=== PATIENT | female | born 1990 | race Caucasian/White ===

== ENCOUNTER → 2018-01-05 16:25 | Outpatient (CLI) | payer MEDICAID, SELFPAY ==
[2018-01-05 16:29] LABS: Red Blood Cells-Urine 0 SEEN /hpf (0-5)
[2018-01-05 17:52] LABS: Absolute Lymphocyte Count 1.62 X10^3/ul (0.83-4.51); Absolute Neutrophil Count 6.1 X10^3/uL (2.0-7.7); Basophil# 0.02 X10^3/uL; Basophil% 0.2 % (0-1); Eosinophil# 0.14 X10^3/uL; Eosinophils% 1.6 % (0-5); Hematocrit 40.3 % (37-47); Hemoglobin 14.1 g/dl (12.0-15.0); Lymphocyte # 1.62 X10^3/ul (4.0); Lymphocyte % 18.9 % (19-41); Mean Corpuscular Hgb 32.3 pg (27.0-32.0); Mean Corpuscular Volume 92.4 fL (81-99); Mean Platelet Vol. 10.7 fl (6.2-12.0); Monocyte# 0.67 X10^3/uL; Monocyte% 7.8 % (0-10); Neutrophil # 6.13 X10^3/uL (2.7-7.7); Neutrophil % 71.4 % (47-70); Platelet Count 220 K/mm3 (150-450); RBC Distribution Width CV 12.3 % (11.6-14.6); RBC Distribution Width SD 40.5 fl (35.1-43.9); Red Blood Count 4.36 M/mm3 (4.2-5.4); White Blood Count 8.6 K/mm3 (4.4-11.0)
[2018-01-05 17:53] LABS: Color, Urine Yellow (Yellow); Glucose, Dipstick Normal (Normal); Ketone-Dipstick Negative (Negative); Leukocyte Esterase-Dipstick 25 /ul (Negative); Nitrite-Dipstick Negative (Negative); Occult Blood-Urine Negative /ul (Negative); POSITIVE COUNT NO; POSITIVE DIFFERENTIAL NO; POSITIVE MORPHOLOGY NO; Protein-Dipstick Negative (Negative); Urine Bilirubin Dipstick Negative (Negative); Urine Clarity Cloudy (Clear); Urine Urobilinogen Normal (Normal)
[2018-01-05 18:06] LABS: ALB/GLOB Ratio 1.2 RATIO (0.9-2.4); AST(SGOT) 13 U/L (15-37); Alanine Aminotransfer ALT/SGPT 22 U/L (13-56); Albumin, Serum 3.9 g/dL (3.2-5.0); Alkaline Phosphatase 72 U/L (45-117); Anion Gap 8 (5-15); BUN 10 mg/dL (7-18); BUN/Creat Ratio 13.8 RATIO (10-20); Calcium,Total 8.4 mg/dL (8.5-10.1); Chloride 105 mmol/L (98-107); Creatinine, Serum 0.72 mg/dL (0.55-1.02); EST Glomerular Filtration Rate 101 mL/min (>60); Est Glom Filt Rate - Afr Amer 122 mL/min (>60); Globulin 3.3 g/dL (2.2-4.2); Glucose 127 mg/dL (74-106); Lipase 202 U/L (73-393); Potassium 3.9 mmol/L (3.5-5.1); Protein, Total 7.2 g/dL (6.4-8.2); Sodium Level 140 mmol/L (136-145)
[2018-01-05 18:07] LABS: hCG Titer Quant., Serum < 1 mIU/mL (<9 non-preg)
[2018-01-05 18:24] LABS: Mucous, Urine 1+ /hpf (<or=2+)
[2018-01-05 18:25] LABS: Bacteria RARE /hpf (None Seen); White Blood Cells 0-5 SEEN /hpf (0-5)
[2018-01-05 18:28] LABS: Squamous Epithelial Cells - UA 5-10 SEEN /hpf (5-10)
== END ==
PROVIDERS: Family Provider Family Medicine; PCP Family Medicine; Visit Provider Family Medicine
DX: J02.9 Acute pharyngitis, unspecified (principal); R10.9 Unspecified abdominal pain; R30.0 Dysuria
CPT/HCPCS: 36415; 80053; 81001; 83690; 84702; 85025; 87086; 87088

== ENCOUNTER 2018-05-22 19:32 | Emergency (ER) | payer MEDICAID, SELFPAY ==
[2018-05-22 19:32] VITALS: BP 114/75; PULSE 91; RESP 16; TEMP 37.1; O2SAT 97; BMI 27.1
--- NOTE | 2018-05-22 19:56 | EKG12_ITS ---
Test Reason : DIZZINESS Blood Pressure : / mmHG Vent. Rate : 073 BPM Atrial Rate : 073 BPM P-R Int : 140 ms QRS Dur : 094 ms QT Int : 406 ms P-R-T Axes : 005 014 016 degrees QTc Int : 447 ms Normal sinus rhythm Normal ECG Confirmed by BEN FOLEY, ROMELIA ([id number]), international editorial producer DEBBIE CROW ([id number] on 05/25/2018 2:03:02 PM Referred By: Confirmed By:ROMELIA CONTRERAS MD
--- NOTE | 2018-05-22 20:04 | ED.RN ---
NO OLD EKG'S IN MUSE
[2018-05-22] MEDS: Ondansetron 4 MG/2 ML Vial IV (20:12)
[2018-05-22] MEDS: 0.9% Normal Saline 1,000 ML 1000 ML IV (20:12)
[2018-05-22 20:14] LABS: Absolute Lymphocyte Count 2.05 X10^3/ul (0.83-4.51); Absolute Neutrophil Count 6.1 X10^3/uL (2.0-7.7); Basophil# 0.02 X10^3/uL; Basophil% 0.2 % (0-1); Eosinophil# 0.16 X10^3/uL; Eosinophils% 1.8 % (0-5); Hematocrit 40.9 % (37-47); Hemoglobin 13.9 g/dl (12.0-15.0); Lymphocyte # 2.05 X10^3/ul (4.0); Lymphocyte % 22.7 % (19-41); Mean Corpuscular Hgb 31.4 pg (27.0-32.0); Mean Corpuscular Volume 92.5 fL (81-99); Mean Platelet Vol. 9.8 fl (6.2-12.0); Monocyte# 0.71 X10^3/uL; Monocyte% 7.8 % (0-10); Neutrophil % 67.4 % (47-70); Platelet Count 196 K/mm3 (150-450); RBC Distribution Width CV 12.2 % (11.6-14.6); RBC Distribution Width SD 41.7 fl (35.1-43.9); Red Blood Count 4.42 M/mm3 (4.2-5.4); White Blood Count 9.1 K/mm3 (4.4-11.0)
[2018-05-22 20:16] LABS: POSITIVE COUNT NO; POSITIVE DIFFERENTIAL NO; POSITIVE MORPHOLOGY NO
[2018-05-22 20:18] VITALS: BP 104/61; BP 105/53; BP 105/65; PULSE 75; PULSE 98
--- NOTE | 2018-05-22 20:20 | RAD_ITS ---
STUDY: X-RAY CHEST REASON FOR EXAM: Female, 27 years old. Chest pain and cough TECHNIQUE: Single AP portable view of the chest. COMPARISON: 11/20/2017 FINDINGS: The lungs are clear and expanded. There is no demonstrated pleural abnormality. Normal size heart. Normal mediastinum and ratna. Normal visualized pulmonary arteries. Normal visualized aortic arch and descending thoracic aorta. Normal visualized thoracic spine. Normal visualized ribs, clavicles, and shoulders. There is no demonstrated abnormality of the visualized soft tissue structures of the upper abdomen. RAD/Chest 1 View (Portable) IMPRESSION: Normal x-ray examination of the chest. Electronically Signed: Asad Lui DO at 20:36 EDT Tel , Service support ,
[2018-05-22 20:27] LABS: Anion Gap 6 (5-15); BUN 14 mg/dL (7-18); Calcium,Total 8.6 mg/dL (8.5-10.1); Chloride 108 mmol/L (98-107); Creatinine, Serum 0.78 mg/dL (0.55-1.02); EST Glomerular Filtration Rate 93 mL/min (>60); Est Glom Filt Rate - Afr Amer 113 mL/min (>60); Estimated Creatinine Clearance 107.35 ml/min; Glucose 95 mg/dL (74-106); Potassium 3.8 mmol/L (3.5-5.1); Sodium Level 141 mmol/L (136-145)
[2018-05-22 20:39] LABS: Pregnancy, Serum, hCG Quali. POSITIVE Negative (0-9 Nonpreg)
--- NOTE | 2018-05-22 20:39 | ED.RN ---
DR RICO NOTIFIED + RESULTS
--- NOTE | 2018-05-22 20:56 | US_ITS ---
STUDY: FIRST TRIMESTER OBSTETRICAL ULTRASOUND REASON FOR EXAM: Female, 27 years old. Right lower quadrant pain LMP: 04/17/2018 TECHNIQUE: Transvaginal PRIOR ULTRASOUND: None. FINDINGS: There is no demonstrated intrauterine gestational sac. There is no demonstrated yolk sac. The placenta is non-visualized. There is no demonstrated embryo ( pole). The estimated gestation age (EGA) by LMP is 5 weeks, 0 days. The estimated date of delivery (MARIA ESTHER) by LMP is 01/22/2019. The uterus measures there is a septate uterus which measures 8.3 x 6.4 x 4.6 cm.. There is no demonstrated uterine fibroid. The cervix is closed. The endometrium measures 15 mm in thickness. The right ovary measures 4.0 x 2.7 x 2.6 cm. There is a 1.8 x 1.1 x 1.0 cm right ovarian cyst. There is no visualized right adnexal mass or complex lesion. The left ovary measures 3.0 x 2.2 x 1.8 cm.. There is no left ovarian cyst. There is no visualized left adnexal mass or complex lesion. There is minimal fluid in the cul de sac. US/Transvaginal w/Preg US IMPRESSION: There is no evidence of gestational sac or products of conception within the uterus. Endometrium is thickened, measuring 15 mm. There is a 1.8 x 1.1 x 1.0 cm right ovarian cyst. There is a small amount of fluid in the cul-de-sac. Electronically Signed: Enrique Alonso MD at 22:25 EDT , Service support ,
[2018-05-22 21:09] LABS: hCG Titer Quant., Serum 26 mIU/mL (<9 non-preg)
--- NOTE | 2018-05-22 21:21 | ED.DCSUM_ITS ---
- ER Visit Summary Date of Service: 05/22/18 Chief Complaint: Dizziness, nausea History of Present Illness: The patient is a 27 F presenting with dizziness, nausea. She states that she has not felt well over the past 3 days. She has nausea, vomiting. She has had constipation. She complains of dysuria. Her last menstrual period was over a month ago and she is unsure if she could be . She has low right pelvic pain. No vaginal bleeding. Physical Examination: Vitals are stable. Patient is afebrile. Alert no acute distress. HEENT exam is unremarkable. Neck is supple. Lungs are clear and equal bilaterally. Heart is regular rate and rhythm. Abdomen is soft right low pelvic tenderness, no tenderness of McBurney's point. No rebound or guarding Extremities are unremarkable. Skin is warm and dry. No focal neurologic deficit. Remainder of exam is unremarkable. Emergency Department Course and Treatment: EKG is sinus rate is 73. Chest x- ray shows no acute process. CBC, chemistries unremarkable. HCG positive. Orthostatics are negative. She is given IV fluids, Zofran with improvement. HCG quant was 26. Transvaginal ultrasound shows there is no evidence of gestational sac or products of conception within the uterus. Endometrium is thickened, measuring 15 mm. There is a 1.8 x 1.1 x 1.0 cm right ovarian cyst. There is a small amount of fluid in the cul-de-sac. Patient is resting comfortably on repeat evaluation. She is advised importance of close outpatient follow-up with GENETIC TECHNOLOGIST. She will need her quant level rechecked. She is advised return to ED for worsening symptoms. Disposition: Discharge home Impression: This note was generated with [employer] dictation software. It may contain incorrect words, spelling, and punctuation that were not noted in review of the chart prior to signing ED Disposition - Plan for ED Patient: Chief Complaint: Complaint Instructions: ED Care Referrals: Stan Lockett DO [Primary Care Provider] - Nathalia David MD [STAFF PHYSICIAN] -
[2018-05-22 21:33] LABS: Mucous, Urine 0 SEEN /hpf (<or=2+); Red Blood Cells-Urine 0 SEEN /hpf (0-5)
[2018-05-22 21:40] LABS: Color, Urine Yellow (Yellow); Glucose, Dipstick Normal (Normal); Ketone-Dipstick Negative (Negative); Leukocyte Esterase-Dipstick 25 /ul (Negative); Nitrite-Dipstick Negative (Negative); Occult Blood-Urine Negative /ul (Negative); Protein-Dipstick Negative (Negative); Specific Gravity, Urine 1.025 (1.002-1.030); Urine Bilirubin Dipstick Negative (Negative); Urine Clarity Clear (Clear); Urine Urobilinogen Normal (Normal)
[2018-05-22 21:55] LABS: Bacteria RARE /hpf (None Seen); Squamous Epithelial Cells - UA 0-5 SEEN /hpf (5-10); White Blood Cells 0-5 SEEN /hpf (0-5)
--- NOTE | 2018-05-22 22:41 | ED.DEP ---
ED Disposition - Plan for ED Patient: Chief Complaint: Complaint Instructions: ED Care Referrals: Stan Lockett DO [Primary Care Provider] - Nathalia David MD [STAFF PHYSICIAN] -
[2018-05-22 22:59] VITALS: BP 108/69; PULSE 74; RESP 16; O2SAT 98
== END 2018-05-22 22:59 | disposition home or self-care (01) ==
LOC: ED 19:59
PROVIDERS: Emergency Provider Emergency Medicine; Family Provider Family Medicine; PCP Family Medicine
DX: O99.89 Other specified diseases and conditions complicating pregnancy, childbirth and the puerperium (principal); R42 Dizziness and giddiness; O21.9 Vomiting of pregnancy, unspecified; O34.80 Maternal care for other abnormalities of pelvic organs, unspecified trimester; N83.201 Unspecified ovarian cyst, right side; Z3A.00 Weeks of gestation of pregnancy not specified
CPT/HCPCS: 71045; 76817; 80048; 81001; 84702; 84703; 85025; 93005; 96361; 96374; 99285; J7030; A4216; J2405

== ENCOUNTER → 2018-05-25 15:30 | Outpatient (CLI) | payer MEDICAID, SELFPAY ==
[2018-05-25 17:31] LABS: hCG Titer Quant., Serum 113 mIU/mL (<9 non-preg)
== END ==
PROVIDERS: Family Provider Family Medicine; PCP Family Medicine; Visit Provider Obstetrics & Gynecology
DX: O20.0 Threatened abortion (principal); Z3A.00 Weeks of gestation of pregnancy not specified
CPT/HCPCS: 36415; 84702

== ENCOUNTER → 2018-05-30 11:18 | Outpatient (CLI) | payer MEDICAID, SELFPAY ==
[2018-05-30 12:49] LABS: hCG Titer Quant., Serum 769 mIU/mL (<9 non-preg)
== END ==
PROVIDERS: Family Provider Family Medicine; PCP Family Medicine; Visit Provider Obstetrics & Gynecology
DX: O20.0 Threatened abortion (principal); Z3A.00 Weeks of gestation of pregnancy not specified
CPT/HCPCS: 36415; 84702

== ENCOUNTER → 2018-06-14 10:46 | Outpatient (CLI) | payer MEDICAID, SELFPAY ==
[2018-06-14 15:59] LABS: Chlamydia Trachomatis by PCR Negative (Negative); Neisserai gonorrhoeae by PCR Negative (Negative); Probe Check PASS; Sample Adequacy Control PASS; Specimen Processing Control PASS
== END ==
PROVIDERS: Family Provider Family Medicine; PCP Family Medicine; Visit Provider Obstetrics & Gynecology
DX: Z34.90 Encounter for supervision of normal pregnancy, unspecified, unspecified trimester (principal)
CPT/HCPCS: 87086; 87088; 87491; 87591

== ENCOUNTER → 2018-07-04 12:29 | Outpatient (CLI) | payer MEDICAID, SELFPAY ==
[2018-07-08 07:56] LABS: PARVOVIRUS B19 IGM 0.2 index (0.0-0.8)
== END ==
PROVIDERS: Visit Provider Obstetrics & Gynecology
DX: B08.3 Erythema infectiosum [fifth disease] (principal)
CPT/HCPCS: 36415; 86747

== ENCOUNTER 2018-07-21 11:54 | Emergency (ER) | payer MEDICAID, SELFPAY ==
[2018-07-21 11:55] VITALS: BP 122/78; PULSE 99; RESP 16; TEMP 36.9; O2SAT 97; BMI 27.8
--- NOTE | 2018-07-21 13:02 | ED.RN ---
PT LEFT FOOT PLACED IN WARM WATER AND PEROXIDE SOAK PER VERBAL PHYSICIAN ORDER. WILL CONTINUE TO MONITOR.
--- NOTE | 2018-07-21 13:46 | ED.DCSUM_ITS ---
- ER Visit Summary Date of Service: 07/21/18 Chief Complaint: Left great toe injury History of Present Illness: The patient is a 27 F who is currently 11 weeks . She was stepping out onto her patio last evening when she rolled her foot over a brick. She is complaining of pain to the left foot with a great toe and to the first MTP joint. She states her toenail on her first toe was torn and was bleeding. Physical Examination: Vital signs are unremarkable. Patient is in no acute distress. Lower external examination was dried blood at the end of the left great toenail. There is a small area of skin avulsion. She does have tenderness of the first MTP joint. Normal sensation and cap refill are noted. Test Results: Left foot x-rays are obtained and reveal soft tissue swelling only. Emergency Department Course and Treatment: Left foot is soaked and cleansed. Dressing is applied. There is no evidence of foreign body at this time. Patient be covered with Keflex to prevent infection. Treatment Plan: [] Disposition: Discharge Impression: 1. Left foot sprain 2. Skin avulsion distal left great toe This note was generated with [employer] dictation software. It may contain incorrect words, spelling, and punctuation that were not noted in review of the chart prior to signing ED Disposition - Plan for ED Patient: Chief Complaint: Lower Extremity Injury Referrals: Stan Lockett DO [Primary Care Provider] -
--- NOTE | 2018-07-21 13:46 | ED.DEP ---
ED Disposition - Plan for ED Patient: Disposition: Home or Assisted Living Chief Complaint: Lower Extremity Injury Instructions: ED Sprain Foot Prescriptions: Cephalexin [Keflex] 500 mg PO Q6 #40 capsule Referrals: Stan Lockett DO [Primary Care Provider] - 1-2 Weeks
[2018-07-21] MEDS: Cephalexin 250 MG Capsule 500 MG PO (13:56)
--- NOTE | 2018-07-21 13:56 | ED.RN ---
LEFT FOOT WRAPPED WITH ASHLEY PER PHYSICIAN VERBAL ORDER. PT CONVEYS UNDERSTANDING OF WRAPPING AND APPROPRIATE USE OF ASHLEY.
== END 2018-07-21 13:58 | disposition home or self-care (01) ==
PROVIDERS: Emergency Provider Emergency Medicine; Family Provider Family Medicine; PCP Family Medicine
DX: O99.89 Other specified diseases and conditions complicating pregnancy, childbirth and the puerperium (principal); S93.602A Unspecified sprain of left foot, initial encounter; S91.202A Unspecified open wound of left great toe with damage to nail, initial encounter; X50.1XXA Overexertion from prolonged static or awkward postures, initial encounter; Y93.89 Activity, other specified; Y92.008 Other place in unspecified non-institutional (private) residence as the place of occurrence of the external cause; Z3A.11 11 weeks gestation of pregnancy
CPT/HCPCS: 73630; 99283

== ENCOUNTER 2018-08-22 08:35 | Emergency (ER) | payer MEDICAID, SELFPAY ==
[2018-08-22 08:36] VITALS: BP 126/73; PULSE 101; RESP 18; TEMP 36.6; O2SAT 98; BMI 28.8
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
[2018-08-22] MEDS: Acetaminophen 325 MG Tablet 650 MG PO (10:07)
[2018-08-22 10:08] VITALS: BP 123/74; PULSE 62; RESP 15; O2SAT 98
== END 2018-08-22 10:09 | disposition home or self-care (01) ==
PROVIDERS: Emergency Provider Emergency Medicine; Family Provider Family Medicine; PCP Family Medicine
DX: O99.89 Other specified diseases and conditions complicating pregnancy, childbirth and the puerperium (principal); S39.012A Strain of muscle, fascia and tendon of lower back, initial encounter; V49.40XA Driver injured in collision with unspecified motor vehicles in traffic accident, initial encounter; Y93.89 Activity, other specified; Y92.410 Unspecified street and highway as the place of occurrence of the external cause; Z3A.00 Weeks of gestation of pregnancy not specified
CPT/HCPCS: 99284

== ENCOUNTER → 2018-08-23 11:48 | Outpatient (CLI) | payer MEDICAID, SELFPAY ==
[2018-08-23 12:12] LABS: Absolute Lymphocyte Count 1.28 X10^3/ul (0.83-4.51); Absolute Neutrophil Count 7.8 X10^3/uL (2.0-7.7); Basophil# 0.02 X10^3/uL; Basophil% 0.2 % (0-1); Eosinophil# 0.15 X10^3/uL; Eosinophils% 1.5 % (0-5); Hematocrit 39.8 % (37-47); Hemoglobin 13.7 g/dl (12.0-15.0); Lymphocyte # 1.28 X10^3/ul (4.0); Mean Corp Hgb Conc 34.4 g/gl (32-36); Mean Corpuscular Hgb 32.5 pg (27.0-32.0); Mean Corpuscular Volume 94.5 fL (81-99); Mean Platelet Vol. 9.9 fl (6.2-12.0); Monocyte# 0.64 X10^3/uL; Monocyte% 6.5 % (0-10); Neutrophil # 7.76 X10^3/uL (2.7-7.7); Neutrophil % 78.5 % (47-70); Platelet Count 216 K/mm3 (150-450); RBC Distribution Width CV 12.6 % (11.6-14.6); RBC Distribution Width SD 42.4 fl (35.1-43.9); Red Blood Count 4.21 M/mm3 (4.2-5.4); White Blood Count 9.9 K/mm3 (4.4-11.0)
[2018-08-23 12:32] LABS: POSITIVE COUNT NO; POSITIVE DIFFERENTIAL NO; POSITIVE MORPHOLOGY NO
[2018-08-23 13:24] LABS: HIV - WCH Non-Reactive (Nonreactive); Rubella IgG 100.4 IU/mL
[2018-08-24 13:47] LABS: HEPATITIS B SURFACE AG Negative (Negative)
[2018-08-25 03:00] LABS: Rapid Plasmin Reagin (RPR) NONREACTIVE (NONREACTIVE)
== END ==
PROVIDERS: Family Provider Family Medicine; PCP Family Medicine; Referring Provider Obstetrics & Gynecology; Visit Provider Obstetrics & Gynecology
DX: Z34.90 Encounter for supervision of normal pregnancy, unspecified, unspecified trimester (principal)
CPT/HCPCS: 36415; 85025; 86592; 86703; 86762; 86850; 86900; 87340

== ENCOUNTER → 2018-10-25 18:14 | Outpatient (CLI) | payer MEDICAID, SELFPAY ==
[2018-10-25 10:11] VITALS: BMI 30.2
== END ==
PROVIDERS: Family Provider Family Medicine; PCP Family Medicine; Referring Provider Nurse Practitioner Women's Health; Visit Provider Nurse Practitioner Women's Health
DX: N76.0 Acute vaginitis (principal)
CPT/HCPCS: 87086; 87088

== ENCOUNTER 2018-11-01 14:10 | Outpatient (CLI) | payer MEDICAID, SELFPAY ==
[2018-10-25 10:11] VITALS: BMI 30.2
[2018-11-01 14:29] VITALS: BMI 30.9
--- NOTE | 2018-11-01 18:26 | OB.TRI.NOTE ---
- Problem List (1) Right groin pain Status: Acute History of Present Illness Date of Service: 11/01/18 Was patient seen by the physician?: No Reason For Visit: SIDE CRAMPING History of Present Illness: co right sided groin pain Allergies banana Allergy (Verified 11/01/18 14:30) Nausea/Vom/Diarrhea also lightheadedness latex Allergy (Verified 11/01/18 14:30) Hives bandaids Allergy (Uncoded 10/20/18 13:51) Hives NST - FHR Rate Baby A Baseline: 120-130 moderate variability reactive no decels cat I Uterine Activity:: no regular Impression/Plan right groin pain no contractions reassuring status likely round ligament dc home
--- OUTSIDE RECORDS SUMMARY | 2018-12-18 19:24 | XMS RPT_ITS ---
:1990 Author Organization OHIP Support Name Relationship Address Phone REESICK Unavailable [address] + [place] [address] UE Unavailable Unavailable Unavailable KIMMELL, ROSE Unavailable [address] + [place] [address] UE Unavailable Unavailable Unavailable KIMMELL, ORSE Unavailable [address] + [place] [address] UE Unavailable Unavailable Unavailable KIMMELL, ROSE Unavailable [address] + [place] [address] UE Unavailable Unavailable Unavailable KIMMELL, ROSE Unavailable [address] + [place] [address] UE Unavailable Unavailable Unavailable KIMMELL, ROSE Unavailable [address] + [place] [address] UE Unavailable Unavailable Unavailable KIMMELL, ROSE Unavailable [address] + [place] [address] UE Unavailable Unavailable Unavailable KIMMELL, ROSE Unavailable [address] + [place] [address] UE Unavailable Unavailable Unavailable KIMMELL, ROSE Unavailable [address] + [place] [address] UE Unavailable Unavailable Unavailable KIMMELL, ROSE Unavailable [address] + [place] [address] UE Unavailable Unavailable Unavailable KIMMELL, ROSE Unavailable [address] + [place] [address] UE Unavailable Unavailable Unavailable KIMMELL, ROSE Unavailable [address] + [place] [address] UE Unavailable Unavailable Unavailable KIMMELL, ROSE Unavailable [address] + [place] [address] UE Unavailable Unavailable Unavailable KIMMELL IESHA Unavailable [address] + [place] [address] KIMMELL, ROSE Unavailable [address] + [place] [address] UE Unavailable Unavailable Unavailable KIMMELL, ROSE Unavailable [address] + [place] [address] UE Unavailable Unavailable Unavailable KIMMELL, ROSE Unavailable [address] + [place] [address] UE Unavailable Unavailable Unavailable KIMMELL, ROSE Unavailable [address] + [place] [address] UE Unavailable Unavailable Unavailable KIMMELL, ROSE Unavailable [address] + [place] [address] UE Unavailable Unavailable Unavailable KIMMELL, ROSE Unavailable [address] + [place] [address] UE Unavailable Unavailable Unavailable KIMMELL, ROSE Unavailable [address] + [place] [address] UE Unavailable Unavailable Unavailable KIMMELL, ROSE Unavailable [address] + [place] [address] UE Unavailable Unavailable Unavailable KIMMELL, ROSE Unavailable [address] + [place] [address] UE Unavailable Unavailable Unavailable KIMMELL, ROSE Unavailable [address] + [place] [address] UE Unavailable Unavailable Unavailable KIMMELL, ROSE Unavailable [address] + [place] [address] UE Unavailable Unavailable Unavailable KIMMELL, ROSE Unavailable [address] + [place] [address] UE Unavailable Unavailable Unavailable KIMMELL, ROSE Unavailable [address] + [place] [address] UE Unavailable Unavailable Unavailable Care Team Providers Name Role Phone CARMEL JACOBS (BENNETT) Attending Unavailable MILLIE ZARAGOZA Attending Unavailable JACOBS, CARMEL (CNM) Referring Unavailable JACOBS, CARMEL (CNM) Attending Unavailable JACOBS, CARMEL (CNM) Referring Unavailable JACOBS, CARMEL (CNM) Attending Unavailable JACOBS, CARMEL (CNM) Referring Unavailable LISA, SCOTTY (CNM) Attending Unavailable LISA, SCOTTY (CNM) Referring Unavailable FIDELAMPARO Attending Unavailable MARCANTHONYNATHALIA Referring Unavailable NO PRIMARY CARE, MD Primary Care Unavailable Marcanthony, Nathalia Attending Unavailable Marcanthony, Nathalia Referring Unavailable Levy, Stan Primary Care Unavailable Marcanthony, Nathalia Attending Unavailable Marcanthony, Nathalia Referring Unavailable Levy, Stan Primary Care Unavailable Marcanthony, Nathalia Consulting Unavailable AlexandraVaishnaviy Attending Unavailable Alexandra Mahogany Referring Unavailable Levy, Stan Primary Care Unavailable Marcanthony, Nathalia Attending Unavailable Marcanthony, Nathalia Referring Unavailable Levy, Stan Primary Care Unavailable Marcanthony, Nathalia Attending Unavailable Marcanthony, Nathalia Referring Unavailable Levy, Stan Primary Care Unavailable AlexandraVaishnaviy Attending Unavailable [place], Mahogany Referring Unavailable Levy, Stan Primary Care Unavailable Levy, Stan Primary Care Unavailable Linda Ragsdale Attending Unavailable Marcanthony, Nathalia Attending Unavailable Levy, Stan Referring Unavailable Debbie Porter Attending Unavailable Levy, Stan Primary Care Unavailable AlexandraMahogany Attending Unavailable Primay Care Physicia, No Referring Unavailable Primay Care Physicia, No Primary Care Unavailable Marcanthony, Nathalia Attending Unavailable Marcanthony, Nathalia Referring Unavailable Primay Care Physicia, No Primary Care Unavailable Marcanthony, Nathalia Attending Unavailable Marcanthony, Nathalia Referring Unavailable Levy, Stan Primary Care Unavailable Wa[place]Mahogany Attending Unavailable Levy, Stan Referring Unavailable [place]any Attending Unavailable Levy, Stan Referring Unavailable Marcanthony, Nathalia Attending Unavailable Marcanthony, Nathalia Referring Unavailable Levy, Stan Primary Care Unavailable Marcanthony, Nathalia Attending Unavailable Levy, Stan Referring Unavailable Levy, Stan Primary Care Unavailable Marcanthony, Nathalia Attending Unavailable Marcanthony, Nathalia Referring Unavailable Levy, Stan Primary Care Unavailable Levy, Stan Primary Care Unavailable Gina Diaz Attending Unavailable Levy, Stan Attending Unavailable Levy, Stan Primary Care Unavailable Marcanthony, Nathalia Attending Unavailable Levy, Stan Referring Unavailable [place], Mahogany Attending Unavailable Levy, Stan Referring Unavailable [place], Mahogany Attending Unavailable Levy, Stan Primary Care Unavailable [place], Mahogany Referring Unavailable Marcanthony, Nathalia Attending Unavailable Levy, Stan Referring Unavailable [place], Mahogany Attending Unavailable Levy, Stan Referring Unavailable Marcanthony, Nathalia Attending Unavailable Marcanthony, Nathalia Referring Unavailable Levy, Stan Primary Care Unavailable [place], Mahogany Attending Unavailable Levy, Stan Referring Unavailable PROBLEMS PROBLEMS DATE TYPE CONDITION / CODE ATTENDING STATUS SOURCE 12/12/2018 Unknown O26.899 - Other Alexandra, Mahogany Active [place] specified Community related conditions, Hospital unspecified trimester Repository / O26.899(ICD-10) 12/12/2018 Unknown N89.8 - Other Alexandra, Mahogany Active [place] specified [facility] noninflammatory Hospital disorders of vagina / Repository N89.8(ICD-10) 12/12/2018 Unknown Z34.81 - Encounter Waite[place]ishnaviy Active [place] for supervision of [facility] other normal Hospital , first Repository trimester / Z34.81(ICD-10) 12/12/2018 Unknown Z3A.32 - 32 weeks [place], Mahogany Active [place] gestation of [facility] / Hospital Z3A.32(ICD-10) Repository 12/12/2018 Unknown O09.219 - Supervision Alexandra, Mahogany Active [place] of with Community history of pre-term Hospital labor, unspecified Repository trimester / O09.219(ICD-10) 12/12/2018 Unknown O24.410 - Gestational [place], Mahogany Active [place] diabetes mellitus in [facility] , [facility] Hospital controlled / Repository O24.410(ICD-10) 12/12/2018 Unknown 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, 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 / Repository E01.0(ICD-10) 11/17/2018 Unknown Z34.90 - Encounter Alexandra, Mahogany Active [place] for supervision of Community normal , Hospital unspecified, Repository unspecified trimester / Z34.90(ICD-10) 11/17/2018 Unknown Z3A.29 - 29 weeks [place], Mahogany Active [place] gestation of Community / Hospital Z3A.29(ICD-10) Repository 11/06/2018 Unknown R10.31 - Right lower Joann, Active [place] quadrant pain / General Acute Hospital R10.31(ICD-10) Hospital Repository 10/26/2018 Unknown N76.0 - Acute Alexandra, Molly Active [place] vaginitis / [facility] N76.0(ICD-10) Hospital Repository 10/20/2018 Unknown Z3A.25 - 25 weeks Joann, Active [place] gestation of General Acute Hospital / Hospital Z3A.25(ICD-10) Repository 03/01/2018 Active Complete or NA Active [place] unspecified [facility] Main spontaneous [employer] without complication Repository / O03.9(ICD-10) 01/13/2018 Active Unknown / REYNALDO CARMEL Active [facility](Unknown) ([facility]) [facility] Main [employer] Repository 01/05/2018 Unknown R10.9 - Unspecified LevyStan hurtado Active [place] abdominal pain / Community R10.9(ICD-10) Hospital Repository 01/05/2018 Unknown R30.0 - Dysuria / Stan Lockett Active [place] R30.0(ICD-10) [facility] Hospital Repository 01/05/2018 Unknown J02.9 - Acute LevyStan fofana Active [place] pharyngitis, Community unspecified / Hospital J02.9(ICD-10) Repository PROCEDURES PROCEDURES No Procedure Records FoundRESULTS RESULTS (ROM) RUPTURE OF Collected: 12/12/2018 Status: F Source: [facility] 2:54 PM [facility] REPOSITORY TYPE CODE TESTS RESULT OUT OF RANGE REFERENCE UNITS LAB L205.1310 Negative Normal ROM Negative Result Comment: Amniotic fluid not present indicates No Rupture of Membranes at time of specimen collection. Performed By: #### L205.1000 #### [facility] [address] [place], [place], [address] [facility] OFFICE VISIT Observed: 12/12/2018 Status: F Source: [place] REPORT 2:28 PM [facility] REPOSITORY [facility] [address] [place] [address] OFFICE VISIT Date of Service: 12/12/18 MR#: [id number] Acct: [id number] Name: IESHA LAWRENCE Rep #: [id number] : 1990 Provider: BALTAZAR Morris Age/Sex: 28/F Location: [facility] [place] [facility] Status: Signed Intake Vital Signs12/12/18 Body Mass Index (BMI) 30.9 12/12/18 Height 5 ft 8 in 12/12/18 Weight: 206 lb 12/12/18 Body Mass Index (BMI) 31.3 12/12/18 Blood Pressure 116/78 Intake Visit Reasons: LOF Cabinet Builder Required: No Is patient in pain?: No Allergies banana Allergy (Verified 12/12/18 13:57) Nausea/Vom/Diarrhea latex Allergy (Verified 12/12/18 13:57) Hives bandaids Allergy (Uncoded 11/29/18 12:25) Hives Medications Vits [Prenatabs FA] 1 tab PO DAILY 08/22/18 [History Confirmed 12/12/18] blood sugar diagnostic strips See Dose Instructions .ROUTE .MEDSUPPLY #100 ea 11/29/18 [Rx Confirmed 12/12/18] blood-glucose meter kit See Dose Instructions .ROUTE .MEDSUPPLY #1 ea 11/29/18 [Rx Confirmed 12/12/18] blood sugar diagnostic strips See Dose Instructions .ROUTE .MEDSUPPLY #100 ea 12/06/18 [Rx Confirmed 12/12/18] blood-glucose meter kit See Dose Instructions .ROUTE .MEDSUPPLY #1 ea 12/12/18 [Rx] Last Menstral Period: 04/07/18 Zika: Zika virus screening: Negative : No PFSH PFSH Family History Mother CVA (cerebral vascular accident) Diabetes Heart disease Social History Smoking Status: Never smoker alcohol intake: never substance use type: does not use caffeine: No what type of physical activity do you participate in: none seatbelt use: always do you feel safe at home: Yes additional social history: - Leonel- [place] Patient is a stay at home mom Pregancy History 6 Elective abortions Hx Para 4 Spontaneous abortions 1 Past Pregnancies Del. DateName GA/Weeks Outcome Route Bth WeighInfant GeLabor LgtAnesthesiDel LocatProvider FOB t n h a n Delivery Date: 02/18/16 On 06/14/18 @ 09:07 Luz Mckeon No issues during or delivery. Delivery Date: 01/21/14 On 06/14/18 @ 09:05 Luz Mckeon No issues during or delivery. Delivery Date: 04/07/09 On 06/14/18 @ 09:04 Luz Mckeon No issues during or delivery. Delivery Date: 12/15/06 On 06/14/18 @ 09:03 Luz Mckeon No issues during . No issues during delivery. HPI LOF: Details: IESHA LAWRENCE is a 28 year old who presents for routine OB visit. OB Visit MARIA ESTHER Calculator Estimated Delivery Date 02/02/19 Based on Ultrasound Date 06/14/18 Current WG 32w 4d Number 1 Expected Delivery Route/Plan Specific Issue/Plans flu vaccine: declines tdap vaccine: declines rhogam: NA LARC form signed: dilshad labor support person: Leonel pain management: natural cut cord/dad catch: yes : yes PP control planned: vasectomy discussed possible routes of delivery and associated risks: [] special requests: [] Initial Weight: Not Recorded Date Weight BP Urine PFHR FuHt Pres MCTX DilatioFetal SVisit NProvideComment rot ov n t ote r s EGA Ef Gluco faced se 06/14/1181 lb 109/74 8 4 oz 6w 5d Visit Notes Visit Date: 12/12/18 work in for LOF X 1 wk. Good FM No VB. Has not started checking BS yet, has not picked up monitor. EYAL Quiroz on 12/12/18 Visit Date: 11/29/18 no vb lof good fm nor egular ctx discussed diabetes diagnosis Nathalia David MD on 11/29/18 Visit Date: 11/17/18 Doing well. NO VB, LOF EYAL Quiroz on 11/17/18 Visit Date: 10/25/18 work in for pressure, vaginal spotting this AM. EYAL Quiroz on 10/25/18 Visit Date: 10/20/18 no vb lof good fm no regular ctx- having some irregular. Nathalia David MD on 10/20/18 Visit Date: 09/21/18 Doing well. No VB, LOF. EYAL Quiroz on 09/21/18 Visit Date: 08/23/18 needs new ob labs still drawn Nathalia David MD on 08/23/18 no vb cramping. Nathalia David MD on 08/23/18 Visit Date: 07/17/18 Nausea problematic with occa vomiting. Spotting with wiping X 1 yesterday. None since. US confirms active IUP and FHT 160 EYAL Quiroz on 07/17/18 Visit Date: 06/14/18 No visit notes to display ACOG First Trimester First Trimester: Desire for , Alcohol, Tobacco Cessation, Illicit/Recreational Drug/Substance Use, Intimate Partner Violence, Barriers to care, Unstable Housing, Communication Barriers, Environmental/Work Hazards, Anticipated Course of Care, Toxoplasmosis Precations, Use of Any medications, Sexual activity, Exercise, Dental Care, Sauna/Hot tub use, Seat Belt use, Childbirth classes/Hospital facilities, , Travel, Indications for US and Screening for Aneuploidy Second Trimester Second Trimester: Signs and Symptoms of Labor, Selecting a care provider, Reproductive Life Planning, Care Planning, Tobacco Cessation, Depression/Anxiety and Intimate Partner Violence Diagnostics Diagnostics Labs Blood Type A POSITIVE 08/23/18 Antibody Screen NEGATIVE 08/23/18 Hct 35.5 % (37-47) L 11/17/18 Hgb 11.6 g/dl (12.0-15.0) L 11/17/18 Obstetrics Ultrasound 12/07/18 Rubella IgG Antibody 100.4 IU/mL 08/23/18 RPR NONREACTIVE (NONREACTIVE) 08/23/18 Hep Bs Antigen Negative (Negative) 08/23/18 Glucose 1 Hr 50 gm 167 mg/dL (70-140) H 11/17/18 Details: HIV: Urine Culture: Sequential Screen: NIPT Screen: ROS Const Reports system reviewed and no additional complaints, except as docu GI Denies nausea, Denies vomiting, Denies abdominal pain Exam Const General: cooperative Nutritional Appearance: well nourished GI Palpation: soft, nontender, other (gravid) Results [id number] Office Urine Glucose Negative Last Edit by Luz Mckeon on 12/12/18 14:10 Office Urine Protein Negative Last Edit by Luz Mckeon on 12/12/18 14:10 Assessment AND Plan Problems 1. Vaginal discharge N89.8 2. Encounter for supervision of other normal in first trimester Z34.81 PRR MARIA ESTHER 02/02/19 boy SANDRINE Guerra, Shayy, Filiberto Lisandra Leonel 3. 32 weeks gestation of Z3A.32 Declines genetic, carrier, and ntd screening. Anatomy US normal. 4. Previous delivery, antepartum O09.219 patient declines progesterone injections. 4cm cervical length at anatomy US 5. Diet controlled gestational diabetes mellitus (GDM) in third trimester O24.410 6. Thyromegaly E01.0 workup negative Plan Orders placed: ROM+; Repeat growth US 36 wk Discussed importance of checking blood glucose. Confirmed meter and strips at pharmacy for her. Reviewed of labor precautions, movement/kick counts ACOG trimester education reviewed and updated See problem list details for updated plan of care Gestational age appropriate handout given RTO: 2 weeks Orders Orders: Coding Level of Care Code Off vis,est,level 3 Diagnoses Vaginal discharge N89.8 Encounter for supervision of other normal in first trimester Z34.81 Normal : other normal Trimester: first trimester 32 weeks gestation of Z3A.32 Weeks of gestation: 32 weeks Previous delivery, antepartum O09.219 Diet controlled gestational diabetes mellitus (GDM) in third trimester O24.410 Trimester: third trimester Thyromegaly E01.0 12/12/18 1428 <Electronically signed by Mahogany BIRCH> Date Mahogany BIRCH Cosigner Signature: Date (if applicable) CC: OB LIMITED WITH Observed: 12/07/2018 Status: F Source: [facility] 12:44 PM [facility] REPOSITORY [facility] [address] [place] [address] OB Limited With Biometrics MR#: [id number] Acct: [id number] Name: IESHA LAWRENCE Rep #: [id number] : 1990 F 28 From: Chauncey Beaver MD PCP: Stan Lockett DO Status: REG CLI Study: OB Limited With Biometrics Date of Exam: 12/07/18 Exam# [id number] Ordering Dr: Nathalia David MD STUDY: SECOND AND THIRD TRIMESTER OBSTETRICAL ULTRASOUND - LIMITED REASON FOR EXAM: Female, 28 years old. Routine survey. Gestational diabetes. LMP: April 27, 2018. PRIOR ULTRASOUND: None. TECHNIQUE: Transabdominal TECHNICAL QUALITY: Adequate. FINDINGS: There is a single intrauterine fetus. The fetus is in a cephalic presentation. There is demonstrated cardiac activity with a heart rate of 143 bpm. There is a normal amniotic fluid volume. The largest amniotic fluid pocket measures 5.2 cm x 2.8 cm. The amniotic fluid index (JUNG) is 16.0 cm. The placenta is anterior in location and is not low lying. There are Grade 1 placental changes. The cervix measures 3.6 cm in length. BIOMETRY: BPD: 8.56 cm: 34 weeks, 4 days HC: 31.38 cm: 35 weeks, 2 days AC: 29.68 cm: 33 weeks, 5 days FL: 6.51 cm: 33 weeks, 4 days Age by LMP: 32 weeks, 0 days. MARIA ESTHER by LMP: February 01, 2019. age by current US: 34 weeks, 2 days. MARIA ESTHER by current US: January 16, 2019. Estimated weight: 2295 grams, +/- 335 grams, 92 percentile. Gender: Indeterminant US/OB Limited With Biometrics IMPRESSION: Single live intrauterine gestation with a mean gestational age of 34 weeks and 2 days. Electronically Signed: Chauncey Beaver MD at 12:48 EST Tel [phone], Service support , CC: Stan Lockett DO; Nathalia David MD Senior It Auditor: Signed [facility] OFFICE VISIT Observed: 11/30/2018 Status: F Source: [facility] 5:31 AM [facility] REPOSITORY [facility] [address] [place] [address] OFFICE VISIT Date of Service: 11/29/18 MR#: [id number] Acct: [id number] Name: IESHA LAWRENCE Rep #: [id number] : 1990 Provider: Nathalia David MD Age/Sex: 28/F Location: [facility] [place] Status: Signed Intake Vital Signs11/29/18 Body Mass Index (BMI) 30.9 11/29/18 Height 5 ft 8 in 11/29/18 Weight: 209 lb 11/29/18 Body Mass Index (BMI) 31.7 11/29/18 Blood Pressure 120/78 Intake Visit Reasons: 31 WK OB Chief Complaint: est ob Cabinet Builder Required: No Is patient in pain?: No Allergies banana Allergy (Verified 11/29/18 12:25) Nausea/Vom/Diarrhea latex Allergy (Verified 11/29/18 12:25) Hives bandaids Allergy (Uncoded 11/29/18 12:25) Hives Medications Vits [Prenatabs FA] 1 tab PO DAILY 08/22/18 [History Confirmed 11/29/18] blood sugar diagnostic strips See Dose Instructions .ROUTE .MEDSUPPLY #100 ea 11/29/18 [Rx Confirmed 11/29/18] blood-glucose meter kit See Dose Instructions .ROUTE .MEDSUPPLY #1 ea 11/29/18 [Rx Confirmed 11/29/18] Last Menstral Period: 04/07/18 Zika: Zika virus screening: Negative : No PFSH PFSH Family History Mother CVA (cerebral vascular accident) Diabetes Heart disease Social History Smoking Status: Never smoker alcohol intake: never substance use type: does not use caffeine: No what type of physical activity do you participate in: none seatbelt use: always do you feel safe at home: Yes additional social history: - Samir Pradhan Patient is a stay at home mom Pregancy History 6 Elective abortions Hx Para 4 Spontaneous abortions 1 Past Pregnancies Del. DateName GA/Weeks Outcome Route Bth WeighInfant GeLabor LgtAnesthesiDel LocatProvider FOB t n h a n Delivery Date: 02/18/16 On 06/14/18 @ 09:07 Luz Mckeon No issues during or delivery. Delivery Date: 01/21/14 On 06/14/18 @ 09:05 Luz Mckeon No issues during or delivery. Delivery Date: 04/07/09 On 06/14/18 @ 09:04 Luz Mckeon No issues during or delivery. Delivery Date: 12/15/06 On 06/14/18 @ 09:03 Luz Mckeon No issues during . No issues during delivery. HPI 31 WK OB: Details: IESHA LAWRENCE is a 28 year old who presents for routine OB visit. unable to give urine specimen for 2 dip OB Visit MARIA ESTHER Calculator Estimated Delivery Date 02/02/19 Based on Ultrasound Date 06/14/18 Current WG 30w 6d Number 1 Expected Delivery Route/Plan Specific Issue/Plans flu vaccine: declines tdap vaccine: declines rhogam: NA LARC form signed: dilshad labor support person: Leonel pain management: natural cut cord/dad catch: yes : yes PP control planned: vasectomy discussed possible routes of delivery and associated risks: [] special requests: [] Initial Weight: Not Recorded Date Weight BP Urine PFHR FuHt Pres MCTX DilatioFetal SVisit NProvideComment rot ov n t ote r s EGA Ef Gluco faced se 06/14/1181 lb 109/74 8 4 oz 6w 5d Visit Notes Visit Date: 11/29/18 no vb lof good fm nor egular ctx discussed diabetes diagnosis Nathalia David MD on 11/29/18 Visit Date: 11/17/18 Doing well. NO VB, LOF EYAL Quiroz on 11/17/18 Visit Date: 10/25/18 work in for pressure, vaginal spotting this AM. EYAL Quiroz on 10/25/18 Visit Date: 10/20/18 no vb lof good fm no regular ctx- having some irregular. Nathalia David MD on 10/20/18 Visit Date: 09/21/18 Doing well. No VB, LOF. EYAL Quiroz on 09/21/18 Visit Date: 08/23/18 needs new ob labs still drawn Nathalia David MD on 08/23/18 no vb cramping. Nathalia David MD on 08/23/18 Visit Date: 07/17/18 Nausea problematic with occa vomiting. Spotting with wiping X 1 yesterday. None since. US confirms active IUP and FHT 160 EYAL Quiroz on 07/17/18 Visit Date: 06/14/18 No visit notes to display ACOG First Trimester First Trimester: Desire for , Alcohol, Tobacco Cessation, Illicit/Recreational Drug/Substance Use, Intimate Partner Violence, Barriers to care, Unstable Housing, Communication Barriers, Environmental/Work Hazards, Anticipated Course of Care, Toxoplasmosis Precations, Use of Any medications, Sexual activity, Exercise, Dental Care, Sauna/Hot tub use, Seat Belt use, Childbirth classes/Hospital facilities, , Travel, Indications for US and Screening for Aneuploidy Second Trimester Second Trimester: Signs and Symptoms of Labor, Selecting a care provider, Reproductive Life Planning, Care Planning, Tobacco Cessation, Depression/Anxiety and Intimate Partner Violence Diagnostics Diagnostics Labs Blood Type A POSITIVE 08/23/18 Antibody Screen NEGATIVE 08/23/18 Hct 35.5 % (37-47) L 11/17/18 Hgb 11.6 g/dl (12.0-15.0) L 11/17/18 Rubella IgG Antibody 100.4 IU/mL 08/23/18 RPR NONREACTIVE (NONREACTIVE) 08/23/18 Hep Bs Antigen Negative (Negative) 08/23/18 Glucose 1 Hr 50 gm 167 mg/dL (70-140) H 11/17/18 Details: HIV: Urine Culture: Sequential Screen: NIPT Screen: ROS Const Denies fever(s) GI Denies abdominal pain, Reports as per HPI Denies vaginal discharge, Denies abnormal vaginal bleeding, Reports as per HPI Exam Const General: healthy appearing, comfortable, no acute distress GI Inspection: normal to inspection Palpation: soft, nontender Assessment AND Plan Problems 1. Diet controlled gestational diabetes mellitus (GDM) in third trimester O24.410 2. Abnormal glucose affecting O99.810 3 hr GTT ordered 3. Previous delivery, antepartum O09.219 patient declines progesterone injections. 4cm cervical length at anatomy US 4. 31 weeks gestation of Z3A.31 Declines genetic, carrier, and ntd screening. Anatomy US normal. 5. Encounter for supervision of other normal in first trimester Z34.81 PRR MARIA ESTHER 02/02/19 Shayy Brennan Alexander, Kaitlyn Leonel Plan movement and labor precautions reviewed. ACOG trimester education reviewed and updated. see problem list details for updated plan management information and see below for orders placed at this visit. GA appropriate handout given. Orders Orders: Medications Refilled: blood-glucose meter kit ([employer] Blood GlucoAs directed 1 ea 0RF se System kit) blood sugar diagnostic strips ([employer] Test QID (check fasting and 2 hr pp) 100 ea 4RF strips) Coding Level of Care Code Off vis,est,level 3 Diagnoses Diet controlled gestational diabetes mellitus (GDM) in third trimester O24.410 Trimester: third trimester Abnormal glucose affecting O99.810 Previous delivery, antepartum O09.219 31 weeks gestation of Z3A.31 Weeks of gestation: 31 weeks Encounter for supervision of other normal in first trimester Z34.81 Normal : other normal Trimester: first trimester 11/30/18 0531 <Electronically signed by Nathalia David MD> Date Nathalia David MD Cosigner Signature: Date (if applicable) CC: GESTATIONAL GTT 3HR Collected: 11/28/2018 Status: F Source: [place] 100G 7:11 AM [facility] REPOSITORY Order Comment: Is Patient Fasting? Y TYPE CODE TESTS RESULT OUT OF RANGE REFERENCE UNITS LAB L501.0650 <105 mg/dL Normal GLU 102 GTT-FASTING Result Comment: GLUCOSE TOLERANCE TEST FOR Reference Interval GESTATIONAL DIABETES Fasting <105 mg/dL 1 hour <190 mg/dl 2 hour <165 mg/dl 3 hour <145 mg/dl LAB L501.0660 <190 mg/dL Normal GLU GTT- 1HR 183 LAB L501.0670 <165 mg/dL High GLU GTT- 2HR 177 LAB L501.0680 <145 L Normal GLU GTT- 3HR 102 Performed By: #### L500.4710 #### [facility] [address] [place], [address] GLUCOSE CHALLENGE GEST Collected: 11/17/2018 Status: F Source: [place] 1H 50G 3:10 PM [facility] REPOSITORY TYPE CODE TESTS RESULT OUT OF RANGE REFERENCE UNITS LAB L501.0250 70-140 mg/dL High GLU GEST 167 50g 1H Performed By: #### L501.0250 #### [facility] [address] [facility] [place], [address] CBC W/DIFF, AUTOMATED Collected: 11/17/2018 Status: F Source: [place] 3:10 PM [facility] REPOSITORY TYPE CODE TESTS RESULT OUT OF RANGE REFERENCE UNITS LAB L100.1000 4.4-11.0 K/mm3 Normal WBC 9.0 LAB L100.1200 4.2-5.4 M/mm3 Low RBC 3.87 LAB L100.1300 12.0-15.0 g/dl Low HGB 11.6 LAB L100.1400 37-47 % Low HCT 35.5 LAB L100.1500 81-99 fL Normal MCV 91.7 LAB L100.1600 27.0-32.0 pg Normal MCH 30.0 LAB L100.1700 32-36 g/gl Normal MCHC 32.7 LAB L100.1810 11.6-14.6 % Normal RDW CV 12.3 LAB L100.1820 35.1-43.9 fl Normal RDW SD 40.2 LAB L100.1900 150-450 K/mm3 Normal PLT 213 LAB L100.2000 6.2-12.0 fl Normal MPV 9.9 LAB L100.2100 47-70 % High NEUT% 76.6 LAB L100.2200 19-41 % Low LY% 12.9 LAB L100.2300 0-10 % Normal MONO% 7.7 LAB L100.2400 0-5 % Normal EO% 2.2 LAB L100.2500 0-1 % Normal BASO% 0.3 LAB L100.2550 0.0-0.9 % Normal IM GRAN % 0.300 Result Comment: IG% - Immature Granulocytes (promyelocytes, myelocytes and metamyelocytes) > 1% indicates that a LEFT SHIFT is Present. LAB L100.2620 2.0-7.7 X10 3/uL Normal Absolute Neut 6.9 LAB L100.2720 0.83-4.51 X10 3/ul Normal Absolute Lymph 1.17 Performed By: #### L100.0100 #### [facility] [address] [facility] [place], [address] [place] OFFICE VISIT Observed: 11/17/2018 Status: F Source: [place] REPORT 2:19 PM [facility] REPOSITORY [facility] [address] [place], [place] [address]. [address] [place] [address] OFFICE VISIT Date of Service: 11/17/18 MR#: [id number] Acct: [id number] Name: IESHA LAWRENCE Pee Rep #: [id number] : 1990 Provider: BALTAZAR Morris Age/Sex: 28/F Location: [facility] [place] Status: Signed Intake Vital Signs11/17/18 Body Mass Index (BMI) 30.9 11/17/18 Weight: 204 lb 8 oz 11/17/18 Blood Pressure 118/74 Intake Visit Reasons: 29 WEEKS Chief Complaint: Est OB Accompanied by: Daughter Is patient in pain?: No Allergies banana Allergy (Verified 11/17/18 13:53) Nausea/Vom/Diarrhea latex Allergy (Verified 11/17/18 13:53) Hives bandaids Allergy (Uncoded 11/17/18 13:53) Hives Medications Vits [Prenatabs FA] 1 tab PO DAILY 08/22/18 [History Confirmed 11/17/18] Last Menstral Period: 04/07/18 Zika: Zika virus screening: Negative : No PFSH PFSH Family History Mother CVA (cerebral vascular accident) Diabetes Heart disease Social History Smoking Status: Never smoker alcohol intake: never substance use type: does not use caffeine: No what type of physical activity do you participate in: none seatbelt use: always do you feel safe at home: Yes additional social history: - Leonel- [place] Patient is a stay at home mom Pregancy History 6 Elective abortions Hx Para 4 Spontaneous abortions 1 Past Pregnancies Del. DateName GA/Weeks Outcome Route Bth WeighInfant GeLabor LgtAnesthesiDel LocatProvider FOB t n h a n Delivery Date: 02/18/16 On 06/14/18 @ 09:07 Luz Mckeon No issues during or delivery. Delivery Date: 01/21/14 On 06/14/18 @ 09:05 Luz Mckeon No issues during or delivery. Delivery Date: 04/07/09 On 06/14/18 @ 09:04 Luz Mckeon No issues during or delivery. Delivery Date: 12/15/06 On 06/14/18 @ 09:03 Luz Mckeon No issues during . No issues during delivery. HPI 29 WEEKS: Details: IESHA LAWRENCE is a 28 year old who presents for routine OB visit. OB Visit MARIA ESTHER Calculator Estimated Delivery Date 02/02/19 Based on Ultrasound Date 06/14/18 Current WG 29w 0d Number 1 Expected Delivery Route/Plan Specific Issue/Plans flu vaccine: declines tdap vaccine: declines rhogam: NA LARC form signed: dilshad labor support person: Leonel pain management: natural cut cord/dad catch: yes : yes PP control planned: vasectomy discussed possible routes of delivery and associated risks: [] special requests: [] Initial Weight: Not Recorded Date Weight BP Urine PrFHR FuHt Pres MoCTX DilationFetal StVisit NoProviderComments E ot v te GA G Effac lucose ed Visit Notes Visit Date: 11/17/18 Doing well. NO VB, LOF EYAL Quiroz on 11/17/18 Visit Date: 10/25/18 work in for pressure, vaginal spotting this AM. EYAL Quiroz on 10/25/18 Visit Date: 10/20/18 no vb lof good fm no regular ctx- having some irregular. Nathalia David MD on 10/20/18 Visit Date: 09/21/18 Doing well. No VB, LOF. EYAL Quiroz on 09/21/18 Visit Date: 08/23/18 needs new ob labs still drawn Nathalia David MD on 08/23/18 no vb cramping. Nathalia David MD on 08/23/18 Visit Date: 07/17/18 Nausea problematic with occa vomiting. Spotting with wiping X 1 yesterday. None since. US confirms active IUP and FHT 160 EYAL Quiroz on 07/17/18 Visit Date: 06/14/18 No visit notes to display ACOG First Trimester First Trimester: Desire for , Alcohol, Tobacco Cessation, Illicit/Recreational Drug/Substance Use, Intimate Partner Violence, Barriers to care, Unstable Housing, Communication Barriers, Environmental/Work Hazards, Anticipated Course of Care, Toxoplasmosis Precations, Use of Any medications, Sexual activity, Exercise, Dental Care, Sauna/Hot tub use, Seat Belt use, Childbirth classes/Hospital facilities, , Travel, Indications for US and Screening for Aneuploidy Second Trimester Second Trimester: Signs and Symptoms of Labor, Selecting a care provider, Reproductive Life Planning, Care Planning, Tobacco Cessation, Depression/Anxiety and Intimate Partner Violence Diagnostics Diagnostics Labs Blood Type A POSITIVE 08/23/18 Antibody Screen NEGATIVE 08/23/18 Hct 39.8 % (37-47) 08/23/18 Hgb 13.7 g/dl (12.0-15.0) 08/23/18 Rubella IgG Antibody 100.4 IU/mL 08/23/18 RPR NONREACTIVE (NONREACTIVE) 08/23/18 Hep Bs Antigen Negative (Negative) 08/23/18 Obstetrics Ultrasound 05/22/18 Chlam trachomat DNA PCR Negative (Negative) 06/14/18 N.gonorrhoeae DNA (PCR) Negative (Negative) 06/14/18 Rhogam given: No 02/19/16 Details: HIV: Urine Culture: Sequential Screen: NIPT Screen: ROS Const Reports system reviewed and no additional complaints, except as docu GI Denies nausea, Denies vomiting, Denies abdominal pain Exam Const General: cooperative Nutritional Appearance: well nourished GI Palpation: soft, nontender, other (gravid) Results [id number] Office Urine Glucose Negative Last Edit by Hortensia Robbins on 11/17/18 14:02 Office Urine Protein Negative Last Edit by Hortensia Robbins on 11/17/18 14:02 Assessment AND Plan Problems 1. Encounter for supervision of other normal in first trimester Z34.81 PRR MARIA ESTHER 02/02/19 boy SANDRINE Guerra, Filiberto Lucas Kaitlyn Leonel 2. Previous delivery, antepartum O09.219 patient declines progesterone injections. 4cm cervical length at anatomy US 3. 29 weeks gestation of Z3A.29 Declines genetic, carrier, and ntd screening. Anatomy US normal. 4. Thyromegaly E01.0 workup negative Plan Orders placed: 28 wk labs Declines tdap Reviewed of labor precautions, movement/kick counts ACOG trimester education reviewed and updated See problem list details for updated plan of care Gestational age appropriate handout given RTO: 2 weeks Orders Orders: Coding Level of Care Code Off vis,est,level 3 Diagnoses Encounter for supervision of other normal in first trimester Z34.81 Normal : other normal Trimester: first trimester Previous delivery, antepartum O09.219 29 weeks gestation of Z3A.29 Weeks of gestation: 29 weeks Thyromegaly E01.0 11/17/18 1418 <Electronically signed by Mahogany BIRCH> Date Mahogany BIRCH Cosigner Signature: Date (if applicable) CC: [place] OFFICE VISIT Observed: 10/25/2018 Status: F Source: [place] REPORT 11:38 AM [facility] REPOSITORY [facility] [address] [place] [address] OFFICE VISIT Date of Service: 10/25/18 MR#: [id number] Acct: [id number] Name: IESHA LAWRENCE Rep #: [id number] : 1990 Provider: BALTAZAR Morris Age/Sex: 28/F Location: [facility] [place] Status: Signed Intake Vital Signs10/25/18 Body Mass Index (BMI) 30.2 10/25/18 Height 5 ft 8 in 10/25/18 Weight: 202 lb 2 oz 10/25/18 Body Mass Index (BMI) 30.7 10/25/18 Blood Pressure 108/64 Intake Visit Reasons: 25 weeks-pressure/bleeding Cabinet Builder Required: No Accompanied by: Is patient in pain?: Yes Pain scale (1-10): 6 Allergies banana Allergy (Verified 10/25/18 10:08) Nausea/Vom/Diarrhea latex Allergy (Verified 10/25/18 10:08) Hives bandaids Allergy (Uncoded 10/20/18 13:51) Hives Medications Vits [Prenatabs FA] 1 tab PO DAILY 08/22/18 [History Confirmed 10/25/18] Last Menstral Period: 04/07/18 Zika: Zika virus screening: Negative : No Nurse's Note: Pt states lots of pressure and random cramping. [place] tinge when going to the bathroom since this morning. PFSH PFSH Family History Mother CVA (cerebral vascular accident) Diabetes Heart disease Social History Smoking Status: Never smoker alcohol intake: never substance use type: does not use caffeine: No what type of physical activity do you participate in: none seatbelt use: always do you feel safe at home: Yes additional social history: - Leonel- [place] Patient is a stay at home mom Pregancy History 6 Elective abortions Hx Para 4 Spontaneous abortions 1 Past Pregnancies Del. DateName GA/Weeks Outcome Route Bth WeighInfant GeLabor LgtAnesthesiDel LocatProvider FOB t n h a n Delivery Date: 02/18/16 On 06/14/18 @ 09:07 Luz Mckeon No issues during or delivery. Delivery Date: 01/21/14 On 06/14/18 @ 09:05 Luz Mckeon No issues during or delivery. Delivery Date: 04/07/09 On 06/14/18 @ 09:04 Luz Mckeon No issues during or delivery. Delivery Date: 12/15/06 On 06/14/18 @ 09:03 Luz Mckeon No issues during . No issues during delivery. HPI 25 weeks-pressure/bleeding: Details: IESHA LAWRENCE is a 28 year old who presents for work in OB visit. OB Visit MARIA ESTHER Calculator Estimated Delivery Date 02/02/19 Based on Ultrasound Date 06/14/18 Current WG 25w 5d Number 1 Expected Delivery Route/Plan Specific Issue/Plans flu vaccine: declines tdap vaccine: [] rhogam: NA LARC form signed: [] labor support person: Leonel pain management: [] cut cord/dad catch: yes : yes PP control planned: [] discussed possible routes of delivery and associated risks: [] special requests: [] Initial Weight: Not Recorded Date Weight BP Urine PrFHR FuHt Pres MoCTX DilationFetal StVisit NoProviderComments E ot v te GA G Effac lucose ed Visit Notes Visit Date: 10/25/18 work in for pressure, vaginal spotting this AM. EYAL Quiroz on 10/25/18 Visit Date: 10/20/18 no vb lof good fm no regular ctx- having some irregular. Nathalia David MD on 10/20/18 Visit Date: 09/21/18 Doing well. No VB, LOF. EYAL Quiroz on 09/21/18 Visit Date: 08/23/18 needs new ob labs still drawn Nathalia David MD on 08/23/18 no vb cramping. Nathalia David MD on 08/23/18 Visit Date: 07/17/18 Nausea problematic with occa vomiting. Spotting with wiping X 1 yesterday. None since. US confirms active IUP and FHT 160 EYAL Quiroz on 07/17/18 Visit Date: 06/14/18 No visit notes to display ACOG First Trimester First Trimester: Desire for , Alcohol, Tobacco Cessation, Illicit/Recreational Drug/Substance Use, Intimate Partner Violence, Barriers to care, Unstable Housing, Communication Barriers, Environmental/Work Hazards, Anticipated Course of Care, Toxoplasmosis Precations, Use of Any medications, Sexual activity, Exercise, Dental Care, Sauna/Hot tub use, Seat Belt use, Childbirth classes/Hospital facilities, , Travel, Indications for US and Screening for Aneuploidy Second Trimester Second Trimester: Signs and Symptoms of Labor, Selecting a care provider, Reproductive Life Planning, Care Planning, Tobacco Cessation, Depression/Anxiety and Intimate Partner Violence Diagnostics Diagnostics Labs Blood Type A POSITIVE 08/23/18 Antibody Screen NEGATIVE 08/23/18 Hct 39.8 % (37-47) 08/23/18 Hgb 13.7 g/dl (12.0-15.0) 08/23/18 Rubella IgG Antibody 100.4 IU/mL 08/23/18 RPR NONREACTIVE (NONREACTIVE) 08/23/18 Hep Bs Antigen Negative (Negative) 08/23/18 Chlam trachomat DNA PCR Negative (Negative) 06/14/18 N.gonorrhoeae DNA (PCR) Negative (Negative) 06/14/18 Details: HIV: Urine Culture: Sequential Screen: NIPT Screen: ROS Const Reports system reviewed and no additional complaints, except as docu GI Denies nausea, Denies vomiting, Denies abdominal pain Exam Const General: cooperative Nutritional Appearance: well nourished GI Palpation: soft, nontender, other (gravid) Results BMSUA Office Urine Color STRAW Last Edit by Vera Isabel on 10/25/18 11:23 Office Urine Clarity Clear Last Edit by Vera Isabel on 10/25/18 11:23 Assessment AND Plan Problems 1. Encounter for supervision of other normal in first trimester Z34.81 PRR MARIA ESTHER 02/02/19 boy PC Charlie, Shayy Lisandra De Los Santos Leonel 2. 25 weeks gestation of Z3A.25 Declines genetic, carrier, and ntd screening. Anatomy US normal. 3. Previous delivery, antepartum O09.219 patient declines progesterone injections. 4cm cervical length at anatomy US Plan Reassured:cervix closed, no blood on vaginal exam UA dip negative, will send for culture Active fetus on brief US with FHT documented. RTO routine OB visit. prn Orders Orders: Coding Level of Care Code Off vis,est,level 3 Diagnoses Encounter for supervision of other normal in first trimester Z34.81 Normal : other normal Trimester: first trimester 25 weeks gestation of Z3A.25 Weeks of gestation: 25 weeks Previous delivery, antepartum O09.219 10/25/18 1138 <Electronically signed by Mahogany BIRCH> Date Mahogany BIRCH Cosigner Signature: Date (if applicable) CC: Observed: 10/25/2018 Status: F Source: [place] CULTURE, URINE 12:00 AM [facility] REPOSITORY Urine Culture Below infection level. ORGANISM 1: Mixed Gram Positive Organisms Trade Count <1000 Performed By: #### M100.0650 #### [facility] [place], [address] [place] OFFICE VISIT Observed: 10/20/2018 Status: F Source: [place] REPORT 2:13 PM [facility] REPOSITORY [facility] [address] [address] [place] [address] OFFICE VISIT Date of Service: 10/20/18 MR#: [id number] Acct: [id number] Name: EDERTAZANJELICA FrederickPee [place] Rep #: [id number] : 1990 Provider: Nathalia David MD Age/Sex: 28/F Location: [facility] [place] Status: Signed Intake Vital Signs10/20/18 Height 5 ft 8 in 10/20/18 Weight: 199 lb 10/20/18 Body Mass Index (BMI) 30.2 10/20/18 Blood Pressure 120/70 Intake Visit Reasons: 25 weeks Chief Complaint: est ob Cabinet Builder Required: No Is patient in pain?: No Allergies banana Allergy (Verified 10/20/18 13:51) Nausea/Vom/Diarrhea latex Allergy (Verified 10/20/18 13:51) Hives bandaids Allergy (Uncoded 10/20/18 13:51) Hives Medications Vits [Prenatabs FA] 1 tab PO DAILY 08/22/18 [History Confirmed 10/20/18] Last Menstral Period: 04/07/18 Zika: Zika virus screening: Negative : No PFSH PFSH Family History Mother CVA (cerebral vascular accident) Diabetes Heart disease Social History Smoking Status: Never smoker alcohol intake: never substance use type: does not use caffeine: No what type of physical activity do you participate in: none seatbelt use: always do you feel safe at home: Yes additional social history: - Leonel- [place] Patient is a stay at home mom Pregancy History 6 Elective abortions Hx Para 4 Spontaneous abortions 1 Past Pregnancies Del. DateName GA/Weeks Outcome Route Bth WeighInfant GeLabor LgtAnesthesiDel LocatProvider FOB t n h a n Delivery Date: 02/18/16 On 06/14/18 @ 09:07 Luz Mckeon No issues during or delivery. Delivery Date: 01/21/14 On 06/14/18 @ 09:05 Luz Mckeon No issues during or delivery. Delivery Date: 04/07/09 On 06/14/18 @ 09:04 Luz Mckeon No issues during or delivery. Delivery Date: 12/15/06 On 06/14/18 @ 09:03 Luz Mckeon No issues during . No issues during delivery. HPI 25 weeks: Details: IESHA LAWRENCE is a 28 year old who presents for routine OB visit. OB Visit MARIA ESTHER Calculator Estimated Delivery Date 02/02/19 Based on Ultrasound Date 06/14/18 Current WG 25w 0d Number 1 Expected Delivery Route/Plan Specific Issue/Plans flu vaccine: declines tdap vaccine: [] rhogam: NA LARC form signed: [] labor support person: Leonel pain management: [] cut cord/dad catch: yes : yes PP control planned: [] discussed possible routes of delivery and associated risks: [] special requests: [] Initial Weight: Not Recorded Date Weight BP Urine PrFHR FuHt Pres MoCTX DilationFetal StVisit NoProviderComments E ot v te GA G Effac lucose ed Visit Notes Visit Date: 10/20/18 no vb lof good fm no regular ctx- having some irregular. Nathalia David MD on 10/20/18 Visit Date: 09/21/18 Doing well. No VB, LOF. EYAL Quiroz on 09/21/18 Visit Date: 08/23/18 needs new ob labs still drawn Nathalia David MD on 08/23/18 no vb cramping. Nathalia David MD on 08/23/18 Visit Date: 07/17/18 Nausea problematic with occa vomiting. Spotting with wiping X 1 yesterday. None since. US confirms active IUP and FHT 160 EYAL Quiroz on 07/17/18 Visit Date: 06/14/18 No visit notes to display ACOG First Trimester First Trimester: Desire for , Alcohol, Tobacco Cessation, Illicit/Recreational Drug/Substance Use, Intimate Partner Violence, Barriers to care, Unstable Housing, Communication Barriers, Environmental/Work Hazards, Anticipated Course of Care, Toxoplasmosis Precations, Use of Any medications, Sexual activity, Exercise, Dental Care, Sauna/Hot tub use, Seat Belt use, Childbirth classes/Hospital facilities, , Travel, Indications for US and Screening for Aneuploidy Diagnostics Diagnostics Labs Blood Type A POSITIVE 08/23/18 Antibody Screen NEGATIVE 08/23/18 Hct 39.8 % (37-47) 08/23/18 Hgb 13.7 g/dl (12.0-15.0) 08/23/18 Obstetrics Ultrasound 05/22/18 Rubella IgG Antibody 100.4 IU/mL 08/23/18 RPR NONREACTIVE (NONREACTIVE) 08/23/18 Hep Bs Antigen Negative (Negative) 08/23/18 Chlam trachomat DNA PCR Negative (Negative) 06/14/18 N.gonorrhoeae DNA (PCR) Negative (Negative) 06/14/18 Details: HIV: Urine Culture: Sequential Screen: NIPT Screen: Results [id number] Office Urine Glucose Negative Last Edit by Eleanor Koo on 10/20/18 13:53 Office Urine Protein Negative Last Edit by Eleanor Koo on 10/20/18 13:53 Assessment AND Plan Problems 1. 25 weeks gestation of Z3A.25 Declines genetic, carrier, and ntd screening. Anatomy US normal. 2. Thyromegaly E01.0 workup negative 3. Encounter for supervision of other normal in first trimester Z34.81 PRR MARIA ESTHER 02/02/19 boy SANDRINE Guerra, Filiberto Lucas Kaitlyn Leonel 4. Previous delivery, antepartum O09.219 patient declines progesterone injections. 4cm cervical length at anatomy US Plan movement and labor precautions reviewed. ACOG trimester education reviewed and updated. see problem list details for updated plan management information and see below for orders placed at this visit. GA appropriate handout given. Orders Orders: Coding Level of Care Code OB Routine Diagnoses 25 weeks gestation of Z3A.25 Weeks of gestation: 25 weeks Thyromegaly E01.0 Encounter for supervision of other normal in first trimester Z34.81 Normal : other normal Trimester: first trimester Previous delivery, antepartum O09.219 10/20/18 1413 <Electronically signed by Nathalia David MD> Date Nathalia David MD Cosigner Signature: Date (if applicable) CC: [place] OFFICE VISIT Observed: 09/21/2018 Status: F Source: [place] REPORT 2:14 PM [facility] REPOSITORY [facility] [address] [place] [place] [address] OFFICE VISIT Date of Service: 09/21/18 MR#: [id number] Acct: [id number] Name: IESHA LAWRENCE Rep #: [id number] : 1990 Provider: BALTAZAR Morris Age/Sex: 27/F Location: [facility] [place] Status: Signed Intake Vital Signs09/21/18 Height 5 ft 8 in 09/21/18 Weight: 194 lb 4 oz 09/21/18 Body Mass Index (BMI) 29.5 09/21/18 Blood Pressure 128/60 H Intake Visit Reasons: 21 weeks Cabinet Builder Required: No Accompanied by: Is patient in pain?: No Allergies banana Allergy (Verified 09/21/18 13:54) Nausea/Vom/Diarrhea latex Allergy (Verified 09/21/18 13:54) Hives bandaids Allergy (Uncoded 08/22/18 08:38) Hives Medications Vits [Prenatabs FA] 1 tab PO DAILY 08/22/18 [History Confirmed 09/21/18] Last Menstral Period: 04/07/18 Zika: Zika virus screening: Negative : No PFSH PFSH Family History Mother CVA (cerebral vascular accident) Diabetes Heart disease Social History Smoking Status: Never smoker alcohol intake: never substance use type: does not use caffeine: No what type of physical activity do you participate in: none seatbelt use: always do you feel safe at home: Yes additional social history: - Leonel- [place] Patient is a stay at home mom Pregancy History 6 Elective abortions Hx Para 4 Spontaneous abortions 1 Past Pregnancies Del. DateName GA/Weeks Outcome Route Bth WeighInfant GeLabor LgtAnesthesiDel LocatProvider FOB t n h a n Delivery Date: 02/18/16 On 06/14/18 @ 09:07 Luz Mckeon No issues during or delivery. Delivery Date: 03/03/14 On 06/14/18 @ 09:05 Luz Mckeon No issues during or delivery. Delivery Date: 04/07/09 On 06/14/18 @ 09:04 Luz Mckeon No issues during or delivery. Delivery Date: 12/15/06 On 06/14/18 @ 09:03 Luz Mckeon No issues during . No issues during delivery. HPI 21 weeks: Details: IESHA LAWRENCE is a 27 year old who presents for routine OB visit. OB Visit MARIA ESTHER Calculator Estimated Delivery Date 02/02/19 Based on Ultrasound Date 06/14/18 Current WG 20w 6d Number 1 Expected Delivery Route/Plan Specific Issue/Plans flu vaccine: declines tdap vaccine: [] rhogam: NA LARC form signed: [] labor support person: Leonel pain management: [] cut cord/dad catch: yes : yes PP control planned: [] discussed possible routes of delivery and associated risks: [] special requests: [] Initial Weight: Not Recorded Date Weight BP Urine PrFHR FuHt Pres MoCTX DilationFetal StVisit NoProviderComments E ot v te GA G Effac lucose ed Visit Notes Visit Date: 09/21/18 Doing well. No VB, LOF. EYAL Quiroz on 09/21/18 Visit Date: 08/23/18 needs new ob labs still drawn Nathalia David MD on 08/23/18 no vb cramping. Nathalia David MD on 08/23/18 Visit Date: 07/17/18 Nausea problematic with occa vomiting. Spotting with wiping X 1 yesterday. None since. US confirms active IUP and FHT 160 EYAL Quiroz on 07/17/18 Visit Date: 06/14/18 No visit notes to display ACOG First Trimester First Trimester: Desire for , Alcohol, Tobacco Cessation, Illicit/Recreational Drug/Substance Use, Intimate Partner Violence, Barriers to care, Unstable Housing, Communication Barriers, Environmental/Work Hazards, Anticipated Course of Care, Toxoplasmosis Precations, Use of Any medications, Sexual activity, Exercise, Dental Care, Sauna/Hot tub use, Seat Belt use, Childbirth classes/Hospital facilities, , Travel, Indications for US and Screening for Aneuploidy Second Trimester Second Trimester: Signs and Symptoms of Labor, Selecting a care provider, Reproductive Life Planning, Care Planning, Tobacco Cessation, Depression/Anxiety and Intimate Partner Violence Diagnostics Diagnostics Labs Blood Type A POSITIVE 08/23/18 Antibody Screen NEGATIVE 08/23/18 Hct 39.8 % (37-47) 08/23/18 Hgb 13.7 g/dl (12.0-15.0) 08/23/18 Obstetrics Ultrasound 05/22/18 Rubella IgG Antibody 100.4 IU/mL 08/23/18 RPR NONREACTIVE (NONREACTIVE) 08/23/18 Hep Bs Antigen Negative (Negative) 08/23/18 Chlam trachomat DNA PCR Negative (Negative) 06/14/18 N.gonorrhoeae DNA (PCR) Negative (Negative) 06/14/18 Rhogam given: No 02/19/16 Details: HIV: Urine Culture: Sequential Screen: NIPT Screen: ROS Const Reports system reviewed and no additional complaints, except as docu GI Denies nausea, Denies vomiting, Denies abdominal pain Exam Const General: cooperative Nutritional Appearance: well nourished GI Palpation: soft, nontender, other (gravid) Results BMSUA2 Office Urine Glucose Negative Last Edit by Luz Mckeon on 09/21/18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 06/17/2018 Status: F Source: [place] REPORT 10:07 PM [facility] REPOSITORY [facility] [address] [place] [address] OFFICE VISIT Date of Service: 06/14/18 MR#: [id number] Acct: [id number] Name: IESHA LAWRENCE Rep #: [id number] : 1990 Provider: Nathalia David MD Age/Sex: 27/F Location: [facility] [place] Status: Signed Intake Vital Signs06/14/18 Height 5 ft 8 in 06/14/18 Weight: 181 lb 4 oz 06/14/18 Body Mass Index (BMI) 27.5 06/14/18 Blood Pressure 109/74 Intake Visit Reasons: NOB-04/07/18 Cabinet Builder Required: No Is patient in pain?: No Allergies banana Allergy (Verified 06/14/18 09:13) Nausea/Vom/Diarrhea latex Allergy (Verified 06/14/18 09:13) Hives bandaids Allergy (Uncoded 11/20/17 14:48) Hives Medications Azithromycin [Zithromax] 250 mg PO DAILY #6 tab 11/20/17 [Rx] Dextromethorphan Polistirex [Delsym] 30 mg PO 4X/DAY PRN PRN #150 ml 11/20/17 [Rx] multivitamin tablet 1 tab PO QDAY 06/14/18 [History Confirmed 06/14/18] Last Menstral Period: 04/07/18 Zika: Zika virus screening: Negative : No PFSH PFSH Family History Mother CVA (cerebral vascular accident) Diabetes Heart disease Social History Smoking Status: Never smoker alcohol intake: never substance use type: does not use caffeine: No what type of physical activity do you participate in: none seatbelt use: always do you feel safe at home: Yes additional social history: - Leonel- Lorne Patient is a stay at home mom Pregancy History 6 Elective abortions Hx Para 4 Spontaneous abortions 1 Past Pregnancies Del. DateName GA/Weeks Outcome Route Bth WeighInfant GeLabor LgtAnesthesiDel LocatProvider FOB t n h a n Delivery Date: 02/18/16 On 06/14/18 @ 09:07 Luz Mckeon No issues during or delivery. Delivery Date: 01/21/14 On 06/14/18 @ 09:05 Luz Mckeon No issues during or delivery. Delivery Date: 04/07/09 On 06/14/18 @ 09:04 Luz Mckeon No issues during or delivery. Delivery Date: 12/15/06 On 06/14/18 @ 09:03 Luz Mckeon No issues during . No issues during delivery. HPI NOB-04/07/18: Details: IESHA LAWRENCE is a 27 year old who presents for New OB visit. OB Visit MARIA ESTHER Calculator Estimated Delivery Date 02/02/19 Based on Ultrasound Date 06/14/18 Current WG 7w 1d Number 1 Comments: CRL 6w5d measuring 8.5 mm fht 150. viable IUP. due date changed to 02/02/19. 4.7 cm right simple ovarian cyst Expected Delivery Route/Plan Specific Issue/Plans flu vaccine: [] tdap vaccine: [] rhogam: [] LARC form signed: [] labor support person: [] pain management: [] cut cord/dad catch: [] : [] PP control planned: [] discussed possible routes of delivery and associated risks: [] special requests: [] Initial Weight: Not Recorded Date Weight BP Urine PrFHR FuHt Pres MoCTX DilationFetal StVisit NoProviderComments E ot v te GA G Effac lucose ed Menstrual History Last Menstral Period: 04/07/18 Reported LMP: definite Normal amount/duration: Yes On hormonal BC at conception: No Antepartum Record Genetic Screening: Congenital Heart Defect: Other, Neural Tube Defect: Other, Hemoglobinopathy Or Carrier: Other, Cystic Fibrosis: Other, Chromosome Abnormality: Other, Dominick-Sachs: Other, Hemophilia: Other, Intellectual Disability/Autism: Other, Recurrent Loss/Stillbirth: Other, Other Structural Defect: Other, Other Genetic Disease: Other, Maternal Metabolic Disorder: Other Infection History: Live with someone with TB or Exposed to TB: No, Patient or Partner has history of Genital Herpes: No, Rash or Viral illness since last mentrual period: No, Prior GBS-Infected child: No, History of STD: No, HIV Infection: No, History of Hepatitis: No, Recent travel outside of [place]: No, Concern for Hep exposure: No, Varicella immune: Yes Medical History Medical History: Negative: Diabetes, Hypertension, Heart disease, Auto-immune disorder, Kidney disease/UTI, Neurologic/epilepsy, Psychiatric, Depression/ depression, Hepatitis/liver disease, Varicosities/phlebitis, Thyroid dysfunction, Trauma/domestic violence, History of blood transfusions, D (Rh) Sensitized, Pulmonary (e.g.,TB,Asthma), Seasonal allergies, Drug/latex allergies/reactions, Breast, Director Business Integration surgery, Operations/hospitalizations, Anesthetic complications, History of abnormal pap, Uterine anomaly/sneha, Infertility, Anti-retroviral treatment, Relevant family history, Other ACOG First Trimester First Trimester: Desire for , Alcohol, Tobacco Cessation, Illicit/Recreational Drug/Substance Use, Intimate Partner Violence, Barriers to care, Unstable Housing, Communication Barriers, Environmental/Work Hazards, Anticipated Course of Care, Nurtrition and weight gain, Toxoplasmosis Precations, Use of Any medications, Sexual activity, Exercise, Dental Care, Sauna/Hot tub use, Seat Belt use, Childbirth classes/Hospital facilities, , Travel, Indications for US and Screening for Aneuploidy ROS Const Denies fever(s), Reports system reviewed and no additional complaints, except as docu, Reports fatigue Eyes Reports system reviewed and no additional complaints, except as docu ENT Reports system reviewed and no additional complaints, except as docu Card Denies chest pain, Denies shortness of breath Resp Reports system reviewed and no additional complaints, except as docu, Denies shortness of breath, Denies cough GI Reports nausea, Denies abdominal pain Reports system reviewed and no additional complaints, except as docu Musc Reports system reviewed and no additional complaints, except as docu Skin/Breast Reports system reviewed and no additional complaints, except as docu Neuro Yes system reviewed and no additional complaints, except as docu Psych Reports system reviewed and no additional complaints, except as docu Endo Reports fatigue, Reports system reviewed and no additional complaints, except as docu Exam Const General: healthy appearing, comfortable, no acute distress Orientation: alert HENMT Head: normal to inspection, atraumatic, normocephalic Ears: external ears normal, hearing grossly normal bilaterally Nose: nares normal, external nose normal Mouth: oral mucosae normal Teeth and gingiva: dentition normal Eyes General: appearance normal, both eyes and all related structures Neck Neck: no lymphadenopathy, supple, normal visual inspection Thyroid: thyroid normal Chest Chest palpation AND inspection: normal inspection of the chest Breast inspection: normal inspection of the breasts, normal inspection of the axillae Breast palpation: normal palpation of the breasts, normal palpation of the axillae Resp Effort AND Inspection: normal respiratory effort GI Inspection: normal to inspection Palpation: soft, no hepatosplenomegaly General: bladder normal to palpation External Female Exam: normal external appearance, normal appearance of the urethra Urethra: normal appearance of the urethra Speculum Exam - Vagina: normal appearance of the vagina, normal vaginal discharge Speculum Exam - Cervix: normal appearance of the cervix Bimanual Exam- Vagina AND Uterus: bladder normal to palpation, normal bimanual exam, uterus non-tender, other Bimanual Exam- Adnexa, other: adnexae non-tender Skin General: no rashes or lesions noted Neuro Motor: muscle tone normal throughout, no movement abnormalities noted Extrem General: normal to inspection, full ROM Assessment AND Plan Problems 1. Encounter for supervision of other normal in first trimester Z34.81 MARIA ESTHER 02/02/19 PC Charlie, Shayy Filiberto Lisandra Leonel 2. Thyromegaly E01.0 workup ordered 3. Previous delivery, antepartum O09.219 patient declines progesterone injections Plan Patient oriented to practice and discussed care expectations and screenings. ACOG book offered to patient. Discussed routine and specially indicated labs if needed- patient consents to testing. see problem list details for plan information. Genetic screening including carrier screenings, sequential screening, and NIPT screening offered to patient and patient chose: deciding Orders Orders: Supplemental Info ACOG book given and patient encouraged to read about nutrition, exercise, weight gain, and food avoidance in . Coding Level of Care Code OB Routine Diagnoses Encounter for supervision of other normal in first trimester Z34.81 Normal : other normal Trimester: first trimester Thyromegaly E01.0 Previous delivery, antepartum O09.219 06/17/182206 <Electronically signed by Nathalia David MD> Date Nathalia David MD Cosigner Signature: Date (if applicable) CC: CT/NG WCH BY PCR Collected: 06/14/2018 Status: F Source: [place] 12:36 PM [facility] REPOSITORY TYPE CODE TESTS RESULT OUT OF RANGE REFERENCE UNITS LAB L8200.2100 Negative Normal Chlam Negative Trac PCR LAB L8200.2200 Negative Normal NG by Negative PCR Performed By: #### L8200.2000, M100.0650 #### [facility] [place], [address] Observed: 06/14/2018 Status: F Source: [place] CULTURE, URINE 12:36 PM [facility] REPOSITORY Urine Culture ORGANISM 1: Mixed Gram Positive Organisms Trade Count 1000-10,000 MIX CULTURE Mixed contaminants. Submit a new specimen if indicated. Performed By: #### L8200.2000, M100.0650 #### [facility] [address] [place], [address] HCG TITER QUANT., Collected: 05/30/2018 Status: F Source: [place] SERUM 11:24 AM [facility] REPOSITORY TYPE CODE TESTS RESULT OUT OF RANGE REFERENCE UNITS LAB L700.8000 <9 non-preg mIU/mL High HCG 769 QUANT. Performed By: #### L700.8000 #### [facility] [address] [place], [address] HCG TITER QUANT., Collected: 05/25/2018 Status: F Source: [place] SERUM 3:34 PM [facility] REPOSITORY TYPE CODE TESTS RESULT OUT OF RANGE REFERENCE UNITS LAB L700.8000 <9 non-preg mIU/mL High HCG 113 QUANT. Performed By: #### L700.8000 #### [facility] [address] [place], [address] 12 LEAD ELECTROCARDIOGRAM Observed: 05/25/2018 Status: F Source: [place] 2:03 PM [facility] REPOSITORY [facility] Cardiovascular Services [address] [facility] [place] [address] 12 Lead EKG 05/22/182036 MR#: [id number] Acct: [id number] Name: IESHA LAWRENCE Rep #: [id number] : 1990 27 From: Omar Wang MD Attending Dr: Status: DEP ER Ordering Dr: Gina Diaz MD Date: 05/22/18 Location: ED Sex: F C Admitted: Test Reason : DIZZINESS Blood Pressure : / mmHG Vent. Rate : 073 BPM Atrial Rate : 073 BPM P-R Int : 140 ms QRS Dur : 094 ms QT Int : 406 ms P-R-T Axes : 005 014 016 degrees QTc Int : 447 ms Normal sinus rhythm Normal ECG Confirmed by OMAR WANG MD ([id number]), assistant film editor DEBBIE CROW ([id number]) on 05/25/2018 2:03:02 PM Referred By: Confirmed By:OMAR WANG MD 05/25/18 1403 Date Omar Wang MD CC: Gina Diaz MD; Stan Lockett DO Signed EMERGENCY DEPARTMENT Observed: 05/22/2018 Status: F Source: [place] SUMMARY 10:47 PM [facility] REPOSITORY [facility] Medical Records Department [address] [place] [address] Emergency Department Summary 05/22/18 2119 MR#: [id number] Acct: [id number] Name: IESHA LAWRENCE Rep #: [id number] : 1990 27 From: Gina Diaz MD PCP: Stan Lockett DO Status: REG ER - ER Visit Summary Date of Service: 05/22/18 Chief Complaint: Dizziness, nausea History of Present Illness: The patient is a 27 F presenting with dizziness, nausea. She states that she has not felt well over the past 3 days. She has nausea, vomiting. She has had constipation. She complains of dysuria. Her last menstrual period was over a month ago and she is unsure if she could be . She has low right pelvic pain. No vaginal bleeding. Physical Examination: Vitals are stable. Patient is afebrile. Alert no acute distress. HEENT exam is unremarkable. Neck is supple. Lungs are clear and equal bilaterally. Heart is regular rate and rhythm. Abdomen is soft right low pelvic tenderness, no tenderness of McBurney's point. No rebound or guarding Extremities are unremarkable. Skin is warm and dry. No focal neurologic deficit. Remainder of exam is unremarkable. Emergency Department Course and Treatment: EKG is sinus rate is 73. Chest x-ray shows no acute process. CBC, chemistries unremarkable. HCG positive. Orthostatics are negative. She is given IV fluids, Zofran with improvement. HCG quant was 26. Transvaginal ultrasound shows there is no evidence of gestational sac or products of conception within the uterus. Endometrium is thickened, measuring 15 mm. There is a 1.8 x 1.1 x 1.0 cm right ovarian cyst. There is a small amount of fluid in the cul-de-sac. Patient is resting comfortably on repeat evaluation. She is advised importance of close outpatient follow-up with [facility]. She will need her quant level rechecked. She is advised return to ED for worsening symptoms. Disposition: Discharge home Impression: This note was generated with Lagoon dictation software. It may contain incorrect words, spelling, and punctuation that were not noted in review of the chart prior to signing ED Disposition - Plan for ED Patient: Chief Complaint: Complaint Instructions: ED Care Referrals: Stan Lockett DO [Primary Care Provider] - Nathalia David MD [STAFF PHYSICIAN] - What to do if you have Problems For any increased pain, shortness of breath, bleeding, nausea or vomiting, chest pain, or any unexpected problems, contact your Primary Care Provider. Call [facility] ([phone]) or report to the closest Emergency Room. Call 911 if necessary. 05/22/182246 <Electronically signed by Gina Diaz MD> Date Gina Diaz MD Cosigner Signature (If Indicated): Date CC: Stan Lockett DO DISCHARGE INSTRUCTION Observed: 05/22/2018 Status: F Source: [place] 10:42 PM [facility] REPOSITORY [facility] Medical Records Department [address] [place] [address] Discharge Instruction 05/22/182240 MR#: [id number] Acct: [id number] Name: IESHA LAWRENCE Rep #: [id number] : 1990 27 From: Gina Diaz MD PCP: Stan Lockett DO Status: REG ER ED Disposition - Plan for ED Patient: Chief Complaint: Complaint Instructions: ED Care Referrals: Stan Lockett DO [Primary Care Provider] - Nathalia David MD [STAFF PHYSICIAN] - What to do if you have Problems For any increased pain, shortness of breath, bleeding, nausea or vomiting, chest pain, or any unexpected problems, contact your Primary Care Provider. Call [facility] ([phone]) or report to the closest Emergency Room. Call 911 if necessary. 05/22/18 224 <Electronically signed by Gina Diaz MD> Date Gina Diaz MD Cosigner Signature (If Indicated): Date CC: Stan Lockett DO URINALYSIS, COMPLETE Collected: 05/22/2018 Status: F Source: [place] 9:15 PM [facility] REPOSITORY Order Comment: Order Date: 05/22/18 How was Urine Obtained? CLEAN CATCH TYPE CODE TESTS RESULT OUT OF RANGE REFERENCE UNITS LAB L400.3000 Yellow COLOR Normal Yellow LAB L400.3050 Clear Normal CLARITY Clear LAB L400.3200 Normal mg/dl Normal GLUCOSE, UR Normal LAB L400.3300 Negative mg/dL Normal BILIRUBIN URINE Negative LAB L400.3400 Negative mg/dl Normal KETONE UR Negative LAB L400.3465 1.002-1.030 Normal SP.GR. DIPSTX 1.025 LAB L400.3550 5.0 - 8.0 pH UR Normal 6.0 LAB L400.3600 Negative mg/dl PROT Normal DIPSTX Negative LAB L400.3700 Normal mg/dl Normal UROBILI Normal LAB L400.3750 Negative Normal NITRITE UR Negative LAB L400.3780 Negative /ul Normal OCCULT BLOOD-UR Negative LAB L400.3800 Negative /ul High LEUK 25 ESTERASE LAB L400.4050 0-5 /hpf WBC Normal 0-5 SEEN LAB L400.4100 0-5 /hpf 0 Normal RBC-UA SEEN LAB L400.4150 5-10 /hpf SQUAM Normal EPI 0-5 SEEN LAB L400.4300 None Seen /hpf Normal BACTERIA RARE LAB L400.4350 <or=2+ /hpf 0 Normal MUCUS, URINE SEEN Performed By: #### L400.0001 #### [facility] [address] [place], [address] TRANSVAGINAL W/PREG US Observed: 05/22/2018 Status: F Source: [place] 8:57 PM [facility] REPOSITORY [facility] Imaging Services [address] [address] Transvaginal w/Preg US MR#: [id number] Acct: [id number] Name: IESHA LAWRENCE Rep #: [id number] : 1990 F 27 From: Enrique Alonso MD PCP: Stan Lockett DO Status: REG ER Study: Transvaginal w/Preg US Date of Exam: 05/22/18 Exam# [id number] Ordering Dr: Gina Diaz MD STUDY: FIRST TRIMESTER OBSTETRICAL ULTRASOUND REASON FOR EXAM: Female, 27 years old. Right lower quadrant pain LMP: 04/17/2018 TECHNIQUE: Transvaginal PRIOR ULTRASOUND: None. FINDINGS: There is no demonstrated intrauterine gestational sac. There is no demonstrated yolk sac. The placenta is non-visualized. There is no demonstrated embryo ( pole). The estimated gestation age (EGA) by LMP is 5 weeks, 0 days. The estimated date of delivery (MARIA ESTHER) by LMP is 01/22/2019. The uterus measures there is a septate uterus which measures 8.3 x 6.4 x 4.6 cm.. There is no demonstrated uterine fibroid. The cervix is closed. The endometrium measures 15 mm in thickness. The right ovary measures 4.0 x 2.7 x 2.6 cm. There is a 1.8 x 1.1 x 1.0 cm right ovarian cyst. There is no visualized right adnexal mass or complex lesion. The left ovary measures 3.0 x 2.2 x 1.8 cm.. There is no left ovarian cyst. There is no visualized left adnexal mass or complex lesion. There is minimal fluid in the cul de sac. US/Transvaginal w/Preg US IMPRESSION: There is no evidence of gestational sac or products of conception within the uterus. Endometrium is thickened, measuring 15 mm. There is a 1.8 x 1.1 x 1.0 cm right ovarian cyst. There is a small amount of fluid in the cul-de-sac. Electronically Signed: Enrique Alonso MD at 22:25 EDT , Service support , CC: Gina Diaz MD; Stan Lockett DO Senior It Auditor: Signed CBC W/DIFF, AUTOMATED Collected: 05/22/2018 Status: F Source: [place] 8:04 PM [facility] REPOSITORY TYPE CODE TESTS RESULT OUT OF RANGE REFERENCE UNITS LAB L100.1000 4.4-11.0 K/mm3 Normal WBC 9.1 LAB L100.1200 4.2-5.4 M/mm3 Normal RBC 4.42 LAB L100.1300 12.0-15.0 g/dl Normal HGB 13.9 LAB L100.1400 37-47 % Normal HCT 40.9 LAB L100.1500 81-99 fL Normal MCV 92.5 LAB L100.1600 27.0-32.0 pg Normal MCH 31.4 LAB L100.1700 32-36 g/gl Normal MCHC 34.0 LAB L100.1810 11.6-14.6 % Normal RDW CV 12.2 LAB L100.1820 35.1-43.9 fl Normal RDW SD 41.7 LAB L100.1900 150-450 K/mm3 Normal PLT 196 LAB L100.2000 6.2-12.0 fl Normal MPV 9.8 LAB L100.2100 47-70 % Normal NEUT% 67.4 LAB L100.2200 19-41 % Normal LY% 22.7 LAB L100.2300 0-10 % Normal MONO% 7.8 LAB L100.2400 0-5 % Normal EO% 1.8 LAB L100.2500 0-1 % Normal BASO% 0.2 LAB L100.2550 0.0-0.9 % Normal IM GRAN % 0.100 Result Comment: IG% - Immature Granulocytes (promyelocytes, myelocytes and metamyelocytes) > 1% indicates that a LEFT SHIFT is Present. LAB L100.2620 2.0-7.7 X10 3/uL Normal Absolute Neut 6.1 LAB L100.2720 0.83-4.51 X10 3/ul Normal Absolute Lymph 2.05 Performed By: #### L100.0100 #### [facility] [address] [facility] [place], [place], [address] BASIC METABOLIC Collected: 05/22/2018 Status: F Source: [place] PROFILE (BMP) 8:04 PM [facility] REPOSITORY TYPE CODE TESTS RESULT OUT OF RANGE REFERENCE UNITS LAB L501.0100 74-106 mg/dL Normal GLU 95 Result Comment: Please note revised GLUCOSE reference range effective 2017. LAB L501.1000 7-18 mg/dL Normal BUN 14 LAB L501.1100 0.55-1.02 mg/dL Normal CREAT,SERUM 0.78 Result Comment: The validity of the calculated GFR AND GFRAA in patients over 70 years has not been determined. Clinical correlation is essential. LAB L501.1110 >60 mL/min Normal EST GFR 93 Result Comment: Non- GFR Calc LAB L501.1115 >60 mL/min Normal EST GFR - AA 113 Result Comment: GFR Calc LAB L501.1255 ml/min Normal Estimated CRCL 107.35 LAB L501.1300 10-20 RATIO BUN/CRE Normal 18.0 LAB L501.2200 8.5-10 mg/dL .1 CA Normal 8.6 LAB L501.5300 136-14 mmol/L 5 NA Normal 141 LAB L501.5600 3.5-5. mmol/L 1 K Normal 3.8 LAB L501.5900 98-107 mmol/L High CL 108 LAB L501.6100 21.0-3 mmol/L 2.0 CO2 Normal 27.0 LAB L501.6200 5-15 GAP Normal 6 Performed By: #### L500.2500 #### [facility] [address] [facility] [place], [place], [address] ,SERUM,HCG QUALI. Collected: Status: F Source: [place] 05/22/2018 8:04 PM [facility] REPOSITORY TYPE CODE TESTS RESULT OUT OF REFERENCE UNITS RANGE LAB L700.7000 0-9 Nonpreg Negative High HCGSQUAL POSITIVE Result Comment: TEST is *POSITIVE* LAB L700.6700 =>Qualitative mIU/mL Normal HCG Qual triggr 26 Performed By: #### L700.6800 #### [facility] [address] [place], [address] HCG TITER QUANT., Collected: 05/22/2018 Status: F Source: [place] SERUM 8:04 PM [facility] REPOSITORY TYPE CODE TESTS RESULT OUT OF RANGE REFERENCE UNITS LAB L700.8000 <9 non-preg mIU/mL High HCG 26 QUANT. Performed By: #### L700.8000 #### [facility] [address] [place], [address] CHEST 1 VIEW Observed: 05/22/2018 Status: F Source: [place] (PORTABLE) 7:57 PM [facility] REPOSITORY [facility] Imaging Services [address] [place] [address] Chest 1 View (Portable) MR#: [id number] Acct: [id number] Name: IESHA LAWRENCE Rep #: [id number] : 1990 F 27 From: Asad Lui DO PCP: Stan Lockett DO Status: REG ER Study: Chest 1 View (Portable) Date of Exam: 05/22/18 Exam# [id number] Ordering Dr: Gina Diaz MD STUDY: X-RAY CHEST REASON FOR EXAM: Female, 27 years old. Chest pain and cough TECHNIQUE: Single AP portable view of the chest. COMPARISON: 11/20/2017 FINDINGS: The lungs are clear and expanded. There is no demonstrated pleural abnormality. Normal size heart. Normal mediastinum and ratna. Normal visualized pulmonary arteries. Normal visualized aortic arch and descending thoracic aorta. Normal visualized thoracic spine. Normal visualized ribs, clavicles, and shoulders. There is no demonstrated abnormality of the visualized soft tissue structures of the upper abdomen. RAD/Chest 1 View (Portable) IMPRESSION: Normal x-ray examination of the chest. Electronically Signed: Asad DO Hu at 20:36 EDT Tel , Service support , CC: Gina Diaz MD; Stan Lockett DO Senior It Auditor: Signed HCG, QUANTITATIVE BL Collected: 03/01/2018 Status: F Source: [facility] 11:37 AM [facility] REPOSITORY TYPE CODE TESTS RESULT OUT OF REFERENCE UNITS RANGE LAB HCGQT <5.0 mU/mL HCG, Quantitative Bl <0.1 Result Comment: NEGATIVE Performed By: #### HCGQT #### [facility] [address] [place], [place] [address] PROGRESS Observed: 03/01/2018 Status: COMPLETED Source: [facility] 10:56 AM [facility] REPOSITORY HNO ID: [id number] Author: Scotty Gonzalez Service: (none) Author Type: Marketing Writer Type: Progress Notes Filed: 03/02/2018 6:32 PM Note Text: Iesha Lawrence is a 27 year old female who presents for problem visit to follow-up on possible miscarriage. HPI: Patient reports 2 weeks ago had bleeding and passed pink tissue and then had quarter-sized blood clots. Patient bled for a few days but she is not bleeding now. She is now having stringy mucus discharge. Also having lower cramping/pelvic pain over the last few months. Patient reports she had intercourse once with her partner; they were not trying to conceive. The couple was not using any form of control at the time of possible conception. Patient reports a history of regular menstrual cycles. PAST MEDICAL HISTORY Diagnosis Date - Abnormal glandular Papanicolaou smear of cervix 06/2006 Abn. Pap smear (cervix) - Dysthymic disorder Depression (non-psychotic) - Encounter for insertion or removal of intrauterine contraceptive device 06/11/2009 Mirena - depression - Unspecified constipation PAST SURGICAL HISTORY Procedure Laterality Date - IUD INSERTION (STAFF ENGINEER DEPT)_*FL 06/11/2009 Mirena FAMILY HISTORY Problem Relation Age of Onset - Emphysema Father - Asthma Father - myocardial infarction [OTHER] Father - Diabetes Mother - Hypertension Mother - Cancer Maternal Grandmother PANCREATIC CANCER AND BREAST CANCER - Thyroid Sister - Stroke Maternal Uncle Social History Marital status: Spouse name: Rose Years of education: 11 Number of children: 3 Occupational History Occupation Employer Comment STUDENT STUDYING TO GET GED Social History Main Topics Smoking status: Never Smoker Smokeless status: Never Used Alcohol use: No Drug use: No Sexual activity: Yes Partners with: Male control/protection: None Other Topics Concern No BLOOD TRANSFUSIONS No CAFFEINE No OCCUPATIONAL EXPOSURE No HOBBY HAZARD No SLEEP CONCERN No STRESS CONCERN No WEIGHT CONCERN No DIET No BACK CARE No EXERCISE Yes Comment:DOESNT EXERCISE ROUTINELY. PT COUNSELED BIKE HELMET No SEAT BELT No SELF EXAMS Yes Comment:DOESNT DO SBE. PT COUNSELED Current Outpatient Prescriptions: MULTIVITAMIN ORAL Take by mouth. No current facility-administered medications for this visit. Allergies As of Date: 03/01/2018 Allergen Noted Reaction BANANA 06/21/2006 GI Upset BANDAIDS [OTHER] 06/21/2006 Rash Fully Assessed 02/17/2018 REVIEW OF SYSTEMS Abdomen: No bloating, early satiety, indigestion, or increased flatulence. No abdominal pain, nausea, vomiting, diarrhea, or constipation. Bladder: No dysuria, gross hematuria, urinary frequency, urinary urgency, or incontinence. Breast: No breast lumps, nipple d/c, overlying skin changes, redness or skin retraction. Expanded ROS: N/A Allergies and current medication updated:Yes EXAM: BP 112/72 Wt 186 lb (84.4kg) LMP 02/15/2018 GENERAL: pleasant, flat affect, female in no apparent distress HEENT: Normocephalic, atraumatic, mucus membranes moist and no lesions NECK: Supple, full range of motion, no adenopathy and thyroid normal DERMATOLOGY: Normal, without lesions, non-icteric and non-hirsute BREAST: deferred CHEST: Normal inspiratory effort ABDOMEN: soft, non-tender and no masses PELVIC: external genitalia normal, normal Bartholin's glands, urethra, [place]'s glands, no vulvar lesions, no cervical lesions, good vaginal support, physiologic discharge present, normal appearing perineal body and perianal region BIMANUAL: uterus normal size, shape and consistency, no adnexal masses and non-tender NEURO: alert and oriented x3,exam grossly non-focal EXTREMITIES: normal ASSESSMENT AND PLAN: Encounter Diagnosis ICD-10-CM 1. Complete without complication O03.9 HCG QUANTITATIVE 1) [facility] quant drawn - will contact patient with results. 2) Contraceptive counseling done - patient declines all contraception options today. Patient does not desire a however. 3) RTC PRN for annual and pap Scotty Gonzalez APRN.CNM PROGRESS Observed: 03/01/2018 Status: COMPLETED Source: [facility] 10:56 AM [facility] REPOSITORY HNO ID: [id number] Author: Scotty Gonzalez Service: (none) Author Type: Marketing Writer Type: Progress Notes Filed: 03/02/2018 6:32 PM Note Text: Opened in error Scotty Gonzalez APRN.CNM CNOV Observed: 03/01/2018 Status: COMPLETED Source: [facility] 10:45 AM [facility] REPOSITORY Office Visit (WOOB) IESHA LAWRENCE ([id number]) 1990 F Date Time Provider Department 03/01/18 10:45 AM SCOTTY GONZALEZ) WOOB During your visit today, we recorded the following information about you: Blood pressure Weight 112/72 84.4 kg Scotty Gonzalez APRN.CNM 03/02/2018 6:32 PM Signed Opened in error ALISON Jennings APRN.CNM 03/02/2018 6:32 PM Signed Iesha Lawrence is a 27 year old female who presents for problem visit to follow-up on possible miscarriage. HPI: Patient reports 2 weeks ago had bleeding and passed pink tissue and then had quarter-sized blood clots. Patient bled for a few days but she is not bleeding now. She is now having stringy mucus discharge. Also having lower cramping/pelvic pain over the last few months. Patient reports she had intercourse once with her partner; they were not trying to conceive. The couple was not using any form of control at the time of possible conception. Patient reports a history of regular menstrual cycles. PAST MEDICAL HISTORY Diagnosis Date - Abnormal glandular Papanicolaou smear of cervix 06/2006 Abn. Pap smear (cervix) - Dysthymic disorder Depression (non-psychotic) - Encounter for insertion or removal of intrauterine contraceptive device 06/11/2009 Mirena - depression - Unspecified constipation PAST SURGICAL HISTORY Procedure Laterality Date - IUD INSERTION (STAFF ENGINEER DEPT)_*FL 06/11/2009 Mirena FAMILY HISTORY Problem Relation Age of Onset - Emphysema Father - Asthma Father - myocardial infarction [OTHER] Father - Diabetes Mother - Hypertension Mother - Cancer Maternal Grandmother PANCREATIC CANCER AND BREAST CANCER - Thyroid Sister - Stroke Maternal Uncle Social History Marital status: Spouse name: Rose Years of education: 11 Number of children: 3 Occupational History Occupation Employer Comment STUDENT STUDYING TO GET [employer] Social History Main Topics Smoking status: Never Smoker Smokeless status: Never Used Alcohol use: No Drug use: No Sexual activity: Yes Partners with: Male control/protection: None Other Topics Concern No BLOOD TRANSFUSIONS No CAFFEINE No OCCUPATIONAL EXPOSURE No HOBBY HAZARD No SLEEP CONCERN No STRESS CONCERN No WEIGHT CONCERN No DIET No BACK CARE No EXERCISE Yes Comment:DOESNT EXERCISE ROUTINELY. PT COUNSELED BIKE HELMET No SEAT BELT No SELF EXAMS Yes Comment:DOESNT DO SBE. PT COUNSELED Current Outpatient Prescriptions: MULTIVITAMIN ORAL Take by mouth. No current facility-administered medications for this visit. Allergies As of Date: 03/01/2018 Allergen Noted Reaction BANANA 06/21/2006 GI Upset BANDAIDS [OTHER] 06/21/2006 Rash Fully Assessed 02/17/2018 REVIEW OF SYSTEMS Abdomen: No bloating, early satiety, indigestion, or increased flatulence. No abdominal pain, nausea, vomiting, diarrhea, or constipation. Bladder: No dysuria, gross hematuria, urinary frequency, urinary urgency, or incontinence. Breast: No breast lumps, nipple d/c, overlying skin changes, redness or skin retraction. Expanded ROS: N/A Allergies and current medication updated:Yes EXAM: BP 112/72 Wt 186 lb (84.4kg) LMP 02/15/2018 GENERAL: pleasant, flat affect, female in no apparent distress HEENT: Normocephalic, atraumatic, mucus membranes moist and no lesions NECK: Supple, full range of motion, no adenopathy and thyroid normal DERMATOLOGY: Normal, without lesions, non-icteric and non-hirsute BREAST: deferred CHEST: Normal inspiratory effort ABDOMEN: soft, non-tender and no masses PELVIC: external genitalia normal, normal Bartholin's glands, urethra, [place]'s glands, no vulvar lesions, no cervical lesions, good vaginal support, physiologic discharge present, normal appearing perineal body and perianal region BIMANUAL: uterus normal size, shape and consistency, no adnexal masses and non-tender NEURO: alert and oriented x3,exam grossly non-focal EXTREMITIES: normal ASSESSMENT AND PLAN: Encounter Diagnosis ICD-10-CM 1. Complete without complication O03.9 HCG QUANTITATIVE 1) bhcg quant drawn - will contact patient with results. 2) Contraceptive counseling done - patient declines all contraception options today. Patient does not desire a however. 3) RTC PRN for annual and pap Scotty Gonzalez APRN.BENNETTM Referring Provider: SELF [[id number]] Allergies As of Date: 03/01/2018 Noted Allergy Reaction BANANA 06/21/2006 8 - GI Upset BANDAIDS [Other] 06/21/2006 2 - Rash Date Reviewed: 03/01/2018 Reviewed by: Loreto Garcia Ma - Fully Assessed Primary Visit Diagnosis:Complete without complication [O03.9] Order(s):HCG QUANTITATIVE [SQHCGQT] Order #: [id number] FUTURE Prescriptions as of 03/01/2018 Sig: MULTIVITAMIN ORAL Take by mouth. Problem List As Of Date 03/01/2018 Noted Resolved IRREGULAR MENSTRUATION [N92.6] INVALID FOR*12/28/2006 DEPRESSIVE DISORDER NEC [F32.9] INVALID FOR* SUPERVIS NORMAL 1ST PREG [Z34.00] INVALID FOR*12/28/2006 THRT STEPHY LABOR-ANTEPART [O47.00] INVALID FOR*12/28/2006 SUPRF HIGH RISK NEC [O09.899] INVALID FOR*05/14/2009 History of delivery, currently *INVALID FOR* More... Encounter for supervision of normal i*INVALID FOR* Disposition: Return if symptoms worsen or fail to improve. Follow-up and Disposition History Recorded Encounter Status:Closed by SCOTTY GONZALEZ CNM on 03/02/18 PROGRESS Observed: 02/17/2018 Status: COMPLETED Source: [facility] 1:09 PM [facility] REPOSITORY HNO ID: [id number] Author: Carmel Jacobs Service: (none) Author Type: Marketing Writer Type: Progress Notes Filed: 03/03/2018 2:47 PM Note Text: Follow up completed on 02/01/18. No appointment needed today. Carmel Jacobs APRN.CNM CNOV Observed: 02/17/2018 Status: COMPLETED Source: [facility] 1:00 PM [facility] REPOSITORY Office Visit (WOOB) IESHA LAWRENCE ([id number]) 1990 F Date Time Provider Department 02/17/18 1:00 PM CARMEL JACOBS) WOOB During your visit today, we recorded the following information about you: Blood pressure Weight Last Period 112 83.9 kg 02/15/18 Carmel Jacobs APRN.CNM 03/03/2018 2:47 PM Signed Follow up completed on 02/01/18. No appointment needed today. Carmel Jacobs APRN.CNM Referring Provider: CARMEL JACOBS) [[id number]] Allergies As of Date: 02/17/2018 Noted Allergy Reaction BANANA 06/21/2006 8 - GI Upset BANDAIDS [Other] 06/21/2006 2 - Rash Date Reviewed: 02/17/2018 Reviewed by: Heather Landry Ma - Fully Assessed Reason for Visit: Appointment Cancelled [1023] Reason For Visit History Recorded Primary Visit Diagnosis:APPOINTMENT CANCELLED Prescriptions as of 02/17/2018 Sig: MULTIVITAMIN ORAL Take by mouth. Problem List As Of Date 02/17/2018 Noted Resolved IRREGULAR MENSTRUATION [N92.6] INVALID FOR*12/28/2006 DEPRESSIVE DISORDER NEC [F32.9] INVALID FOR* SUPERVIS NORMAL 1ST PREG [Z34.00] INVALID FOR*12/28/2006 THRT STEPHY LABOR-ANTEPART [O47.00] INVALID FOR*12/28/2006 SUPRF HIGH RISK NEC [O09.899] INVALID FOR*05/14/2009 History of delivery, currently *INVALID FOR* More... Encounter for supervision of normal i*INVALID FOR* Encounter Status:Closed by MARLYN GALLARDO CMA on 03/03/18 PROGRESS Observed: 02/01/2018 Status: COMPLETED Source: [facility] 11:15 AM [facility] REPOSITORY HNO ID: [id number] Author: Millie Zaragoza Service: (none) Author Type: Physician Type: Progress Notes Filed: 02/01/2018 11:18 AM Note Text: A normal sized retroverted uterus with the measurements shown below. The endometrial echo measures 10.8 mm. The endometrial cavity appears normal. The myometrium appears normal. The right ovary appears normal. The left ovary appears normal. There is visible free fluid in the cul de sac CNOV Observed: 02/01/2018 Status: COMPLETED Source: [facility] 11:15 AM [facility] REPOSITORY Office Visit (WOOB) IESHA LAWRENCE ([id number]) 1990 F Date Time Provider Department 02/01/18 11:15 AM CARMEL JACOBS) WOOB During your visit today, we recorded the following information about you: Blood pressure Weight Last Period 100/66 83.9 kg 01/08/18 Carmel Jacobs CNM 02/01/2018 3:30 PM Signed Mop Worker offered: Patient declines. Iesha Lawrence is a 27 year old female who presents for problem visit For follow up HPI: Here today for follow up ultrasound due to pelvic pain. Pain remains the same from previous visit. 01/13/18: Pelvic pain and vaginal discharge over past 3 months. Discharge clear/yellow, small amount, no odor. Pain in pelvic area. Menses irregular, still . No bleeding or spotting in between. Menses every 2-3 months, last for 3 days and light. Rates pain a 2/10 today, achy. Severe pain gets to 7/10 intermittently. This happens once every couple days PAST MEDICAL HISTORY Diagnosis Date - Abnormal glandular Papanicolaou smear of cervix 06/2006 Abn. Pap smear (cervix) - Dysthymic disorder Depression (non-psychotic) - Encounter for insertion or removal of intrauterine contraceptive device 06/11/2009 Mirena - depression - Unspecified constipation PAST SURGICAL HISTORY Procedure Laterality Date - IUD INSERTION (STAFF ENGINEER DEPT)_*FL 06/11/2009 Mirena FAMILY HISTORY Problem Relation Age of Onset - Emphysema Father - Asthma Father - myocardial infarction [OTHER] Father - Diabetes Mother - Hypertension Mother - Cancer Maternal Grandmother PANCREATIC CANCER AND BREAST CANCER - Thyroid Sister - Stroke Maternal Uncle Social History Marital status: Spouse name: Rose Years of education: 11 Number of children: 3 Occupational History Occupation Employer Comment STUDENT STUDYING TO [employer] Social History Main Topics Smoking status: Never Smoker Smokeless status: Never Used Alcohol use: No Drug use: No Sexual activity: Yes Partners with: Male control/protection: None Other Topics Concern No BLOOD TRANSFUSIONS No CAFFEINE No OCCUPATIONAL EXPOSURE No HOBBY HAZARD No SLEEP CONCERN No STRESS CONCERN No WEIGHT CONCERN No DIET No BACK CARE No EXERCISE Yes Comment:DOESNT EXERCISE ROUTINELY. PT COUNSELED BIKE HELMET No SEAT BELT No SELF EXAMS Yes Comment:DOESNT DO SBE. PT COUNSELED Current Outpatient Prescriptions: MULTIVITAMIN ORAL Take by mouth. No current facility-administered medications for this visit. Allergies As of Date: 02/01/2018 Allergen Noted Reaction BANANA 06/21/2006 GI Upset BANDAIDS [OTHER] 06/21/2006 Rash Fully Assessed 02/01/2018 REVIEW OF SYSTEMS Abdomen: No bloating, early satiety, indigestion, or increased flatulence. No abdominal pain, nausea, vomiting, diarrhea, or constipation. Bladder: No dysuria, gross hematuria, urinary frequency, urinary urgency, or incontinence. Breast: No breast lumps, nipple d/c, overlying skin changes, redness or skin retraction. Expanded ROS: N/A Allergies and current medication updated:Yes EXAM: BP 100/66 Wt 185 lb (83.9kg) LMP 01/08/2018 GENERAL: pleasant, female in no apparent distress HEENT: Normocephalic and atraumatic NECK: Supple and full range of motion NEURO: alert and oriented x3,exam grossly non-focal BV, yeast, trich, GC/CT, urine culture, urine test all negative. Pelvic U/S Report Summary 02/01/18 Overall impression: A normal sized retroverted uterus with the measurements shown below. The endometrial echo measures 10.8 mm. The endometrial cavity appears normal. The myometrium appears normal. The right ovary appears normal. The left ovary appears normal. There is visible free fluid in the cul de sac. Recommendations / therapy: clinical correlation. ASSESSMENT AND PLAN: ASSESSMENT/PLAN: 1. Pelvic pain in female - ICD9: 625.9, ICD10: R10.2 -Discussed with patient negative test results and normal U/S. At this time no further follow up. Recommend follow up with PCP. Carmel Jacobs CNM Referring Provider: CARMEL JACOBS (BENNETT) [[id number]] Allergies As of Date: 02/01/2018 Noted Allergy Reaction BANANA 06/21/2006 8 - GI Upset BANDAIDS [Other] 06/21/2006 2 - Rash Date Reviewed: 02/01/2018 Reviewed by: Heather Landry Ma - Fully Assessed Reason for Visit: Follow Up [171] Cmt: U/S Today, Cramping Primary Visit Diagnosis:Pelvic pain in female [R10.2] Prescriptions as of 02/01/2018 Sig: MULTIVITAMIN ORAL Take by mouth. Problem List As Of Date 02/01/2018 Noted Resolved IRREGULAR MENSTRUATION [N92.6] INVALID FOR*12/28/2006 DEPRESSIVE DISORDER NEC [F32.9] INVALID FOR* SUPERVIS NORMAL 1ST PREG [Z34.00] INVALID FOR*12/28/2006 THRT STEPHY LABOR-ANTEPART [O47.00] INVALID FOR*12/28/2006 SUPRF HIGH RISK NEC [O09.899] INVALID FOR*05/14/2009 History of delivery, currently *INVALID FOR* More... Encounter for supervision of normal i*INVALID FOR* Medications Discontinued During This Encounter amoxicillin (POLYMOX, AMOXIL) 500 mg* 0 01/06/2018 02/01/2018 Class: Historical Med Route: ORAL Sig: Take 1 capsule by mouth twice daily. Disc: Reason for discontinue is not on file. cephALEXin (KEFLEX) 500 mg capsule 02/01/2018 Class: Historical Med Route: ORAL Sig: Take 500 mg by mouth four times daily. Disc: Reason for discontinue is not on file. Pivxknsp-Oe-Rgo-Fe-FA (PREN* 02/01/2018 Class: Historical Med Route: ORAL Sig: Take 1 tablet by mouth once daily. Disc: Reason for discontinue is not on file. Disposition: Return in about 5 months (around 07/04/2018) for Annual. Follow-up and Disposition History Recorded Encounter Status:Closed by CARMEL JACOBS on 02/01/18 PROGRESS Observed: 02/01/2018 Status: COMPLETED Source: [facility] 10:53 AM [facility] REPOSITORY O ID: [id number] Author: Carmel (Syeda) Reynaldo Service: (none) Author Type: Marketing Writer Type: Progress Notes Filed: 02/01/2018 3:30 PM Note Text: Mop Worker offered: Patient declines. Iesha Lawrence is a 27 year old female who presents for problem visit For follow up HPI: Here today for follow up ultrasound due to pelvic pain. Pain remains the same from previous visit. 01/13/18: Pelvic pain and vaginal discharge over past 3 months. Discharge clear/yellow, small amount, no odor. Pain in pelvic area. Menses irregular, still . No bleeding or spotting in between. Menses every 2-3 months, last for 3 days and light. Rates pain a 2/10 today, achy. Severe pain gets to 7/10 intermittently. This happens once every couple days PAST MEDICAL HISTORY Diagnosis Date - Abnormal glandular Papanicolaou smear of cervix 06/2006 Abn. Pap smear (cervix) - Dysthymic disorder Depression (non-psychotic) - Encounter for insertion or removal of intrauterine contraceptive device 06/11/2009 Mirena - depression - Unspecified constipation PAST SURGICAL HISTORY Procedure Laterality Date - IUD INSERTION (STAFF ENGINEER DEPT)_*FL 06/11/2009 Mirena FAMILY HISTORY Problem Relation Age of Onset - Emphysema Father - Asthma Father - myocardial infarction [OTHER] Father - Diabetes Mother - Hypertension Mother - Cancer Maternal Grandmother PANCREATIC CANCER AND BREAST CANCER - Thyroid Sister - Stroke Maternal Uncle Social History Marital status: Spouse name: Rose Years of education: 11 Number of children: 3 Occupational History Occupation Employer Comment STUDENT STUDYING TO GET GED Social History Main Topics Smoking status: Never Smoker Smokeless status: Never Used Alcohol use: No Drug use: No Sexual activity: Yes Partners with: Male control/protection: None Other Topics Concern No BLOOD TRANSFUSIONS No CAFFEINE No OCCUPATIONAL EXPOSURE No HOBBY HAZARD No SLEEP CONCERN No STRESS CONCERN No WEIGHT CONCERN No DIET No BACK CARE No EXERCISE Yes Comment:DOESNT EXERCISE ROUTINELY. PT COUNSELED BIKE HELMET No SEAT BELT No SELF EXAMS Yes Comment:DOESNT DO SBE. PT COUNSELED Current Outpatient Prescriptions: MULTIVITAMIN ORAL Take by mouth. No current facility-administered medications for this visit. Allergies As of Date: 02/01/2018 Allergen Noted Reaction BANANA 06/21/2006 GI Upset BANDAIDS [OTHER] 06/21/2006 Rash Fully Assessed 02/01/2018 REVIEW OF SYSTEMS Abdomen: No bloating, early satiety, indigestion, or increased flatulence. No abdominal pain, nausea, vomiting, diarrhea, or constipation. Bladder: No dysuria, gross hematuria, urinary frequency, urinary urgency, or incontinence. Breast: No breast lumps, nipple d/c, overlying skin changes, redness or skin retraction. Expanded ROS: N/A Allergies and current medication updated:Yes EXAM: BP 100/66 Wt 185 lb (83.9kg) LMP 01/08/2018 GENERAL: pleasant, female in no apparent distress HEENT: Normocephalic and atraumatic NECK: Supple and full range of motion NEURO: alert and oriented x3,exam grossly non-focal BV, yeast, trich, GC/CT, urine culture, urine test all negative. Pelvic U/S Report Summary 02/01/18 Overall impression: A normal sized retroverted uterus with the measurements shown below. The endometrial echo measures 10.8 mm. The endometrial cavity appears normal. The myometrium appears normal. The right ovary appears normal. The left ovary appears normal. There is visible free fluid in the cul de sac. Recommendations / therapy: clinical correlation. ASSESSMENT AND PLAN: ASSESSMENT/PLAN: 1. Pelvic pain in female - ICD9: 625.9, ICD10: R10.2 -Discussed with patient negative test results and normal U/S. At this time no further follow up. Recommend follow up with PCP. Carmel Jacobs CNM Observed: 01/13/2018 Status: F Source: [facility] TRICHOMONAS PREP 2:56 PM [facility] REPOSITORY Sp. Request/Comment: - Swab Smear Result - Negative for Trichomonas vaginalis antigen This test was developed and its performance characteristics determined by [facility]'s Roshan Selvin [facility] [place] [facility] It has not been cleared or approved by the FDA. [facility] is regulated under CLIA as qualified to perform high-complexity testing. This test is used for clinical purposes. It should not be regarded as investigational or for research. Performed By: #### TRICHO #### [place] [id number] Observed: 01/13/2018 Status: F Source: [facility] BACT/CAND VAG GRM ST 2:56 PM [facility] REPOSITORY Sp. Request/Comment: - Swab Smear Result - BACTERIAL VAGINOSIS RESULT: Stain results consistent with normal vaginal bharathi. No Yeast observed Moderate Polymorphonuclear leukocytes Performed By: #### BVCNSM #### [place] [address] Observed: 01/13/2018 Status: F Source: [facility] URINE CULTURE 2:56 PM [facility] REPOSITORY Sp. Request/Comment: - Specimen received in preservative Culture Result - 10,000 - <50,000 CFU/ml Normal urogenital bharathi Performed By: #### URCUL #### [place] [id number] PROGRESS Observed: 01/13/2018 Status: COMPLETED Source: [facility] 2:35 PM [facility] REPOSITORY HNO ID: [id number] Author: Carmel Jacobs Service: (none) Author Type: Marketing Writer Type: Progress Notes Filed: 01/13/2018 4:46 PM Note Text: Iesha Lawrence is a 27 year old female who presents for problem visit pelvic pain HPI: Pelvic pain and vaginal discharge over past 3 months. Discharge clear/yellow, small amount, no odor. Pain in pelvic area. Menses irregular, still . No bleeding or spotting in between. Menses every 2-3 months, last for 3 days and light. Rates pain a 2/10 today, achy. Severe pain gets to 7/10 intermittently. This happens once every couple days. PAST MEDICAL HISTORY Diagnosis Date - Abnormal glandular Papanicolaou smear of cervix 06/2006 Abn. Pap smear (cervix) - Dysthymic disorder Depression (non-psychotic) - Encounter for insertion or removal of intrauterine contraceptive device 06/11/2009 Mirena - depression - Unspecified constipation PAST SURGICAL HISTORY Procedure Laterality Date - IUD INSERTION (STAFF ENGINEER DEPT)_*FL 06/11/2009 [facility] FAMILY HISTORY Problem Relation Age of Onset - Emphysema Father - Asthma Father - myocardial infarction [OTHER] Father - Diabetes Mother - Hypertension Mother - Cancer Maternal Grandmother PANCREATIC CANCER AND BREAST CANCER - Thyroid Sister - Stroke Maternal Uncle Social History Marital status: Spouse name: Rose Years of education: 11 Number of children: 3 Occupational History Occupation Employer Comment STUDENT STUDYING TO [employer] Social History Main Topics Smoking status: Never Smoker Smokeless status: Never Used Alcohol use: No Drug use: No Sexual activity: Yes Partners with: Male control/protection: None Other Topics Concern No BLOOD TRANSFUSIONS No CAFFEINE No OCCUPATIONAL EXPOSURE No HOBBY HAZARD No SLEEP CONCERN No STRESS CONCERN No WEIGHT CONCERN No DIET No BACK CARE No EXERCISE Yes Comment:DOESNT EXERCISE ROUTINELY. PT COUNSELED BIKE HELMET No SEAT BELT No SELF EXAMS Yes Comment:DOESNT DO SBE. PT COUNSELED Current Outpatient Prescriptions: amoxicillin (POLYMOX, AMOXIL) 500 mg capsule Take 1 capsule by mouth twice daily. Pgtegajl-Nq-Bvm-Fe-FA ( VITAMIN) tab Take 1 tablet by mouth once daily. cephALEXin (KEFLEX) 500 mg capsule Take 500 mg by mouth four times daily. No current facility-administered medications for this visit. Allergies As of Date: 01/13/2018 Allergen Noted Reaction BANANA 06/21/2006 GI Upset BANDAIDS [OTHER] 06/21/2006 Rash Fully Assessed 01/13/2018 REVIEW OF SYSTEMS Abdomen: No bloating, early satiety, indigestion, or increased flatulence. No abdominal pain, nausea, vomiting, diarrhea, or constipation. Bladder: No dysuria, gross hematuria, urinary frequency, urinary urgency, or incontinence. Breast: No breast lumps, nipple d/c, overlying skin changes, redness or skin retraction. Expanded ROS: N/A Allergies and current medication updated:Yes EXAM: BP 100/72 Wt 187 lb 3.2 oz (84.9kg) GENERAL: pleasant, female in no apparent distress HEENT: Normocephalic and atraumatic NECK: Supple and full range of motion DERMATOLOGY: Normal and without lesions CHEST: Clear to auscultation Normal inspiratory effort Regular rate and rhythm No murmurs, clicks, rubs or gallops ABDOMEN: soft, non-tender and no masses PELVIC: external genitalia normal, normal Bartholin's glands, urethra, [place]'s glands, no vulvar lesions, no cervical lesions, good vaginal support, small amount of thin white vaginal discharge present, normal appearing perineal body and perianal region BIMANUAL: uterus normal size, shape and consistency, no adnexal masses. Slightly tender to palpation NEURO: alert and oriented x3,exam grossly non-focal EXTREMITIES: normal ASSESSMENT AND PLAN: ASSESSMENT/PLAN: 1. Vaginal discharge - ICD9: 623.5, ICD10: N89.8 (primary diagnosis) - BACT/CHICHO VAG GRAM STAIN - TRICHOMONAS PREP - GC/CHLAMYDIA DNA DET 2. Pelvic pain in female - ICD9: 625.9, ICD10: R10.2 - TRICHOMONAS PREP - GC/CHLAMYDIA DNA DET - PELVIC US WHI - URINE CULTURE - UA DIP B/O - HCG QUAL UR - HCG QUAL UR B/O Follow up in 2 weeks after U/S and labs done. Carmel Jacobs CNM GC/CHLAMYDIA AMPLIF Collected: 01/13/2018 Status: F Source: [place] 5:59 AM [facility] REPOSITORY TYPE CODE TESTS RESULT OUT OF REFERENCE UNITS RANGE LAB GCCTSR GC/Chlam Amp Cervix Source LAB GCAMPL GC Negative Amplification for Neisseria gonorrhoeae by amplification. LAB CLAMPL Chlamydia Negative Amplif for Chlamydia trachomatis by amplification. Performed By: #### GCCT #### [facility] [address] [id number] CBC W/DIFF, AUTOMATED Collected: 01/05/2018 Status: F Source: [place] 4:27 PM [facility] REPOSITORY TYPE CODE TESTS RESULT OUT OF RANGE REFERENCE UNITS LAB L100.1000 4.4-11.0 K/mm3 Normal WBC 8.6 LAB L100.1200 4.2-5.4 M/mm3 Normal RBC 4.36 LAB L100.1300 12.0-15.0 g/dl Normal HGB 14.1 LAB L100.1400 37-47 % Normal HCT 40.3 LAB L100.1500 81-99 fL Normal MCV 92.4 LAB L100.1600 27.0-32.0 pg High MCH 32.3 LAB L100.1700 32-36 g/gl Normal MCHC 35.0 LAB L100.1810 11.6-14.6 % Normal RDW CV 12.3 LAB L100.1820 35.1-43.9 fl Normal RDW SD 40.5 LAB L100.1900 150-450 K/mm3 Normal PLT 220 LAB L100.2000 6.2-12.0 fl Normal MPV 10.7 LAB L100.2100 47-70 % High NEUT% 71.4 LAB L100.2200 19-41 % Low LY% 18.9 LAB L100.2300 0-10 % Normal MONO% 7.8 LAB L100.2400 0-5 % Normal EO% 1.6 LAB L100.2500 0-1 % Normal BASO% 0.2 LAB L100.2550 0.0-0.9 % Normal IM GRAN % 0.100 Result Comment: IG% - Immature Granulocytes (promyelocytes, myelocytes and metamyelocytes) > 1% indicates that a LEFT SHIFT is Present. LAB L100.2620 2.0-7.7 X10 3/uL Normal Absolute Neut 6.1 LAB L100.2720 0.83-4.51 X10 3/ul Normal Absolute Lymph 1.62 Performed By: #### L100.0100 #### [facility] [address] [place], [place], [address] COMPREHENSIVE METABOLIC Collected: 01/05/2018 Status: F Source: [facility] 4:27 PM [facility] REPOSITORY TYPE CODE TESTS RESULT OUT OF RANGE REFERENCE UNITS LAB L501.0100 74-106 mg/dL High GLU 127 Result Comment: Fasting Glucose result greater than or equal to 126 mg/dL suggests DIABETES MELLITUS per A.D.A. criteria. Please note revised GLUCOSE reference range effective 2017. LAB L501.1000 7-18 mg/dL Normal BUN 10 LAB L501.1100 0.55-1.02 mg/dL Normal CREAT,SERUM 0.72 Result Comment: The validity of the calculated GFR AND GFRAA in patients over 70 years has not been determined. Clinical correlation is essential. LAB L501.1110 >60 mL/min Normal EST GFR 101 Result Comment: Non- GFR Calc LAB L501.1115 >60 mL/min Normal EST GFR - AA 122 Result Comment: GFR Calc LAB L501.1300 10-20 RATIO Normal BUN/CRE 13.8 LAB L501.1500 6.4-8.2 g/dL T Normal PROT 7.2 LAB L501.1800 3.2-5.0 g/dL Normal ALB 3.9 LAB L501.1950 2.2-4.2 g/dL Normal GLOB 3.3 LAB L501.2000 0.9-2.4 RATIO Normal A/G 1.2 LAB L501.2200 8.5-10.1 mg/dL Low CA 8.4 LAB L501.4100 15-37 U/L Low AST 13 LAB L501.4305 45-117 U/L Normal ALK P 72 LAB L501.4405 13-56 U/L Normal ALT 22 Result Comment: Please note revised ALT reference range effective 2017. LAB L501.4600 0.20-1.00 mg/dL Normal T BILI 0.30 LAB L501.5300 136-145 mmol/L Normal NA 140 LAB L501.5600 3.5-5.1 mmol/L Normal K 3.9 LAB L501.5900 98-107 mmol/L Normal CL 105 LAB L501.6100 21.0-32.0 mmol/L Normal CO2 27.0 LAB L501.6200 5-15 Normal GAP 8 Performed By: #### L500.4050, L501.2450 #### [facility] [address] [place], [place], [id number] LIPASE Collected: 01/05/2018 Status: F Source: [place] 4:27 PM [facility] REPOSITORY TYPE CODE TESTS RESULT OUT OF RANGE REFERENCE UNITS LAB L501.2450 73-393 U/L Normal LIPASE 202 Performed By: #### L500.4050, L501.2450 #### [facility] [address] [place], [place], [id number] URINALYSIS, COMPLETE Collected: 01/05/2018 Status: F Source: [place] 4:27 PM [facility] REPOSITORY Order Comment: How was Urine Obtained? CLEAN CATCH TYPE CODE TESTS RESULT OUT OF RANGE REFERENCE UNITS LAB L400.3000 Yellow COLOR Normal Yellow LAB L400.3050 Clear Normal CLARITY Cloudy LAB L400.3200 Normal mg/dl Normal GLUCOSE, UR Normal LAB L400.3300 Negative mg/dL Normal BILIRUBIN URINE Negative LAB L400.3400 Negative mg/dl Normal KETONE UR Negative LAB L400.3465 1.002-1.030 Normal SP.GR. DIPSTX 1.010 LAB L400.3550 5.0 - 8.0 pH UR Normal 7.0 LAB L400.3600 Negative mg/dl PROT Normal DIPSTX Negative LAB L400.3700 Normal mg/dl Normal UROBILI Normal LAB L400.3750 Negative Normal NITRITE UR Negative LAB L400.3780 Negative /ul Normal OCCULT BLOOD-UR Negative LAB L400.3800 Negative /ul High LEUK 25 ESTERASE LAB L400.4050 0-5 /hpf WBC Normal 0-5 SEEN LAB L400.4100 0-5 /hpf 0 Normal RBC-UA SEEN LAB L400.4150 5-10 /hpf SQUAM Normal EPI 5-10 SEEN LAB L400.4300 None Seen /hpf Normal BACTERIA RARE LAB L400.4350 <or=2+ /hpf 1+ Normal MUCUS, URINE Performed By: #### L400.0001 #### [facility] [address] [place], [place], [address] HCG TITER QUANT., Collected: 01/05/2018 Status: F Source: [place] SERUM 4:27 PM [facility] REPOSITORY Order Comment: Date of Last Menstrual Period? 10/21/17 TYPE CODE TESTS RESULT OUT OF RANGE REFERENCE UNITS LAB L700.8000 <9 non-preg mIU/mL Normal HCG < 1 QUANT. Performed By: #### L700.8000 #### [facility] [address] [facility] [place], [address] Observed: 01/05/2018 Status: F Source: [place] CULTURE, URINE 4:27 PM [facility] REPOSITORY Urine Culture Probable skin contamination. ORGANISM 1: Mixed Gram Positive Organisms Trade Count 80,000-100,000 Performed By: #### M100.0650 #### [facility] [address] [place], [address] ALLERGIES ALLERGIES DATE TYPE / CODE NAME / CODE REACTION SEVERITY SOURCE 12/12/2018 Drug banana/[id number] Nausea/Vom/Yudy Unknown [place] Allergy/032166022(S 877(RXNORM) rrhea [facility]) Hospital Repository 12/12/2018 Drug latex/[id number] Hives Unknown [place] Allergy/737797199(S 21(RXNORM) [facility]) Hospital Repository 11/29/2018 Miscellaneous bandaids Hives Unknown [place] Allergy/129222088([facility]) Hospital Repository 06/21/2006 DRUG BANANA GI UPSET [place] INGREDI/[id number]([facility]) [employer] Repository 06/21/2006 Miscellaneous OTHER RASH [place] Allergy/773212589([facility]) [employer] Repository ENCOUNTERS ENCOUNTERS ADMIT/DISCHARGE ACCOUNT ADMITTING ENCOUNTER LOCATION SOURCE NUMBER CLASS 12/12/2018 [id number] [facility] ing:LABSPEC Repository 12/12/2018/12/12/19 [id number] Ambulatory BMSBuilding:B [place] [address] Repository 12/07/2018 [id number] [facility] ing:OPUS Repository 11/29/2018/11/29/19 [id number] Ambulatory BMSBuilding:B [place] [address] [facility] Repository 11/28/2018 [id number] [facility] ing:LAB Repository 11/17/2018 [id number] [facility] ing:PAVLAB Repository 11/17/2018/11/17/20 [id number] Ambulatory BMSBuilding:B [place] [address] [facility] Repository 11/01/2018 [id number] Ambulatory BMSBuilding:B [place] MS.[facility] Repository 11/01/2018/11/01/20 [id number] Ambulatory [address] [facility] ing:WPOUTRoom Repository : WP016 10/25/2018 [id number] Ambulatory [facility] ing:LABSPEC Repository 10/25/2018/10/25/20 [id number] Ambulatory BMSBuilding:B [place] [address] [facility] Repository 10/20/2018/10/20/20 [id number] Ambulatory BMSBuilding:B [place] [address] [facility] Repository 09/21/2018/09/21/20 [id number] Ambulatory BMSBuilding:B [place] [address] [facility] Repository 09/07/2018 [id number] Ambulatory Building:[facility] Repository 08/23/2018 [id number] Ambulatory [facility] Hospital ing:PAVLAB Repository 08/23/2018/08/23/20 [id number] Ambulatory BMSBuilding:B [place] [address] [facility] Repository 08/22/2018/08/22/20 [id number] Emergency [address] [facility] ing:ED Repository 07/21/2018/07/21/20 [id number] Emergency [address] [facility] ing:ED Repository 07/17/2018/07/17/20 [id number] Ambulatory BMSBuilding:B [place] [address] Repository 07/12/2018 [id number] Ambulatory BMSBuilding:B [place] MS[facility] Repository 07/04/2018 [id number] Ambulatory [facility] ing:LAB Repository 06/14/2018 [id number] Ambulatory [facility] ing:LABSPEC Repository 06/14/2018/06/14/20 [id number] Ambulatory BMSBuilding:B [place] [address] Repository 05/30/2018 [id number] Ambulatory [facility] ing:LAB Repository 05/25/2018 [id number] Ambulatory [facility] ing:LAB Repository 05/22/2018/05/22/20 [id number] Emergency [address] ing:ED Repository 03/01/2018 [id number] Ambulatory [facility] Repository 03/01/2018/03/03/20 [id number] Ambulatory [address] Repository 02/17/2018 [id number] Ambulatory [facility] Repository 02/01/2018/02/04/20 [id number] Ambulatory [address] Repository 02/01/2018/02/04/20 [id number] Ambulatory [address] Repository 01/13/2018/01/20/20 [id number] Ambulatory [address] Repository 01/05/2018 [id number] [facility] ing:BFHLAB Repository PAYERS PAYERS ENCOUNTER GUARANTOR PAYER SUBSCRIBER SOURCE 12/12/2018 ROSE [place] Primary IESHA Pee [id number] TR Insurance:CARESOURCEP KIMMELLDOB: [address] Number: [id number] Hospital [address]Eto: 330 [id number] Repository [phone] () Date:2018-12-12 [address]ATTN: [place] [address]QZ: 12/12/2018 Secondary NOT GIVENUNK [place] Insurance:SELF PAY [facility] Number: Effective Repository Date:2018-12-12 12/12/2018 ROSE Meza Primary IESHA Pee [place] [id number] TR Insurance:CARESOURCEP KIMMELLDOB: [address] Number: [id number] Hospital [address]Han: 330 [id number] Repository [phone] () Date:2018-12-12 [address]ATTN: [place] [address]WY: 12/12/2018 Secondary NOT GIVENUNK [place] Insurance:SELF PAY [facility] Number: Effective Repository Date:2018-12-12 12/07/2018 ROSE Meza Primary IESHA Pee [place] [id number] TR Insurance:CARESOURCEP NICHOLELDOB: [address] Number: [id number] Hospital [address]Fuo: (330 [id number] Repository [phone] (HP) Date:2018-11-29P [address]ATTN: [place] [address]GW: 12/07/2018 Secondary NOT GIVENUNK [place] Insurance:SELF PAY [facility] Number: Effective Repository Date:2018-11-29 11/29/2018 ROSE Meza Primary IESHA Escalanteoster [id number] TR Insurance:CARESOURCRHIANNON VARELALDOB: [address] Number: [id number] Hospital [address]Dbo: (330 [id number] Repository [phone] () Date:2018-11-17P [address]ATTN: [place] [address]SM: 11/29/2018 Secondary NOT GIVENUNK [place] Insurance:SELF PAY [facility] Number: Effective Repository Date:2018-11-29 11/28/2018 ROSE Meza Primary IESHA A [place] [id number] TR Insurance:CARESOURCRHIANNON VARELALDOB: [address] Number: [id number] Hospital [address]Fif: [phone]) [id number] Repository [phone] () Date:2018-11-22 [address]ATTN: [place] [address]PR: 11/28/2018 Secondary NOT GIVENUNK [place] Insurance:SELF PAY [facility] Number: Effective Repository Date:2018-11-22 11/17/2018 ROSE Meza Primary IESHA Pee EscalanteEstella [id number] TWP Insurance:CARESOURCEP NICHOLELDOB: [address] Number: [id number] Hospital [address]Fby: ([phone]) [id number] Repository [phone] () Date:2018-11-17P [address]ATTN: [facility] [place] [address]BJ: 11/17/2018 Secondary NOT GIVENUNK [place] Insurance:SELF PAY [facility] Number: Effective Repository Date:2018-11-17 11/17/2018 ROSE Meza Primary IESHA [id number] TWP Insurance:CARESOURCEP EDERMELLDOB: [address] [place] Number: [id number] Hospital [address]Pkc: [phone]) [id number] Repository [phone] () Date:2018-10-20 [address]ATTN: [place] [address]DW: 11/17/2018 Secondary NOT GIVENUNK [place] Insurance:SELF PAY [facility] Number: Effective Repository Date:2018-11-17 11/01/2018 ROSE Meza Primary IESHA [place] [id number] TWP Insurance:CARESOURCEP NICHOLELDOB: [address] [place] Number: [id number] Hospital [address]Uqr: [phone] [id number] Repository [phone] () Date:2018-11-01 [address]ATTN: [place] [address]XP: 11/01/2018 Secondary NOT GIVENUNK [place] Insurance:SELF PAY [facility] Number: Effective Repository Date:2018-11-01 11/01/2018 ROSE Meza Primary IESHA [place] [id number] TWP Insurance:CARESOURCEP NICHOLELDOB: [address] [place] Number: [id number] Hospital [address]Gha: [phone] [id number] Repository [phone] () Date:2018-11-01 [address]ATTN: [place] [address]VX: 11/01/2018 Secondary NOT GIVENUNK [place] Insurance:SELF PAY [facility] Number: Effective Repository Date:2018-11-01 10/25/2018 ROSE Meza Primary IESHA [id number] TWP Insurance:CARESOURCEP KIMMELLDOB: [address] [place] Number: [id number] Hospital [address]Mbb: (330 [id number] Repository [phone] () Date:2018-10-25P [address]ATTN: [place] [address]AY: 10/25/2018 Secondary NOT GIVENUNK [place] Insurance:SELF PAY [facility] Number: Effective Repository Date:2018-10-25 10/25/2018 ROSE Meza Primary IESHA [place] [id number] TWP Insurance:CARESOURCEP KIMMELLDOB: [facility] [address], [facility] Number: [id number] Hospital [address]Ryj: [phone] [id number] Repository [phone] () Date:2018-10-25P [address]ATTN: [place] [address]FP: 10/25/2018 Secondary NOT GIVENUNK [place] Insurance:SELF PAY [facility] Number: Effective Repository Date:2018-10-25 10/20/2018 ROSE Meza Primary IESHA [place] [id number] TWP Insurance:CARESOURCEP KIMMELLDOB: [facility] [address] [place] Number: [id number] Hospital [address]Elm: (330 [id number] Repository [phone] (HP) Date:2018-09-21P [address]ATTN: [place] [address]EZ: 10/20/2018 Secondary NOT GIVENUNK [place] Insurance:SELF PAY [facility] Number: Effective Repository Date:2018-09-21 09/21/2018 ROSE Meza Primary IESHA [place] [id number] TWP Insurance:CARESOURCEP KIMMELLDOB: [address] [place] Number: [id number] Hospital [address]Iqs: [phone]) [id number] Repository [phone] () Date:2018-08-23P [address]ATTN: [place] [address]BG: 09/21/2018 Secondary NOT GIVENUNK [place] Insurance:SELF PAY [facility] Number: Effective Repository Date:2018-09-21 09/07/2018 IESHA Primary IESHA Pee [facility] MEMPHISDOB: Insurance:CARESOURCEP KIMMELLDOB: [facility] Number: [id number] [address], [id number] [place] [address]Aow: Date: [place] [phone] () 09/07/2018 Secondary IESHA Pee [facility] Insurance:CARESOURCEP KIMMELLDOB: [facility] Number: [id number] Repository [id number] [address], Date: [facility] 08/23/2018 ROSE Meza Primary IESHA A [place] [id number] TWP Insurance:CARESOURCEP KIMMELLDOB: [facility] [address], [place] [facility] Number: [id number] Hospital [address]Ltt: [phone] [id number] Repository [phone] () Date:2018-08-23P [address]ATTN: [place] [address]KR: 08/23/2018 Secondary NOT GIVENUNK [place] Insurance:SELF PAY [facility] Number: Effective Repository Date:2018-08-23 08/23/2018 ROSE Meza Primary IESHA A [place] [id number] TWP Insurance:CARESOURCEP KIMMELLDOB: [facility] [address], [facility] Number: [id number] Hospital [address]Prr: [phone]) [id number] Repository [phone] () Date:2018-08-16P [address]ATTN: [place] [address]VY: 08/23/2018 Secondary NOT GIVENUNK [place] Insurance:SELF PAY [facility] Number: Effective Repository Date:2018-08-23 08/22/2018 ROSE Meza Primary IESHA [place] [id number] TWP Insurance:CARESOURCEP EDERMELLDOB: [address] Number: [id number] Hospital [address]Cih: 330 [id number] Repository [phone] () Date:2018-08-22P [address]ATTN: [place] [address]YJ: 08/22/2018 Secondary NOT GIVENUNK [place] Insurance:SELF PAY [facility] Number: Effective Repository Date:2018-08-22 07/21/2018 ROSE Meza Primary IESHA [place] [id number] TR Insurance:CARESOURCEP NICHOLELDOB: [address] Number: [id number] Hospital [address]Pjb: 330 [id number] Repository [phone] () Date:2018-07-21 [address]ATTN: [place] [address]UO: 07/21/2018 Secondary NOT GIVENUNK [place] Insurance:SELF PAY [facility] Number: Effective Repository Date:2018-07-21 07/17/2018 ROSE Meza Primary IESHA [place] [id number] TR Insurance:CARESOURCEP EDERMELLDOB: [address] Number: [id number] Hospital [address]Owa: 330 [id number] Repository [phone] () Date:2018-07-17P [address]ATTN: [place] [address]YS: 07/17/2018 Secondary NOT GIVENUNK [place] Insurance:SELF PAY [facility] Number: Effective Repository Date:2018-07-17 07/12/2018 ROSE Meza Primary IESHA [place] [id number] TR Insurance:CARESOURCEP EDERMELLDOB: [address] Number: [id number] Hospital [address]Ndi: (162) [id number] Repository [phone] (HP) Date:2018-06-14P [address]ATTN: [place] [address]UT: 07/12/2018 Secondary NOT GIVENUNK [place] Insurance:SELF PAY [facility] Number: Effective Repository Date:2018-06-14 07/04/2018 ROSE Meza Primary IESHA A [place] [id number] TR Insurance:CARESOURCEP KIMMELLDOB: [address] [facility] Number: [id number] Hospital [address]Hwx: ([phone]) [id number] Repository [phone] (HP) Date:2018-07-04P [address]ATTN: [place] [address]FR: 07/04/2018 Secondary NOT GIVENUNK [place] Insurance:SELF PAY [facility] Number: Effective Repository Date:2018-07-04 06/14/2018 ROSE Meza Primary IESHA A [place] [id number] TR Insurance:CARESOURCEP KIMMELLDOB: [address] [facility] Number: [id number] Hospital [address]Rjo: ([phone]) [id number] Repository [phone] () Date:2018-06-14P [address]ATTN: [place] [address]EJ: 06/14/2018 Secondary NOT GIVENUNK [place] Insurance:SELF PAY [facility] Number: Effective Repository Date:2018-06-14 06/14/2018 ROSE Meza Primary IESHA A [place] [id number] TR Insurance:CARESOURCEP KIMMELLDOB: Community [address] Number: [id number] Hospital [address]Tjp: [phone]) [id number] Repository [phone] (HP) Date:2018-05-26P [address]ATTN: [place] [address]AX: 06/14/2018 Secondary NOT GIVENUNK [place] Insurance:SELF PAY [facility] Number: Effective Repository Date:2018-06-14 05/30/2018 ROSE Meza Primary IESHA [place] [id number] TR Insurance:CARESOURCEP EDERMELLDOB: [address] Number: [id number] Hospital [address]Xtv: 330 [id number] Repository [phone] () Date:2018-05-30P [address]ATTN: [place] [address]DC: 05/30/2018 Secondary NOT GIVENUNK [place] Insurance:SELF PAY [facility] Number: Effective Repository Date:2018-05-30 05/25/2018 ROSE Meza Primary IESHA [place] [id number] TR Insurance:CARESOURCEP EDERMELLDOB: [address] Number: [id number] Hospital [address]Cpr: 330 [id number] Repository [phone] () Date:2018-05-25P [address]ATTN: [place] [address]DN: 05/25/2018 Secondary NOT GIVENUNK [place] Insurance:SELF PAY [facility] Number: Effective Repository Date:2018-05-25 05/22/2018 ROSE Meza Primary IESHA [place] [id number] TR Insurance:CARESOURCEP NICHOLELDOB: [address] Number: [id number] Hospital [address]Win: (330 [id number] Repository [phone] () Date:2018-05-22P [address]ATTN: [place] [address]ME: 05/22/2018 Secondary NOT GIVENUNK [place] Insurance:SELF PAY [facility] Number: Effective Repository Date:2018-05-22 01/05/2018 Rose [place] [id number] Insurance:CARESOURCEP KimmellDOB: [facility] Number: [id number] [id number] Repository [address]Ugy: 330) Date:2018-01-05P [phone] () [address]ATTN: CLAIMS [facility] [place] [address]ZL: 01/05/2018 Secondary NOT GIVENUNK [place] Insurance:SELF PAY [facility] Number: Effective Repository Date:2018-01-05
== END 2018-11-01 15:10 | disposition home or self-care (01) ==
LOC: WPOUT 14:28 → WP 14:28
PROVIDERS: Family Provider Family Medicine; PCP Family Medicine; Referring Provider Obstetrics & Gynecology; Visit Provider Obstetrics & Gynecology
DX: O26.899 Other specified pregnancy related conditions, unspecified trimester (principal); R10.31 Right lower quadrant pain; Z3A.00 Weeks of gestation of pregnancy not specified
CPT/HCPCS: 59050; 99218; G0378

== ENCOUNTER → 2018-11-17 14:28 | Outpatient (CLI) | payer MEDICAID, SELFPAY ==
[2018-11-17 14:02] VITALS: BMI 30.9
[2018-11-17 15:29] LABS: Glucose Challenge Gest 1H 50g 167 mg/dL (70-140)
[2018-11-17 15:35] LABS: Absolute Lymphocyte Count 1.17 X10^3/ul (0.83-4.51); Absolute Neutrophil Count 6.9 X10^3/uL (2.0-7.7); Basophil# 0.03 X10^3/uL; Basophil% 0.3 % (0-1); Eosinophils% 2.2 % (0-5); Hematocrit 35.5 % (37-47); Hemoglobin 11.6 g/dl (12.0-15.0); Lymphocyte # 1.17 X10^3/ul (4.0); Lymphocyte % 12.9 % (19-41); Mean Corp Hgb Conc 32.7 g/gl (32-36); Mean Corpuscular Volume 91.7 fL (81-99); Mean Platelet Vol. 9.9 fl (6.2-12.0); Monocyte% 7.7 % (0-10); Neutrophil # 6.91 X10^3/uL (2.7-7.7); Neutrophil % 76.6 % (47-70); POSITIVE COUNT NO; POSITIVE DIFFERENTIAL NO; POSITIVE MORPHOLOGY NO; Platelet Count 213 K/mm3 (150-450); RBC Distribution Width CV 12.3 % (11.6-14.6); RBC Distribution Width SD 40.2 fl (35.1-43.9); Red Blood Count 3.87 M/mm3 (4.2-5.4)
== END ==
PROVIDERS: Family Provider Family Medicine; PCP Family Medicine; Referring Provider Nurse Practitioner Women's Health; Visit Provider Nurse Practitioner Women's Health
DX: Z34.90 Encounter for supervision of normal pregnancy, unspecified, unspecified trimester (principal)
CPT/HCPCS: 36415; 82950; 85025

== ENCOUNTER → 2018-11-28 07:00 | Outpatient (CLI) | payer MEDICAID, SELFPAY ==
[2018-11-17 14:02] VITALS: BMI 30.9
[2018-11-28 08:28] LABS: Glucose GTT-Gestation. Fasting 102 mg/dL (<105)
[2018-11-28 09:14] LABS: Glucose GTT-Gestational 1 Hr 183 mg/dL (<190)
[2018-11-28 10:43] LABS: Glucose GTT-Gestational 2 Hr 177 mg/dL (<165)
[2018-11-28 11:25] LABS: Glucose GTT-Gestational 3 Hr 102 L (<145)
== END ==
PROVIDERS: Nurse Practitioner Women's Health; Family Provider Family Medicine; PCP Family Medicine; Referring Provider Obstetrics & Gynecology; Visit Provider Obstetrics & Gynecology
DX: O99.810 Abnormal glucose complicating pregnancy (principal)
CPT/HCPCS: 36415; 82951; 82952

== ENCOUNTER → 2018-12-07 12:42 | Outpatient (CLI) | payer MEDICAID, SELFPAY ==
[2018-11-29 12:25] VITALS: BMI 30.9
--- NOTE | 2018-12-07 12:44 | US_ITS ---
STUDY: SECOND AND THIRD TRIMESTER OBSTETRICAL ULTRASOUND - LIMITED REASON FOR EXAM: Female, 28 years old. Routine survey. Gestational diabetes. LMP: April 27, 2018. PRIOR ULTRASOUND: None. TECHNIQUE: Transabdominal TECHNICAL QUALITY: Adequate. FINDINGS: There is a single intrauterine fetus. The fetus is in a cephalic presentation. There is demonstrated cardiac activity with a heart rate of 143 bpm. There is a normal amniotic fluid volume. The largest amniotic fluid pocket measures 5.2 cm x 2.8 cm. The amniotic fluid index (JUNG) is 16.0 cm. The placenta is anterior in location and is not low lying. There are Grade 1 placental changes. The cervix measures 3.6 cm in length. BIOMETRY: BPD: 8.56 cm: 34 weeks, 4 days HC: 31.38 cm: 35 weeks, 2 days AC: 29.68 cm: 33 weeks, 5 days FL: 6.51 cm: 33 weeks, 4 days Age by LMP: 32 weeks, 0 days. MARIA ESTHER by LMP: February 01, 2019. age by current US: 34 weeks, 2 days. MARIA ESTHER by current US: January 16, 2019. Estimated weight: 2295 grams, +/- 335 grams, 92 percentile. Gender: Indeterminant US/OB Limited With Biometrics IMPRESSION: Single live intrauterine gestation with a mean gestational age of 34 weeks and 2 days. Electronically Signed: Chauncey Beaver MD at 12:48 EST Tel [phone], Service support ,
--- OUTSIDE RECORDS SUMMARY | 2019-02-11 05:18 | XMS RPT_ITS ---
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 #### [facility] [address] [place], [address] 12 LEAD ELECTROCARDIOGRAM Observed: 05/25/2018 Status: F Source: [place] 2:03 PM [facility] REPOSITORY [facility] Cardiovascular Services [address] [facility] [place] [address] 12 Lead EKG 05/22/182036 MR#: [id number] Acct: [id number] Name: IESHA LAWRENCE Rep #: [id number] : 1990 27 From: Omar Wang MD [...] ECG Confirmed by OMAR WANG MD ([id number]), editor in chief newspaper DEBBIE CROW ([id number]) on 05/25/2018 2:03:02 PM Referred By: Confirmed By:OMAR WANG MD 05/25/18 1403 Date Omar Wang MD CC: Gina Diaz MD; Stan Lockett DO Signed EMERGENCY DEPARTMENT Observed: 05/22/2018 Status: F Source: [place] SUMMARY 10:47 PM [facility] REPOSITORY [facility] Medical Records Department [address] [place] [address] Emergency Department Summary 05/22/18 2119 MR#: [id number] Acct: [id number] Name: IESHA LAWRENCE Rep #: [id number] : 1990 27 From: Gian Diaz MD PCP: Stan Lockett DO Status: [...] advised 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 She will need her quant level rechecked. She is advised return to ED for worsening symptoms. Disposition: Discharge home Impression: This note was generated with Yuenimei dictation software. It may contain incorrect words, [...] problems, contact your Primary Care Provider. Call [facility] ([phone]) or report to the closest Emergency Room. Call 911 if necessary. 05/22/182246 <Electronically signed by Gina Diaz MD> Date Gina Diaz MD Cosigner Signature (If Indicated): Date CC: Stan Lockett DO DISCHARGE INSTRUCTION Observed: 05/22/2018 Status: F Source: [place] 10:42 PM [facility] REPOSITORY [facility] Medical Records Department [address] [place] [address] Discharge Instruction 05/22/182240 MR#: [id number] Acct: [id number] Name: IESHA LAWRENCE Rep #: [id number] : 1990 27 From: Gina Diaz MD [...] your Primary Care Provider. Call [facility] ([phone]) or report to the closest Emergency Room. Call 911 if necessary. 05/22/18 224 <Electronically signed by Gina Diaz MD> Date Gina Diaz MD Cosigner Signature (If Indicated): Date CC: Stan Lockett DO URINALYSIS, COMPLETE Collected: 05/22/2018 Status: F Source: [place] 9:15 PM [facility] REPOSITORY Order Comment: Order Date: 05/22/18 How [...] URINE SEEN Performed By: #### L400.0001 #### [facility] [address] [place], [address] TRANSVAGINAL W/PREG US Observed: 05/22/2018 Status: F Source: [place] 8:57 PM [facility] REPOSITORY [facility] Imaging Services [address] [address] Transvaginal w/Preg US MR#: [id number] Acct: [id number] Name: IESHA LAWRENCE Rep #: [id number] : 1990 F 27 From: Enrique Alonso MD PCP: Stan Lockett DO Status: REG ER Study: Transvaginal w/Preg US Date of Exam: 05/22/18 Exam# [id number] Ordering Dr: Gina Diaz MD STUDY: FIRST [...] CC: Gina Diaz MD; Stan Lockett DO Belting Cutter: Signed CBC W/DIFF, AUTOMATED Collected: 05/22/2018 Status: F Source: [place] 8:04 PM [facility] REPOSITORY TYPE CODE TESTS RESULT OUT OF [...] Lymph 2.05 Performed By: #### L100.0100 #### [facility] [address] [facility] [place], [place], [address] BASIC METABOLIC Collected: 05/22/2018 Status: F Source: [place] PROFILE (BMP) 8:04 PM [facility] REPOSITORY TYPE CODE TESTS RESULT OUT OF [...] Normal 6 Performed By: #### L500.2500 #### [facility] [address] [facility] [place], [place], [address] ,SERUM,HCG QUALI. Collected: Status: F Source: [place] 05/22/2018 8:04 PM [facility] REPOSITORY TYPE CODE TESTS RESULT OUT OF REFERENCE UNITS RANGE LAB L700.7000 0-9 Nonpreg Negative High HCGSQUAL POSITIVE Result Comment: TEST is *POSITIVE* LAB L700.6700 =>Qualitative mIU/mL Normal HCG Qual triggr 26 Performed By: #### L700.6800 #### [facility] [address] [place], [address] HCG TITER QUANT., Collected: 05/22/2018 Status: F Source: [place] SERUM 8:04 PM [facility] REPOSITORY TYPE CODE TESTS RESULT OUT OF RANGE REFERENCE UNITS LAB L700.8000 <9 non-preg mIU/mL High HCG 26 QUANT. Performed By: #### L700.8000 #### [facility] [address] [place], [address] CHEST 1 VIEW Observed: 05/22/2018 Status: F Source: [place] (PORTABLE) 7:57 PM [facility] REPOSITORY [facility] Imaging Services [address] [place] [address] Chest 1 View (Portable) MR#: [id number] Acct: [id number] Name: IESHA LAWRENCE Rep #: [id number] : 1990 F 27 From: Asad Lui DO PCP: Stan Lockett DO Status: REG ER Study: Chest 1 View (Portable) Date of Exam: 05/22/18 Exam# [id number] Ordering Dr: Gina Diaz MD STUDY: X-RAY [...] CC: Gina Diaz MD; Stan Lockett DO Belting Cutter: Signed HCG, QUANTITATIVE BL Collected: 03/01/2018 Status: F Source: [place] 11:37 AM [facility] [place] REPOSITORY TYPE CODE TESTS RESULT OUT OF REFERENCE UNITS RANGE LAB HCGQT <5.0 mU/mL HCG, Quantitative Bl <0.1 Result Comment: NEGATIVE Performed By: #### HCGQT #### [facility] [address] [place], [place] [address] PROGRESS Observed: 03/01/2018 Status: COMPLETED Source: [place] 10:56 AM [facility] REPOSITORY HNO ID: [id number] Author: Scotty Gonzalez Service: (none) Author Type: Director Integrated Type: Progress Notes Filed: 03/02/2018 6:32 PM [...] HISTORY Procedure Laterality Date - IUD INSERTION (TEST DATA DEVELOPER DEPT)_*FL 06/11/2009 Mirena FAMILY HISTORY Problem Relation [...] external genitalia normal, normal Bartholin's glands, urethra, [place]'s glands, no vulvar lesions, no cervical lesions, good vaginal support, physiologic discharge present, normal appearing perineal body and perianal region BIMANUAL: uterus normal size, shape and consistency, no adnexal masses and non-tender NEURO: alert and oriented x3,exam grossly non-focal EXTREMITIES: normal ASSESSMENT AND PLAN: Encounter Diagnosis ICD-10-CM 1. Complete without complication O03.9 HCG QUANTITATIVE 1) [facility] quant drawn - will contact patient with results. 2) Contraceptive counseling done - patient declines all contraception options today. Patient does not desire a however. 3) RTC PRN for annual and pap Scotty Gonzalez APRN.CNM PROGRESS Observed: 03/01/2018 Status: COMPLETED Source: [place] 10:56 AM [facility] REPOSITORY HNO ID: [id number] Author: Scotty Gonzalez Service: (none) Author Type: Director Integrated Type: Progress Notes Filed: 03/02/2018 6:32 PM Note Text: Opened in error Scotty Gonzalez APRN.CNM CNOV Observed: 03/01/2018 Status: COMPLETED Source: [place] 10:45 AM [facility] REPOSITORY Office Visit (WOOB) IESHA LAWRENCE ([id number]) 1990 F Date Time Provider Department 03/01/18 [...] HISTORY Procedure Laterality Date - IUD INSERTION (TEST DATA DEVELOPER DEPT)_*FL 06/11/2009 Mirena FAMILY HISTORY Problem Relation [...] Occupation Employer Comment STUDENT STUDYING TO GET CPM [employer] Social History Main Topics Smoking status: Never [...] external genitalia normal, normal Bartholin's glands, urethra, [place]'s glands, no vulvar lesions, no cervical lesions, [...] complication [O03.9] Order(s):HCG QUANTITATIVE [SQHCGQT] Order #: [id number] FUTURE Prescriptions as of 03/01/2018 Sig: MULTIVITAMIN [...] 03/02/18 PROGRESS Observed: 02/17/2018 Status: COMPLETED Source: [place] 1:09 PM [facility] REPOSITORY HNO ID: [id number] Author: Carmel Jacobs Service: (none) Author Type: Director Integrated Type: Progress Notes Filed: 03/03/2018 2:47 PM Note Text: Follow up completed on 02/01/18. No appointment needed today. Carmel Jacobs APRN.CNM CNOV Observed: 02/17/2018 Status: COMPLETED Source: [place] 1:00 PM [facility] REPOSITORY Office Visit (WOOB) IESHA LAWRENCE ([id number]) 1990 F Date Time Provider Department 02/17/18 1:00 PM CARMEL JACOBS) WOOB During your visit today, we recorded the following information about you: Blood pressure Weight Last Period 112 83.9 kg 02/15/18 Carmel Jacobs APRN.CNM 03/03/2018 2:47 PM Signed Follow up completed on 02/01/18. No appointment needed today. Carmel Jacobs APRN.CNM Referring Provider: CARMEL JACOBS) [[id number]] Allergies As of Date: 02/17/2018 Noted Allergy [...] 03/03/18 PROGRESS Observed: 02/01/2018 Status: COMPLETED Source: [place] 11:15 AM [facility] REPOSITORY HNO ID: [id number] Author: Millie Zaragoza Service: (none) Author Type: [...] sac CNOV Observed: 02/01/2018 Status: COMPLETED Source: [place] 11:15 AM [facility] REPOSITORY Office Visit (WOOB) IESHA LAWRENCE ([id number]) 1990 F Date Time Provider Department 02/01/18 11:15 AM CARMEL JACOBS) WOOB During your visit today, we recorded the following information about you: Blood pressure Weight Last Period 100/66 83.9 kg 01/08/18 Carmel Jacobs CNM 02/01/2018 3:30 PM Signed Manager Packaging offered: Patient declines. Iesha Lawrence is a [...] HISTORY Procedure Laterality Date - IUD INSERTION (TEST DATA DEVELOPER DEPT)_*FL 06/11/2009 Mirena FAMILY HISTORY Problem Relation [...] Occupation Employer Comment STUDENT STUDYING TO GET CPM [employer] Social History Main Topics Smoking status: Never [...] Jacobs CNM Referring Provider: CARMEL JACOBS (BENNETT) [[id number]] Allergies As of Date: 02/01/2018 Noted Allergy [...] Reason for discontinue is not on file. Llvxkcii-Jd-Poi-Fe-FA (PREN* 02/01/2018 Class: Historical Med Route: ORAL Sig: Take 1 tablet by mouth once daily. Disc: Reason for discontinue is not on file. Disposition: Return in about 5 months (around 07/04/2018) for Annual. Follow-up and Disposition History Recorded Encounter Status:Closed by CARMEL JACOBS on 02/01/18 PROGRESS Observed: 02/01/2018 Status: COMPLETED Source: [place] 10:53 AM [facility] REPOSITORY O ID: [id number] Author: Carmel (Syeda) Reynaldo Service: (none) Author Type: Director Integrated Type: Progress Notes Filed: 02/01/2018 3:30 PM Note Text: Manager Packaging offered: Patient declines. Iesha Lawrence is a [...] HISTORY Procedure Laterality Date - IUD INSERTION (TEST DATA DEVELOPER DEPT)_*FL 06/11/2009 Mirena FAMILY HISTORY Problem Relation [...] Jacobs CNM Observed: 01/13/2018 Status: F Source: [place] TRICHOMONAS PREP 2:56 PM [facility] REPOSITORY Sp. Request/Comment: - Swab Smear Result - Negative for Trichomonas vaginalis antigen This test was developed and its performance characteristics determined by [facility] Roshan Selvin [facility] and Laboratory Medicine Ranger (RUSTPLWY). It has not been cleared or approved by the FDA. [facility] is regulated under CLIA as qualified to perform high-complexity testing. This test is used for clinical purposes. It should not be regarded as investigational or for research. Performed By: #### TRICHO #### [place] [address] Observed: 01/13/2018 Status: F Source: [place] BACT/CAND VAG GRM ST 2:56 PM [facility] REPOSITORY Sp. Request/Comment: - Swab Smear Result - BACTERIAL VAGINOSIS RESULT: Stain results consistent with normal vaginal bharathi. No Yeast observed Moderate Polymorphonuclear leukocytes Performed By: #### BVCNSM #### [place] [address] Observed: 01/13/2018 Status: F Source: [place] URINE CULTURE 2:56 PM [facility] REPOSITORY Sp. Request/Comment: - Specimen received in preservative Culture Result - 10,000 - <50,000 CFU/ml Normal urogenital bharathi Performed By: #### URCUL #### [place] [address] PROGRESS Observed: 01/13/2018 Status: COMPLETED Source: [place] 2:35 PM [facility] REPOSITORY HNO ID: [id number] Author: Carmel Jacobs Service: (none) Author Type: Director Integrated Type: Progress Notes Filed: 01/13/2018 4:46 PM [...] HISTORY Procedure Laterality Date - IUD INSERTION (TEST DATA DEVELOPER DEPT)_*FL 06/11/2009 Mirena FAMILY HISTORY Problem Relation [...] Occupation Employer Comment STUDENT STUDYING TO GET CPM [employer] Social History Main Topics Smoking status: Never [...] Take 1 capsule by mouth twice daily. Fwdmyufw-Qc-Xur-Fe-FA ( VITAMIN) tab Take 1 tablet by [...] external genitalia normal, normal Bartholin's glands, urethra, [place]'s glands, no vulvar lesions, no cervical lesions, [...] GC/CHLAMYDIA AMPLIF Collected: 01/13/2018 Status: F Source: [place] 5:59 AM [facility] REPOSITORY TYPE CODE TESTS RESULT OUT OF REFERENCE UNITS RANGE LAB GCCTSR GC/Chlam Amp Cervix Source LAB GCAMPL GC Negative Amplification for Neisseria gonorrhoeae by amplification. LAB CLAMPL Chlamydia Negative Amplif for Chlamydia trachomatis by amplification. Performed By: #### GCCT #### [facility] [address] [place] [id number] CBC W/DIFF, AUTOMATED Collected: 01/05/2018 Status: F Source: [place] 4:27 PM [facility] REPOSITORY TYPE CODE TESTS RESULT OUT OF [...] Lymph 1.62 Performed By: #### L100.0100 #### [facility] [address] [place], [place], [address] COMPREHENSIVE METABOLIC Collected: 01/05/2018 Status: F Source: [facility] 4:27 PM [facility] REPOSITORY TYPE CODE TESTS RESULT OUT OF [...] 8 Performed By: #### L500.4050, L501.2450 #### [facility] [address] [place], [place], [address] LIPASE Collected: 01/05/2018 Status: F Source: [place] 4:27 PM [facility] REPOSITORY TYPE CODE TESTS RESULT OUT OF RANGE REFERENCE UNITS LAB L501.2450 73-393 U/L Normal LIPASE 202 Performed By: #### L500.4050, L501.2450 #### [facility] [address] [place], [place], [address] URINALYSIS, COMPLETE Collected: 01/05/2018 Status: F Source: [place] 4:27 PM [facility] REPOSITORY Order Comment: How was Urine Obtained? [...] MUCUS, URINE Performed By: #### L400.0001 #### [facility] [address] [place], [place], [address] HCG TITER QUANT., Collected: 01/05/2018 Status: F Source: [place] SERUM 4:27 PM [facility] REPOSITORY Order Comment: Date of Last Menstrual Period? 10/21/17 TYPE CODE TESTS RESULT OUT OF RANGE REFERENCE UNITS LAB L700.8000 <9 non-preg mIU/mL Normal HCG < 1 QUANT. Performed By: #### L700.8000 #### [facility] [address] [facility] [place], [address] Observed: 01/05/2018 Status: F Source: [place] CULTURE, URINE 4:27 PM [facility] REPOSITORY Urine Culture Probable skin contamination. ORGANISM 1: Mixed Gram Positive Organisms [place] Count 80,000-100,000 Performed By: #### M100.0650 #### [facility] [address] [place], [address] ALLERGIES ALLERGIES DATE TYPE / CODE NAME / CODE REACTION SEVERITY SOURCE 12/12/2018 Drug banana/Q218199 Nausea/Vom/Yudy Unknown [place] Allergy/027882216(S 877(RXNORM) rrhea [facility]) Hospital Repository 12/12/2018 Drug latex/Z0560296 Hives Unknown [place] Allergy/920114038(S 21(RXNORM) [facility]) Hospital Repository 11/29/2018 Miscellaneous bandaids Hives Unknown [place] Allergy/981943114([facility]) Hospital Repository 06/21/2006 DRUG BANANA GI UPSET [place] INGREDI/169928811([facility]) [place] Repository 06/21/2006 Miscellaneous OTHER RASH [place] Allergy/108049733([facility]) [place] Repository ENCOUNTERS ENCOUNTERS ADMIT/DISCHARGE ACCOUNT ADMITTING ENCOUNTER LOCATION SOURCE NUMBER CLASS 12/12/2018 [id number] Ambulatory [facility] ing:LABSPEC Repository 12/12/2018/12/12/19 [id number] Ambulatory BMSBuilding:B [place] 19 [facility] Repository 12/07/2018 [id number] [facility] ing:OPUS Repository 11/29/2018/11/29/19 [id number] Ambulatory BMSBuilding:B [place] 19 [facility] Repository 11/28/2018 [id number] Ambulatory [facility] ing:LAB Repository 11/17/2018 [id number] Ambulatory [facility] ing:PAVLAB Repository 11/17/2018/11/17/20 [id number] Ambulatory BMSBuilding:B [place] 18 [facility] Repository 11/01/2018 [id number] Ambulatory BMSBuilding:B [place] MS.CF.[facility] Repository 11/01/2018/11/01/20 [id number] Ambulatory [address] [facility] ing:WPOUTRoom Repository : WP016 10/25/2018 [id number] Ambulatory [facility] ing:LABSPEC Repository 10/25/2018/10/25/20 [id number] Ambulatory BMSBuilding:B [place] 18 [facility] Repository 10/20/2018/10/20/20 [id number] Ambulatory BMSBuilding:B [place] 18 [facility] Repository 09/21/2018/09/21/20 [id number] Ambulatory BMSBuilding:B [place] 18 [facility] Repository 09/07/2018 [id number] Ambulatory Building:[facility] Repository 08/23/2018 [id number] Ambulatory [facility] ing:PAVLAB Repository 08/23/2018/08/23/20 [id number] Ambulatory BMSBuilding:B [place] 18 [facility] Repository 08/22/2018/08/22/20 [id number] Emergency [address] [facility] ing:ED Repository 07/21/2018/07/21/20 [id number] Emergency [address] [facility] ing:ED Repository 07/17/2018/07/17/20 [id number] Ambulatory BMSBuilding:B [place] 18 [facility] Repository 07/12/2018 [id number] Ambulatory BMSBuilding:B [place] MS.[facility] Repository 07/04/2018 [id number] Ambulatory [facility] ing:LAB Repository 06/14/2018 [id number] Ambulatory [facility] ing:LABSPEC Repository 06/14/2018/06/14/20 [id number] Ambulatory BMSBuilding:B [place] 18 [facility] Repository 05/30/2018 [id number] Ambulatory [facility] ing:LAB Repository 05/25/2018 [id number] Ambulatory [facility] ing:LAB Repository 05/22/2018/05/22/20 [id number] Emergency [address] ing:ED Repository 03/01/2018 [id number] Ambulatory [facility] Repository 03/01/2018/03/03/20 [id number] Ambulatory [address] Repository 02/17/2018 [id number] Ambulatory [facility] Repository 02/01/2018/02/04/20 [id number] Ambulatory [address] Repository 02/01/2018/02/04/20 [id number] Ambulatory [address] Repository 01/13/2018/01/20/20 [id number] Ambulatory [address] Repository 01/05/2018 [id number] Ambulatory [facility] ing:BFHLAB Repository PAYERS PAYERS ENCOUNTER GUARANTOR PAYER SUBSCRIBER SOURCE 12/12/2018 ROSE Meza Primary IESHA Pee [id number] TR Insurance:CARESOURCEP KIMMELLDOB: [address] Number: [id number] Hospital [address]Kbk: 330 [id number] Repository [phone] () Date:2018-12-12 [address]ATTN: [place] [address]MZ: 12/12/2018 Secondary NOT GIVENUNK [place] Insurance:SELF PAY [facility] Number: Effective Repository Date:2018-12-12 12/12/2018 ROSE Meza Primary IESHA P[address] [place] [id number] TR Insurance:CARESOURCEP KIMMELLDOB: [address] Number: [id number] Hospital [address]Snb: 330 [id number] Repository [phone] () Date:2018-12-12 [address]ATTN: [place] [address]VP: 12/12/2018 Secondary NOT GIVENUNK [place] Insurance:SELF PAY [facility] Number: Effective Repository Date:2018-12-12 12/07/2018 ROSE Meza Primary IESHA Pee [place] [id number] TR Insurance:CARESOURCEP NICHOLELDOB: [address] Number: [id number] Hospital [address]Lpi: (330 [id number] Repository [phone] (HP) Date:2018-11-29P [address]ATTN: [place] [address]OE: 12/07/2018 Secondary NOT GIVENUNK [place] Insurance:SELF PAY [facility] Number: Effective Repository Date:2018-11-29 11/29/2018 ROSE Meza Primary IESHA Escalanteoster [id number] TR Insurance:CARESOURCRHIANNON VARELALDOB: [address] Number: [id number] Hospital [address]Ybe: (330 [id number] Repository [phone] () Date:2018-11-17P [address]ATTN: [place] [address]UM: 11/29/2018 Secondary NOT GIVENUNK [place] Insurance:SELF PAY [facility] Number: Effective Repository Date:2018-11-29 11/28/2018 ROSE Meza Primary IESHA A [place] [id number] TR Insurance:CARESOURCRHIANNON VARELALDOB: [address] Number: [id number] Hospital [address]Iuy: (330) [id number] Repository [phone] () Date:2018-11-22 [address]ATTN: [place] [address]AG: 11/28/2018 Secondary NOT GIVENUNK Est[place] Insurance:SELF PAY [facility] Number: Effective Repository Date:2018-11-22 11/17/2018 ROSE Meza Primary IESHA Pee EscalanteEstella [id number] TWP Insurance:CARESOURCEP NICHOLELDOB: [address] Number: [id number] Hospital [address]Qmo: [phone] [id number] Repository [phone] () Date:2018-11-17P [address]ATTN: [facility] [place] [address]MU: 11/17/2018 Secondary NOT GIVENUNK [place] Insurance:SELF PAY [facility] Number: Effective Repository Date:2018-11-17 11/17/2018 ROSE Meza Primary IESHA [id number] TWP Insurance:CARESOURCEP EDERMELLDOB: [address] Number: [id number] Hospital [address]Vvt: [phone] [id number] Repository [phone] () Date:2018-10-20 [address]ATTN: [place] [address]FW: 11/17/2018 Secondary NOT GIVENUNK [place] Insurance:SELF PAY [facility] Number: Effective Repository Date:2018-11-17 11/01/2018 ROSE Meza Primary IESHA Soria [id number] TWP Insurance:CARESOURCEP NICHOLELDOB: [address] Number: [id number] Hospital [address]Yiq: [phone] [id number] Repository [phone] () Date:2018-11-01 [address]ATTN: [place] [address]GN: 11/01/2018 Secondary NOT GIVENUNK [place] Insurance:SELF PAY [facility] Number: Effective Repository Date:2018-11-01 11/01/2018 ROSE Meza Primary IESHA Soria [id number] TWP Insurance:CARESOURCEP NICHOLELDOB: [address] Number: [id number] Hospital [address]Iro: [phone] [id number] Repository [phone] () Date:2018-11-01 [address]ATTN: [place] [address]PM: 11/01/2018 Secondary NOT GIVENUNK [place] Insurance:SELF PAY [facility] Number: Effective Repository Date:2018-11-01 10/25/2018 ROSE Meza Primary IESHA [id number] TWP Insurance:CARESOURCEP KIMMELLDOB: [address] Number: [id number] Hospital [address]Vnk: ([phone] [id number] Repository [phone] () Date:2018-10-25P [address]ATTN: [place] [address]AV: 10/25/2018 Secondary NOT GIVENUNK [place] Insurance:SELF PAY [facility] Number: Effective Repository Date:2018-10-25 10/25/2018 ROSE Meza Primary IESHA Soria [id number] TWP Insurance:CARESOURCEP KIMMELLDOB: [facility] [address], [facility] Number: [id number] Hospital [address]Fmc: [phone] [id number] Repository [phone] () Date:2018-10-25P [address]ATTN: [place] [address]GG: 10/25/2018 Secondary NOT GIVENUNK [place] Insurance:SELF PAY [facility] Number: Effective Repository Date:2018-10-25 10/20/2018 ROSE Meza Primary IESHA Soria [id number] TWP Insurance:CARESOURCEP KIMMELLDOB: [facility] [address] Number: [id number] Hospital [address]Rqo: [phone] [id number] Repository [phone] (HP) Date:2018-09-21P [address]ATTN: [place] [address]EL: 10/20/2018 Secondary NOT GIVENUNK [place] Insurance:SELF PAY [facility] Number: Effective Repository Date:2018-09-21 09/21/2018 ROSE Meza Primary IESHA Soria [id number] TWP Insurance:CARESOURCEP KIMMELLDOB: [address] Number: [id number] Hospital [address]Duy: [phone] [id number] Repository [phone] () Date:2018-08-23P [address]ATTN: [place] [address]LR: 09/21/2018 Secondary NOT GIVENUNK [place] Insurance:SELF PAY [facility]: Effective Repository Date:2018-09-21 09/07/2018 IESHA Primary IESHA Pee [facility] LADY LAKEDOB: Insurance:CARESOURCEP KIMMELLDOB: [facility] Number: [id number] [address], [id number], [place] [address]Usj: Date: [place] [phone] () 09/07/2018 Secondary IESHA Pee [facility] Insurance:CARESOURCEP KIMMELLDOB: [facility] Number: [id number] Repository [id number] [address], Date: [facility]66 08/23/2018 ROSE Meza Primary IESHA A Estella [id number] TWP Insurance:CARESOURCEP KIMMELLDOB: [facility] [address] [facility] Number: [id number] Hospital [address]Dsd: [phone] [id number] Repository [phone] () Date:2018-08-23P [address]ATTN: [place] [address]OS: 08/23/2018 Secondary NOT GIVENUNK [place] Insurance:SELF PAY [facility] Number: Effective Repository Date:2018-08-23 08/23/2018 ROSE Meza Primary IESHA A [place] [id number] TWP Insurance:CARESOURCEP KIMMELLDOB: [facility] [address], [facility] Number: [id number] Hospital [address]Juq: [phone]) [id number] Repository [phone] () Date:2018-08-16P [address]ATTN: [place] [address]ET: 08/23/2018 Secondary NOT GIVENUNK [place] Insurance:SELF PAY [facility] Number: Effective Repository Date:2018-08-23 08/22/2018 ROSE Meza Primary IESHA Soria [id number] TWP Insurance:CARESOURCEP EDERMELLDOB: [address] Number: [id number] Hospital [address]Nck: 330 [id number] Repository [phone] () Date:2018-08-22P [address]: [place] [address]BK: 08/22/2018 Secondary NOT GIVENUNK [place] Insurance:SELF PAY [facility] Number: Effective Repository Date:2018-08-22 07/21/2018 ROSE Meza Primary IESHA Soria [id number] [address] Insurance:CARESOURCEP NICHOLELDOB: [address] Number: [id number] Hospital [address]Gfe: 330 [id number] Repository [phone] () Date:2018-07-21 [address]ATTN: [place] [address]PV: 07/21/2018 Secondary NOT GIVENUNK [place] Insurance:SELF PAY [facility] Number: Effective Repository Date:2018-07-21 07/17/2018 ROSE Meza Primary IESHA Soria [id number] TR Insurance:CARESOURCEP EDERMELLDOB: [address] Number: [id number] Hospital [address]Czv: 330 [id number] Repository [phone] () Date:2018-07-17P [address]ATTN: [place] [address]XR: 07/17/2018 Secondary NOT GIVENUNK [place] Insurance:SELF PAY [facility] Number: Effective Repository Date:2018-07-17 07/12/2018 ROSE Meza Primary IESHA Soria [id number] TR Insurance:CARESOURCEP EDERMELLDOB: [address] Number: [id number] Hospital [address]Iju: [phone]) [id number] Repository [phone] (HP) Date:2018-06-14P [address]ATTN: [place] [address]TN: 07/12/2018 Secondary NOT GIVENUNK [place] Insurance:SELF PAY [facility] Number: Effective Repository Date:2018-06-14 07/04/2018 ROSE Meza Primary IESHA A [place] [id number] TR Insurance:CARESOURCEP KIMMELLDOB: [address] [facility] Number: [id number] Hospital [address]Org: [phone]) [id number] Repository [phone] (HP) Date:2018-07-04P [address]ATTN: [place] [address]TT: 07/04/2018 Secondary NOT GIVENUNK [place] Insurance:SELF PAY [facility] Number: Effective Repository Date:2018-07-04 06/14/2018 ROSE Meza Primary IESHA A [place] [id number] TR Insurance:CARESOURCEP KIMMELLDOB: [address] [facility] Number: [id number] Hospital [address]Eoq: [phone]) [id number] Repository [phone] () Date:2018-06-14P [address]ATTN: [place] [address]UI: 06/14/2018 Secondary NOT GIVENUNK [place] Insurance:SELF PAY [facility] Number: Effective Repository Date:2018-06-14 06/14/2018 ROSE Meza Primary IESHA A [place] [id number] TR Insurance:CARESOURCEP KIMMELLDOB: [address] Number: [id number] Hospital [address]Yqy: [phone]) [id number] Repository [phone]) Date:2018-05-26P [address]ATTN: [place] [address]ZG: 06/14/2018 Secondary NOT GIVENUNK [place] Insurance:SELF PAY [facility] Number: Effective Repository Date:2018-06-14 05/30/2018 ROSE Meza Primary IESHA Soria [id number] TR Insurance:CARESOURCEP EDERMELLDOB: [address] Number: [id number] Hospital [address]Etj: 330 [id number] Repository [phone] () Date:2018-05-30P [address]ATTN: [place] [address]LK: 05/30/2018 Secondary NOT GIVENUNK [place] Insurance:SELF PAY [facility] Number: Effective Repository Date:2018-05-30 05/25/2018 ROSE Meza Primary IESHA Soria [id number] TR Insurance:CARESOURCEP EDERMELLDOB: [address] Number: [id number] Hospital [address]Odz: 330 [id number] Repository [phone] () Date:2018-05-25P [address]ATTN: [place] [address]DS: 05/25/2018 Secondary NOT GIVENUNK [place] Insurance:SELF PAY [facility] Number: Effective Repository Date:2018-05-25 05/22/2018 ROSE Meza Primary IESHA Soria [id number] TR Insurance:CARESOURCEP NICHOLELDOB: [address] Number: [id number] Hospital [address]Czo: (330 [id number] Repository [phone] () Date:2018-05-22P [address]ATTN: [place] [address]RV: 05/22/2018 Secondary NOT GIVENUNK [place] Insurance:SELF PAY [facility] Number: Effective Repository Date:2018-05-22 01/05/2018 Rose Soria [id number] Insurance:CARESOURCEP KimmellDOB: [facility] Number: [id number] [id number] Repository [address]Lbx: 330) Date:2018-01-05P [phone] () [address]ATTN: [place]S [place] [address]HL: 01/05/2018 Secondary NOT GIVENUNK [place] Insurance:SELF PAY [facility] Number: Effective Repository Date:2018-01-05
== END ==
PROVIDERS: Family Provider Family Medicine; PCP Family Medicine; Referring Provider Obstetrics & Gynecology; Visit Provider Obstetrics & Gynecology
DX: O24.410 Gestational diabetes mellitus in pregnancy, diet controlled (principal); Z3A.00 Weeks of gestation of pregnancy not specified
CPT/HCPCS: 76816

== ENCOUNTER → 2018-12-12 14:48 | Outpatient (CLI) | payer MEDICAID, SELFPAY ==
[2018-12-12 14:20] VITALS: BMI 30.9
[2018-12-12 15:11] LABS: ROM Internal Control Test YES-OK TO RESULT pt. (Internal QC)
[2018-12-12 15:12] LABS: ROM Patient Test Negative (Negative)
--- OUTSIDE RECORDS SUMMARY | 2019-02-13 20:57 | XMS RPT_ITS ---
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 Unloader Machine: Naif Santoyo MD, Phone: [phone] Performed By: #### L7000.2100 #### [facility] (refer to report for specific site) refer to report for address and phone number DELIMBER OPERATOR OFFICE VISIT Observed: 06/17/2018 Status: F Source: [place] REPORT 10:07 PM [facility] REPOSITORY [facility] [address] [place] [address] OFFICE VISIT Date of Service: 06/14/18 MR#: [id number] Acct: [id number] Name: IESHA LAWRENCE Rep #: [id number] : 1990 Provider: Nathalia Coronel MD Age/Sex: 27/F [place] [facility] [place]: Signed Intake Vital Signs06/14/18 Height 5 ft 8 in 06/14/18 Weight: 181 lb 4 oz 06/14/18 Body Mass Index (BMI) 27.5 06/14/18 Blood Pressure 109/74 Intake Visit Reasons: NOB-04/07/18 Languages And Literature Instructor Required: No Is patient in pain?: No [...] Pulmonary (e.g.,TB,Asthma), Seasonal allergies, Drug/latex allergies/reactions, Breast, Radiologist Diagnostic surgery, Operations/hospitalizations, Anesthetic complications, History of abnormal [...] antepartum O09.219 06/17/182206 <Electronically signed by Nathalia Coronel MD> Date Nathalia Coronel MD Cosigner Signature: Date (if applicable) CC: CT/NG [facility] BY PCR Collected: 06/14/2018 Status: F Source: [place] 12:36 PM [facility] REPOSITORY TYPE CODE TESTS RESULT OUT OF RANGE REFERENCE UNITS LAB L8200.2100 Negative Normal Chlam Negative Trac PCR LAB L8200.2200 Negative Normal NG by Negative PCR Performed By: #### L8200.2000, M100.0650 #### [facility] [place], [address] Observed: 06/14/2018 Status: F Source: [place] CULTURE, URINE 12:36 PM [facility] REPOSITORY Urine Culture ORGANISM 1: Mixed Gram Positive Organisms [place] Count 1000-10,000 MIX CULTURE Mixed contaminants. Submit a new specimen if indicated. Performed By: #### L8200.2000, M100.0650 #### [facility] [address], [address] HCG TITER QUANT., Collected: 05/30/2018 Status: F Source: [place] SERUM 11:24 AM [facility] REPOSITORY TYPE CODE TESTS RESULT OUT OF RANGE REFERENCE UNITS LAB L700.8000 <9 non-preg mIU/mL High HCG 769 QUANT. Performed By: #### L700.8000 #### [facility] [address] [place], [address] HCG TITER QUANT., Collected: 05/25/2018 Status: F Source: [place] SERUM 3:34 PM [facility] REPOSITORY TYPE CODE TESTS RESULT OUT OF RANGE REFERENCE UNITS LAB L700.8000 <9 non-preg mIU/mL High HCG 113 QUANT. Performed By: #### L700.8000 #### [facility] [address] [place], [address] 12 LEAD ELECTROCARDIOGRAM Observed: 05/25/2018 Status: F Source: [place] 2:03 PM [facility] REPOSITORY [facility] Cardiovascular Services [address] [facility] [place] [address] 12 Lead EKG 05/22/182036 MR#: [id number] Acct: [id number] Name: IESHA LAWRENCE Rep #: [id number] : 1990 27 From: Omar Wang MD [...] ECG Confirmed by OMAR WANG MD ([id number]), editorial clerk DEBBIE CROW ([id number]) on 05/25/2018 2:03:02 PM Referred By: Confirmed By:OMAR WANG MD 05/25/18 1403 Date Omar Wang MD CC: Gina Diaz MD; Stan Lockett DO Signed EMERGENCY DEPARTMENT Observed: 05/22/2018 Status: F Source: [place] SUMMARY 10:47 PM [facility] REPOSITORY [facility] Medical Records Department [address] [place] [address] Emergency Department Summary 05/22/18 2119 MR#: [id number] Acct: [id number] Name: IESHA LAWRENCE Rep #: [id number] : 1990 27 From: Gina Diaz MD [...] advised importance of close outpatient follow-up with DELIMBER OPERATOR. She will need her quant level rechecked. She is advised return to ED for worsening symptoms. Disposition: Discharge home Impression: This note was generated with [employer] dictation software. It may contain incorrect words, spelling, and punctuation that were not noted in review of the chart prior to signing ED Disposition - Plan for ED Patient: Chief Complaint: Complaint Instructions: ED Care Referrals: Stan Lockett DO [Primary Care Provider] - Nathalia Coronel MD [STAFF PHYSICIAN] - What to do if you have Problems For any increased pain, shortness of breath, bleeding, nausea or vomiting, chest pain, or any unexpected problems, contact your Primary Care Provider. Call [facility] ([phone]) or report to the closest Emergency Room. Call 911 if necessary. 05/22/182246 <Electronically signed by Gina Diaz MD> Date Gina Diaz MD Cosigner Signature (If Indicated): Date CC: Stan Lockett DO DISCHARGE INSTRUCTION Observed: 05/22/2018 Status: F Source: [place] 10:42 PM [facility] REPOSITORY [facility] Medical Records Department [address] [place] [address] Discharge Instruction 05/22/182240 MR#: [id number] Acct: [id number] Name: IESHA LAWRENCE Rep #: [id number] : 1990 27 From: Gina Diaz MD PCP: Stan Lockett DO Status: REG ER ED Disposition - Plan for ED Patient: Chief Complaint: Complaint Instructions: ED Care Referrals: Stan Lockett DO [Primary Care Provider] - Nathalia Coronel MD [STAFF PHYSICIAN] - What to do if you have Problems For any increased pain, shortness of breath, bleeding, nausea or vomiting, chest pain, or any unexpected problems, contact your Primary Care Provider. Call [facility] ([phone]) or report to the closest Emergency Room. Call 911 if necessary. 05/22/18 224 <Electronically signed by Gina Diaz MD> Date Gina Diaz MD Cosigner Signature (If Indicated): Date CC: Stan Lockett DO URINALYSIS, COMPLETE Collected: 05/22/2018 Status: F Source: [place] 9:15 PM [facility] REPOSITORY Order Comment: Order Date: 05/22/18 How [...] URINE SEEN Performed By: #### L400.0001 #### [facility] [address] [place], [address] TRANSVAGINAL W/PREG US Observed: 05/22/2018 Status: F Source: [place] 8:57 PM [facility] REPOSITORY [facility] Imaging Services [address] [address] Transvaginal w/Preg US MR#: [id number] Acct: [id number] Name: IESHA LAWRENCE Rep #: [id number] : 1990 F 27 From: Enrique Alonso MD PCP: Stan Lockett DO Status: REG ER Study: Transvaginal w/Preg US Date of Exam: 05/22/18 Exam# [id number] Ordering Dr: Gina Diaz MD STUDY: FIRST [...] CC: Gina Diaz MD; Stan Lockett DO Manager Sourcing: Signed CBC W/DIFF, AUTOMATED Collected: 05/22/2018 Status: F Source: [place] 8:04 PM [facility] REPOSITORY TYPE CODE TESTS RESULT OUT OF [...] Lymph 2.05 Performed By: #### L100.0100 #### [facility] [address] [facility] [place], [place], [address] BASIC METABOLIC Collected: 05/22/2018 Status: F Source: [place] PROFILE (BMP) 8:04 PM [facility] REPOSITORY TYPE CODE TESTS RESULT OUT OF [...] Normal 6 Performed By: #### L500.2500 #### [facility] [address] [place], [place], [address] ,SERUM,HCG QUALI. Collected: Status: F Source: [place] 05/22/2018 8:04 PM [facility] REPOSITORY TYPE CODE TESTS RESULT OUT OF REFERENCE UNITS RANGE LAB L700.7000 0-9 Nonpreg Negative High HCGSQUAL POSITIVE Result Comment: TEST is *POSITIVE* LAB L700.6700 =>Qualitative mIU/mL Normal HCG Qual triggr 26 Performed By: #### L700.6800 #### [facility] [address] [place], [address] HCG TITER QUANT., Collected: 05/22/2018 Status: F Source: [place] SERUM 8:04 PM [facility] REPOSITORY TYPE CODE TESTS RESULT OUT OF RANGE REFERENCE UNITS LAB L700.8000 <9 non-preg mIU/mL High HCG 26 QUANT. Performed By: #### L700.8000 #### [facility] [address] [place], [address] CHEST 1 VIEW Observed: 05/22/2018 Status: F Source: [place] (PORTABLE) 7:57 PM [facility] REPOSITORY [facility] Imaging Services [address] [place] [address] Chest 1 View (Portable) MR#: [id number] Acct: [id number] Name: IESHA LAWRENCE Rep #: [id number] : 1990 F 27 From: Asad Lui DO PCP: Stan Lockett DO Status: REG ER Study: Chest 1 View (Portable) Date of Exam: 05/22/18 Exam# [id number] Ordering Dr: Gina Diaz MD STUDY: X-RAY [...] CC: Gina Diaz MD; Stan Lockett DO Manager Sourcing: Signed HCG, QUANTITATIVE BL Collected: 03/01/2018 Status: F Source: [place] 11:37 AM [facility] REPOSITORY TYPE CODE TESTS RESULT OUT OF REFERENCE UNITS RANGE LAB HCGQT <5.0 mU/mL HCG, Quantitative Bl <0.1 Result Comment: NEGATIVE Performed By: #### HCGQT #### [facility] [address] [place], [place] [address] PROGRESS Observed: 03/01/2018 Status: COMPLETED Source: [place] 10:56 AM [facility] REPOSITORY HNO ID: [id number] Author: Scotty Gonzalez Service: (none) Author Type: Wellness Director Type: Progress Notes Filed: 03/02/2018 6:32 PM [...] HISTORY Procedure Laterality Date - IUD INSERTION (MIXER OPERATOR VACUUM PAN SALT DEPT)_*FL 06/11/2009 Mirena FAMILY HISTORY Problem Relation [...] external genitalia normal, normal Bartholin's glands, urethra, Brethren's glands, no vulvar lesions, no cervical lesions, good vaginal support, physiologic discharge present, normal appearing perineal body and perianal region BIMANUAL: uterus normal size, shape and consistency, no adnexal masses and non-tender NEURO: alert and oriented x3,exam grossly non-focal EXTREMITIES: normal ASSESSMENT AND PLAN: Encounter Diagnosis ICD-10-CM 1. Complete without complication O03.9 HCG QUANTITATIVE 1) [facility] quant drawn - will contact patient with results. 2) Contraceptive counseling done - patient declines all contraception options today. Patient does not desire a however. 3) RTC PRN for annual and pap Scotty Gonzalez APRN.CNM PROGRESS Observed: 03/01/2018 Status: COMPLETED Source: [place] 10:56 AM [facility] REPOSITORY HNO ID: [id number] Author: Scotty Gonzalez Service: (none) Author Type: Wellness Director Type: Progress Notes Filed: 03/02/2018 6:32 PM Note Text: Opened in error Scotty Gonzalez APRN.CNM CNOV Observed: 03/01/2018 Status: COMPLETED Source: [place] 10:45 AM [facility] REPOSITORY Office Visit (WOOB) IESHA LAWRENCE ([id number]) 1990 F Date Time Provider Department 03/01/18 [...] HISTORY Procedure Laterality Date - IUD INSERTION (MIXER OPERATOR VACUUM PAN SALT DEPT)_*FL 06/11/2009 Mirena FAMILY HISTORY Problem Relation [...] Occupation Employer Comment STUDENT STUDYING TO GET [employer] Social History Main Topics Smoking status: Never [...] external genitalia normal, normal Bartholin's glands, urethra, Brethren's glands, no vulvar lesions, no cervical lesions, [...] complication [O03.9] Order(s):HCG QUANTITATIVE [SQHCGQT] Order #: [id number] FUTURE Prescriptions as of 03/01/2018 Sig: MULTIVITAMIN [...] 03/02/18 PROGRESS Observed: 02/17/2018 Status: COMPLETED Source: [place] 1:09 PM [facility] REPOSITORY HNO ID: [id number] Author: Carmel Jacobs Service: (none) Author Type: Wellness Director Type: Progress Notes Filed: 03/03/2018 2:47 PM Note Text: Follow up completed on 02/01/18. No appointment needed today. Carmel Jacobs APRN.CNM CNOV Observed: 02/17/2018 Status: COMPLETED Source: [place] 1:00 PM [facility] REPOSITORY Office Visit (WOOB) IESHA LAWRENCE ([id number]) 1990 F Date Time Provider Department 02/17/18 1:00 PM CARMEL JACOBS) WOOB During your visit today, we recorded the following information about you: Blood pressure Weight Last Period 112 83.9 kg 02/15/18 Carmel Jacobs APRN.CNM 03/03/2018 2:47 PM Signed Follow up completed on 02/01/18. No appointment needed today. Carmel Jacobs APRN.CNM Referring Provider: CARMEL JACOBS) [[id number]] Allergies As of Date: 02/17/2018 Noted Allergy [...] 03/03/18 PROGRESS Observed: 02/01/2018 Status: COMPLETED Source: [place] 11:15 AM [facility] REPOSITORY HNO ID: [id number] Author: Millie Zaragoza Service: (none) Author Type: [...] sac CNOV Observed: 02/01/2018 Status: COMPLETED Source: [place] 11:15 AM [facility] REPOSITORY Office Visit (WOOB) IESHA LAWRENCE ([id number]) 1990 F Date Time Provider Department 02/01/18 11:15 AM CARMEL JACOBS) WOOB During your visit today, we recorded the following information about you: Blood pressure Weight Last Period 100/66 83.9 kg 01/08/18 Carmel Jacobs CNM 02/01/2018 3:30 PM Signed Regional Operations Manager offered: Patient declines. Iesha Lawrence is a [...] HISTORY Procedure Laterality Date - IUD INSERTION (MIXER OPERATOR VACUUM PAN SALT DEPT)_*FL 06/11/2009 Mirena FAMILY HISTORY Problem Relation [...] Occupation Employer Comment STUDENT STUDYING TO GET [employer] Social History Main Topics Smoking status: Never [...] Jacobs CNM Referring Provider: CARMEL JACOBS (BENNETT) [[id number]] Allergies As of Date: 02/01/2018 Noted Allergy [...] Reason for discontinue is not on file. Mjpcgpzn-Eb-Bhn-Fe-FA (PREN* 02/01/2018 Class: Historical Med Route: ORAL Sig: Take 1 tablet by mouth once daily. Disc: Reason for discontinue is not on file. Disposition: Return in about 5 months (around 07/04/2018) for Annual. Follow-up and Disposition History Recorded Encounter Status:Closed by CARMEL JACOBS on 02/01/18 PROGRESS Observed: 02/01/2018 Status: COMPLETED Source: [place] 10:53 AM [facility] REPOSITORY O ID: [id number] Author: Carmel (Syeda) Reynaldo Service: (none) Author Type: Wellness Director Type: Progress Notes Filed: 02/01/2018 3:30 PM Note Text: Regional Operations Manager offered: Patient declines. Iesha Lawrence is a [...] HISTORY Procedure Laterality Date - IUD INSERTION (MIXER OPERATOR VACUUM PAN SALT DEPT)_*FL 06/11/2009 Mirena FAMILY HISTORY Problem Relation [...] Jacobs CNM Observed: 01/13/2018 Status: F Source: [place] TRICHOMONAS PREP 2:56 PM [facility] REPOSITORY Sp. Request/Comment: - Swab Smear Result - Negative for Trichomonas vaginalis antigen This test was developed and its performance characteristics determined by [facility]'s Roshan Selvin [facility] [place] [facility] It has not been cleared or approved by the FDA. [facility] is regulated under CLIA as qualified to perform high-complexity testing. This test is used for clinical purposes. It should not be regarded as investigational or for research. Performed By: #### TRICHO #### [place] [address] Observed: 01/13/2018 Status: F Source: [place] BACT/CAND VAG GRM ST 2:56 PM [facility] REPOSITORY Sp. Request/Comment: - Swab Smear Result - BACTERIAL VAGINOSIS RESULT: Stain results consistent with normal vaginal bharathi. No Yeast observed Moderate Polymorphonuclear leukocytes Performed By: #### BVCNSM #### [place] [address] Observed: 01/13/2018 Status: F Source: [place] URINE CULTURE 2:56 PM [facility] REPOSITORY Sp. Request/Comment: - Specimen received in preservative Culture Result - 10,000 - <50,000 CFU/ml Normal urogenital bharathi Performed By: #### URCUL #### [place] [address] PROGRESS Observed: 01/13/2018 Status: COMPLETED Source: [place] 2:35 PM [facility] REPOSITORY HNO ID: [id number] Author: Carmel Jacobs Service: (none) Author Type: Wellness Director Type: Progress Notes Filed: 01/13/2018 4:46 PM [...] HISTORY Procedure Laterality Date - IUD INSERTION (MIXER OPERATOR VACUUM PAN SALT DEPT)_*FL 06/11/2009 Mirena FAMILY HISTORY Problem Relation [...] Occupation Employer Comment STUDENT STUDYING TO GET [employer] Social History Main Topics Smoking status: Never [...] Take 1 capsule by mouth twice daily. Rfhgjdby-Tz-Iye-Fe-FA ( VITAMIN) tab Take 1 tablet by [...] external genitalia normal, normal Bartholin's glands, urethra, Brethren's glands, no vulvar lesions, no cervical lesions, [...] GC/CHLAMYDIA AMPLIF Collected: 01/13/2018 Status: F Source: [place] 5:59 AM [facility] REPOSITORY TYPE CODE TESTS RESULT OUT OF REFERENCE UNITS RANGE LAB GCCTSR GC/Chlam Amp [facility] LAB GCAMPL GC Negative Amplification for Neisseria gonorrhoeae by amplification. LAB CLAMPL Chlamydia Negative Amplif for Chlamydia trachomatis by amplification. Performed By: #### GCCT #### [facility] [address] [place] [id number] CBC W/DIFF, AUTOMATED Collected: 01/05/2018 Status: F Source: [place] 4:27 PM [facility] REPOSITORY TYPE CODE TESTS RESULT OUT OF [...] Lymph 1.62 Performed By: #### L100.0100 #### [facility] [address] [place], [place], [address] COMPREHENSIVE METABOLIC Collected: 01/05/2018 Status: F Source: [facility] 4:27 PM [facility] REPOSITORY TYPE CODE TESTS RESULT OUT OF [...] 8 Performed By: #### L500.4050, L501.2450 #### [facility] [address] [place], [place], [address] LIPASE Collected: 01/05/2018 Status: F Source: [place] 4:27 PM [facility] REPOSITORY TYPE CODE TESTS RESULT OUT OF RANGE REFERENCE UNITS LAB L501.2450 73-393 U/L Normal LIPASE 202 Performed By: #### L500.4050, L501.2450 #### [facility] [address] [place], [place], [address] URINALYSIS, COMPLETE Collected: 01/05/2018 Status: F Source: [place] 4:27 PM [facility] REPOSITORY Order Comment: How was Urine Obtained? [...] MUCUS, URINE Performed By: #### L400.0001 #### [facility] [address] [place], [place], [address] HCG TITER QUANT., Collected: 01/05/2018 Status: F Source: [place] SERUM 4:27 PM [facility] REPOSITORY Order Comment: Date of Last Menstrual Period? 10/21/17 TYPE CODE TESTS RESULT OUT OF RANGE REFERENCE UNITS LAB L700.8000 <9 non-preg mIU/mL Normal HCG < 1 QUANT. Performed By: #### L700.8000 #### [facility] [address] [place], [address] Observed: 01/05/2018 Status: F Source: [place] CULTURE, URINE 4:27 PM [facility] REPOSITORY Urine Culture Probable skin contamination. ORGANISM 1: Mixed Gram Positive Organisms [place] Count 80,000-100,000 Performed By: #### M100.0650 #### [facility] [address] [place], [address] ALLERGIES ALLERGIES DATE TYPE / CODE NAME / CODE REACTION SEVERITY SOURCE 12/12/2018 Drug banana/W660770 Nausea/Vom/Yudy Unknown [place] Allergy/294706513(S 877(RXNORM) rrhea [facility]) Hospital Repository 12/12/2018 Drug latex/L6720392 Hives Unknown [place] Allergy/232757078(S 21(RXNORM) [facility]) Hospital Repository 11/29/2018 Miscellaneous bandaids Hives Unknown [place] Allergy/156832034([facility]) Hospital Repository 06/21/2006 DRUG BANANA GI UPSET [place] INGREDI/606652983([facility]) [place] Repository 06/21/2006 Miscellaneous OTHER RASH [place] Allergy/054314857([facility]) [place] Repository ENCOUNTERS ENCOUNTERS ADMIT/DISCHARGE ACCOUNT ADMITTING ENCOUNTER LOCATION SOURCE NUMBER CLASS 12/12/2018 [id number] Ambulatory [facility] ing:LABSPEC Repository 12/12/2018/12/12/19 [id number] Ambulatory BMSBuilding:B [place] [facility] Repository 12/07/2018 [id number] [facility] ing:OPUS Repository 11/29/2018/11/29/19 [id number] Ambulatory BMSBuilding:B [place] [facility] Repository 11/28/2018 [id number] Ambulatory [facility] ing:LAB Repository 11/17/2018 [id number] Ambulatory [facility] ing:PAVLAB Repository 11/17/2018/11/17/20 [id number] Ambulatory BMSBuilding:B [place] [facility] Repository 11/01/2018 [id number] Ambulatory BMSBuilding:B [place] [facility] Repository 11/01/2018/11/01/20 [id number] Ambulatory [address] [facility] ing:WPOUTRoom Repository : WP016 10/25/2018 [id number] [facility] ing:[facility]SPEC Repository 10/25/2018/10/25/20 [id number] Ambulatory BMSBuilding:B [place] [facility] Repository 10/20/2018/10/20/20 [id number] Ambulatory BMSBuilding:B [place] [facility] Repository 09/21/2018/09/21/20 [id number] Ambulatory BMSBuilding:B [place] [facility] Repository 09/07/2018 [id number] Ambulatory Building[facility] Repository 08/23/2018 [id number] Ambulatory [facility] Hospital ing:PAVLAB Repository 08/23/2018/08/23/20 [id number] Ambulatory BMSBuilding:B [place] [facility] Repository 08/22/2018/08/22/20 [id number] Emergency [address] [facility] ing:ED Repository 07/21/2018/07/21/20 [id number] Emergency [address] [facility] ing:ED Repository 07/17/2018/07/17/20 [id number] Ambulatory BMSBuilding:B [place] [facility] Repository 07/12/2018 [id number] Ambulatory BMSBuilding:B [place] [facility] Hospital Repository 07/04/2018 [id number] [facility]ulatory [facility] ing:LAB Repository 06/14/2018 [id number] [facility] ing:[facility] Repository 06/14/2018/06/14/20 [id number] Ambulatory BMSBuilding:B [place] [facility] Repository 05/30/2018 [id number] [facility] ing:LAB Repository 05/25/2018 [id number] [facility]ulatory [facility] ing:LAB Repository 05/22/2018/05/22/20 [id number] Emergency [address] ing:ED Repository 03/01/2018 [id number] Ambulatory [facility] Repository 03/01/2018/03/03/20 [id number] Ambulatory [address] Repository 02/17/2018 [id number] Ambulatory [facility] Repository 02/01/2018/02/04/20 [id number] Ambulatory [address] Repository 02/01/2018/02/04/20 [id number] Ambulatory [address] Repository 01/13/2018/01/20/20 [id number] Ambulatory [address] Repository 01/05/2018 [id number] Ambulatory [facility] ing:BFHLAB Repository PAYERS PAYERS ENCOUNTER GUARANTOR PAYER SUBSCRIBER SOURCE 12/12/2018 ROSE Meza Primary IESHA Pee [id number] TR Insurance:CARESOURCEP KIMMELLDOB: [address] Number: [id number] Hospital [address]Sop: 330 [id number] Repository [phone] () Date:2018-12-12 [address]ATTN: [place] [address]OW: 12/12/2018 Secondary NOT GIVENUNK [place] Insurance:SELF PAY [facility] Number: Effective Repository Date:2018-12-12 12/12/2018 ROSE Meza Primary IESHA Pee Soria [id number] TR Insurance:CARESOURCEP KIMMELLDOB: [address] Number: [id number] Hospital [address]Lhu: 330 [id number] Repository [phone] () Date:2018-12-12 [address]ATTN: [place] [address]DY: 12/12/2018 Secondary NOT GIVENUNK [place] Insurance:SELF PAY [facility] Number: Effective Repository Date:2018-12-12 12/07/2018 ROSE Meza Primary IESHA Pee Soria [id number] TR Insurance:CARESOURCEP NICHOLELDOB: [address] Number: [id number] Hospital [address]Twi: (330 [id number] Repository [phone] (HP) Date:2018-11-29P [address]ATTN: [place] [address]EB: 12/07/2018 Secondary NOT GIVENUNK [place] Insurance:SELF PAY [facility] Number: Effective Repository Date:2018-11-29 11/29/2018 ROSE Meza Primary IESHA Escalanteoster [id number] TR Insurance:CARESOURCRHIANNON VARELALDOB: [address] Number: [id number] Hospital [address]Oyq: (330 [id number] Repository [phone] () Date:2018-11-17P [address]ATTN: [place] [address]VG: 11/29/2018 Secondary NOT GIVENUNK [place] Insurance:SELF PAY [facility] Number: Effective Repository Date:2018-11-29 11/28/2018 ROSE Meza Primary IESHA A Estella [id number] TR Insurance:CARESOURCRHIANNON VARELALDOB: [address] Number: [id number] Hospital [address]Xno: [phone]) [id number] Repository [phone] () Date:2018-11-22 [address]ATTN: [place] [address]MB: 11/28/2018 Secondary NOT GIVENUNK [place] Insurance:SELF PAY [facility] Number: Effective Repository Date:2018-11-22 11/17/2018 ROSE Meza Primary IESHA Pee EscalanteEstella [id number] TWP Insurance:CARESOURCEP NICHOLELDOB: [address] Number: [id number] Hospital [address]Aki: [phone]) [id number] Repository [phone] () Date:2018-11-17P [address]ATTN: [place] [address]CP: 11/17/2018 Secondary NOT GIVENUNK [place] Insurance:SELF PAY [facility] Number: Effective Repository Date:2018-11-17 11/17/2018 ROSE Meza Primary IESHA [id number] TWP Insurance:CARESOURCEP EDERMELLDOB: [address] [place] Number: [id number] Hospital [address]Nmw: [phone]) [id number] Repository [phone] () Date:2018-10-20 [address]ATTN: [place] [address]TE: 11/17/2018 Secondary NOT GIVENUNK [place] Insurance:SELF PAY [facility] Number: Effective Repository Date:2018-11-17 11/01/2018 ROSE Meza Primary IESHA Soria [id number] TWP Insurance:CARESOURCEP NICHOLELDOB: [address] [place] Number: [id number] Hospital [address]Ikr: [phone] [id number] Repository [phone] () Date:2018-11-01 [address]ATTN: [place] [address]QR: 11/01/2018 Secondary NOT GIVENUNK [place] Insurance:SELF PAY [facility] Number: Effective Repository Date:2018-11-01 11/01/2018 ROSE Meza Primary IESHA Soria [id number] TWP Insurance:CARESOURCEP NICHOLELDOB: [address], [place] Number: [id number] Hospital [address]Ymb: [phone] [id number] Repository [phone] () Date:2018-11-01 [address]ATTN: [place] [address]XK: 11/01/2018 Secondary NOT GIVENUNK [place] Insurance:SELF PAY [facility] Number: Effective Repository Date:2018-11-01 10/25/2018 ROSE Meza Primary IESHA [id number] TWP Insurance:CARESOURCEP KIMMELLDOB: [address] [place] Number: [id number] Hospital [address]Pku: ([phone] [id number] Repository [phone] () Date:2018-10-25P [address]ATTN: [place] [address]FH: 10/25/2018 Secondary NOT GIVENUNK [place] Insurance:SELF PAY [facility] Number: Effective Repository Date:2018-10-25 10/25/2018 ROSE Meza Primary IESHA Soria [id number] TWP Insurance:CARESOURCEP KIMMELLDOB: [facility] [address], [facility] Number: [id number] Hospital [address]Sun: [phone]) [id number] Repository [phone] () Date:2018-10-25P [address]ATTN: [place] [address]OL: 10/25/2018 Secondary NOT GIVENUNK [place] Insurance:SELF PAY [facility] Number: Effective Repository Date:2018-10-25 10/20/2018 ROSE Meza Primary EISHA Soria [id number] TWP Insurance:CARESOURCEP KIMMELLDOB: [facility] [address], [place] Number: [id number] Hospital [address]Cvy: ([phone] [id number] Repository [phone] (HP) Date:2018-09-21P [address]ATTN: [place] [address]HD: 10/20/2018 Secondary NOT GIVENUNK [place] Insurance:SELF PAY [facility] Number: Effective Repository Date:2018-09-21 09/21/2018 ROSE Meza Primary IESHA Soria [id number] TWP Insurance:CARESOURCEP KIMMELLDOB: [address], [place] Number: [id number] Hospital [address]Ghi: [phone] [id number] Repository [phone] () Date:2018-08-23P [address]ATTN: [place] [address]NW: 09/21/2018 Secondary NOT GIVENUNK [place] Insurance:SELF PAY [facility]: Effective Repository Date:2018-09-21 09/07/2018 IESHA Primary IESHA Pee [facility] ROSEDOB: Insurance:CARESOURCEP KIMMELLDOB: [facility] Number: [id number], [id number], [place] [address]Axo: Date: [place] [address] () 09/07/2018 Secondary IESHA Pee [facility] Insurance:CARESOURCEP KIMMELLDOB: [facility] Number: [id number] Repository [id number] [address], Date: [facility] 08/23/2018 ROSE Meza Primary IESHA A Estlela [id number] TWP Insurance:CARESOURCEP KIMMELLDOB: [facility] [address] [facility] Number: [id number] Hospital [address]Vuf: [phone] [id number] Repository [phone] () Date:2018-08-23P [address]ATTN: [place] [address]IV: 08/23/2018 Secondary NOT GIVENUNK [place] Insurance:SELF PAY [facility] Number: Effective Repository Date:2018-08-23 08/23/2018 ROSE Meza Primary IESHA A [place] [id number] TWP Insurance:CARESOURCEP KIMMELLDOB: [facility] [address], [facility] Number: [id number] Hospital [address]Wuw: [phone] [id number] Repository [phone] () Date:2018-08-16P [address]ATTN: [place] [address]PL: 08/23/2018 Secondary NOT GIVENUNK [place] Insurance:SELF PAY [facility] Number: Effective Repository Date:2018-08-23 08/22/2018 ROSE Meza Primary IESHA Soria [id number] TWP Insurance:CARESOURCEP EDERMELLDOB: [address] Number: [id number] Hospital [address]Dyc: 330 [id number] Repository [phone] () Date:2018-08-22P [address]ATTN: [place] [address]YY: 08/22/2018 Secondary NOT GIVENUNK [place] Insurance:SELF PAY [facility] Number: Effective Repository Date:2018-08-22 07/21/2018 ROSE Meza Primary IESHA Soria [id number] TR Insurance:CARESOURCEP NICHOLELDOB: [address] Number: [id number] Hospital [address]Ghi: 330 [id number] Repository [phone] () Date:2018-07-21 [address]ATTN: [place] [address]AC: 07/21/2018 Secondary NOT GIVENUNK [place] Insurance:SELF PAY [facility] Number: Effective Repository Date:2018-07-21 07/17/2018 ROSE Meza Primary IESHA Soria [id number] TR Insurance:CARESOURCEP EDERMELLDOB: [address] Number: [id number] Hospital [address]Tss: 330 [id number] Repository [phone] () Date:2018-07-17P [address]ATTN: [place] [address]CG: 07/17/2018 Secondary NOT GIVENUNK [place] Insurance:SELF PAY [facility] Number: Effective Repository Date:2018-07-17 07/12/2018 ROSE Meza Primary IESHA Soria [id number] TR Insurance:CARESOURCEP EDERMELLDOB: [address] Number: [id number] Hospital [address]Rlx: [phone] [id number] Repository [phone] (HP) Date:2018-06-14P [address]ATTN: [place] [address]HL: 07/12/2018 Secondary NOT GIVENUNK [place] Insurance:SELF PAY [facility] Number: Effective Repository Date:2018-06-14 07/04/2018 ROSE Meza Primary IESHA A [place] [id number] TR Insurance:CARESOURCEP KIMMELLDOB: [address] [facility] Number: [id number] Hospital [address]Swi: ([phone]) [id number] Repository [phone] (HP) Date:2018-07-04P [address]ATTN: [place] [address]LX: 07/04/2018 Secondary NOT GIVENUNK [place] Insurance:SELF PAY [facility] Number: Effective Repository Date:2018-07-04 06/14/2018 ROSE Meza Primary IESHA A [place] [id number] TR Insurance:CARESOURCEP KIMMELLDOB: [address] [facility] Number: [id number] Hospital [address]Uau: ([phone]) [id number] Repository [phone] () Date:2018-06-14P [address]ATTN: [place] [address]LZ: 06/14/2018 Secondary NOT GIVENUNK [place] Insurance:SELF PAY [facility] Number: Effective Repository Date:2018-06-14 06/14/2018 ROSE Meza Primary IESHA A [place] [id number] TR Insurance:CARESOURCEP KIMMELLDOB: [address] Number: [id number] Hospital [address]Yym: ([phone]) [id number] Repository [phone] (HP) Date:2018-05-26P [address]ATTN: [place] [address]JE: 06/14/2018 Secondary NOT GIVENUNK [place] Insurance:SELF PAY [facility] Number: Effective Repository Date:2018-06-14 05/30/2018 ROSE Meza Primary IESHA Soria [id number] TR Insurance:CARESOURCEP EDERMELLDOB: [address] Number: [id number] Hospital [address]Fwz: 330 [id number] Repository [phone] () Date:2018-05-30P [address]ATTN: [place] [address]SX: 05/30/2018 Secondary NOT GIVENUNK [place] Insurance:SELF PAY [facility] Number: Effective Repository Date:2018-05-30 05/25/2018 ROSE Meza Primary IESHA Soria [id number] TR Insurance:CARESOURCEP EDERMELLDOB: [address] Number: [id number] Hospital [address]Vue: 330 [id number] Repository [phone] () Date:2018-05-25P [address]ATTN: [place] [address]ZT: 05/25/2018 Secondary NOT GIVENUNK [place] Insurance:SELF PAY [facility] Number: Effective Repository Date:2018-05-25 05/22/2018 ROSE Meza Primary IESHA Soria [id number] TR Insurance:CARESOURCEP NICHOLELDOB: [address] Number: [id number] Hospital [address]Lmt: (330 [id number] Repository [phone] () Date:2018-05-22P [address]ATTN: [place] [address]IP: 05/22/2018 Secondary NOT GIVENUNK [place] Insurance:SELF PAY [facility] Number: Effective Repository Date:2018-05-22 01/05/2018 Roes Soria [id number] Insurance:CARESOURCEP KimmellDOB: [facility] Number: [id number] [id number] Repository [phone]: 330) Date:2018-01-05P [phone] () [address]ATTN: [facility]S [facility] [place] [place] [address]AY: 01/05/2018 Secondary NOT GIVENUNK [place] Insurance:SELF PAY [facility] Number: Effective Repository Date:2018-01-05
== END ==
PROVIDERS: Family Provider Family Medicine; PCP Family Medicine; Referring Provider Nurse Practitioner Women's Health; Visit Provider Nurse Practitioner Women's Health
DX: O26.899 Other specified pregnancy related conditions, unspecified trimester (principal); N89.8 Other specified noninflammatory disorders of vagina; Z3A.00 Weeks of gestation of pregnancy not specified
CPT/HCPCS: 84112

== ENCOUNTER 2018-12-29 22:40 | Outpatient (CLI) | payer MEDICAID, SELFPAY ==
[2018-12-12 14:20] VITALS: BMI 30.9
[2018-12-29 23:45] VITALS: BMI 32.2
--- NOTE | 2018-12-30 12:07 | OB.TRI.NOTE ---
- Problem List (1) Abnormal glucose affecting Status: Acute Comment: 3 hr GTT ordered (2) Gestational diabetes, diet controlled Status: Acute Qualifiers: (3) LGA (large for gestational age) fetus Status: Acute Comment: Growth US 36 wk (4) Status: Acute Qualifiers: Comment: Declines genetic, carrier, and ntd screening. Anatomy US normal. (5) Previous delivery, antepartum Status: Acute Comment: patient declines progesterone injections. 4cm cervical length at anatomy US (6) Right groin pain Status: Acute (7) Supervision of normal Status: Acute Qualifiers: Comment: PRR MARIA ESTHER 02/02/19 boy PC Charlie, Filiberto Lucas Kaitlyn Leonel (8) Thyromegaly Status: Acute Comment: workup negative History of Present Illness Date of Service: 12/29/18 Reason For Visit: R/O PRE TERM LABOR History of Present Illness: false labor Allergies banana Allergy (Verified 12/29/18 23:49) Nausea/Vom/Diarrhea also lightheadedness latex Allergy (Verified 12/29/18 23:49) Hives bandaids Allergy (Uncoded 12/29/18 23:49) Hives NST - FHR Rate Baby A Baseline: 120-130 Variability:: Moderate Accelerations:: 15 x 15 Decelerations:: None NST Reactive:: Yes FHR Category:: Category I Uterine Activity:: no regular ctx Impression/Plan false labor dc home
== END 2018-12-30 01:05 | disposition home or self-care (01) ==
LOC: WPOUT 23:19 → WP 23:19
PROVIDERS: Family Provider Family Medicine; PCP Family Medicine; Visit Provider Obstetrics & Gynecology
DX: O60.00 Preterm labor without delivery, unspecified trimester (principal); O24.410 Gestational diabetes mellitus in pregnancy, diet controlled; O36.60X0 Maternal care for excessive fetal growth, unspecified trimester, not applicable or unspecified; O99.280 Endocrine, nutritional and metabolic diseases complicating pregnancy, unspecified trimester; E01.0 Iodine-deficiency related diffuse (endemic) goiter; Z3A.00 Weeks of gestation of pregnancy not specified
CPT/HCPCS: 59025; 59050; 99218; G0378

== ENCOUNTER → 2019-01-01 12:12 | Outpatient (CLI) | payer MEDICAID, SELFPAY ==
[2018-12-12 14:20] VITALS: BMI 30.9
[2018-12-29 23:45] VITALS: BMI 32.2
--- NOTE | 2019-01-01 12:14 | US_ITS ---
STUDY: SECOND AND THIRD TRIMESTER OBSTETRICAL ULTRASOUND - LIMITED REASON FOR EXAM: Female, 28 years old. Routine survey. Gestational diabetes. LMP: April 27, 2018. PRIOR ULTRASOUND: Comparison is made with prior examination dated December 07, 2018. TECHNIQUE: Transabdominal TECHNICAL QUALITY: Adequate. FINDINGS: There is a single intrauterine fetus. The fetus is in a cephalic presentation. There is demonstrated cardiac activity with a heart rate of 121 bpm. There is a normal amniotic fluid volume. The largest amniotic fluid pocket measures 7.2 cm x 4.7 cm. The amniotic fluid index (JUNG) is 20.36 cm. This is within the upper limits of normal. The placenta is anterior in location and is not low lying. There are Grade 2 placental changes. The cervix measures 3.4 cm in length. BIOMETRY: BPD: 9.47 cm: 38 weeks, 5 days HC: 34.1 cm: 39 weeks, 2 days AC: 35.01 cm: 39 weeks, 0 days FL: 7.33 cm: 37 weeks, 4 days Age by LMP: 35 weeks, 4 days. MARIA ESTHER by LMP: February 01, 2019. age by prior US: 37 weeks, 6 days. MARIA ESTHER by prior US: January 16, 2019. age by current US: 38 weeks, 5 days. MARIA ESTHER by current US: January 10, 2019. Estimated weight: 3543 grams, +/- 517 grams, 98 percentile. Gender: Indeterminant US/OB Limited With Biometrics IMPRESSION: Single live uterine gestation with a mean gestational age of 37 weeks and 6 days. The measurements obtained today follow within normal expected range. Electronically Signed: Chauncey Beaver MD at 15:29 EST , Service support ,
== END ==
PROVIDERS: Family Provider Family Medicine; PCP Family Medicine; Referring Provider Obstetrics & Gynecology; Visit Provider Obstetrics & Gynecology
DX: O09.219 Supervision of pregnancy with history of pre-term labor, unspecified trimester (principal); O24.410 Gestational diabetes mellitus in pregnancy, diet controlled; Z3A.00 Weeks of gestation of pregnancy not specified
CPT/HCPCS: 76816

== ENCOUNTER → 2019-01-08 17:46 | Outpatient (CLI) | payer MEDICAID, SELFPAY ==
[2019-01-08 14:54] VITALS: BMI 32.2
== END ==
PROVIDERS: Family Provider Family Medicine; PCP Family Medicine; Visit Provider Nurse Practitioner Women's Health
DX: Z34.83 Encounter for supervision of other normal pregnancy, third trimester (principal)
CPT/HCPCS: 87081

== ENCOUNTER 2019-01-17 20:25 | Emergency (ER) | payer MEDICAID, SELFPAY ==
[2019-01-08 14:54] VITALS: BMI 32.2
[2019-01-17 20:26] VITALS: BP 119/73; PULSE 94; RESP 15; TEMP 37.2; O2SAT 96; BMI 32.6
--- NOTE | 2019-01-17 21:10 | ED.VISSUMM ---
- ER Visit Summary Date of Service: 01/17/19 Chief Complaint: Cough History of Present Illness: The patient is a 28 F who is still 8 weeks tomorrow. She states for the past 3-4 days she has had a runny nose and cough headaches and temperature T-max 100.3. He states the cough has moved down towards her chest. States is occasionally productive. No history of wheezing. She is a non-smoker. Physical Examination: Afebrile vital signs are stable Gen: Well-nourished well-developed Head: Normocephalic atraumatic Eyes: Perrl EOMI ENT: TMs clear turbinate edema moist mucous membranes Neck: Supple no lymphadenopathy no JVD nontender CVS: Regular rate rhythm no murmurs normal S1-S2 Respiratory: No distress clear to auscultation bilaterally chest nontender Abdomen: Soft nontender nondistended normal bowel sounds no masses gravid uterus Back: Nontender Extremity: Nontender no edema Skin: Normal color no rash Neuro: alert orientated ?3 CN II-XII intact normal strength sensation reflexes gait cerebellar Psych: Normal affect normal mood Test Results: Rapid influenza was negative. Formal influenza test will be sent. Emergency Department Course and Treatment: Patient will have albuterol MDI. We will check heart tones. I spoke with Dr. David and we agreed that we will prophylactically treat the patient. Patient is in agreement with this. Impression: 1. Influenza-like illness This note was generated with PerfectPost dictation software. It may contain incorrect words, spelling, and punctuation that were not noted in review of the chart prior to signing ED Disposition - Plan for ED Patient: Disposition: Home or Assisted Living Instructions: ED Flu Prescriptions: Oseltamivir Phosphate [Tamiflu] 75 mg PO BID #10 capsule Referrals: Nathalia David MD [STAFF PHYSICIAN] - Keep Nicole appointment
[2019-01-17 22:29] VITALS: BP 119/70; PULSE 93; O2SAT 98
== END 2019-01-17 22:34 | disposition home or self-care (01) ==
PROVIDERS: Emergency Provider Emergency Medicine; Family Provider Family Medicine; PCP Family Medicine
DX: O98.513 Other viral diseases complicating pregnancy, third trimester (principal); J11.1 Influenza due to unidentified influenza virus with other respiratory manifestations; Z3A.37 37 weeks gestation of pregnancy
CPT/HCPCS: 87633; 87804; 99282

== ENCOUNTER → 2019-01-23 14:41 | Outpatient (CLI) | payer MEDICAID, SELFPAY ==
[2019-01-23 14:01] VITALS: BMI 32.6
[2019-01-23 15:06] LABS: ROM Internal Control Test YES-OK TO RESULT pt. (Internal QC); ROM Patient Test Negative (Negative)
[2019-01-23 15:07] LABS: Record Kit Lot#, ROM+ J7836
== END ==
PROVIDERS: Family Provider Family Medicine; PCP Family Medicine; Visit Provider Obstetrics & Gynecology
DX: N89.8 Other specified noninflammatory disorders of vagina (principal)
CPT/HCPCS: 84112

== ENCOUNTER → 2019-01-25 12:19 | Outpatient (CLI) | payer MEDICAID, SELFPAY ==
[2019-01-23 14:01] VITALS: BMI 32.6
--- NOTE | 2019-01-25 12:21 | US_ITS ---
STUDY: SECOND AND THIRD TRIMESTER OBSTETRICAL ULTRASOUND - LIMITED REASON FOR EXAM: Female, 28 years old. Routine survey. History of gestational diabetes. LMP: April 27, 2018. PRIOR ULTRASOUND: Comparison is made with prior examination dated December 07, 2018 and January 01, 2019. TECHNIQUE: Transabdominal TECHNICAL QUALITY: Adequate. FINDINGS: There is a single intrauterine fetus. The fetus is in a cephalic presentation. There is demonstrated cardiac activity with a heart rate of 139 bpm. There is a normal amniotic fluid volume. The largest amniotic fluid pocket measures 5.3 cm x 2.0 cm. The amniotic fluid index (JUNG) is 11.9 cm. The placenta is anterior in location and is not low lying. There are Grade 3 placental changes. The cervix measurement was not obtained due to the positioning of the head. BIOMETRY: BPD: 9.76 cm: 40 weeks, 0 days HC: 34.92 cm: 40 weeks, 5 days AC: 37.79 cm: 41 weeks, 6 days FL: 7.82 cm: 40 weeks, 0 days Age by LMP: 39 weeks, 0 days. MARIA ESTHER by LMP: February 01, 2019. age by prior US: 42 weeks, 1 days. MARIA ESTHER by prior US: January 10, 2019. age by current US: 40 weeks, 5 days. MARIA ESTHER by current US: January 20, 2019. Estimated weight: 4269 grams, +/- 623 grams, 97 percentile. Gender: Indeterminant US/OB Limited With Biometrics IMPRESSION: Single live intrauterine gestation with a mean gestational age of 42 weeks and 1 day. The measurements obtained today following the normal expected range. Electronically Signed: Chauncey Beaver, at 9:29 EST , Service support ,
== END ==
PROVIDERS: Family Provider Family Medicine; PCP Family Medicine; Referring Provider Obstetrics & Gynecology; Visit Provider Obstetrics & Gynecology
DX: O09.219 Supervision of pregnancy with history of pre-term labor, unspecified trimester (principal); Z3A.00 Weeks of gestation of pregnancy not specified
CPT/HCPCS: 76816

== ENCOUNTER 2019-01-26 07:10 | Inpatient (IN) | payer MEDICAID, SELFPAY ==
[2019-01-23 14:01] VITALS: BMI 32.6
--- NOTE | 2019-01-26 01:31 | PCM.HP.OB ---
- Problem List (1) Gestational diabetes, diet controlled Status: Acute Qualifiers: (2) IOL at 39 weeks Status: Acute (3) LGA (large for gestational age) fetus Status: Acute Comment: Growth US at 38 weeks (4) Status: Acute Qualifiers: Comment: Declines genetic, carrier, and ntd screening. Anatomy US normal. (5) Previous delivery, antepartum Status: Acute Comment: patient declines progesterone injections. 4cm cervical length at anatomy US (6) Right groin pain Status: Acute (7) Supervision of normal Status: Acute Qualifiers: Comment: PRR MARIA ESTHER 02/02/19 boy PC Charlie, Filiberto Lucas Lisandra Leonel (8) Thyromegaly Status: Acute Comment: workup negative History Date of Admission: 01/26/19 Final MARIA ESTHER: 02/02/19 Gestational age: 39 Weeks and 0 Days History of this : This is a 28 year-old, at 39 weeks gestational age presents for IOL secondary to GDMA1 and LGA. She has a history of macrosomia with no history of shoulder dystocias. She has had decreased blood sugar control in the last 2 weeks. She denies any vb lof admits good fm. she has had irregular ctx Allergies banana Allergy (Verified 01/23/19 13:58) Nausea/Vom/Diarrhea also lightheadedness latex Allergy (Verified 01/23/19 13:58) Hives bandaids Allergy (Uncoded 01/23/19 13:58) Hives Home Medications: Home Medications Vits [Prenatabs FA] 1 tab PO DAILY 08/22/18 blood sugar diagnostic strips See Dose Instructions .ROUTE .MEDSUPPLY #100 ea 12/06/18 blood-glucose meter kit See Dose Instructions .ROUTE .MEDSUPPLY #1 ea 12/12/18 Oseltamivir Phosphate [Tamiflu] 75 mg PO BID #10 cap 01/17/19 Smoking Status: Never smoker Alcohol: None Number of Fetus(es): 1 Heart Tracin moderate variability reactive no decelerations category I tracing [place]: regular History Past Pregnancies: Past PregnanciesPregancy History 6 Elective abortions Hx Para 4 Spontaneous abortions 1 Hx # Term Pregnancies 3 Ectopic pregnancies Hx # Pregnancies 1 Multiple births # of living children 3 Past Pregnancies Del. Date Name GA/Weeks Outcome Route Bth Weight Gen Labor Lgth Anesthesia Del Locatn Provider FOB 12/15/06 Migel 33 live - 5 lbs 1 oz Male 72 none [facility] Leonel 04/07/09 Lizet 40 live - full term 9 lbs 4oz Female 3 none [facility] Leonel 01/21/14 Filiberto 40 live - full term 9 lbs 5 oz Male 2 none [facility] Leonel 02/18/16 Carisa 40 live - full term 9 lbs 3oz Female 2 hours none [facility] Leonel Delivery Date: 02/18/16 On 06/14/18 @ 09:07 Luz Mckeon No issues during or delivery. Delivery Date: 01/21/14 On 06/14/18 @ 09:05 Luz Mckeon No issues during or delivery. Delivery Date: 04/07/09 On 06/14/18 @ 09:04 Luz Mckeon No issues during or delivery. Delivery Date: 12/15/06 On 06/14/18 @ 09:03 Luz Mckeon No issues during . No issues during delivery. OB Visit MARIA ESTHER Calculator Estimated Delivery Date 02/02/19 Based on Ultrasound Date 06/14/18 Current WG 38w 4d Number 1 Labs: Social History Alleged father Amandeep Harrisno Smoking Yes Smoking Status Never smoker Expected Infant Delivery Method: Spontaneous Vaginal Describe any other labor & delivery plans:: Expected Delivery Route/Plan. . Specific Issue/Plans. flu vaccine: declines. tdap vaccine: declines. rhogam: NA. LARC form signed: declines. labor support person: Leonel. pain management: natural. cut cord/dad catch: yes. : yes. PP control planned: vasectomy. discussed possible routes of delivery and associated risks: []. special requests: [] Review of Systems Constitutional: Denies: Fever, Malaise Eyes: Denies: Blurred vision, Vision Change HEENT: Denies: Head Aches, Visual Changes Cardiovascular: Denies: Chest Pain, Palpitations Respiratory: Denies: Cough, Shortness of Breath, Wheezing Gastrointestinal: Denies: Abdominal Pain, Diarrhea, Nausea, Vomiting Genitourinary: Denies: Dysuria, Hematuria Musculoskeletal: Denies: Joint Pain, Muscle pain Skin: Denies: Lesions, Rash Neurological: Denies: Blurred vision, Focal weakness, Headaches Psychiatric: Denies: Anxiety, Depression Endocrine: Denies: Heat/ Cold Intolerance Hematologic/ Lymphatic: Denies: Easy Bruising, Easy Bleeding Physical Exam General: Alert, Cooperative, No apparent distress HEENT: Atraumatic, Normocephalic. Negative for: Thyromegaly, Lymphadenopathy Cardiovascular: Regular rate Lungs: Normal air movement Abdomen: Soft, Non Tender, Gravid Neurological: Deep Tendon Reflexes 2+/4 and Symmetrical, Neuro grossly intact. Negative for: Clonus MANAGER STYLE: Normal external genitalia. Negative for: Vulvar lesions Estimated gestational size: Appropriate for gestational size Presentation: Cephalic Assessment/Plan All Active Problems (Last Reviewed 01/23/19 @ 14:01 by Eleanor Koo) IOL at 39 weeks (Acute) LGA (large for gestational age) fetus (Acute) Gestational diabetes, diet controlled (Acute) Right groin pain (Acute) (Acute) Previous delivery, antepartum (Acute) Supervision of normal (Acute) Thyromegaly (Acute) This is a 28 year-old, , at 39 weeks gestational age presents for IOL GDMA1 and LGA. Patient presents IOL, plan management for , pitocin/AROM. Pain management: Plans epidural. GBS negative. Management of any complications: Check blood sugars every 4 hours and latent phase and q. one hour in active phase of labor. Discussed with the patient the risk of shoulder dystocia, due to history of 9 pound infants in past with no complication will proceed with vaginal delivery. I have reviewed the [facility] and made any clinically relevant updates.
--- NOTE | 2019-01-26 01:34 | HP.PCM_ITS ---
- Problem List (1) Gestational diabetes, diet controlled Status: Acute Qualifiers: (2) IOL at 39 weeks Status: Acute (3) LGA (large for gestational age) fetus Status: Acute Comment: Growth US at 38 weeks (4) Status: Acute Qualifiers: Comment: Declines genetic, carrier, and ntd screening. Anatomy US normal. (5) Previous delivery, antepartum Status: Acute Comment: patient declines progesterone injections. 4cm cervical length at anatomy US (6) Right groin pain Status: Acute (7) Supervision of normal Status: Acute Qualifiers: Comment: PRR MARIA ESTHER 02/02/19 boy PC Charlie, Filiberto Lucas Lisandra Leonel (8) Thyromegaly Status: Acute Comment: workup negative History Date of Admission: 01/26/19 Final MARIA ESTHER: 02/02/19 Gestational age: 39 Weeks and 0 Days History of this : This is a 28 year-old, at 39 weeks gestational age presents for IOL secondary to GDMA1 and LGA. She has a history of macrosomia with no history of shoulder dystocias. She has had decreased blood sugar control in the last 2 weeks. She denies any vb lof admits good fm. she has had irregular ctx Allergies banana Allergy (Verified 01/23/19 13:58) Nausea/Vom/Diarrhea also lightheadedness latex Allergy (Verified 01/23/19 13:58) Hives bandaids Allergy (Uncoded 01/23/19 13:58) Hives Home Medications: Home Medications Vits [Prenatabs FA] 1 tab PO DAILY 08/22/18 blood sugar diagnostic strips See Dose Instructions .ROUTE .MEDSUPPLY #100 ea 12/06/18 blood-glucose meter kit See Dose Instructions .ROUTE .MEDSUPPLY #1 ea 12/12/18 Oseltamivir Phosphate [Tamiflu] 75 mg PO BID #10 cap 01/17/19 Smoking Status: Never smoker Alcohol: None Number of Fetus(es): 1 Heart Tracin moderate variability reactive no decelerations category I tracing [place]: regular History Past Pregnancies: Past PregnanciesPregancy History 6 Elective abortions Hx Para 4 Spontaneous abortions 1 Hx # Term Pregnancies 3 Ectopic pregnancies Hx # Pregnancies 1 Multiple births # of living children 3 Past Pregnancies Del. Date Name GA/Weeks Outcome Route Bth Weight Gen Labor Lgth Anesthesia Del Locatn Provider FOB 12/15/06 Migel 33 live - 5 lbs 1 oz Male 72 none [facility] Leonel 04/07/09 Lizet 40 live - full term 9 lbs 4oz Female 3 none [facility] Leonel 01/21/14 Filiberto 40 live - full term 9 lbs 5 oz Male 2 none Gilliam Leonel 02/18/16 Carisa 40 live - full term 9 lbs 3oz Female 2 hours none [facility] Leonel Delivery Date: 02/18/16 On 06/14/18 @ 09:07 Luz Mckeon No issues during or delivery. Delivery Date: 01/21/14 On 06/14/18 @ 09:05 Luz Mckeon No issues during or delivery. Delivery Date: 04/07/09 On 06/14/18 @ 09:04 Luz Mckeon No issues during or delivery. Delivery Date: 12/15/06 On 06/14/18 @ 09:03 Luz Mckeon No issues during . No issues during delivery. OB Visit MARIA ESTHER Calculator Estimated Delivery Date 02/02/19 Based on Ultrasound Date 06/14/18 Current WG 38w 4d Number 1 Labs: Social History Alleged father Amandeep Harrison Smoking Yes Smoking Status Never smoker Expected Infant Delivery Method: Spontaneous Vaginal Describe any other labor & delivery plans:: Expected Delivery Route/Plan. . Specific Issue/Plans. flu vaccine: declines. tdap vaccine: declines. rhogam: NA. LARC form signed: declines. labor support person: Leonel. pain m anagement: natural. cut cord/dad catch: yes. : yes. PP control planned: vasectomy. discussed possible routes of delivery and associated risks: []. special requests: [] Review of Systems Constitutional: Denies: Fever, Malaise Eyes: Denies: Blurred vision, Vision Change HEENT: Denies: Head Aches, Visual Changes Cardiovascular: Denies: Chest Pain, Palpitations Respiratory: Denies: Cough, Shortness of Breath, Wheezing Gastrointestinal: Denies: Abdominal Pain, Diarrhea, Nausea, Vomiting Genitourinary: Denies: Dysuria, Hematuria Musculoskeletal: Denies: Joint Pain, Muscle pain Skin: Denies: Lesions, Rash Neurological: Denies: Blurred vision, Focal weakness, Headaches Psychiatric: Denies: Anxiety, Depression Endocrine: Denies: Heat/ Cold Intolerance Hematologic/ Lymphatic: Denies: Easy Bruising, Easy Bleeding Physical Exam General: Alert, Cooperative, No apparent distress HEENT: Atraumatic, Normocephalic. Negative for: Thyromegaly, Lymphadenopathy Cardiovascular: Regular rate Lungs: Normal air movement Abdomen: Soft, Non Tender, Gravid Neurological: Deep Tendon Reflexes 2+/4 and Symmetrical, Neuro grossly intact. Negative for: Clonus MEAT TRIMMER: Normal external genitalia. Negative for: Vulvar lesions Estimated gestational size: Appropriate for gestational size Presentation: Cephalic Assessment/Plan All Active Problems (Last Reviewed 01/23/19 @ 14:01 by Eleanor Koo) IOL at 39 weeks (Acute) LGA (large for gestational age) fetus (Acute) Gestational diabetes, diet controlled (Acute) Right groin pain (Acute) (Acute) Previous delivery, antepartum (Acute) Supervision of normal (Acute) Thyromegaly (Acute) This is a 28 year-old, , at 39 weeks gestational age presents for IOL GDMA1 and LGA. Patient presents IOL, plan management for , pitocin/AROM. Pain management: Plans epidural. GBS negative. Management of any complications: Check blood sugars every 4 hours and latent phase and q. one hour in active phase of labor. Discussed with the patient the risk of shoulder dystocia, due to history of 9 pound infants in past with no complication will proceed with vaginal delivery. I have reviewed the [facility] and made any clinically relevant updates.
[2019-01-26 07:16] VITALS: BMI 32.1
[2019-01-26 08:06] LABS: Hematocrit 34.3 % (37-47); Hemoglobin 10.6 g/dl (12.0-15.0); Mean Corp Hgb Conc 30.9 g/gl (32-36); Mean Corpuscular Hgb 25.5 pg (27.0-32.0); Mean Corpuscular Volume 82.7 fL (81-99); Mean Platelet Vol. 10.2 fl (6.2-12.0); Platelet Count 187 K/mm3 (150-450); RBC Distribution Width CV 14.6 % (11.6-14.6); RBC Distribution Width SD 43.9 fl (35.1-43.9); Red Blood Count 4.15 M/mm3 (4.2-5.4)
[2019-01-26 08:12] LABS: Scan Indicated on CBC? Y/N NO
[2019-01-26] MEDS: Lactated Ringers 1,000 ML 50 ML IV (08:28)
[2019-01-26] MEDS: Oxytocin 30 units/NS 500 ml 30 UNITS/500 ML IV.SOLN IV (08:30)
[2019-01-26 09:01] LABS: Bedside Glucose 79 mg/dL (70-110)
[2019-01-26 12:30] LABS: Bedside Glucose 72 mg/dL (70-110)
[2019-01-26 13:51] LABS: Bedside Glucose 80 mg/dL (70-110)
[2019-01-26] MEDS: Oxytocin 30 units/NS 500 ml 30 UNITS/500 ML IV.SOLN 334 UNITS IV (14:50)
--- NOTE | 2019-01-26 15:08 | OP.PCM_ITS ---
- Problem List (1) Gestational diabetes, diet controlled Status: Acute Qualifiers: (2) IOL at 39 weeks Status: Acute (3) LGA (large for gestational age) fetus Status: Acute Comment: Growth US at 38 weeks (4) Status: Acute Qualifiers: Comment: Declines genetic, carrier, and ntd screening. Anatomy US normal. (5) Previous delivery, antepartum Status: Acute Comment: patient declines progesterone injections. 4cm cervical length at anatomy US (6) Right groin pain Status: Acute (7) Supervision of normal Status: Acute Qualifiers: Comment: PRR MARIA ESTHER 02/02/19 boy PC Charlie, Shayy Filiberto Lisandra Leonel (8) Thyromegaly Status: Acute Comment: workup negative Vaginal Delivery Maternal Presentation: Medically Indicated Induction 28-year-old at 39 weeks presents for induction of labor secondary to GDM A1 and LGA Method of Induction: Pitocin Medical Reason for Induction: Maternal Medical Condition: list: Amniotic Membrane Rupture Type: Artificial Amniotic Fluid Description: Clear Final MARIA ESTHER: 02/02/19 Gestational age: 39 Weeks and 0 Days Date of Procedure: 01/26/19 Pre-Operative Diagnosis: Gestational diabetes Post-Operative Diagnosis: Gestational diabetes large for gestational age and mild shoulder dystocia Surgery/ Procedure Performed: Spontaneous Vaginal Delivery Type of Anesthesia: None Description of Procedure: Patient began pushing and delivered the head in the ALL presentation. The head was delivered atraumatically and the loop of umbilical cord was noted and easily reduced over the 's head. Immediately was noted that there was a shoulder dystocia present and Megha position was utilized in addition to suprapubic pressure. With downward pressure on the head of the anterior shoulder was delivered but a small pop was audible during delivery of the shoulder. The posterior shoulder and the rest the were delivered without complication and the was placed on maternal abdomen. Total duration of the shoulder dystocia was 30 seconds. Infant was evaluated by nursery nurse and Apgars were 8 and 9. Delayed cord clamping was employed for approximately 60 seconds. Cord was clamped and cut and gentle traction was applied to the cord and the placenta delivered spontaneously immediately following it was noted to be intact with three-vessel cord. The perineum and vagina were inspected and noted to have no laceration. EBL was 200 cc. Patient and infant tolerated delivery well. A right clavicular fracture was noted that occurred spontaneously with delivery and was likely due to the shoulder dystocia. Timber Management Specialist will be made aware to be able to evaluate infant for any further evaluation. Presentation: ALL Placental Delivery Description: Spontaneous Placenta Disposition: [facility] Cord Vessel Description: 3 Vessels Nuchal Cord Compression: Without compression Cord Gases drawn per routine: ABG, VBG Cord Entanglement: Around neck x 1, loose Estimated Blood Loss: 200 Infant A gender: Male (1 minute): 8 (5 minute): 9 Episiotomy Description: None Laceration: None Medications given after delivery: IV Pitocin Complications: - - clavicular fracture with 30 second shoulder dystocia, treated with megha and suprapubic pressure
[2019-01-26] MEDS: Oxytocin 30 units/NS 500 ml 30 UNITS/500 ML IV.SOLN 167 UNITS IV (15:20)
[2019-01-26 16:06] LABS: Bedside Glucose 86 mg/dL (70-110)
--- NOTE | 2019-01-26 17:19 | NURSING ---
1700 Mom nursing well and interested in a home breast pump. Pump will be sent to home following discharge due to the week end. Trixie BAEZ IBCLC
[2019-01-26] MEDS: Naproxen 250 MG Tablet PO (19:15)
[2019-01-26 20:00] VITALS: BP 114/56; PULSE 98; RESP 16; TEMP 37.2
[2019-01-27 00:45] VITALS: BP 112/58; PULSE 88; RESP 16; TEMP 36.8
[2019-01-27 04:20] VITALS: BP 107/53; PULSE 74; RESP 16; TEMP 36.5
[2019-01-27 07:30] LABS: Bedside Glucose 90 mg/dL (70-110)
[2019-01-27 08:00] VITALS: BP 108/55; PULSE 72; RESP 16; TEMP 36.3; O2SAT 98
--- NOTE | 2019-01-27 09:52 | PCM.PN.OB ---
Subjective: doing well no complaints ready to go home - Physical Exam General: Alert, Oriented x3 Vital Signs Temp Pulse Resp BP Pulse Ox 97.4 F L 72 16 108/55 L 98 01/27/19 08:00 01/27/19 08:00 01/27/19 08:00 01/27/19 08:00 01/27/19 08:00 Oxygen Delivery Method Room Air Weight: 211 lb Body Mass Index (BMI) 32.1 Intake and Output for Last 24 Hours 01/25/19 01/26/19 01/27/19 23:59 23:59 23:59 Intake Total 200 / 200 Balance 200 / 200 POC Glucose 01/27/19 01/26/19 01/26/19 07:21 15:49 13:42 POC Glucose 90 86 80 01/26/19 12:22 POC Glucose 72 Medical Necessity - Tobacco Use Smoking Status: Never smoker Assessment/Plan All Active Problems (Last Reviewed 01/23/19 @ 14:01 by Eleanor Koo) IOL at 39 weeks (Acute) LGA (large for gestational age) fetus (Acute) Gestational diabetes, diet controlled (Acute) Right groin pain (Acute) (Acute) Previous delivery, antepartum (Acute) Supervision of normal (Acute) Thyromegaly (Acute) s/p PPD # 1 1. routine post delivery care 2. breast feeding- support given 3. rh positive 4. rubella immune fasting BS WNL, dc home
--- NOTE | 2019-01-27 09:53 | DCINST_ITS ---
Discharge Diet: No Restrictions Discharge Activity: Return to Normal Activity, May not drive while taking narcotic pain medications., May Shower May resume sexual activity in: 4-6 weeks Call your doctor if your incision/area has: Continuous Slow Oozing, Sudden Increased Bleeding, Increased Pain/ Swelling, Increased Redness, Foul Smelling Discharge Additional Instructions: If you experience any of the following, contact your healthcare provider. * Bleeding that soaks a pad every hour for 2 hours * Fever 100.4 or higher * Unrelieved incision or abdominal pain * Swelling, redness, discharge or bleeding from your incision or episiotomy site * Your incision begins to separate * Problems urinating (including inability to urinate or burning while urinating). * Visual changes * Severe headache * Flu-like symptoms * Pain or redness in one of both of your breasts * Pain, warmth, tenderness or swelling in your legs, especially the calf area * Frequent nausea and vomiting * Symptoms of depression or anxiety If you experience any of the following, call 911 or go to the nearest Emergency Room. * Chest pain * Problems breathing * Seizure activity * Partial or complete paralysis of a body part, slurred speech, weakness or drooping of the face, or a sudden inability to walk or hold your balance Allergies/Adverse Reactions: Allergies banana Allergy (Verified 01/23/19 13:58) Nausea/Vom/Diarrhea also lightheadedness latex Allergy (Verified 01/23/19 13:58) Hives bandaids Allergy (Uncoded 01/23/19 13:58) Hives Medications to take at Discharge Vits [Prenatabs FA] 1 tab PO DAILY 08/22/18 blood sugar diagnostic strips See Dose Instructions .ROUTE .MEDSUPPLY #100 ea 12/06/18 blood-glucose meter kit See Dose Instructions .ROUTE .MEDSUPPLY #1 ea 12/12/18 Oseltamivir Phosphate [Tamiflu] 75 mg PO BID #10 cap 01/17/19 Please Follow Up With: Nathalia David MD - [phone] When: Call to make an appointment with your doctor in 6 weeks. If you had elevated Blood pressure or 4th degree laceration you will need to be seen in 2 weeks. Test Results: Test results from this visit will be discussed in further detail at your follow- up appointment, if applicable.
[2019-01-27 11:51] VITALS: BP 102/57; PULSE 87; RESP 16; TEMP 36.7
[2019-01-27 17:10] VITALS: BP 110/58; PULSE 90; RESP 16; TEMP 37.2; O2SAT 96
--- NOTE | 2019-01-29 13:36 | NURSING ---
1340 Follow up phone call made. Mom states that her milk is in and is doing well. Feedings going well too. She had a larger clot yesterday afternoon about 2-3cm when she stood up. Bleeding has been diminished and no clotting since yest afternoon. Encouraged Mom to be calling her DrBrian if any further concerns with clotting or bleeding arise. Very happy with her care at [facility]. Trixie RAYACLC
== END 2019-01-27 17:20 | disposition home or self-care (01) | DRG 560 ==
PROVIDERS: Admitting Provider Obstetrics & Gynecology; Referring Provider Obstetrics & Gynecology; Visit Provider Obstetrics & Gynecology
DX: O66.0 Obstructed labor due to shoulder dystocia (principal); O36.63X0 Maternal care for excessive fetal growth, third trimester, not applicable or unspecified; O24.420 Gestational diabetes mellitus in childbirth, diet controlled; O69.81X0 Labor and delivery complicated by cord around neck, without compression, not applicable or unspecified; O26.893 Other specified pregnancy related conditions, third trimester; R10.31 Right lower quadrant pain; O99.283 Endocrine, nutritional and metabolic diseases complicating pregnancy, third trimester; E01.0 Iodine-deficiency related diffuse (endemic) goiter; Z3A.39 39 weeks gestation of pregnancy; Z37.0 Single live birth
CPT/HCPCS: 59025; 59050; 76816; 82962; 84112; 85027; 86850; 86900; 99218; J7120; G0378

== ENCOUNTER → 2019-12-07 14:56 | Outpatient (CLI) | payer MEDICAID, SELFPAY ==
--- NOTE | 2019-12-07 15:05 | RAD_ITS ---
STUDY: X-RAY - LEFT CALCANEUS REASON FOR EXAM: Female, 29 years old. pain for 1 month; no known injury TECHNIQUE: 2 view(s) of the calcaneus were obtained. COMPARISON: None. FINDINGS: Normal visualized calcaneus. There is no demonstrated fracture. RAD/Calcaneus min 2 Views IMPRESSION: Normal x-ray examination of the calcaneus. Electronically Signed: Mone Marmolejo MD at 2:46 EST , Service support ,
== END ==
PROVIDERS: PCP Family Medicine; Referring Provider Family Medicine; Visit Provider Family Medicine
DX: M79.672 Pain in left foot (principal)
CPT/HCPCS: 73650

== ENCOUNTER → 2020-06-02 15:10 | Outpatient (CLI) | payer MEDICAID, SELFPAY ==
[2020-06-02 17:16] LABS: Absolute Lymphocyte Count 1.85 X10^3/uL (0.83-4.51); Absolute Neutrophil Count 4.9 X10^3/uL (2.0-7.7); Basophil# 0.05 X10^3/uL; Basophil% 0.6 % (0-1); Color, Urine Yellow (Yellow); Eosinophil# 0.22 X10^3/uL; Eosinophils% 2.9 % (0-5); Glucose, Dipstick Normal (Normal); Hematocrit 40.5 % (37-47); Hemoglobin 13.4 g/dL (12.0-15.0); Ketone-Dipstick 5 mg/dl (Negative); Leukocyte Esterase-Dipstick 100 /ul (Negative); Lymphocyte # 1.85 X10^3/ul (4.0); Mean Corp Hgb Conc 33.1 g/dL (32-36); Mean Corpuscular Hgb 31.8 pg (27.0-32.0); Mean Platelet Vol. 10.8 fl (6.2-12.0); Monocyte# 0.68 X10^3/uL; Monocyte% 8.8 % (0-10); NRBC Flagged by Analyzer 0 % (0-5); Neutrophil # 4.89 X10^3/uL (2.7-7.7); Neutrophil % 63.6 % (47-70); Nitrite-Dipstick Negative (Negative); Occult Blood-Urine Negative /ul (Negative); Platelet Count 203 K/mm3 (150-450); Protein-Dipstick Negative (Negative); RBC Distribution Width CV 12.2 % (11.6-14.6); RBC Distribution Width SD 42.3 fl (35.1-43.9); Red Blood Count 4.22 M/mm3 (4.2-5.4); Specific Gravity, Urine 1.015 (1.002-1.030); Urine Bilirubin Dipstick Negative (Negative); Urine Clarity Sl. Cloudy (Clear); Urine Urobilinogen Normal (Normal); White Blood Count 7.7 K/mm3 (4.4-11.0)
[2020-06-02 17:36] LABS: ALB/GLOB Ratio 1.2 RATIO (0.9-2.4); AST(SGOT) 10 U/L (15-37); Alanine Aminotransfer ALT/SGPT 18 U/L (13-56); Albumin, Serum 3.8 g/dL (3.2-5.0); Alkaline Phosphatase 69 U/L (45-117); Anion Gap 7 (5-15); BUN 8 mg/dL (7-18); BUN/Creat Ratio 11.7 RATIO (10-20); Calcium,Total 8.6 mg/dL (8.5-10.1); Chloride 107 mmol/L (98-107); Creatinine, Serum 0.68 mg/dL (0.55-1.02); EST Glomerular Filtration Rate 106 mL/min (>60); Est Glom Filt Rate - Afr Amer 129 mL/min (>60); Globulin 3.3 g/dL (2.2-4.2); Glucose 108 mg/dL (74-106); Potassium 3.9 mmol/L (3.5-5.1); Protein, Total 7.1 g/dL (6.4-8.2); Sodium Level 140 mmol/L (136-145)
== END ==
PROVIDERS: PCP Family Medicine; Visit Provider Family Medicine
DX: R10.32 Left lower quadrant pain (principal)
CPT/HCPCS: 36415; 80053; 81002; 85025

== ENCOUNTER → 2020-06-18 13:44 | Outpatient (CLI) | payer MEDICAID, SELFPAY ==
--- NOTE | 2020-06-18 13:46 | US_ITS ---
STUDY: ULTRASOUND TRANSVAGINAL CLINICAL: Female, 29 years old. LLQ PAIN TECHNIQUE: Transvaginal COMPARISON: None. FINDINGS: Normal uterine size measuring 8.6 x 5.3 x 4.6 cm in maximal craniocaudal dimension. There are no myometrial masses. Normal endometrial thickness measuring 6 mm. There are no endometrial masses, and there is no fluid in the endometrial cavity. Normal uterine cervix. Normal right ovary, measuring 2.9 x 2.4 x 1.7 cm. There are multiple follicles without a dominant cyst. Normal left ovary, measuring 2.9 x 1.8 x 2.2 cm. There are multiple follicles without a dominant cyst. There is no free fluid in the pelvis. Polycystic ovary disease: No. US/Transvaginal Non- IMPRESSION: Normal transvaginal pelvic ultrasound. Electronically Signed: Arun Sepulveda MD at 15:13 EDT Tel , Service support ,
--- NOTE | 2020-06-18 13:46 | US_ITS ---
STUDY: ULTRASOUND TRANSVAGINAL CLINICAL: Female, 29 years old. LLQ PAIN TECHNIQUE: Transvaginal COMPARISON: None. FINDINGS: Normal uterine size measuring 8.6 x 5.3 x 4.6 cm in maximal craniocaudal dimension. There are no myometrial masses. Normal endometrial thickness measuring 6 mm. There are no endometrial masses, and there is no fluid in the endometrial cavity. Normal uterine cervix. Normal right ovary, measuring 2.9 x 2.4 x 1.7 cm. There are multiple follicles without a dominant cyst. Normal left ovary, measuring 2.9 x 1.8 x 2.2 cm. There are multiple follicles without a dominant cyst. There is no free fluid in the pelvis. Polycystic ovary disease: No. US/Pelvic (Non ) IMPRESSION: Normal transvaginal pelvic ultrasound. Electronically Signed: Arun Sepulveda MD at 15:13 EDT Tel , Service support ,
== END ==
PROVIDERS: PCP Family Medicine; Referring Provider Family Medicine; Visit Provider Family Medicine
DX: R10.32 Left lower quadrant pain (principal)
CPT/HCPCS: 76830; 76856; 93976

== ENCOUNTER → 2021-01-01 11:56 | Outpatient (CLI) | payer MEDICAID, SELFPAY ==
--- NOTE | 2021-01-01 11:59 | RAD_ITS ---
STUDY: X-RAY - LEFT ELBOW REASON FOR EXAM: Female, 30 years old. left elbow pain and burning, fell twice on it a week ago TECHNIQUE: 3 view(s) of the elbow. COMPARISON: None. FINDINGS: No acute fracture, dislocation or osseous destruction. No significant joint space narrowing. No significant productive changes. No significant soft tissue swelling. RAD/Elbow min 3 Views IMPRESSION: Left elbow intact Electronically Signed: Migel Leos DO at 12:17 EST Tel , Service support ,
== END ==
PROVIDERS: PCP Family Medicine; Referring Provider Family Medicine; Visit Provider Family Medicine
DX: M25.522 Pain in left elbow (principal)
CPT/HCPCS: 73080

== ENCOUNTER → 2021-01-07 12:28 | Outpatient (CLI) | payer MEDICAID, SELFPAY ==
[2021-01-07 11:14] VITALS: BMI 28.8
[2021-01-09 14:20] LABS: HPV APTIMA, High Risk Negative (Negative)
== END ==
PROVIDERS: PCP Family Medicine; Referring Provider Nurse Practitioner Women's Health; Visit Provider Nurse Practitioner Women's Health
DX: Z12.4 Encounter for screening for malignant neoplasm of cervix (principal)
CPT/HCPCS: 87624; 88175; G0145

== ENCOUNTER → 2021-01-09 13:31 | Outpatient (CLI) | payer MEDICAID, SELFPAY ==
[2021-01-07 11:14] VITALS: BMI 28.8
[2021-01-09 13:33] LABS: Red Blood Cells-Urine 0 SEEN /hpf (0-5)
[2021-01-09 14:57] LABS: Color, Urine Yellow (Yellow); Glucose, Dipstick Normal (Normal); Ketone-Dipstick 5 mg/dl (Negative); Leukocyte Esterase-Dipstick 100 /ul (Negative); Nitrite-Dipstick Negative (Negative); Occult Blood-Urine Negative /ul (Negative); Protein-Dipstick 15 mg/dl (Negative); Urine Bilirubin Dipstick Negative (Negative); Urine Clarity Sl. Cloudy (Clear); Urine Urobilinogen 1 mg/dl (Normal); Urine pH 6.5 (5.0 - 8.0)
[2021-01-09 15:09] LABS: Bacteria 2+ /hpf (None Seen); Renal Epithelial Cells 0-5 SEEN /hpf (0-5); White Blood Cells 0-5 SEEN /hpf (0-5)
[2021-01-09 15:10] LABS: Mucous, Urine 2+ /hpf (<or=2+); Squamous Epithelial Cells - UA 10-25 SEEN /hpf (5-10)
[2021-01-09 15:40] LABS: T4 Free Direct 0.78 ng/dL (0.76-1.46); Thyroid Stim Hormone (TSH) 1.29 uIU/mL (0.358-3.74)
== END ==
PROVIDERS: PCP Family Medicine; Visit Provider Family Medicine
DX: R10.9 Unspecified abdominal pain (principal); R63.5 Abnormal weight gain
CPT/HCPCS: 36415; 81001; 84439; 84443

== ENCOUNTER → 2021-01-12 12:41 | Outpatient (CLI) | payer MEDICAID, SELFPAY ==
[2021-01-07 11:14] VITALS: BMI 28.8
--- NOTE | 2021-01-12 12:42 | US_ITS ---
STUDY: ULTRASOUND OF THE FEMALE PELVIS - COMPLETE REASON FOR EXAM: Female, 30 years old. LEFT PELVIC PAIN LMP: Generate 2020. TECHNIQUE: Transabdominal and Transvaginal TECHNICAL QUALITY: Adequate. COMPARISON: Comparison is made with prior examination dated 06/18/2020. FINDINGS: The uterus is anteverted and is in a midline position. The uterus measures 9.4 cm x 6.2 cm x 4.8 cm. There is a Nabothian cyst of the cervix. The endometrium measures 18 mm in thickness, and is heterogeneous (striated). Within the endometrium, there is a 1.8 cm x 2.3 cm x 0.9 cm hypoechoic density. An endometrial polyp should be ruled out. There is no demonstrated myometrial mass. I.U.D. - The patient does not have an I.U.D. The right ovary is visualized. The right ovary measures 3.2 cm x 2.9 cm x 1.9 cm. There is no right ovarian cyst or ovarian mass. There is no visualized right adnexal mass or complex lesion. There is normal arterial and normal venous vascularity. The left ovary is visualized. The left ovary measures 3.5 cm x 4.2 cm x 2.5 cm. There is no left ovarian cyst or ovarian mass. There is no visualized left adnexal mass or complex lesion. There is normal arterial and normal venous vascularity. There is minimal fluid in the cul-de-sac. The pre void volume of the bladder was 42.6 ml. Polycystic ovary disease: No. US/Pelvic (Non ) IMPRESSION: Findings suggestive of a 1.8 cm x 2.3 cm x 0.9 cm endometrial polyp. Electronically Signed: Chauncey Beaver MD at 14:27 EST , Service support ,
--- NOTE | 2021-01-12 12:42 | US_ITS ---
STUDY: ULTRASOUND OF THE FEMALE PELVIS - COMPLETE REASON FOR EXAM: Female, 30 years old. LEFT PELVIC PAIN LMP: Generate 2020. TECHNIQUE: Transabdominal and Transvaginal TECHNICAL QUALITY: Adequate. COMPARISON: Comparison is made with prior examination dated 06/18/2020. FINDINGS: The uterus is anteverted and is in a midline position. The uterus measures 9.4 cm x 6.2 cm x 4.8 cm. There is a Nabothian cyst of the cervix. The endometrium measures 18 mm in thickness, and is heterogeneous (striated). Within the endometrium, there is a 1.8 cm x 2.3 cm x 0.9 cm hypoechoic density. An endometrial polyp should be ruled out. There is no demonstrated myometrial mass. I.U.D. - The patient does not have an I.U.D. The right ovary is visualized. The right ovary measures 3.2 cm x 2.9 cm x 1.9 cm. There is no right ovarian cyst or ovarian mass. There is no visualized right adnexal mass or complex lesion. There is normal arterial and normal venous vascularity. The left ovary is visualized. The left ovary measures 3.5 cm x 4.2 cm x 2.5 cm. There is no left ovarian cyst or ovarian mass. There is no visualized left adnexal mass or complex lesion. There is normal arterial and normal venous vascularity. There is minimal fluid in the cul-de-sac. The pre void volume of the bladder was 42.6 ml. Polycystic ovary disease: No. US/Transvaginal Non- IMPRESSION: Findings suggestive of a 1.8 cm x 2.3 cm x 0.9 cm endometrial polyp. Electronically Signed: Chauncey Beaver MD at 14:27 EST , Service support ,
== END ==
PROVIDERS: PCP Family Medicine; Referring Provider Nurse Practitioner Women's Health; Visit Provider Nurse Practitioner Women's Health
DX: R10.2 Pelvic and perineal pain (principal)
CPT/HCPCS: 76830; 76856; 93976

== ENCOUNTER → 2021-02-23 15:51 | Outpatient (CLI) | payer MEDICAID, SELFPAY ==
[2021-02-06 15:48] VITALS: BMI 26.9
== END ==
PROVIDERS: PCP Family Medicine; Referring Provider Obstetrics & Gynecology; Visit Provider Obstetrics & Gynecology
DX: Z00.00 Encounter for general adult medical examination without abnormal findings (principal)

== ENCOUNTER 2021-02-24 10:04 | Day surgery (SDC) | payer MEDICAID, SELFPAY ==
[2021-01-15 13:58] VITALS: BMI 28.5
[2021-02-06 15:48] VITALS: BMI 26.9
[2021-02-23 16:20] LABS: Hematocrit 41.2 % (37-47); Hemoglobin 13.7 g/dL (12.0-15.0); Mean Corp Hgb Conc 33.3 g/dL (32-36); Mean Corpuscular Hgb 31.4 pg (27.0-32.0); Mean Corpuscular Volume 94.5 fL (81-99); Platelet Count 234 K/mm3 (150-450); RBC Distribution Width CV 11.8 % (11.6-14.6); RBC Distribution Width SD 41.1 fl (35.1-43.9); Red Blood Count 4.36 M/mm3 (4.2-5.4); White Blood Count 6.4 K/mm3 (4.4-11.0)
[2021-02-23 16:44] LABS: Magnesium 2.3 mg/dL (1.6-2.6)
[2021-02-24] VITALS (11 sets, daily range): BP systolic 115–137; BP diastolic 63–84; PULSE 67–85; RESP 16; TEMP 36.4–37.3; O2SAT 96–100; BMI 27.8
--- NOTE | 2021-02-24 08:36 | HP.PCM_ITS ---
- Problem List (1) Dyspareunia Status: Acute Comment: likely secondary to congestion. recommend proceeding with surgical management- plan TVHBS. (2) Pelvic congestion syndrome Status: Acute Comment: recommend proceeding with surgical management plan TVHBS. (3) Thyromegaly Status: Acute Comment: workup negative, yearly labs, followed by dr veliz (4) Chronic pelvic pain in female Status: Chronic Comment: sec pelvic congestion plan TVHBS History and Physical Date of Admission: 02/24/21 Intake Vital Signs 02/06/21 Height 5 ft 8 in 02/06/21 Weight: 177 lb 02/06/21 BMI 26.9 02/06/21 BP 110/73 Intake Visit Reasons: PRE OP TVH BS ERAS Chief Complaint: pre op TVH BS ERAS [employer] Required: No Is patient in pain?: No Allergies banana Allergy (Verified 02/06/21 15:48) Nausea/Vom/Diarrhea latex Allergy (Verified 02/06/21 15:48) Hives bandaids Allergy (Uncoded 02/06/21 15:48) Hives Medications multivitamin,ao-cioc-dhdhzeal 1 tab PO DAILY 01/15/21 [History Confirmed 02/06/21] Post menopausal: No Patient : No : No [facility] Family History Mother CVA (cerebral vascular accident) Diabetes Heart disease Social History (Updated 02/06/21 @ 16:[address] Nathalia David MD) Smoking Status: Never smoker HPI PRE OP TVH BS ERAS: Details: LINNEA EMMANUEL is a 30 year old who presents for preop visit for TVH BS. Female Reproductive History Menopausal Symptoms: No night sweats Pregancy History 6 Elective abortions Hx Para 5 Spontaneous abortions 1 Hx # Term Pregnancies 3 Ectopic pregnancies Hx # Pregnancies 1 Multiple births # of living children 5 Past Pregnancies Del. Date Name GA/Weeks Outcome Route Bth Weight Infant Gen Labor Lgth An esthesia Del Locatn Provider FOB 12/15/06 Migel 33 live - 5 lbs 1 oz Male 72 none [facility] Leonel 04/07/09 Lizet 40 live - full term 9 lbs 4oz Female 3 none [facility] Leonel 01/21/14 Filiberto 40 live - full term 9 lbs 5 oz Mal e 2 [facility] 02/[facility]16 Carisa 40 live - full term 9 lbs 3oz Femal e 2 hours none [facility] Leonel 01/26/19 39 live - full term NS VD Male [facility] MAUREEN Delivery Date: 12/15/06 No issues during . No issues during delivery. LindaKristen antonioh Delivery Date: 04/07/09 No issues during or delivery. Linda,Luz Delivery Date: 01/21/14 No issues during or delivery. Linda,Luz Delivery Date: 02/18/16 No issues during or delivery. [place] Delivery Date: 01/26/19 Shoulder Dystocia; GDMA Mary,Malina HARVEY Const Constitutional: Denies fatigue, night sweats, weight gain or weight loss ENT ENT: Reports system reviewed and no additional complaints, except as docu Cardio Card: Denies chest pain Resp Resp: Denies cough or dyspnea GI GI: Reports as per HPI; denies constipation, nausea or vomiting : Reports as per HPI; denies nipple discharge, vaginal discharge, vaginal dryness, vaginal odor or vaginal itching Musc Musc: Denies joint pain, back pain or muscle weakness Skin Skin/Breast: Denies hair loss, change in hair, dry skin, breast lump, breast pain, breast skin changes or nipple discharge Neuro Neuro: Reports system reviewed and no additional complaints, except as docu Psych Psych: Reports system reviewed and no additional complaints, except as docu Endo Endo: Denies cold intolerance, excessive sweating, heat intolerance or increased thirst Ren/Lymph Hematologic/Lymphatic: Denies easy bleeding, Denies easy bruising, Denies enlarged lymph nodes Exam Const General: cooperative, healthy appearing, comfortable, no acute distress, well developed Orientation: alert [facility] Head: normal to inspection, normocephalic Ears: hearing grossly normal bilaterally, external ears normal Nose: external nose normal, nares normal Face and sinus: normal facial exam Neck Neck: normal visual inspection, no lymphadenopathy Thyroid: thyroid normal Chest Chest palpation & inspection: normal inspection of the chest Resp Effort & Inspection: normal respiratory effort Auscultation: clear to auscultation bilaterally Cardio Rate: regular rate Rhythm: regular rhythm Heart Sounds: S1 normal, S2 normal GI Inspection: normal to inspection, non-distended Palpation: soft, no hepatosplenomegaly General: bladder normal to palpation External Female Exam: normal external appearance, normal appearance of the urethra Urethra: normal appearance of the urethra, normal palpation, no discharge Speculum Exam - Vagina: normal appearance of the vagina, normal vaginal discharge Speculum Exam - Cervix: normal appearance of the cervix, nontender Bimanual Exam- Vagina & Uterus: normal bimanual exam, uterine size normal, bladder normal to palpation, uterine shape normal, No cervical tenderness, uterine mobility normal, uterine consistency normal, normal cervical palpation, uterus non-tender Bimanual Exam- Adnexa, other: normal adnexae, adnexae mobile, no adnexal masses, pelvic support normal Pelvic Support: normal Musc Other: gross motor intact no deficits, full bilateral strength Skin General: no rashes or lesions noted Neuro General: alert, awake, moves all extremities, no focal motor deficits Motor: muscle tone normal throughout Extrem General: normal to inspection, no pedal edema Psych Appearance: grossly normal Mental Status: mental status grossly normal Affect: normal affect Speech and Movement: speech and movement normal Assessment & Plan Problems 1. Chronic pelvic pain in female R10.2; G89.29 sec pelvic congestion plan TVHBS 2. Dyspareunia likely secondary to congestion. recommend proceeding with surgical management- plan TVHBS. 3. Pelvic congestion syndrome N94.89 recommend proceeding with surgical management plan TVHBS. 4. Thyromegaly E01.0 workup negative, yearly labs, followed by dr veliz Plan After discussing the patient's diagnosis and treatment plan options, patient wishes to proceed with surgical management. I have discussed with the patient the risks, benefits, and alternatives of the procedure which include but are not limited to risks of anesthesia, bleeding, infection, possible damage to bowel, bladder, or surrounding vasculature which could lead to additional surgery to evaluate any complications. Patient agrees to procedure and wishes to proceed. ACOG/uptodate references given for additional information regarding procedure. Coding Level of Care Code No Charge Diagnoses Chronic pelvic pain in female R10.2; G89.29 Dyspareunia Pelvic congestion syndrome N94.89 Thyromegaly E01.0 UPDATE- I have seen the patient and performed any clinically relevant updates to the history and physical exam. Nathalia David MD
[2021-02-24] MEDS: Lactated Ringers 1,000 ML 40 ML IV (10:40)
[2021-02-24 10:42] LABS: Internal QC Validated? YES +Cl - CLEAR BKGD; Pregnancy, Urine Negative Negative
[2021-02-24] MEDS: Acetaminophen 500 MG Tablet 1000 MG PO (10:51)
[2021-02-24] MEDS: Gabapentin 600 MG Tablet PO (10:51)
[2021-02-24] MEDS: Phenazopyridine 95 MG Tablet 190 MG PO (10:52)
[2021-02-24] MEDS: Celecoxib 200 MG Capsule 400 MG PO (10:52)
[2021-02-24] MEDS: Enoxaparin 40 MG/0.4 ML Syringe SC (10:52)
[2021-02-24] MEDS: dexAMETHasone 10 MG/ML Vial 8 MG IV (10:53)
[2021-02-24] MEDS: Scopolamine 1mg/72hr Patch 1 PATCH TD (10:53)
[2021-02-24 10:56] LABS: Bedside Glucose 102 mg/dL (70-110)
--- NOTE | 2021-02-24 12:05 | OP.PCM_ITS ---
Problem List (1) Dyspareunia Status: Acute Comment: likely secondary to congestion. recommend proceeding w ith surgical management- plan TVHBS. (2) Pelvic congestion syndrome Status: Acute Comment: recommend proceeding with surgical management plan TVHBS. (3) Thyromegaly Status: Acute Comment: workup negative, yearly labs, followed by dr veliz (4) Chronic pelvic pain in female Status: Chronic Comment: sec pelvic congestion plan TVHBS Report of Operation Date of Procedure: 02/24/21 Pre-Operative Diagnosis: pelvic pain, pelvic congestion, dyspareunia Post-Operative Diagnosis: same Surgery/Procedure Performed:: TVHBS Description of Surgical Findings:: enlarged pelvic congestion uterus, adenomyosis, boggy slate cutter operator: Evangelina Duong Type of Anesthesia:: Spinal Special Medications: none Specimen's removed: uterus tubes Drains: porter Estimated Blood Loss (mL): 50 Fluids Replaced: crystlaloid Description of Procedure: Patient was taken to the operating room and was placed under general anesthesia was prepped and draped in normal sterile fashion in the dorsal lithotomy position. Preoperative antibiotics and SCDs and Porter catheter was placed inside the bladder. Weighted speculum was placed in the vagina and the anterior and posterior lip of the cervix was grasped with 2 Karlo clamps and circumferentially injected with dilute vasopressin. A circumferential incision was made with a scalpel and the posterior cul-de-sac was entered into sharply and a longneck speculum was placed. The anterior cul-de-sac was also dissected down and entered into sharply and the uterosacral ligaments were clamped cut and suture ligated bilaterally followed by the cardinal ligaments which were Clamped cut and suture ligated bilaterally with 0 Monocryl. The uterus serially descended and progressive bites were taken bilaterally up to the level of the utero-ovarian ligament bilaterally which was clamped transected and double ligated with 0 Monocryl suture and 0 Vicryl free tie. Bilateral fallopian tubes and ovaries were well visualized and noted be within normal limits and the bilateral fallopian tubes were transected across the base with a Sarah Beth clamp and removed and sutured with 0 Vicryl suture. Excellent hemostasis was noted. Posterior peritoneum was reapproximated with 2-0 Vicryl and a modified Burrows stitch was placed through the posterior vaginal cuff and bilateral uterosacral ligaments across the posterior cul-de-sac skimming along to provide apical support to the vagina. The vagina was closed with [id number] 0 Vicryl pop offs including the posterior and anterior peritoneum in the reapproximation. Excellent hemostasis was noted. All instruments removed from the vagina clear urine was noted at the end of the procedure and patient was awoken and taken recovery in stable condition. Grafts/Implants Used: none - Complications none - Admit VTE Documentation VTE Present on Admission: No VTE Mechan Device Prophylaxis: SCD's Multi Select Codes - Urinary/Genital Urinary/Genital CPT Codes: 98563 TVH+BS/O <250gr uterus
--- NOTE | 2021-02-24 12:05 | DCINST_ITS ---
Discharge Diet: No Restrictions Discharge Activity: Return to Normal Activity, May Not Drive, May Shower May resume sexual activity in: 6-8 weeks Call your doctor if your incision/area has: Continuous Slow Oozing, Sudden Increased Bleeding, Increased Pain/ Swelling, Increased Redness, Foul Smelling Discharge Call your doctor if you observe: Fever of 101 or Higher, Inability to urinate, Inability to have a bowel movement, Using more than one pad per hour Allergies/Adverse Reactions: Allergies banana Allergy (Verified 02/17/21 14:17) Nausea/Vom/Diarrhea also lightheadedness latex Allergy (Verified 02/17/21 14:17) Hives bandaids Allergy (Uncoded 02/06/21 15:48) Hives Medications to take at Discharge NK 02/17/21 Primary Care Physician: Stan Lockett DO [Primary Care Provider] - Test Results: Test results from this visit will be discussed in further detail at your follow- up appointment, if applicable. Please Follow Up With: Nathalia David MD - [phone]
--- NOTE | 2021-02-24 12:15 | HYST_PTH ---
PATIENT: LINNEA EMMANUEL LOC: [facility] [place] U#:[id number] AGE/SX: 30/F ROOM: RE02/24/[address]: Dr. Nathalia David MD : [id number] BED: DIS: 02/24/2021 SPEC #: [id number] RECD: 02/24/21 14:26 STATUS: KRISTEN REReina #: [id number] TAMIKA: 02/24/21 12:[address]: Nathalia David DEPT: SURGICAL PATHOLOGY RECD BY: Vicky Roach ENTERED: 02/25/21 08:40 SP TYPE: HYSTERECT OTHR DR: Dr. Stan Lockett, DO Tissues: Uterus, NOS Procedures: Surgery Specimen Level V HEADER OPERATION: ERAS, vaginal hysterectomy, salpingectomy PRE-OP DIAGNOSIS: Menorrhagia TISSUE SUBMITTED: Uterus and bilateral tubes MICROSCOPIC DIAGNOSIS Uterus, hysterectomy: Cervix - squamous metaplasia, chronic inflammation and nabothian cysts. Endometrium - proliferative endometrium. Myometrium - superficial adenomyosis. Right fallopian tube - benign paratubal cyst. Left fallopian tube - no pathologic change. AM:anamika 02/26/2021 MICROSCOPIC DESCRIPTION Slides are reviewed. GROSS DESCRIPTION Received in fixative is one container labeled with the patient's name and designated uterus, bilateral fallopian tubes. The specimen consists of a hysterectomy specimen consisting of uterus with cervix and detached bilateral fallopian tubes. The uterus with cervix weighs 113 gm and measures 9 x 6.5 x 4 cm. The serosal surface is perrin, glistening. The ectocervical mucosa is unremarkable. The external os is oval in contour. The endocervical canal measures 3 cm in length and the endocervical mucosa is perrin, glistening and unremarkable. The triangular endometrial cavity measures 4.5 cm in length and 2.5 cm in width. The endometrium is perrin, glistening without any mass lesion and measures 0.1 cm in thickness. Sections of the uterine wall do not reveal any mass lesion and measures up to 2.5 cm in thickness. The detached bilateral fallopian tubes are not identified as right or left. One of the fallopian tubes measure 4.5 cm in length and 0.6 cm in diameter. A paratubal cyst is noted measuring 1 cm in greatest dimension. It is filled with clear fluid. The fimbrial end is identified. Sections reveal unremarkable cut surfaces. The second fallopian tube measures 4.5 cm in length and 0.5 cm in diameter. It is disrupted at the fimbrial end. Sections reveal unremarkable cut surfaces. Gauge Operator sections are submitted in eight cassettes as follows: 1 - anterior cervix, 2 - posterior cervix, 3 & 4 - anterior uterine wall, 5 & 6 - posterior uterine wall, 7 - one fallopian tube and paratubal cyst, 8 - second fallopian tube. / SJ:anamika 02/25/21 TC: 1 CPT: 75360
[2021-02-24] MEDS: Cefazolin 2 GM in 0.9% Normal Saline 100 ML IV (13:13)
[2021-02-24] MEDS: Vasopressin 20 UNITS/ML Vial (13:29)
[2021-02-24] MEDS: Lactated Ringers 1,000 ML 70 ML IV ×2 (15:00→18:00)
[2021-02-24] MEDS: Ketorolac 30 MG/ML Syringe IV (15:28)
[2021-02-24 17:18] LABS: Hematocrit 41.2 % (37-47); Hemoglobin 13.5 g/dL (12.0-15.0); Mean Corp Hgb Conc 32.8 g/dL (32-36); Mean Corpuscular Hgb 31.2 pg (27.0-32.0); Mean Corpuscular Volume 95.2 fL (81-99); Mean Platelet Vol. 10.5 fl (6.2-12.0); Platelet Count 220 K/mm3 (150-450); RBC Distribution Width CV 11.9 % (11.6-14.6); RBC Distribution Width SD 41.1 fl (35.1-43.9); Red Blood Count 4.33 M/mm3 (4.2-5.4); White Blood Count 11.2 K/mm3 (4.4-11.0)
== END 2021-02-24 20:26 | disposition home or self-care (01) ==
LOC: SDC 10:05 → AC 10:05
PROVIDERS: Anesthesiology; PCP Family Medicine; Referring Provider Obstetrics & Gynecology; Visit Provider Obstetrics & Gynecology
PROC: (CPT 58260; principal; 2021-02-24 11:55)
DX: N94.10 Unspecified dyspareunia (principal); N88.8 Other specified noninflammatory disorders of cervix uteri; N83.8 Other noninflammatory disorders of ovary, fallopian tube and broad ligament; N94.89 Other specified conditions associated with female genital organs and menstrual cycle; Z20.828 Contact with and (suspected) exposure to other viral communicable diseases; N80.0 Endometriosis of uterus; Z87.891 Personal history of nicotine dependence
CPT/HCPCS: 00940; 58262; 36415; 81025; 82962; 83735; 85027; 86850; 86900; 86901; 87426; 88307; C9803; J7120; J2405

== ENCOUNTER → 2021-04-10 08:29 | Outpatient (CLI) | payer MEDICAID, SELFPAY ==
[2021-04-10 08:14] VITALS: BMI 27.8
[2021-04-12 20:07] LABS: Dilute Prothrombin Time (dPT) 45.8 sec (0.0-55.0); Dilute Russell Viper Venom 52.4 sec (0.0-47.0); PTT-LA 36.2 sec (0.0-51.9); Thrombin Time 18.9 sec (0.0-23.0); dPT Confirm Ratio 1.01 Ratio (0.00-1.40)
[2021-04-13 07:39] LABS: Anti-Cardiolipin Ab, IgA, Qn < 9 APL U/mL (0-11); Anti-Cardiolipin Ab, IgG, Qn < 9 GPL U/mL (0-14); Anti-Cardiolipin Ab, IgM, Qn 13 MPL U/mL (0-12); Beta-2-Glycoprotein I IgA <9 (0-25); Beta-2-Glycoprotein I IgG <9 (0-20); Beta-2-Glycoprotein I IgM 9 (0-32); Interpretation Comment: (.)
== END ==
PROVIDERS: PCP Family Medicine; Referring Provider Obstetrics & Gynecology; Visit Provider Obstetrics & Gynecology
DX: N96 Recurrent pregnancy loss (principal)
CPT/HCPCS: 36415; 86146; 86147

== ENCOUNTER → 2022-05-07 | Outpatient (CLI) | payer MEDICAID, SELFPAY ==
[2021-04-10 08:14] VITALS: BMI 27.8
[2022-05-07 12:11] LABS: Color, Urine Yellow (Yellow); Glucose, Dipstick Normal (Normal); Ketone-Dipstick 5 mg/dl (Negative); Leukocyte Esterase-Dipstick 25 /ul (Negative); Nitrite-Dipstick Negative (Negative); Occult Blood-Urine 10 /ul (Negative); Protein-Dipstick 15 mg/dl (Negative); Specific Gravity, Urine 1.025 (1.002-1.030); Urine Bilirubin Dipstick Negative (Negative); Urine Clarity Sl. Cloudy (Clear); Urine Urobilinogen Normal (Normal)
[2022-05-07 12:18] LABS: Absolute Neutrophil Count 4.9 X10^3/uL (2.0-7.7); Basophil# 0.04 X10^3/uL; Basophil% 0.6 % (0-1); Eosinophil# 0.12 X10^3/uL; Eosinophils% 1.7 % (0-5); Hematocrit 41.3 % (37-47); Hemoglobin 13.9 g/dL (12.0-15.0); Lymphocyte % 20.3 % (19-41); Mean Corp Hgb Conc 33.7 g/dL (32-36); Mean Corpuscular Hgb 31.7 pg (27.0-32.0); Mean Corpuscular Volume 94.1 fL (81-99); Mean Platelet Vol. 9.7 fl (6.2-12.0); Monocyte# 0.44 X10^3/uL; Monocyte% 6.4 % (0-10); NRBC Flagged by Analyzer 0 % (0-5); Neutrophil # 4.88 X10^3/uL (2.7-7.7); Neutrophil % 70.7 % (47-70); Platelet Count 232 K/mm3 (150-450); RBC Distribution Width SD 41.7 fl (35.1-43.9); Red Blood Count 4.39 M/mm3 (4.2-5.4); White Blood Count 6.9 K/mm3 (4.4-11.0)
[2022-05-07 12:22] LABS: Erythrocyte Sedimentation Rate 6 mm/hr (0-30); Myelocyte 6.9 % (0-0)
[2022-05-07 12:46] LABS: ALB/GLOB Ratio 1.2 RATIO (0.9-2.4); AST(SGOT) 15 U/L (15-37); Alanine Aminotransfer ALT/SGPT 21 U/L (13-56); Albumin, Serum 3.9 g/dL (3.2-5.0); Alkaline Phosphatase 42 U/L (45-117); Anion Gap 5 (5-15); BUN 8 mg/dL (7-18); BUN/Creat Ratio 9.3 RATIO (10-20); CRP < 2.90 mg/L (0.0-3.0); Calcium,Total 8.8 mg/dL (8.5-10.1); Chloride 110 mmol/L (98-107); Creatinine, Serum 0.86 mg/dL (0.55-1.02); EST Glomerular Filtration Rate 81 mL/min (>60); Est Glom Filt Rate - Afr Amer 98 mL/min (>60); Globulin 3.3 g/dL (2.2-4.2); Glucose 91 mg/dL (74-106); Potassium 3.9 mmol/L (3.5-5.1); Protein, Total 7.2 g/dL (6.4-8.2); Sodium Level 140 mmol/L (136-145)
== END | disposition home or self-care (01) ==
LOC: LAB 11:51
PROVIDERS: PCP Family Medicine; Referring Provider Family Medicine; Visit Provider Family Medicine
DX: R30.0 Dysuria (principal); R10.31 Right lower quadrant pain; R42 Dizziness and giddiness; Z51.81 Encounter for therapeutic drug level monitoring
CPT/HCPCS: 36415; 80053; 81002; 85025; 85652; 86140

== ENCOUNTER → 2022-05-11 | Outpatient (CLI) | payer MEDICAID, SELFPAY ==
--- NOTE | 2022-05-11 15:05 | RAD_ITS ---
EXAM: XR ABDOMEN, 1 VIEW CLINICAL INDICATION: RLQ ABD PAIN TECHNIQUE: Frontal supine view of the abdomen/pelvis. This report was created using [employer] report generation technology. COMPARISON: None. FINDINGS: LOWER THORAX: No acute pathology. GASTROINTESTINAL TRACT: Unremarkable. Non-obstructive. No bowel or stomach distention. ORGANS: Unremarkable as visualized. No organomegaly. No abnormal calcifications. BONES/JOINTS: No acute pathology. SOFT TISSUES: No acute pathology. RAD/Abdomen Single View IMPRESSION: Non-obstructive bowel gas pattern. Electronically Signed: Jaime Ovalles MD at 16:40 EDT ,
== END | disposition home or self-care (01) ==
LOC: RAD 15:02
PROVIDERS: PCP Family Medicine; Referring Provider Family Medicine; Visit Provider Family Medicine
DX: R10.31 Right lower quadrant pain (principal)
CPT/HCPCS: 74018

== ENCOUNTER 2022-05-30 01:59 | Emergency (ER) | payer MEDICAID, SELFPAY ==
[2022-05-30 02:00] VITALS: BP 122/66; PULSE 73; RESP 16; TEMP 37; O2SAT 100; BMI 25.0
--- NOTE | 2022-05-30 02:24 | ED.VIS.GI ---
HPI HPI - GI History of Present Illness Chief Complaint: Abd Pain Informant: patient Abdominal Pain/Flank Pain Onset: Today Context: Sudden Onset Timing: Continuous Quality: Cramping Location: LLQ Worsened by: Food Relieved by: Nothing Nausea/Vomiting/Emesis GI Symptom: Positive for Nausea and Vomiting Quality: Positive for Nonbilious; Negative for Blood streaks, Coffee ground or Hematemesis Diarrhea/Melena/Hematochezia GI Symptom: Positive for Diarrhea; Negative for Melena or Hematochezia Associated Symptoms Associated Symptoms: Negative for Dysuria, Frequency or Hematuria Narrative Narrative: Patient presents with abdominal pain that began tonight. Patient states she has had intermittent abdominal pain for the past year. Patient states it began rather suddenly tonight. Patient states the pain is cramping. Patient states the pain is over the left lower abdomen. Patient states that normally it is on the right. Patient states it was worse after eating tonight. Patient admits to some nausea and vomiting. Patient denies any hematemesis or coffee-ground emesis. Patient admits to some diarrhea but denies any melena or hematochezia. Patient denies any dysuria, hematuria, or urinary frequency. PFSH PFSH Medical History Anxiety Depression DVT (deep venous thrombosis) Former smoker Home Medications hydrocodone-acetaminophen 5-325mg 5mg-325mg 1 tab PO Q6H PRN PRN Pain 3 days #10 TABLETS 05/30/22 [Rx Last Taken Unknown] Allergy/AdvReac Type Severity Reaction Status Date / Time banana Allergy Nausea/Vom/ Verified 03/23/22 12:14 Diarrhea latex Allergy Hives Verified 03/23/22 12:14 bandaids Allergy Hives Uncoded 03/23/22 12:14 Family History Mother CVA (cerebral vascular accident) Diabetes Heart disease Surgical History History of total vaginal hysterectomy (TVH) (~02/24/21) Social History Smoking Status: Former smoker alcohol intake: never substance use type: does not use caffeine: No what type of physical activity do you participate in: none seatbelt use: always do you feel safe at home: Yes additional social history: - Leonel- Erikaaping 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 ED Constitutional Constitutional ED: Reports chills and subjective; Denies fever(s) Eyes Eyes: Denies blurry vision or change in vision ENT ENT ED: Denies rhinorrhea or sore throat Cardiovascular Cardiovascular: Denies chest pain or palpitations Respiratory/Chest Respiratory/Chest: Denies cough or dyspnea Gastrointestinal Gastrointestinal: Reports abdominal pain, diarrhea, nausea and vomiting Genitourinary Genitourinary ED: Denies dysuria or hematuria Musculoskeletal Musculoskeletal: Denies back pain or neck pain Integumentary Reports rash; Denies abscess Neurologic Neurologic: Denies headache(s) or weakness Allergic/Immunologic Allergic/Immunologic ED: Denies mouth swelling or urticaria EXAM Physical Exam Const Vital Signs: 05/30/22 02:00 Temperature 98.6 F Temperature Source Oral Pulse Rate 73 Respiratory Rate 16 Blood Pressure 122/66 H Blood Pressure Mean 84 Pulse Ox 100 Oxygen Delivery Method Room Air Positive well nourished and well developed General Appearance ED: well developed HEENT Reports moist mucous membranes Neck supple and no JVD Resp normal respiratory effort and clear to auscultation bilaterally Cardio regular rate, regular rhythm and no murmurs GI normal to inspection, nondistended, normoactive bowel sounds Palpation: soft and tender LLQ; Negative for guarding or rebound tenderness present Extremity normal to inspection General Extremety ED: Negative for edema or tenderness General Extremity: Negative for edema Neuro oriented x3, CN's II-XII intact bilaterally and no sensory deficits noted Sensorium / Orientation: alert Motor Exam: strength 5/5 throughout Psych mental status grossly normal Skin no rashes or lesions noted MDM MDM MDM Narrative Medical decision making narrative: Patient was given IV fluids, morphine, and Zofran here. CBC was within normal limits. Comprehensive metabolic profile showed a mild hypokalemia of 3.1. Lipase was normal. Urinalysis does not show any evidence of urinary tract infection or hematuria. Patient was given a dose of potassium here. CT scan of the abdomen pelvis was obtained. There is a 3 cm left ovarian hemorrhagic cyst. There is a small amount of bleeding around the cyst. This was interpreted by the radiologist and reviewed by myself. Patient is feeling better on reevaluation. Patient was advised to follow-up with her ELECTRICIAN SUPERVISOR in 3 to 5 days. Patient was instructed return if worse in any way. Patient understood and was agreeable with the plan. All questions were answered. Lab Data Attestation: I reviewed the patient's lab results. Labs: Laboratory Results - last 24 hr 05/30/22 05/30/22 05/30/22 02:03 02:03 03:10 WBC 11.0 RBC 4.22 Hgb 13.7 Hct 40.7 MCV 96.4 MCH 32.5 H MCHC 33.7 RDW Std Deviation 43.7 RDW Coeff of Alix 12.3 Plt Count 205 MPV 10.1 Immature Gran % (Auto) 0.300 Neut % (Auto) 74.5 H Lymph % (Auto) 15.1 L [place] % (Auto) 7.9 Eos % (Auto) 1.8 Baso % (Auto) 0.4 Absolute Neuts (auto) 8.2 H Absolute Lymphs (auto) 1.67 Nucleated RBC % 0 Sodium 140 Potassium 3.1 L Chloride 109 H Carbon Dioxide 28.0 Anion Gap 3 L BUN 10 Creatinine 0.84 Estim Creat Clear Calc 96.09 Est GFR (MDRD) Af Amer 100 Est GFR (MDRD) Non-Af 83 BUN/Creatinine Ratio 11.9 Glucose 108 H Calcium 8.9 Total Bilirubin 0.70 AST 14 L ALT 17 Alkaline Phosphatase 42 L Total Protein 7.0 Albumin 3.8 Globulin 3.2 Albumin/Globulin Ratio 1.2 Lipase 176 Urine Color Yellow Urine Clarity Clear Urine pH 7.0 Ur Specific Noel 1.015 Urine Protein Negative Urine Glucose (UA) Normal Urine Ketones Negative Urine Occult Blood Negative Urine Nitrite Negative Urine Bilirubin Negative Urine Urobilinogen Normal Ur Leukocyte Esterase Negative Urine RBC 0 SEEN Urine WBC 0 SEEN Ur Squamous Epith Cells 0 SEEN Urine Bacteria 0 SEEN Urine Mucus 0 SEEN Radiography Diagnostic Testing: Clinical Impression(s) from Imaging Studies Abdomen/Pelvis CT 05/30/22 02:27 IMPRESSION: Hemorrhagic 3 cm left ovarian cyst. Small-moderate amount of surrounding hemoperitoneum due to leakage from hemorrhagic ovarian cyst; trace of hyperdensity within the hemoperitoneum indicating minimal contrast extravasation from active bleeding. Nonobstructing right renal calculus. No hydronephrosis or obstructing ureteral stone. Electronically Signed: Kye Escalera MD at 5:01 EDT , ADDENDUM: 05/30/22 0509 IMPRESSION: Hemorrhagic 3 cm left ovarian cyst. Small-moderate amount of surrounding hemoperitoneum due to leakage from hemorrhagic ovarian cyst; trace of hyperdensity within the hemoperitoneum indicating minimal contrast extravasation from active bleeding. Nonobstructing right renal calculus. No hydronephrosis or obstructing ureteral stone. N.B. : The above Results were Read Back by Kye Escalera MD to Dr. Migel Seymour, AA, and understanding confirmed on 05/30/2022 05:02:36 (ET). Electronically Signed: Kye Escalera MD at 5:01 EDT , Discharge Plan Triage Chief Complaint: Abd Pain ED Provider: Migel Seymour Dx/Rx/DC Orders Clinical Impression: Hemorrhagic cyst of left ovary, Chronic pelvic pain in female Instructions: ED Ovarian Cyst Prescriptions: New hydrocodone-acetaminophen [hydrocodone-acetaminophen] 1 TABLET tablet 1 tab PO Q6H PRN PRN (Reason: Pain) 3 Days Qty: 10 0RF Primary Care Provider: Stan Lockett Referrals: Stan Lockett DO [Primary Care Provider] - 3-5 Days Nathalia David MD [STAFF PHYSICIAN] - 3-5 Days Disposition Disposition: Home, Self Care
--- NOTE | 2022-05-30 02:27 | CT_ITS ---
We are attempting to reach an attending provider to discuss findings. An addendum with communication details will be sent when the communication is complete. EXAM: CT ABDOMEN AND PELVIS WITH INTRAVENOUS CONTRAST CLINICAL INDICATION: Left lower quadrant abdominal pain -- IV PO Contrast TECHNIQUE: Helically acquired images were obtained of the abdomen and pelvis with intravenous contrast. DLP: 637.65 mGy-cm and CTDI: 10.[address] exam was performed using one or more of the following dose reduction techniques: automated exposure control, adjustment of the mA and/or kV according to patient size, and/or use of iterative reconstruction technique. This report was created using [employer] report [employer] technology. CONTRAST: Oral and amp; IV Gastrografin and amp; 100mL Isovue-300 COMPARISON: Abdominal radiographs of 05/11/2022. FINDINGS: LOWER THORAX: Unremarkable. Lung bases are clear. No cardiomegaly. No significant pericardial effusion. ABDOMEN: LIVER: Unremarkable. Homogeneous. No focal mass. GALLBLADDER AND BILE DUCTS: Unremarkable. No calcified gallstones. No gallbladder distention or wall edema. No intra- or extrahepatic biliary ductal dilation. PANCREAS: Unremarkable. No focal cystic or solid mass. SPLEEN: Unremarkable. Normal size without focal cystic or solid mass. ADRENALS: Unremarkable. No nodules. KIDNEYS AND URETERS: Kidneys are normal in size. 3 mm ovoid nonobstructing stone within the right renal lower pole collecting system. No left renal calculi. Symmetric nephrograms. No hydronephrosis or obstructing ureteral stone. STOMACH AND BOWEL: Unremarkable. No stomach or bowel distention. No focal inflammatory change. PELVIS: APPENDIX: Appendix is not visualized. BLADDER: Unremarkable. REPRODUCTIVE: Absent uterus. Normal right ovary. INTRAPERITONEAL SPACE: In the left adnexa is a 3 cm ovoid thin-walled ring-enhancing fluid collection showing internal CT attenuation of 30. A [id number] amount of free fluid is noted within the left adnexa and extending into the cul-de-sac, with this fluid demonstrating CT attenuation of 29. A trace of hyperdensity is seen in the dependent portion of this cul-de-sac fluid indicating a trace of contrast extravasation secondary to active bleeding. Tortuous enhancing vessels are seen in the left adnexa. No free air. BONES/JOINTS: Unremarkable. No suspicious lytic or blastic abnormality. SOFT TISSUES: Unremarkable. No discrete abdominal or pelvic wall hernia. VASCULATURE: Unremarkable. Abdominal aorta is non-dilated. LYMPH NODES: Unremarkable. No enlarged lymph nodes. CT/Abdomen/Pelvis WITH Contrast IMPRESSION: Hemorrhagic 3 cm left ovarian cyst. Small-moderate amount of surrounding hemoperitoneum due to leakage from hemorrhagic ovarian cyst; trace of hyperdensity within the hemoperitoneum indicating minimal contrast extravasation from active bleeding. Nonobstructing right renal calculus. No hydronephrosis or obstructing ureteral stone. Electronically Signed: Kye Escalera MD at 5:01 EDT ,
[2022-05-30 02:38] LABS: Absolute Lymphocyte Count 1.67 X10^3/uL (0.83-4.51); Absolute Neutrophil Count 8.2 X10^3/uL (2.0-7.7); Basophil# 0.04 X10^3/uL; Basophil% 0.4 % (0-1); Eosinophils% 1.8 % (0-5); Hematocrit 40.7 % (37-47); Hemoglobin 13.7 g/dL (12.0-15.0); Lymphocyte # 1.67 X10^3/ul (0.83-4.51); Lymphocyte % 15.1 % (19-41); Mean Corp Hgb Conc 33.7 g/dL (32-36); Mean Corpuscular Hgb 32.5 pg (27.0-32.0); Mean Corpuscular Volume 96.4 fL (81-99); Mean Platelet Vol. 10.1 fl (6.2-12.0); Monocyte# 0.87 X10^3/uL; Monocyte% 7.9 % (0-10); NRBC Flagged by Analyzer 0 % (0-5); Neutrophil # 8.23 X10^3/uL (2.7-7.7); Neutrophil % 74.5 % (47-70); Platelet Count 205 K/mm3 (150-450); RBC Distribution Width CV 12.3 % (11.6-14.6); RBC Distribution Width SD 43.7 fl (35.1-43.9); Red Blood Count 4.22 M/mm3 (4.2-5.4)
[2022-05-30] MEDS: Ondansetron 4 MG/2 ML Vial IV (02:43)
[2022-05-30] MEDS: Morphine 2 MG/ML Syringe IV (02:43)
[2022-05-30] MEDS: 0.9% Normal Saline 1,000 ML 1000 ML IV (02:43)
[2022-05-30 02:52] LABS: ALB/GLOB Ratio 1.2 RATIO (0.9-2.4); AST(SGOT) 14 U/L (15-37); Alanine Aminotransfer ALT/SGPT 17 U/L (13-56); Albumin, Serum 3.8 g/dL (3.2-5.0); Alkaline Phosphatase 42 U/L (45-117); Anion Gap 3 (5-15); BUN 10 mg/dL (7-18); BUN/Creat Ratio 11.9 RATIO (10-20); Calcium,Total 8.9 mg/dL (8.5-10.1); Chloride 109 mmol/L (98-107); Creatinine, Serum 0.84 mg/dL (0.55-1.02); EST Glomerular Filtration Rate 83 mL/min (>60); Est Glom Filt Rate - Afr Amer 100 mL/min (>60); Estimated Creatinine Clearance 96.09 ml/min; Globulin 3.2 g/dL (2.2-4.2); Glucose 108 mg/dL (74-106); Lipase 176 U/L (73-393); Potassium 3.1 mmol/L (3.5-5.1); Sodium Level 140 mmol/L (136-145)
[2022-05-30 03:22] LABS: Bacteria 0 SEEN /hpf (None Seen); Mucous, Urine 0 SEEN /hpf (<or=2+); Red Blood Cells-Urine 0 SEEN /hpf (0-5); Squamous Epithelial Cells - UA 0 SEEN /hpf (5-10); White Blood Cells 0 SEEN /hpf (0-5)
[2022-05-30 03:32] LABS: Color, Urine Yellow (Yellow); Glucose, Dipstick Normal (Normal); Ketone-Dipstick Negative (Negative); Leukocyte Esterase-Dipstick Negative /ul (Negative); Nitrite-Dipstick Negative (Negative); Occult Blood-Urine Negative /ul (Negative); Protein-Dipstick Negative (Negative); Specific Gravity, Urine 1.015 (1.002-1.030); Urine Bilirubin Dipstick Negative (Negative); Urine Clarity Clear (Clear); Urine Urobilinogen Normal (Normal)
[2022-05-30] MEDS: Potassium Chloride Oral Tablet 20 MEQ 40 MEQ PO (04:04)
[2022-05-30 05:44] VITALS: BP 120/60; PULSE 70; RESP 16; O2SAT 99
== END 2022-05-30 05:45 | disposition home or self-care (01) ==
PROVIDERS: Emergency Provider Emergency Medicine; PCP Family Medicine; Visit Provider Emergency Medicine
DX: N83.202 Unspecified ovarian cyst, left side (principal); R10.2 Pelvic and perineal pain; Z87.891 Personal history of nicotine dependence; Z86.718 Personal history of other venous thrombosis and embolism
CPT/HCPCS: 74177; 80053; 81001; 83690; 85025; 96361; 96374; 96375; 99284; Q9967; A4216; J2405

== ENCOUNTER 2022-06-20 21:42 | Emergency (ER) | payer MEDICAID, SELFPAY ==
[2022-06-20 21:43] VITALS: BP 116/67; PULSE 80; RESP 16; TEMP 36.8; O2SAT 100; BMI 23.7
--- NOTE | 2022-06-20 21:48 | EKG12_ITS ---
Test Reason : CP Blood Pressure : / mmHG Vent. Rate : 070 BPM Atrial Rate : 070 BPM P-R Int : 150 ms QRS Dur : 092 ms QT Int : 410 ms P-R-T Axes : 005 015 025 degrees QTc Int : 442 ms Normal sinus rhythm Normal ECG Confirmed by ROMELIA CONTRERAS MD ([id number]), scientific publications editor ALTAF BUTTS ([id number]) on 06/22/2022 1:07:17 PM Referred By: RYLEY Confirmed By:ROMELIA CONTRERAS MD
--- NOTE | 2022-06-20 21:53 | EDS_ITS ---
HPI History of Present Illness Chief Complaint: General Illness Detail of Chief Complaint: Pleuritic left-sided chest pain Informant: patient Onset/Context/Timing Onset: Today Context: Gradual Onset Timing: Intermittent Current Severity: Mild Maximum Severity: Mild Narrative Narrative: 31-year-old female history of prior PE about 2 and half years ago after partial hysterectomy. Also has a history of a kidney stone and ovarian cyst. Says she was feeling fine today had left-sided chest pain with deep inspiration only. Denies any fever or cough. Denies any shortness of breath. Denies any hemoptysis. She has had no recent travel, surgery or immobilization. No leg pain or swelling. She has never had any other DVTs or PEs except for the one that was postop 2 to 3 years ago. She is a non-smoker. She is not on control pills. Prior similar symptoms: Yes Recent Illness/Hospitalization: No PFSH PFSH Medical History Anxiety Depression DVT (deep venous thrombosis) Former smoker Allergy/AdvReac Type Severity Reaction Status Date / Time banana Allergy Nausea/Vom/ Verified 06/20/22 21:46 Diarrhea latex Allergy Hives Verified 06/20/22 21:46 bandaids Allergy Hives Uncoded 03/23/22 12:14 Family History Mother CVA (cerebral vascular accident) Diabetes Heart disease Surgical History History of total vaginal hysterectomy (TVH) (~02/24/21) Social History Smoking Status: Former smoker alcohol intake: never substance use type: does not use caffeine: No what type of physical activity do you participate in: none seatbelt use: always do you feel safe at home: Yes additional social history: - Leonel- [place] Patient is a stay at home mom ROS ROS ED ROS Narrative Left chest pain with inspiration only. Review of Systems ROS Unobtainable: Denies due to encephalopathy Constitutional Constitutional ED: Denies chills or fever(s) Eyes Eyes: Denies blurry vision ENT ENT ED: Denies ear pain Cardiovascular Cardiovascular: Reports chest pain; Denies palpitations or racing heartbeat Respiratory/Chest Respiratory/Chest: Denies cough or dyspnea Gastrointestinal Gastrointestinal: Denies abdominal pain Genitourinary Genitourinary ED: Denies dysuria Integumentary Denies abscess Neurologic Neurologic: Denies headache(s) Psychiatric Psychiatric: Denies anxiety Endocrine Endocrinology: Denies cold intolerance Hematologic/Lymphatic Hematologic/Lymphatic: Denies systems reviewed and no addt'l complaints, except as documented Allergic/Immunologic Allergic/Immunologic ED: Denies mouth swelling EXAM Physical Exam Narrative Exam Narrative: 31-year-old female no acute distress. Vital signs are stable afebrile. Pulse ox 100% on room air no signs hypoxia. H EENT exam unremarkable. Neck nontender. Lungs clear to auscultation bilaterally. Heart regular rate and rhythm no murmur. Rate about 80. Chest wall nontender. Abdomen soft nontender. Moving all 4 extremities. Equal symmetrical radial pulses. Calves are nontender without edema or cords. Neurologically she is awake and alert. Back nontender. Const Vital Signs: 06/20/22 21:43 06/20/22 21:54 06/20/22 21:54 Temperature 98.2 F Temperature Source Temporal Pulse Rate 80 Respiratory Rate 16 Respiratory Effort Normal Respiratory Pattern Normal Blood Pressure 116/67 Blood Pressure Mean 83 Pulse Ox 100 Oxygen Delivery Method Room Air Room Air Positive well nourished and well developed; Negative for obese, cachectic, contractures or unkempt General Appearance ED: well developed and NAD; Negative for unkempt, cachectic, contractures, cyanotic or diaphoretic Nutritional Appearance: Negative for cachectic or obese HEENT Reports moist mucous membranes; Denies dry mucous membranes Negative for trauma or tenderness Mouth ED: No dry mucous membranes Mouth: No dry mucous membranes Eyes PERRL and EOMs intact bilaterally General Eye ED: Negative for pale conjunctiva or scleral icterus Neck no lymphadenopathy, supple and no JVD General: Negative for tenderness Lymph Lymphatic: Negative for other Chest Wall inspection of chest normal and palpation of chest normal Chest Narrative: Nontender chest wall. Chest: Negative for other Resp normal respiratory effort and clear to auscultation bilaterally Effort and Inspection: Negative for retractions or pain with movement Auscultation: Negative for rales Cardio regular rate, regular rhythm, S1 normal heart sound, S2 normal heart sound and no murmurs GI normal to inspection, nondistended, normoactive bowel sounds, non-tender, non- distended and no masses Inspection: Negative for abdominal distention Auscultation: normoactive bowel sounds Palpation: soft; Negative for tender or guarding Back/Spine no CVA tenderness General Back: Negative for CVA tenderness Cervical Spine: Negative for cervical spine tenderness Thoracic Spine / Upper Back: Negative for thoracic spinal tenderness Lumbar Spine / Lower Back: Negative for lumbar spinal tenderness Extremity normal to inspection General Extremety ED: Negative for edema or tenderness General Extremity: Negative for edema Neuro oriented x3 Sensorium / Orientation: alert; Negative for orientation impaired, lethargic or stuporous Motor Exam: strength 5/5 throughout Psych mental status grossly normal Appearance: Negative for unkempt Attitude: No agitated Mood & Affect: Negative for depressed Skin no rashes or lesions noted, no wounds and skin turgor normal Lesions: No lesion noted Rashes: No rashes noted Trauma: Negative for abrasion Wounds: Negative for wounds noted MDM MDM MDM Narrative Medical decision making narrative: 31-year-old with left pleuritic chest pain with a prior PE 2 to 3 years ago after surgery. Exam benign. There is no reproducible chest pain. She will undergo a cardiac work-up with a D-dimer. She did not want a thing for pain. Repeat exam patient is doing well at 10:45 PM. I went over all of her test results with her. Repeat exam is unchanged. She is comfortable being discharged home. She will be placed on Motrin for pain. Follow-up as needed. Return if worse. Lab Data Attestation: I reviewed the patient's lab results. Lab results narrative: CBC normal. White count of 6. H&H 13 and 39. D-dimer is negative at 0.36. Potassium 3.4. Gap of 5. Normal BUN with a creatinine of 1.2. Glucose of 112. Troponin less than 3. Chest x-ray negative. Labs: Laboratory Results - last 24 hr 06/20/22 06/20/22 06/20/22 22:02 22:02 22:02 WBC 6.7 RBC 4.08 L Hgb 13.6 Hct 39.5 MCV 96.8 MCH 33.3 H MCHC 34.4 RDW Std Deviation 42.6 RDW Coeff of Alix 12.0 Plt Count 184 MPV 10.0 Immature Gran % (Auto) 0.200 Neut % (Auto) 60.8 Lymph % (Auto) 28.1 [place] % (Auto) 7.4 Eos % (Auto) 2.9 Baso % (Auto) 0.6 Absolute Neuts (auto) 4.1 Absolute Lymphs (auto) 1.87 Nucleated RBC % 0 D-Dimer Quant (PE/DVT) 0.36 Sodium 142 Potassium 3.4 L Chloride 112 H Carbon Dioxide 25.0 Anion Gap 5 BUN 9 Creatinine 1.22 H Estim Creat Clear Calc 66.16 Est GFR (MDRD) Af Amer 65 Est GFR (MDRD) Non-Af 54 L BUN/Creatinine Ratio 7.4 L Glucose 112 H Calcium 8.9 Troponin I High Sens < 3 L Radiography Chest X-Ray - ED: 1 View, Read by ED Physician, Heart, Lungs, Mediastinum, Bony Structures, No Acute Disease and Chronic Changes Diagnostic Testing: Chest x-ray, portable, single view interpreted myself shows no acute abnormality. Normal cardiac silhouette and mediastinum. Normal lung shine no infiltrates. No pneumothorax. Rhythm Strip Rhythm Strip: Sinus Rhythm Rate: 70 Ectopy: None EKG Initial EKG: Attestation: I personally reviewed and interpreted this EKG as follows: Interpretation: Sinus Rhythm and No Acute Injury Pattern Comments: Normal sinus rhythm rate of 70. No acute signs of UT or ischemia. Discharge Plan Triage Chief Complaint: General Illness ED Provider: Jose Ta Dx/Rx/DC Orders Clinical Impression: Chest pain, History of pulmonary embolus (PE) Instructions: ED Chest Pain, Uncertain Cause Primary Care Provider: Stan Lockett Referrals: Stan Lockett DO [Primary Care Provider] - 3-5 Days if not improving Activity Restrictions/Additional Instructions: Your test, EKG and chest x-ray were all normal tonight. Motrin for pain. Follow-up if not improving return if worse. Disposition Disposition: Home, Self Care
--- NOTE | 2022-06-20 22:05 | RAD_ITS ---
INDICATION: chest pain EXAMINATION/TECHNIQUE: X-RAY - XR Chest 1 View COMPARISON: May 22, 2018. FINDINGS: LINES/DEVICES: None. LUNGS: No consolidation, edema or effusion. No pneumothorax. MEDIASTINUM AND CARDIOVASCULAR STRUCTURES: Cardiac silhouette not enlarged. Central airways and mediastinal contour are unremarkable. BONES AND SOFT TISSUES: Unremarkable. RAD/Chest 1 View (Portable) IMPRESSION: No radiographic evidence of acute cardiopulmonary disease. Electronically Signed: Jozef Cheney MD at 22:45 EDT ,
[2022-06-20 22:18] LABS: Absolute Lymphocyte Count 1.87 X10^3/uL (0.83-4.51); Absolute Neutrophil Count 4.1 X10^3/uL (2.0-7.7); Basophil# 0.04 X10^3/uL; Basophil% 0.6 % (0-1); Eosinophil# 0.19 X10^3/uL; Eosinophils% 2.9 % (0-5); Hematocrit 39.5 % (37-47); Hemoglobin 13.6 g/dL (12.0-15.0); Lymphocyte # 1.87 X10^3/ul (0.83-4.51); Lymphocyte % 28.1 % (19-41); Mean Corp Hgb Conc 34.4 g/dL (32-36); Mean Corpuscular Hgb 33.3 pg (27.0-32.0); Mean Corpuscular Volume 96.8 fL (81-99); Monocyte# 0.49 X10^3/uL; Monocyte% 7.4 % (0-10); NRBC Flagged by Analyzer 0 % (0-5); Neutrophil # 4.05 X10^3/uL (2.7-7.7); Neutrophil % 60.8 % (47-70); Platelet Count 184 K/mm3 (150-450); RBC Distribution Width SD 42.6 fl (35.1-43.9); Red Blood Count 4.08 M/mm3 (4.2-5.4); White Blood Count 6.7 K/mm3 (4.4-11.0)
[2022-06-20 22:30] LABS: D-Dimer Quantitative (DVT/PE) 0.36 FEU/ug/m (0.27-0.49)
[2022-06-20 22:33] LABS: Anion Gap 5 (5-15); BUN 9 mg/dL (7-18); BUN/Creat Ratio 7.4 RATIO (10-20); Calcium,Total 8.9 mg/dL (8.5-10.1); Chloride 112 mmol/L (98-107); Creatinine, Serum 1.22 mg/dL (0.55-1.02); EST Glomerular Filtration Rate 54 mL/min (>60); Est Glom Filt Rate - Afr Amer 65 mL/min (>60); Estimated Creatinine Clearance 66.16 ml/min; Glucose 112 mg/dL (74-106); Potassium 3.4 mmol/L (3.5-5.1); Sodium Level 142 mmol/L (136-145); Troponin-I HS (w/2H Reflex) < 3 pg/mL (3.0-54.0)
[2022-06-20 22:54] VITALS: PULSE 69; RESP 16; O2SAT 99
[2022-06-21 00:06] LABS: Reflex Troponin-HS? (from REC) Y
== END 2022-06-20 22:55 | disposition home or self-care (01) ==
PROVIDERS: Emergency Provider Emergency Medicine; PCP Family Medicine; Visit Provider Emergency Medicine
DX: R07.9 Chest pain, unspecified (principal); Z87.891 Personal history of nicotine dependence; Z86.711 Personal history of pulmonary embolism; Z86.718 Personal history of other venous thrombosis and embolism
CPT/HCPCS: 71045; 80048; 84484; 85025; 85379; 93005; 99285; A4216

== ENCOUNTER → 2022-06-28 | Outpatient (CLI) | payer MEDICAID, SELFPAY ==
--- NOTE | 2022-06-28 10:16 | RAD_ITS ---
STUDY: X-RAY - ABDOMEN/PELVIS REASON FOR EXAM: Female, 31 years old. KUB - KIDNEY STONE PAIN IN LOWER QUADRANT OF ABDOMEN TECHNIQUE: AP supine. 2 images. COMPARISON: CT abdomen and pelvis 05/30/2022, abdominal x-ray 05/11/2022. FINDINGS: Bowel gas pattern is normal. There is no bowel obstruction. Sensitivity for free air limited on supine view. No abnormal mass or calcification is seen. No definite radiopaque urinary tract calculi identified. Prior CT showed a 3 mm stone in the right kidney, which is likely too small to detect on radiographs. Calcifications in the pelvis likely phleboliths. Lung bases are clear. RAD/Abdomen Single View IMPRESSION: No acute findings. Electronically Signed: Vicki Avelar MD at 7:13 EDT ,
== END | disposition home or self-care (01) ==
LOC: MTRAD 10:07
PROVIDERS: PCP Family Medicine; Referring Provider Urology; Visit Provider Urology
DX: N20.0 Calculus of kidney (principal)
CPT/HCPCS: 74018

== ENCOUNTER → 2022-07-19 | Outpatient (CLI) | payer MEDICAID, SELFPAY ==
--- NOTE | 2022-07-19 07:17 | US_ITS ---
STUDY: ULTRASOUND TRANSVAGINAL CLINICAL: Female, 31 years old. ovarian cyst -- left- SEEN ON 05/30/22 CT TECHNIQUE: Transvaginal COMPARISON: None. FINDINGS: Status post hysterectomy. Normal uterine cervix. Normal right ovary, measuring 2.9 x 3.4 x 2.4 cm. 2.2 x 1.6 x 1.7 cm ovoid cyst. Multiple follicular cysts are seen within the right ovary. There is also a hemorrhagic cyst or less likely endometrioma seen within the right ovary measuring 0.64 x 0.64 cm. Minimal fluid is seen adjacent to the right ovary. Normal left ovary, measuring 3.4 x 3.2 x 2.6 cm. Multiple follicular cysts. cm. There are multiple follicles without a dominant cyst. There is no free fluid in the pelvis. Polycystic ovary disease: No. US/Pelvic (Non ) IMPRESSION: Status post hysterectomy. Multiple follicular cysts both ovaries. Ovoid simple cyst right ovary 2.2 x 1.6 x 1.7 cm. Minimal fluid adjacent to the right ovary. Small complex cyst right ovary 0.6 x 0.6 cm. Electronically Signed: Stan Barrett MD, FANNY at 10:39 EDT ,
--- NOTE | 2022-07-19 07:17 | US_ITS ---
STUDY: ULTRASOUND TRANSVAGINAL CLINICAL: Female, 31 years old. ovarian cyst -- left- SEEN ON 05/30/22 CT TECHNIQUE: Transvaginal COMPARISON: None. FINDINGS: Status post hysterectomy. Normal uterine cervix. Normal right ovary, measuring 2.9 x 3.4 x 2.4 cm. 2.2 x 1.6 x 1.7 cm ovoid cyst. Multiple follicular cysts are seen within the right ovary. There is also a hemorrhagic cyst or less likely endometrioma seen within the right ovary measuring 0.64 x 0.64 cm. Minimal fluid is seen adjacent to the right ovary. Normal left ovary, measuring 3.4 x 3.2 x 2.6 cm. Multiple follicular cysts. cm. There are multiple follicles without a dominant cyst. There is no free fluid in the pelvis. Polycystic ovary disease: No. US/Transvaginal Non- IMPRESSION: Status post hysterectomy. Multiple follicular cysts both ovaries. Ovoid simple cyst right ovary 2.2 x 1.6 x 1.7 cm. Minimal fluid adjacent to the right ovary. Small complex cyst right ovary 0.6 x 0.6 cm. Electronically Signed: Stan Barrett MD, FANNY at 10:39 EDT ,
== END | disposition home or self-care (01) ==
LOC: US 07:16
PROVIDERS: PCP Family Medicine; Referring Provider Obstetrics & Gynecology; Visit Provider Obstetrics & Gynecology
DX: N83.209 Unspecified ovarian cyst, unspecified side (principal)
CPT/HCPCS: 76830; 76856

== ENCOUNTER 2022-08-27 20:03 | Emergency (ER) | payer MEDICAID, SELFPAY ==
[2022-08-27 20:04] VITALS: BP 117/76; PULSE 64; RESP 18; TEMP 35.8; O2SAT 100; BMI 24.0
[2022-08-27 20:07] VITALS: BP 117/76; PULSE 64; RESP 18; TEMP 35.8; O2SAT 100
--- NOTE | 2022-08-27 21:24 | EDS_ITS ---
HPI History of Present Illness Chief Complaint: Dental Informant: patient Onset/Context/Timing Onset: Today Current Severity: Mild Maximum Severity: Mild Associated Symptoms Assocated Symptom - Dental: face swelling; Negative for fever or jaw swelling Narrative Narrative: 31-year-old female no seen past medical history. Saw her dentist treated with amoxicillin. Pending right upper tooth root canal. Awaiting her insurance to get her dentist to see. States her antibiotic ran out. Today she noticed mild swelling to her right side of her face. No other complaints. Prior similar symptoms: Yes Recent Illness/Hospitalization: No PFSH PFSH Medical History Anxiety Depression DVT (deep venous thrombosis) Former smoker Nausea Right lower quadrant pain Home Medications penicillin V potassium 500 mg tablet 500 mg PO 4X/DAY #40 tabs 08/27/22 [Rx Last Taken Unknown] Allergy/AdvReac Type Severity Reaction Status Date / Time banana Allergy Nausea/Vom/ Verified 07/06/22 13:38 Diarrhea latex Allergy Hives Verified 07/06/22 13:38 bandaids Allergy Hives Uncoded 07/06/22 13:38 Family History Mother CVA (cerebral vascular accident) Diabetes Heart disease Surgical History History of total vaginal hysterectomy (TVH) (~02/24/21) Social History Smoking Status: Former smoker alcohol intake: never substance use type: does not use caffeine: No what type of physical activity do you participate in: none seatbelt use: always do you feel safe at home: Yes additional social history: - Leonel- [place] Patient is a stay at home mom ROS ROS ED ROS Narrative Denies. Review of Systems ROS Unobtainable: Denies due to encephalopathy Constitutional Constitutional ED: Denies chills or fever(s) Eyes Eyes: Denies blurry vision ENT ENT ED: Denies ear pain Cardiovascular Cardiovascular: Denies chest pain Respiratory/Chest Respiratory/Chest: Denies cough or dyspnea Gastrointestinal Gastrointestinal: Denies abdominal pain Genitourinary Genitourinary ED: Denies dysuria or hematuria Musculoskeletal Musculoskeletal: Denies arthralgias Integumentary Denies abscess Neurologic Neurologic: Denies headache(s) Psychiatric Psychiatric: Denies anxiety Endocrine Endocrinology: Denies cold intolerance Hematologic/Lymphatic Hematologic/Lymphatic: Denies easy bleeding Allergic/Immunologic Allergic/Immunologic ED: Denies mouth swelling or tongue swelling EXAM Physical Exam Narrative Exam Narrative: 31-year-old female. Right upper tooth has mild inflammation of the gum. Dentition intact. No trouble opening closing her mouth. No significant facial swelling. Neck nontender. No lymphadenopathy. Lungs clear. Heart regular rhythm no murmur. Otherwise exam unremarkable. Const Vital Signs: 08/27/22 20:04 08/27/22 20:07 Temperature 96.5 F L 96.5 F L Temperature Source Temporal Temporal Pulse Rate 64 64 Respiratory Rate 18 18 Blood Pressure 117/76 117/76 Blood Pressure Mean 89 89 Pulse Ox 100 100 Oxygen Delivery Method Room Air Room Air Positive well nourished and well developed; Negative for obese, cachectic, contractures or unkempt General Appearance ED: well developed and NAD; Negative for unkempt, cachectic, contractures or pallor Nutritional Appearance: Negative for cachectic or obese HEENT HEENT Narrative: Right upper gum mild inflammation. Negative for trauma or tenderness Face and Sinus: Negative for sinuses nontender Mouth ED: Yes oral and palatal mucosa abnormal Mouth: oral and palatal mucosa abnormal Eyes PERRL and EOMs intact bilaterally General Eye ED: Negative for pale conjunctiva or scleral icterus Neck no lymphadenopathy, supple and no JVD Lymph Lymphatic: no lymphadenopathy noted and lymphadenopathy Chest Wall inspection of chest normal and palpation of chest normal Chest: Negative for other Resp normal respiratory effort, no retractions and clear to auscultation bilaterally Cardio regular rate, regular rhythm, S1 normal heart sound, S2 normal heart sound and no murmurs Palpation: Negative for palpable S3 Rate: Negative for bradycardia Rhythm: Negative for abnormal rhythm GI normal to inspection, nondistended, normoactive bowel sounds, non-tender, non- distended and no masses Palpation: soft Extremity normal to inspection and no joint enlargement General Extremety ED: Negative for edema General Extremity: Negative for edema Neuro oriented x3, CN's II-XII intact bilaterally, moves all extremities and no focal motor deficits Sensorium / Orientation: alert, oriented to person, oriented to place and oriented to time Motor Exam: strength 5/5 throughout Psych mental status grossly normal Appearance: Negative for unkempt Attitude: No agitated Mood & Affect: Negative for depressed, anxious or tearful Skin no rashes or lesions noted and no wounds General Skin Exam: Negative for pallor MDM MDM MDM Narrative Medical decision making narrative: Patient with gingivitis. Pending root canal. She will be written for [employer]. Instructed to call her insurance to find a dentist. Discharge Plan Triage Chief Complaint: Dental ED Provider: Jose Ta Dx/Rx/DC Orders Clinical Impression: Dental infection, Pain, dental Instructions: Dental Abscess Prescriptions: New penicillin V potassium 500 mg tablet 500 mg PO 4X/DAY Qty: 40 0RF Primary Care Provider: Stan Lockett Referrals: Stan Lockett DO [Primary Care Provider] - Maliha Brock [Non-Staff] - As soon as possible Activity Restrictions/Additional Instructions: Warm salt water gargling. Tylenol and Motrin for pain Antibiotic as prescribed. Follow-up with a dentist as soon as possible. Disposition Disposition: Home, Self Care
[2022-08-27] MEDS: Penicillin Vk 250 MG Tablet 500 MG PO (21:29)
[2022-08-27 21:33] VITALS: RESP 16
== END 2022-08-27 21:33 | disposition home or self-care (01) ==
PROVIDERS: Emergency Provider Emergency Medicine; PCP Family Medicine; Visit Provider Emergency Medicine
DX: K04.7 Periapical abscess without sinus (principal); Z87.891 Personal history of nicotine dependence; Z86.718 Personal history of other venous thrombosis and embolism
CPT/HCPCS: 99283

== ENCOUNTER → 2022-12-01 | Outpatient (CLI) | payer MEDICAID, SELFPAY ==
--- NOTE | 2022-12-01 16:27 | RAD_ITS ---
STUDY: X-RAY - LEFT SHOULDER REASON FOR EXAM: Female, 32 years old. Weakness and discomfort. TECHNIQUE: 4 view(s) of the shoulder. COMPARISON: None. FINDINGS: Normal glenohumeral articulation. Normal acromioclavicular joint. Normal acromion. Normal humeral head and visualized proximal humerus. The soft tissue structures are unremarkable. Normal visualized pulmonary apex. RAD/Shoulder min 2 Views IMPRESSION: Normal x-ray examination of the shoulder. Electronically Signed: Gurvinder Todd, at 10:04 EST ,
== END | disposition home or self-care (01) ==
PROVIDERS: PCP Family Medicine; Referring Provider Family Medicine; Visit Provider Family Medicine
DX: M25.512 Pain in left shoulder (principal)
CPT/HCPCS: 73030

== ENCOUNTER → 2023-03-21 | Outpatient (CLI) | payer MEDICAID, SELFPAY ==
[2023-03-21 15:13] LABS: Absolute Lymphocyte Count 1.42 X10^3/uL (0.83-4.51); Absolute Neutrophil Count 3.2 X10^3/uL (2.0-7.7); Basophil# 0.03 X10^3/uL; Basophil% 0.6 % (0-1); Eosinophils% 1.9 % (0-5); Hematocrit 40.4 % (37-47); Hemoglobin 13.4 g/dL (12.0-15.0); Lymphocyte # 1.42 X10^3/ul (0.83-4.51); Lymphocyte % 27.5 % (19-41); Mean Corp Hgb Conc 33.2 g/dL (32-36); Mean Corpuscular Hgb 32.3 pg (27.0-32.0); Mean Corpuscular Volume 97.3 fL (81-99); Mean Platelet Vol. 10.2 fl (6.2-12.0); Monocyte# 0.42 X10^3/uL; Monocyte% 8.1 % (0-10); NRBC Flagged by Analyzer 0 % (0-5); Neutrophil # 3.18 X10^3/uL (2.7-7.7); Neutrophil % 61.7 % (47-70); Platelet Count 229 K/mm3 (150-450); RBC Distribution Width SD 43.2 fl (35.1-43.9); Red Blood Count 4.15 M/mm3 (4.2-5.4); White Blood Count 5.2 K/mm3 (4.4-11.0)
[2023-03-21 15:32] LABS: ALB/GLOB Ratio 1.2 RATIO (0.9-2.4); AST(SGOT) 21 U/L (15-37); Alanine Aminotransfer ALT/SGPT 27 U/L (13-56); Albumin, Serum 3.8 g/dL (3.2-5.0); Alkaline Phosphatase 57 U/L (45-117); Anion Gap 5 (5-15); BUN 10 mg/dL (7-18); BUN/Creat Ratio 11.9 RATIO (10-20); Calcium,Total 8.7 mg/dL (8.5-10.1); Chloride 107 mmol/L (98-107); Creatinine, Serum 0.84 mg/dL (0.55-1.02); EST Glomerular Filtration Rate 83 mL/min (>60); Est Glom Filt Rate - Afr Amer 100 mL/min (>60); Ferritin 29 ng/mL (8-252); Globulin 3.1 g/dL (2.2-4.2); Glucose 85 mg/dL (74-106); Iron 201 ug/dL (50-170); Potassium 3.9 mmol/L (3.5-5.1); Protein, Total 6.9 g/dL (6.4-8.2); Sodium Level 140 mmol/L (136-145); Thyroid Stim Hormone (TSH) 1.08 uIU/mL (0.358-3.74)
== END | disposition home or self-care (01) ==
LOC: BFHLAB 11:42
PROVIDERS: PCP Family Medicine; Referring Provider Family Medicine; Visit Provider Family Medicine
DX: R42 Dizziness and giddiness (principal); R51.9 Headache, unspecified; R20.2 Paresthesia of skin; D64.9 Anemia, unspecified
CPT/HCPCS: 36415; 80053; 82728; 83540; 84443; 85025

== ENCOUNTER → 2023-08-01 | Outpatient (CLI) | payer MEDICAID, SELFPAY ==
[2023-08-01 11:11] LABS: Absolute Lymphocyte Count 1.17 X10^3/uL (0.83-4.51); Absolute Neutrophil Count 3.6 X10^3/uL (2.0-7.7); Basophil# 0.04 X10^3/uL; Basophil% 0.7 % (0-1); Eosinophil# 0.13 X10^3/uL; Eosinophils% 2.4 % (0-5); Hematocrit 41.8 % (37-47); Lymphocyte # 1.17 X10^3/ul (0.83-4.51); Lymphocyte % 21.7 % (19-41); Mean Corp Hgb Conc 33.5 g/dL (32-36); Mean Corpuscular Volume 95.7 fL (81-99); Mean Platelet Vol. 9.8 fl (6.2-12.0); Monocyte# 0.48 X10^3/uL; Monocyte% 8.9 % (0-10); NRBC Flagged by Analyzer 0 % (0-5); Neutrophil # 3.55 X10^3/uL (2.7-7.7); Neutrophil % 66.1 % (47-70); Platelet Count 193 K/mm3 (150-450); RBC Distribution Width CV 11.9 % (11.6-14.6); RBC Distribution Width SD 41.1 fl (35.1-43.9); Red Blood Count 4.37 M/mm3 (4.2-5.4); White Blood Count 5.4 K/mm3 (4.4-11.0)
[2023-08-01 11:40] LABS: ALB/GLOB Ratio 1.2 RATIO (0.9-2.4); AST(SGOT) 13 U/L (15-37); Alanine Aminotransfer ALT/SGPT 18 U/L (13-56); Albumin, Serum 3.8 g/dL (3.2-5.0); Alkaline Phosphatase 51 U/L (45-117); Anion Gap 3 (5-15); BUN 10 mg/dL (7-18); BUN/Creat Ratio 12.7 RATIO (10-20); Calcium,Total 8.6 mg/dL (8.5-10.1); Chloride 109 mmol/L (98-107); Creatinine, Serum 0.79 mg/dL (0.55-1.02); EST Glomerular Filtration Rate 88 mL/min (>60); Est Glom Filt Rate - Afr Amer 107 mL/min (>60); Globulin 3.3 g/dL (2.2-4.2); Glucose 93 mg/dL (74-106); Lipase 40 U/L (13-75); Protein, Total 7.1 g/dL (6.4-8.2); Sodium Level 138 mmol/L (136-145)
== END | disposition home or self-care (01) ==
PROVIDERS: PCP Family Medicine; Referring Provider Obstetrics & Gynecology; Visit Provider Obstetrics & Gynecology
DX: R10.9 Unspecified abdominal pain (principal)
CPT/HCPCS: 36415; 80053; 83690; 85025; 87086

== ENCOUNTER → 2023-09-01 | Outpatient (CLI) | payer MEDICAID, SELFPAY ==
--- NOTE | 2023-09-01 14:00 | RAD_ITS ---
STUDY: X-RAY - RIGHT ELBOW REASON FOR EXAM: Female, 32 years old. Cooler fell and hit right elbow TECHNIQUE: 3 view(s) of the elbow. COMPARISON: March 23, 2022 right elbow x-ray FINDINGS: Normal visualized humerus, radius and ulna. Normal radiocapitellar and ulnotrochlear articulations. The soft tissue structures are unremarkable. RAD/Elbow min 3 Views IMPRESSION: Normal x-ray examination of the elbow. Electronically Signed: Anila Medley MD at 14:48 EDT ,
== END | disposition home or self-care (01) ==
LOC: MTRAD 14:00
PROVIDERS: PCP Family Medicine; Referring Provider Physician Assistant Surgical; Visit Provider Physician Assistant Surgical
DX: S50.01XA Contusion of right elbow, initial encounter (principal)
CPT/HCPCS: 73080

== ENCOUNTER 2023-12-18 00:20 | Emergency (ER) | payer MEDICAID, SELFPAY ==
[2023-12-18 00:22] VITALS: BP 124/76; PULSE 81; RESP 18; TEMP 36.9; O2SAT 98; BMI 31.7
--- NOTE | 2023-12-18 00:43 | EDS_ITS ---
HPI History of Present Illness Chief Complaint: General Illness Detail of Chief Complaint: Not feeling well, nausea and vomiting today, diarrhea for couple days Informant: patient Onset/Context/Timing Onset: Today (Nausea and vomiting x 2 and low back pain) and Days (Several days of diarrhea) Context: Sudden Onset Timing: Intermittent and Waxes and wanes Quality: Per HPI narrative Location: GI and musculoskeletal Current Severity: Mild Maximum Severity: Moderate Worsened by: Nothing Relieved by: Nothing Associated Symptoms Associated Symptoms: Dizziness, which patient defines as being lightheaded Narrative Narrative: Patient is a 33-year-old woman status post bilateral tubal ligation who presents with diarrhea that started several days ago. She reports several mushy stools per day. Denies blood or mucus in her stool. She denies the stool being black or maroon in color. She does endorse lightheadedness with standing. She denies thirst or dry mouth. She states she vomited twice today. There is no blood or coffee grounds noted. What concerned her was that she is having lower back pain. She denies radicular pain. She denies weakness in her lower extremities. She denies urologic symptoms. There is no history of trauma. Prior similar symptoms: No Recent Illness/Hospitalization: No PFSH PFSH Medical History Anxiety Chest pain Chronic post-traumatic stress disorder (PTSD) COVID-19 (07/06/22) Depression DVT (deep venous thrombosis) Former smoker History of pulmonary embolus (PE) (02/2021) Hypercoagulable state Major depression Nausea Nephrolithiasis Pulmonary nodular amyloidosis Right lower quadrant pain Thyromegaly Allergy/AdvReac Type Severity Reaction Status Date / Time adhesive tape Allergy Hives Verified 12/18/23 00:22 banana Allergy Nausea/Vom/ Verified 12/18/23 00:22 Diarrhea latex Allergy Hives Verified 12/18/23 00:22 Family History Mother CVA (cerebral vascular accident) Diabetes Heart disease Father Diabetes Bipolar disorder Congenital heart disease Grandmother Bleeding disorder blood clots Surgical History History of total vaginal hysterectomy (TVH) (~02/24/21) Social History Smoking Status: Former smoker alcohol intake: former substance use type: does not use caffeine: No what type of physical activity do you participate in: none seatbelt use: always do you feel safe at home: Yes additional social history: - Le[place]- [place] Patient is a stay at home mom ROS ROS ED Constitutional Constitutional ED: Denies chills, fever(s), subjective, sweats or weight loss Eyes Eyes: Denies blurry vision, change in vision or diplopia ENT ENT ED: Denies ear pain, rhinorrhea or sore throat Cardiovascular Cardiovascular: Denies chest pain, palpitations or racing heartbeat Respiratory/Chest Respiratory/Chest: Denies cough, dyspnea or dyspnea on exertion Gastrointestinal Gastrointestinal: Reports abdominal pain, diarrhea, nausea and vomiting; Denies constipation or melena Genitourinary Genitourinary ED: Denies dysuria, hematuria or urinary frequency Musculoskeletal Musculoskeletal: Reports back pain; Denies arthralgias, myalgias or neck pain Integumentary Denies rash Neurologic Neurologic: Reports headache(s) and other Details: Headache is left parietal occipital area. Describes a burning sensation. ; Denies paresthesias or weakness Endocrine Endocrinology: Denies cold intolerance or heat intolerance Hematologic/Lymphatic Hematologic/Lymphatic: Reports systems reviewed and no addt'l complaints, except as documented EXAM Physical Exam Const Vital Signs: 12/18/23 00:22 12/18/23 01:00 12/18/23 01:03 Temperature 98.5 F Temperature Source Temporal Pulse Rate 81 Pulse Rate [Lying] 75 Pulse Rate [Sitting (for 1 minute prior to obtaining)] 77 Pulse Rate [Standing (for 1 minute prior to obtaining)] 85 Respiratory Rate 18 Respiratory Effort Normal Non-Labored Respiratory Pattern Normal Blood Pressure 124/76 H Blood Pressure [Lying] 123/76 H Blood Pressure [Sitting (for 1 minute prior to obtaining)] 125/66 H Blood Pressure [Standing (for 1 minute prior to obtaining)] 126/83 H Blood Pressure Mean 92 Blood Pressure Mean [Lying] 91 Blood Pressure Mean [Sitting (for 1 minute prior to obtaining)] 85 Blood Pressure Mean [Standing (for 1 minute prior to obtaining)] 97 Pulse Ox 98 Oxygen Delivery Method Room Air Positive well nourished, well developed and obese General Appearance ED: well developed and NAD; Negative for cyanotic, diaphore tic or pallor Nutritional Appearance: obese HEENT Reports dry mucous membranes HEENT Narrative: Head is atraumatic and normocephalic. There is no tenderness to percussion. There is no tenderness to percussion over the frontal, ethmoid or maxillary sinus. Ears and TMs are normal. Nares patent. Posterior pharynx out erythema or exudate. Uvula is midline. There is no deviation tongue or protrusion. Mouth ED: Yes dry mucous membranes Mouth: dry mucous membranes Eyes PERRL and EOMs intact bilaterally Eyes Narrative: There is no nystagmus. General Eye ED: Negative for pale conjunctiva or scleral icterus Neck no lymphadenopathy, supple and no JVD Resp normal respiratory effort and clear to auscultation bilaterally Cardio regular rate, regular rhythm, S1 normal heart sound, S2 normal heart sound and no murmurs GI normal to inspection, nondistended, normoactive bowel sounds, non-tender, non- distended and no masses; Negative for hepatosplenomegaly Auscultation: hyperactive bowel sounds Palpation: soft Back/Spine no CVA tenderness Thoracic Spine / Upper Back: Negative for thoracic spinal tenderness Lumbar Spine / Lower Back: Negative for lumbar spinal tenderness Extremity normal to inspection General Extremety ED: Negative for edema or tenderness General Extremity: Negative for edema Neuro oriented x3, CN's II-XII intact bilaterally and no sensory deficits noted Sensorium / Orientation: alert Motor Exam: strength 5/5 throughout Psych Mood & Affect: depressed Skin no rashes or lesions noted, no wounds and skin turgor normal General Skin Exam: elasticity normal; Negative for jaundice or pallor MDM MDM MDM Narrative Medical decision making narrative: Fluids were ordered since clinically she appears dehydrated and complains of orthostatic symptoms. BMP was obtained to assess renal function and specifically hypokalemia since she has had several episodes of diarrhea over the past several days. Patient received Zofran for her nausea and vomiting. Since she has no symptoms of and is status post bilateral tubal ligation process was not obtained. Prior records were reviewed. History & Record Review Additional record(s) reviewed:: Prior ED visit and Prior labs Lab Data Attestation: I reviewed the patient's lab results. Lab results narrative: Patient metabolic panel is remarkable for mild hypokalemia. Glucose is elevated 144. Patient had elevated glucoses on prior laboratory results. Labs: Laboratory Results - last 24 hr 12/18/23 00:54 Sodium 139 Potassium 3.2 L Chloride 108 H Carbon Dioxide 27.0 Anion Gap 4 L BUN 10 Creatinine 0.84 Estim Creat Clear Calc 112.42 Est GFR (MDRD) Af Amer 99 Est GFR (MDRD) Non-Af 82 BUN/Creatinine Ratio 11.8 Glucose 144 H Calcium 8.9 Treatment and Re-Evaluation :: Patient was informed of results. Plan is to discharge to home. She is to follow-up with Dr. Lockett has not elevated blood sugars. She does not have history of diabetes. Discharge Plan Triage Chief Complaint: General Illness ED Provider: Jasvir Weinstein Dx/Rx/DC Orders Clinical Impression: Nausea, vomiting and diarrhea, Systemic viral illness, Low back pain, Acute hyperglycemia, Acute hypokalemia Instructions: ED Hypokalemia, ED Viral Syndrome (Adult), ED Hyperglycemia New Poss Diabetes Primary Care Provider: Stan Lockett Referrals: Stan Lockett, [Primary Care Provider] - 1 Week Activity Restrictions/Additional Instructions: Make appointment to see Dr. Lockett to assess for new onset diabetes Drink plenty of fluids. Disposition Disposition: Home, Self Care
--- OUTSIDE RECORDS SUMMARY | 2023-12-18 00:55 | XMS RPT_ITS | CCD ---
Author Name Unknown Address [address] [place] [address] Organization [facility] Care Team Providers Care Cherry Sorter Name Role Phone KARL GONZALEZTHIA (CNM) Unavailable Unavailable KARL GONZALEZTHIA (CNM) Unavailable Unavailable GARRETT, WAYNE (CNM) Unavailable Unavailable GARRETT, WAYNE (CNM) Unavailable Unavailable GARRETT, WAYNE (CNM) Unavailable Unavailable GARRETT, WAYNE (CNM) Unavailable Unavailable MILLIE ZARAGOZA Unavailable Unavailable GARRETT, WAYNE (CNM) Unavailable Unavailable GARRETT, WAYNE (CNM) Unavailable Unavailable AMPARO PARRA Unavailable Unavailable LORENA CORONEL Unavailable Unavailjuvencio coronel NO PRIMARY CAREMD Unavailable Unavailable Stan Lockett Unavailable Filiberto Brown Unavailable [phone] Maxx Miranda I Unavailable Unavailable Daniel Conti Unavailable Unavailable Allergies Allergy Classification Reported Allergen(s) Allergy Type Date of Onset Reaction(s) Facility Bananas (1 source) Bananas Food Allergy Unknown Health system Latex (1 source) Latex Substance Allergy Hives/Urticaria Health system (1 source) banana extract; Translations: [BANANA] Drug Allergy 6 [facility] (1 source) OTHER; Translations: [OTHER] Propensity to adverse reactions (disorder) 6 [facility] (2 sources) Bananas Unknown Health system (2 sources) Latex Hives/Urticaria Health system Medications Current Medications Medication Drug Class(es) Dates Sig (Normalized) Sig (Original) acetaminophen 500 mg oral tablet (2 sources) Start: 03-18-2021 take 2 tablets by mouth every six hours as needed acetaminophen 500 mg oral tablet ; 2 tab(s) orally every 6 hours, As Needed for pain Quantity: 60 Refills: 0 Ordered: 18-Mar-2021 Frederick Kern Start: 18-Mar-2021 Generic Substitution Allowed Comments: This product contains acetaminophen. Do not use with any other product containing acetaminophen to prevent possible liver damage. Completed/Discontinued Medications Medication Drug Class(es) Dates Sig (Normalized) Sig (Original) Eliquis Starter Pack for Treatment of DVT and PE 5 mg oral tablet (2 sources) Start: 03-18-2021 Eliquis Starter Pack for Treatment of DVT and PE 5 mg oral tablet ; 1 tab(s) orally twice a day as instructed Quantity: 1 Refills: 0 Ordered: 18-Mar-2021 Frederick Kern Start: 18-Mar-2021 Generic Substitution Allowed Comments: Check with your doctor before becoming .It is very important that you take or use this exactly as directed. Do not skip doses or discontinue unless directed by your doctor.Obtain medical advice before taking any non-prescription drugs as some may affect the action of this medication. Problems Problem Classification Problem Date Documented Da te Episodic/Chronic Disorders of teeth and jaw (1 source) Toothache; Translations: [Unspecified disorder of the teeth and supporting structures] 01-29-2022 Episodic Other lower respiratory disease (1 source) Dyspnea 03-18-2021 Episodic Results Test Name Value Interpretation Reference Range Facil ity Vital Signs Date Time Vital Sign Value Performing Clinician Facility 05-21-2022 22:15-0400 Diastolic blood pressure 76 mm[Hg] Stan Lockett Other Phone: Health system 05-21-2022 22:15-0400 Heart rate 64 /min Stan Lockett Other Phone: Health system 05-21-2022 22:15-0400 Respiratory rate 16 /min Stan Lockett Other Phone: Health system 05-21-2022 22:15-0400 SaO2% (BldA) [Mass fraction] 100 % Stan Lockett Other Phone: Health system 05-21-2022 22:15-0400 Systolic blood pressure 110 mm[Hg] Stan Lockett Other Phone: Health system 05-21-2022 21:32-0400 Body height 172.7 cm Stan Lockett Other Phone: Health system 05-21-2022 21:32-0400 Body temperature 98.78 [degF] Stan Lockett Other Phone: Health system 05-21-2022 21:32-0400 Body weight 68 kg Stan Lockett Other Phone: Health system 01-29-2022 21:35-0500 Body height 172.7 cm Stan Lockett Other Phone: Health system 01-29-2022 21:35-0500 Body temperature 99.14 [degF] Stan Lockett Other Phone: Health system 01-29-2022 21:35-0500 Body weight 72.7 kg Stan Lockett Other Phone: Health system 01-29-2022 21:35-0500 Diastolic blood pressure 72 mm[Hg] Stan Lockett Other Phone: Health system 01-29-2022 21:35-0500 Heart rate 77 /min Stan Lockett Other Phone: Health system 01-29-2022 21:35-0500 Respiratory rate 18 /min Stan Lockett Other Phone: Health system 01-29-2022 21:35-0500 SaO2% (BldA) [Mass fraction] 99 % Stan Lockett Other Phone: Health system 01-29-2022 21:35-0500 Systolic blood pressure 108 mm[Hg] Stan Lockett Other Phone: Health system 03-19-2021 09:16-0400 Body temperature 98.96 [degF] Stan Lockett Other Phone: Health system 03-19-2021 09:16-0400 Diastolic blood pressure 76 mm[Hg] Stan Lockett Other Phone: Health system 03-19-2021 09:16-0400 Heart rate 84 /min Stan Lockett Other Phone: Health system 03-19-2021 09:16-0400 Respiratory rate 16 /min Stan Lockett Other Phone: Health system 03-19-2021 09:16-0400 SaO2% (BldA) [Mass fraction] 99 % Stan Lockett Other Phone: Health system 03-19-2021 09:16-0400 Systolic blood pressure 117 mm[Hg] Stan Lockett Other Phone: Health system Encounters Encounter Date Encounter Type Care Provider Facility Start: 05-21-2022 End: 05-22-2022 Emergency department patient visit Daniel Conti [facility] Emergency 01 Start: 01-29-2022 End: 01-29-2022 Emergency department patient visit Maxx Miranda [facility] Emergency 04 Start: 03-17-2021 End: 03-19-2021 Evaluation and management of inpatient Filiberto Brown [facility] Med Surg ICU 333 01 Start: 09-07-2018 Patient encounter AMPAROZACHARIAH PARRA [facility] Start: 03-01-2018 Ambulatory SCOTTY (CNM) [facility] Start: 03-01-2018 End: 03-03-2018 Ambulatory SCOTTY (CNM) LISA [facility] Start: 02-17-2018 Ambulatory WAYNE (CNM) [facility] Start: 02-01-2018 End: 02-03-2018 Ambulatory MILLIE ZARAGOZA [facility] Start: 01-13-2018 End: 01-19-2018 Ambulatory WAYNE (CNM) [facility] Plan of Treatment Date Care Activity Detail Author Start: 03-18-2021 PE (physical exam), annual PE (physical exam), annual Date: 18-Mar-2021 Health system Start: 03-18-2021 End: 03-18-2022 Health system Payers Date Payer Category Payer Unknown [id number] Unknown [id number] Unknown [employer] Social History Date Type Detail Facility [facility] Tobacco smoking consumption unknown Health system Functional Status Date Assessment Result Facility Functional observable [facility] Mental Status Date Assessment Result Facility 03-18-2021 Cognitive functi ons [id number] Health system Hospital Discharge instructions 03-19-2021 <item> Note Date & Type Note Facility 03-19-2021 Hospital Discharg e instructions Follow Up Appointment 1:Physician/Dept/Service: Dr. Stan Le for Referral: hospital follow upCall to Schedule in: 1 weekLocation: [address] [place]: [phone]: Left a message with Office and asked them to call you at home with a follow-up appointment date and time Health system Evaluation note <item> Note Date & Type Note Facility Evaluation note Psychological: Flat affectNeurological: Nonfocal; cranial nerves II through XII appear intactGastrointestinal: Soft, nontender, nondistended, positive bowel soundsCardiovascular: Regular rate and rhythm; normal S1-S2 with no murmur; 2+ pulses and no pitting edema bilaterallyRespiratory/Thorax: Clear to auscultation bilaterallyHead/Neck: Neck supple no palpable lymphadenopathy, bruits or mass; trachea midlineConstitutional: Awake and alert; oriented x3 with no apparent distress or respiratory distress Health system Summary Purpose Family History No Family History Records FoundNo Family History Records FoundNo Family History Records Found Advance Directives No Advanced Directives Records FoundNo Advanced Directives Records FoundNo Advanced Directives Records Found Additional Source Comments INFORMATION SOURCE (unrecogn ized section and content) DATE CREATED AUTHOR AUTHOR'S ORGANIZ ATION 10/09/2018 [facility] DATE CREATED AUTHOR AUTHOR'S ORGANIZ ATION 05/25/2022 [facility] <item><item><item> Privacy Markings (unrecogniz ed section and content) Section Author: Valentina Lux PROHIBITION ON REDISCLOSURE OF CONFIDENTIAL INFORMATION This notice accompanies a disclosure of information concerning a client made to you with the consent of such client. Section Author: Valentina Lux PROHIBITION ON REDISCLOSURE OF CONFIDENTIAL INFORMATION This notice accompanies a disclosure of information concerning a client made to you with the consent of such client. Section Author: Valentina Lux PROHIBITION ON REDISCLOSURE OF CONFIDENTIAL INFORMATION This notice accompanies a disclosure of information concerning a client made to you with the consent of such client. FOR RECORDS PERTAINING TO PATIENTS WHO ARE OR HAVE BEEN ENROLLED IN A CHEMICAL DEPENDENCY/SUBSTANCEABUSE PROGRAM, SOME INFORMATION MAY BE OMITTED. This clinical summary was aggregated from multiple sources. Caution should be exercised in using it in the provision of clinical care. This summary normalizes information from multiple sources, and as a consequence, information in this document may materially change the coding, format and clinical context of patient data. In addition, data may be omitted in some cases. CLINICAL DECISIONS SHOULD BE BASED ON THE PRIMARY CLINICAL RECORDS. [facility] [email or web address] [facility]. provides no warranty or guarantee of the accuracy or completeness of information in this document.
[2023-12-18] MEDS: Ondansetron 4 MG/2 ML Vial IV (00:56)
[2023-12-18] MEDS: 0.9% Normal Saline (1000mL) 1,000 ML 1000 ML IV (00:56)
[2023-12-18 01:03] VITALS: BP 123/76; BP 125/66; BP 126/83; PULSE 75; PULSE 77; PULSE 85
[2023-12-18 01:35] LABS: Anion Gap 4 (5-15); BUN 10 mg/dL (7-18); BUN/Creat Ratio 11.8 RATIO (10-20); Calcium,Total 8.9 mg/dL (8.5-10.1); Chloride 108 mmol/L (98-107); Creatinine, Serum 0.84 mg/dL (0.55-1.02); EST Glomerular Filtration Rate 82 mL/min (>60); Est Glom Filt Rate - Afr Amer 99 mL/min (>60); Estimated Creatinine Clearance 112.42 ml/min; Glucose 144 mg/dL (74-106); Potassium 3.2 mmol/L (3.5-5.1); Sodium Level 139 mmol/L (136-145)
[2023-12-18] MEDS: Potassium Chloride Oral Soln 20 MEQ/15 ML UDC 40 MEQ PO (01:49)
[2023-12-18 01:58] VITALS: BP 126/79; PULSE 72; RESP 15; O2SAT 99
== END 2023-12-18 01:59 | disposition home or self-care (01) ==
PROVIDERS: Emergency Provider Emergency Medicine; PCP Family Medicine; Visit Provider Emergency Medicine
DX: R11.2 Nausea with vomiting, unspecified (principal); R19.7 Diarrhea, unspecified; B34.9 Viral infection, unspecified; M54.50 Low back pain, unspecified; R73.9 Hyperglycemia, unspecified; E87.6 Hypokalemia; E66.9 Obesity, unspecified; Z87.891 Personal history of nicotine dependence; Z86.16 Personal history of COVID-19; Z86.718 Personal history of other venous thrombosis and embolism
CPT/HCPCS: 80048; 96374; 99285; J7030; A4216; J2405

== ENCOUNTER → 2024-03-20 | Outpatient (CLI) | payer MEDICAID, SELFPAY ==
--- NOTE | 2024-03-20 11:41 | CT_ITS ---
STUDY: CT ABDOMEN AND PELVIS WITH CONTRAST REASON FOR EXAM: Female, 33 years old. RLQ PAIN RADIATION DOSAGE (If Supplied By Facility): CTDIvol = ( 15.99 ) mGy, DLP = ( 1025.54 ) mGycm TECHNIQUE: Transaxial images were obtained from the dome of the diaphragm to the symphysis pubis with oral contrast. Oral and amp; IV Readi-CAT and amp; 100mL Isovue-300 was administered. Sagittal and coronal images were reconstructed. Individualized dose optimization techniques were used for this CT. COMPARISON: None. FINDINGS: The visualized lung bases are unremarkable. The visualized portions of the heart are within normal limits. Normal liver. Normal gallbladder and extrahepatic biliary system. Normal spleen. Normal pancreas. Normal bilateral adrenal glands. Mild degree of right hydronephrosis and right hydroureter due to a 2 mm calculus in the distal one thirds of the right ureter. Normal left kidney. Normal visualized stomach. Normal small intestine. Normal colon. There is non-visualization of the appendix. Normal abdominal aorta. Normal inferior vena cava. Normal retroperitoneum. Normal urinary bladder. There is absence of the uterus consistent with a prior hysterectomy. Normal abdominal wall. Small benign-appearing bilateral inguinal lymph nodes. Normal osseous structures. CT/Abdomen/Pelvis WITH Contrast IMPRESSION: Mild degree of right hydronephrosis and proximal right hydroureter due to a 2 mm calculus in the distal one third portion of the right ureter. Electronically Signed: Chauncey Beaver MD at 13:22 EDT ,
== END | disposition home or self-care (01) ==
PROVIDERS: PCP Family Medicine; Referring Provider Family Medicine; Visit Provider Family Medicine
DX: R10.31 Right lower quadrant pain (principal)
CPT/HCPCS: 74177; Q9967

== ENCOUNTER → 2024-05-01 | Outpatient (CLI) | payer MEDICAID, SELFPAY ==
[2024-05-01 13:27] LABS: T3 Total - Triiodothyronine 1.14 ng/mL (0.6-1.81)
[2024-05-01 13:43] LABS: Free T3 2.6 pg/mL (2.18-3.98); T4 Free Direct 0.98 ng/dL (0.76-1.46); Thyroid Stim Hormone (TSH) 0.91 uIU/mL (0.358-3.74)
[2024-05-02 15:09] LABS: Thyroglobulin Antibody < 1.0 IU/mL (0.0-0.9); Thyroid Peroxidase AB 11 IU/mL (0-34)
== END | disposition home or self-care (01) ==
LOC: MTLAB 10:56
PROVIDERS: PCP Family Medicine; Referring Provider Family Medicine; Visit Provider Family Medicine
DX: R79.89 Other specified abnormal findings of blood chemistry (principal); Z86.32 Personal history of gestational diabetes
CPT/HCPCS: 36415; 83036; 84439; 84443; 84480; 84481; 86376; 86800

== ENCOUNTER → 2024-05-14 | Outpatient (CLI) | payer MEDICAID, SELFPAY ==
[2024-05-14 12:40] LABS: Microalbumin,Random Urine 22.4 mg/L (NO RANGE EST.); Microalbumin:Creatinine Ratio 10.6 mg/g CRE (<30 mg/g CRE)
[2024-05-14 12:48] LABS: Anion Gap 5 (5-15); BUN 9 mg/dL (7-18); BUN/Creat Ratio 12.1 RATIO (10-20); Calcium,Total 8.7 mg/dL (8.5-10.1); Chloride 108 mmol/L (98-107); Creatinine, Serum 0.74 mg/dL (0.55-1.02); EST Glomerular Filtration Rate 94 mL/min (>60); Est Glom Filt Rate - Afr Amer 114 mL/min (>60); Glucose 93 mg/dL (74-106); Potassium 3.5 mmol/L (3.5-5.1); Sodium Level 140 mmol/L (136-145)
== END | disposition home or self-care (01) ==
PROVIDERS: PCP Family Medicine; Referring Provider Family Medicine; Visit Provider Family Medicine
DX: R79.89 Other specified abnormal findings of blood chemistry (principal)
CPT/HCPCS: 36415; 80048; 82043; 82570

== ENCOUNTER 2024-10-11 09:07 | Outpatient (CLI) | payer MEDICAID, SELFPAY ==
--- NOTE | 2024-10-11 09:12 | NM_ITS ---
CLINICAL: 34-year-old female with history of postprandial right upper quadrant abdominal pain. RADIONUCLIDE HEPATOBILIARY SCINTIGRAPHY COMPARISON: CT of the abdomen-pelvis report 03/20/2024 FINDINGS: Following the intravenous administration of 5.6 mCi of 99m Tc Mebrofenin, hepatobiliary images reveal: 1. Relatively prompt and homogeneous radiopharmaceutical concentration is noted by a normal sized liver. No parenchymal defects are identified. 2. Gallbladder activity is identified at 10 minutes post radiopharmaceutical administration. 3. Small intestinal tract is not visualized during 60 minutes of pre-CCK sequential imaging. Small bowel activity is identified following the administration of cholecystokinin. 4. Washout of the radiopharmaceutical by the hepatic parenchyma appears qualitatively normal. Cholecystokinin (0.02 ug/kg) was administered intravenously over a 30-minute period. The post CCK gallbladder ejection fraction calculated at 20 minutes following Cholecystokinin administration was noted to be 84.0 % (normal greater than 35%). During 30 minutes of post CCK imaging, there is no scintigraphic evidence of reflux of the radiotracer into the common hepatic duct or refilling of the gallbladder. AK/Hepatobilliary Img w/Pharm Int IMPRESSION: 1. NORMAL 99m Tc Mebrofenin hepatobiliary imaging examination with Cholecystokinin. A. A gallbladder ejection fraction calculated to be greater than 35% following the administration of Cholecystokinin makes the probability of functional hepatobiliary disease (gallbladder and/or sphincter of Oddi dyskinesia) and/or organic hepatobiliary disease (chronic acalculous cholecystitis and/or cystic duct syndrome) to be low. (Christianne Narayanan et al, Journal of Nuclear Medicine 32:1695, 1991). Electronically Signed: Arun Loredo DO at 7:52 EST ,
== END 2024-10-11 23:59 | disposition home or self-care (01) ==
LOC: NM 09:08
PROVIDERS: PCP Family Medicine; Referring Provider Family Medicine; Visit Provider Family Medicine
DX: R10.9 Unspecified abdominal pain (principal)
CPT/HCPCS: 78227; A9537; J2805

== ENCOUNTER → 2024-11-15 | Outpatient (CLI) | payer MEDICAID, SELFPAY ==
[2024-11-15 12:16] LABS: Absolute Lymphocyte Count 1.15 X10^3/uL (0.83-4.51); Absolute Neutrophil Count 2.7 X10^3/uL (2.0-7.7); Basophil# 0.04 X10^3/uL; Basophil% 0.9 % (0-1); Eosinophil# 0.16 X10^3/uL; Eosinophils% 3.5 % (0-5); Hematocrit 44.7 % (37-47); Hemoglobin 14.8 g/dL (12.0-15.0); Lymphocyte # 1.15 X10^3/ul (0.83-4.51); Lymphocyte % 25.4 % (19-41); Mean Corp Hgb Conc 33.1 g/dL (32-36); Mean Corpuscular Hgb 31.4 pg (27.0-32.0); Mean Corpuscular Volume 94.9 fL (81-99); Mean Platelet Vol. 10.2 fl (6.2-12.0); Monocyte# 0.49 X10^3/uL; Monocyte% 10.8 % (0-10); NRBC Flagged by Analyzer 0 % (0-5); Neutrophil # 2.68 X10^3/uL (2.7-7.7); Neutrophil % 59.2 % (47-70); Platelet Count 254 K/mm3 (150-450); RBC Distribution Width CV 12.3 % (11.6-14.6); RBC Distribution Width SD 42.8 fl (35.1-43.9); Red Blood Count 4.71 M/mm3 (4.2-5.4); White Blood Count 4.5 K/mm3 (4.4-11.0)
== END | disposition home or self-care (01) ==
LOC: BWCLAB 09:08
PROVIDERS: PCP Family Medicine; Referring Provider Obstetrics & Gynecology; Visit Provider Obstetrics & Gynecology
DX: R10.2 Pelvic and perineal pain (principal)
CPT/HCPCS: 36415; 85025

== ENCOUNTER → 2024-12-06 | Outpatient (CLI) | payer MEDICAID, SELFPAY ==
--- NOTE | 2024-12-06 13:52 | US_ITS ---
STUDY: ULTRASOUND OF THE FEMALE PELVIS - COMPLETE REASON FOR EXAM: Female, 34 years old. Pelvic pain LMP: Patient is post hysterectomy. TECHNIQUE: Transabdominal and Transvaginal TECHNICAL QUALITY: Adequate. COMPARISON: None. FINDINGS: The patient is status post hysterectomy. The right ovary is visualized. The right ovary is enlarged and measures 7.6 cm x 6.4 cm x 6.5 cm. There is a 6.4 cm x 5.6 cm x 4.6 cm simple cyst within the right ovary. There is no visualized right adnexal mass or complex lesion. There is normal arterial and normal venous vascularity. The left ovary is visualized. The left ovary measures 2.9 cm x 2.1 cm x 1.4 cm. There is no left ovarian cyst or ovarian mass. There is no visualized left adnexal mass or complex lesion. There is normal arterial and normal venous vascularity. There is no fluid in the cul-de-sac. US/Pelvic w/ Transvaginal IMPRESSION: Status post hysterectomy. 6.4 cm x 5.6 cm x 4.6 cm simple cyst in the right ovary. Electronically Signed: Chauncey Beaver MD at 15:09 EST ,
== END | disposition home or self-care (01) ==
LOC: US 13:48
PROVIDERS: PCP Family Medicine; Referring Provider Obstetrics & Gynecology; Visit Provider Obstetrics & Gynecology
DX: R10.2 Pelvic and perineal pain (principal)
CPT/HCPCS: 76830; 76856

== ENCOUNTER → 2025-01-02 | Outpatient (CLI) | payer MEDICAID, SELFPAY ==
--- NOTE | 2025-01-02 14:06 | US_ITS ---
PROCEDURE: PELVIC W/ TRANSVAGINAL REASON FOR EXAM: Pelvic pain. Prior hysterectomy. TECHNIQUE: Transabdominal and transvaginal pelvic ultrasound COMPARISON: None. FINDINGS: Measurements: Status post hysterectomy. Right Ovary: 4.2 cm x 2.9 cm x 2.5 cm. Left Ovary: 3.4 cm x 3.2 cm x 2.6 cm. TRANSABDOMINAL: Uterus: Hysterectomy. Right ovary: Normal size and echotexture. Left ovary: Normal size and echotexture. There is a 2 cm x 1.3 cm x 1.4 cm dominant follicle. Transvaginal sonography was performed to further characterize the ovarian findings. TRANSVAGINAL: Uterus: Hysterectomy. Right ovary: Normal size and echotexture. Left ovary: Normal size and echotexture. Other adnexal findings: None. Cul-de-sac: No free intraperitoneal fluid identified. No tenderness. US/Pelvic w/ Transvaginal IMPRESSION: Status post hysterectomy. Dominant follicle is seen in the right ovary. Reading Location: [place] [id number]
== END | disposition home or self-care (01) ==
PROVIDERS: PCP Family Medicine; Referring Provider Obstetrics & Gynecology; Visit Provider Obstetrics & Gynecology
DX: N83.209 Unspecified ovarian cyst, unspecified side (principal); R10.2 Pelvic and perineal pain; G89.29 Other chronic pain
CPT/HCPCS: 76830; 76856

== ENCOUNTER 2025-02-13 17:41 | Emergency (ER) | payer MEDICAID, SELFPAY ==
[2025-02-13 17:43] VITALS: BP 122/82; PULSE 79; RESP 18; TEMP 36.1; O2SAT 100
--- NOTE | 2025-02-13 18:00 | RAD_ITS ---
PROCEDURE: CHEST PA AND LATERAL 02/13/2025 REASON FOR EXAM: 34-year-old female, cough, nausea, vomiting and diarrhea x3 days. TECHNIQUE: Frontal and lateral views of the chest. COMPARISON: Chest radiograph 06/20/2022. FINDINGS: Hardware: None. Heart: The heart size is normal. Mediastinum: The mediastinal contour is unremarkable. Lungs: No focal consolidation, pleural effusion or pneumothorax. Bones: The bones are unremarkable. Ornamental jewelry overlying the bilateral chest. RAD/Chest PA and Lateral IMPRESSION: NEGATIVE CHEST Reading Location: [facility]
--- NOTE | 2025-02-13 18:15 | EX.ED.DYSGE1 ---
HPI History of Present Illness Chief Complaint: Nausea/Vomiting/Diarrhea Narrative Narrative: Patient is a 34-year-old female with a past medical history of depression, PTSD, nausea, anxiety who presents to the emergency department with a chief complaint of nausea vomiting diarrhea for 3 days as well as concern for pneumonia. Patient states that she is lightheaded as she drank 4 [place]'s earlier today around noon states that she drank 1. She states that she is under a lot of stress as she is going through divorce currently she takes care of her mother full-time and has 5 children to take care of. She states that she is tired. Patient denies any suicidal homicidal ideations currently. [facility] Medical History Chronic pelvic pain in female Hypercoagulable state Major depression Chest pain History of pulmonary embolus (PE) (02/2021) Nephrolithiasis Chronic post-traumatic stress disorder (PTSD) Pulmonary nodular amyloidosis COVID-19 (07/06/22) Nausea Right lower quadrant pain Anxiety Depression Former smoker DVT (deep venous thrombosis) Thyromegaly Home Medications ?Medication ?Instructions ?Recorded ?Last Taken ?Type ondansetron 4 mg disintegrating 4 mg PO Q6H PRN nausea and 02/13/25 Unknown Rx tablet vomiting #20 tabs Allergy/AdvReac Type Severity Reaction Status Date / Time adhesive tape Allergy Hives Verified 02/13/25 17:52 banana Allergy Nausea/Vom/ Verified 02/13/25 17:52 Diarrhea latex Allergy Hives Verified 02/13/25 17:52 Family History Mother CVA (cerebral vascular accident) Diabetes Heart disease Father Diabetes Bipolar disorder Congenital heart disease Grandmother Bleeding disorder blood clots Surgical History History of total vaginal hysterectomy (TVH) (~02/24/21) Social History Smoking Status: Former smoker alcohol intake: former substance use type: does not use caffeine: No what type of physical activity do you participate in: none seatbelt use: always do you feel safe at home: Yes additional social history: - Leonel- [place] Patient is a stay at home mom ROS ROS ED ROS Narrative Constitutional: Denies any fevers, chills, headaches, lightness, dizziness Eyes: Denies change in vision double vision blurry vision Cardiovascular: Patient denies chest pain or palpitations Respiratory: Denies coughing wheezing shortness of breath Abdomen: Complains of nausea vomit diarrhea as noted above : Denies urinary symptoms Neurological: Denies numbness, weakness, tingling Musculoskeletal: Denies back pain Skin: Denies rashes or lesions EXAM Physical Exam Narrative Exam Narrative: General: Patient was lying in bed rest comfortably did not appear to be in acute distress Head: Atraumatic, normocephalic Eyes: PERRL bilaterally, EOMI bilateral, no conjunctival injection noted Neck: Soft, supple, trachea midline Cardiovascular: Regular rate and rhythm no murmurs gallops rubs noted Respiratory: Clear to auscultation bilaterally no rales rhonchi or wheezes noted Abdomen: Soft, nondistended, nontender to palpation Extremities: +5/5 strength noted in bilateral upper and lower extremities, radial pulses +2/4 in the bilateral extremities Neurological: Patient following commands and that she was at [facility] years 2024. NIH of 0 GCS 15 Skin: Warm, dry, intact no rashes or lesions noted Const Vital Signs: 02/13/25 17:43 02/13/25 19:42 02/13/25 21:00 Temperature 97 F L Temperature Source Oral Pulse Rate 79 84 97 Respiratory Rate 18 18 15 Blood Pressure 122/82 H 108/54 L 123/63 H Blood Pressure Mean 95 72 83 Pulse Ox 100 98 98 Oxygen Delivery Method Room Air Room Air MDM MDM MDM Narrative Medical decision making narrative: Patient is a 34-year-old female who presented to the emergency department with chief complaint of nausea vomiting diarrhea and concern for pneumonia. On the differential diagnose includes but not limited to COVID, flu, viral gastroenteritis secondary to other viral etiology, pneumonia. Once workup is obtained reviewed she will be reevaluated. Patient's chest x-ray reviewed by myself by radiology showed no acute cardiopulmonary processes. Patient tested negative for COVID flu RSV. Patient was valued by social work and was given resources. She was encouraged to return with worsening symptoms and concerns. She would like to go home this point in time all question concerns answered she is discharged home in stable condition. Patient was able to get up and ambulate without any difficulty. Patient be given prescription for Zofran as needed for nausea. She is advised that she likely has a viral illness causing her symptoms. Radiography Diagnostic Testing: Clinical Impression(s) from Imaging Studies Chest X-Ray 02/13/25 18:00 IMPRESSION: NEGATIVE CHEST Reading Location: [facility] Discharge Plan Triage Chief Complaint: Nausea/Vomiting/Diarrhea ED Provider: Nagi Chauhan Dx/Rx/DC Orders Clinical Impression: Nausea & vomiting, Depression Prescriptions: New ondansetron 4 mg tablet,disintegrating 4 mg PO Q6H PRN (Reason: nausea and vomiting) Qty: 20 0RF Primary Care Provider: Stan Lockett Referrals: Stan Lockett DO [Primary Care Provider] - Activity Restrictions/Additional Instructions: Use Zofran as needed for nausea vomiting. Use resources that were provided to you by social work. Return with worsening symptoms or concerns. Your chest x-ray did not show evidence of pneumonia and you tested negative for COVID flu and RSV. Print Language: Slovak Disposition Disposition: Home, Self Care
[2025-02-13 19:42] VITALS: BP 108/54; PULSE 84; RESP 18; O2SAT 98
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
[2025-02-13 21:00] VITALS: BP 123/63; PULSE 97; RESP 15; O2SAT 98
[2025-02-13 22:52] VITALS: BP 126/52; PULSE 78; RESP 18; TEMP 36.9; O2SAT 97
== END 2025-02-13 23:20 | disposition home or self-care (01) ==
PROVIDERS: Emergency Provider Emergency Medicine; PCP Family Medicine; Visit Provider Emergency Medicine
DX: R11.2 Nausea with vomiting, unspecified (principal); F32.A Depression, unspecified; Z87.891 Personal history of nicotine dependence; Z86.718 Personal history of other venous thrombosis and embolism; Z86.16 Personal history of COVID-19
CPT/HCPCS: 71046; 87631; 99284

== ENCOUNTER → 2025-02-28 | Outpatient (CLI) | payer MEDICAID, SELFPAY | END | disposition home or self-care (01) | LOC: LABSPEC 10:36 | PROVIDERS: PCP Family Medicine; Visit Provider Family Medicine | DX: R30.0 Dysuria (principal) | CPT/HCPCS: 87086; 87088 ==

== ENCOUNTER → 2025-03-21 | Outpatient (CLI) | payer MEDICAID, SELFPAY ==
--- NOTE | 2025-03-21 14:22 | US_ITS ---
PROCEDURE: PELVIC W/ TRANSVAGINAL, 03/21/2025 REASON FOR EXAM: PELVIC PAIN TECHNIQUE: Grayscale, color Doppler, and spectral Doppler transabdominal and transvaginal pelvic ultrasound was performed. COMPARISON: Two 10/2025 FINDINGS: Uterus/endometrium: Hysterectomy. Right ovary: 4.3 x 3.2 x 3.0 cm (estimated volume 21.3 mL). 2.4 x 1.8 x 2.1 cm simple appearing unilocular likely dominant follicle/physiologic cyst, O-RADS 1, no specific follow-up. Normal low resistance arterial and venous waveforms. Left ovary: 2.8 x 2.2 x 2.2 cm (estimated volume 7.1 mL), unremarkable. Normal very faint low resistance arterial waveforms identified. Free fluid: None visualized. Other: Estimated bladder volume 162 mL. US/Pelvic w/ Transvaginal IMPRESSION: 1. No acute findings. 2. Hysterectomy. 3. Additional description as above. Reading Location: [id number]
== END | disposition home or self-care (01) ==
LOC: US 14:21
PROVIDERS: PCP Family Medicine; Referring Provider Nurse Practitioner Women's Health; Visit Provider Nurse Practitioner Women's Health
DX: R10.2 Pelvic and perineal pain (principal); G89.29 Other chronic pain; N83.209 Unspecified ovarian cyst, unspecified side
CPT/HCPCS: 76830; 76856

== ENCOUNTER → 2025-03-25 | Outpatient (CLI) | payer MEDICAID, SELFPAY ==
[2025-03-25 16:06] LABS: Absolute Lymphocyte Count 1.52 X10^3/uL (0.83-4.51); Absolute Neutrophil Count 4.8 X10^3/uL (2.0-7.7); Basophil# 0.04 X10^3/uL; Basophil% 0.6 % (0-1); Eosinophils% 2.8 % (0-5); Hematocrit 40.7 % (37-47); Hemoglobin 14.2 g/dL (12.0-15.0); Lymphocyte # 1.52 X10^3/ul (0.83-4.51); Lymphocyte % 21.3 % (19-41); Mean Corp Hgb Conc 34.9 g/dL (32-36); Mean Corpuscular Hgb 32.6 pg (27.0-32.0); Mean Corpuscular Volume 93.3 fL (81-99); Mean Platelet Vol. 10.3 fl (6.2-12.0); Monocyte# 0.55 X10^3/uL; Monocyte% 7.7 % (0-10); NRBC Flagged by Analyzer 0 % (0-5); Neutrophil % 67.2 % (47-70); Platelet Count 237 K/mm3 (150-450); RBC Distribution Width CV 11.9 % (11.6-14.6); RBC Distribution Width SD 40.9 fl (35.1-43.9); Red Blood Count 4.36 M/mm3 (4.2-5.4); White Blood Count 7.1 K/mm3 (4.4-11.0)
[2025-03-25 16:55] LABS: Estradiol 95.1 pg/mL; Follicle Stimulating Hormone 3.7 mIU/mL
[2025-03-27 04:07] LABS: Thyroid Peroxidase AB < 9 IU/mL (0-34)
== END | disposition home or self-care (01) ==
LOC: BWCLAB 14:47
PROVIDERS: PCP Family Medicine; Visit Provider Nurse Practitioner Women's Health
DX: R23.2 Flushing (principal); Z13.29 Encounter for screening for other suspected endocrine disorder
CPT/HCPCS: 36415; 82306; 82670; 83001; 84439; 84443; 85025; 86376

== ENCOUNTER 2025-04-14 11:17 | Emergency (ER) | payer MEDICAID, SELFPAY ==
[2025-04-14 11:18] VITALS: BP 134/66; PULSE 76; RESP 19; TEMP 36.7; O2SAT 99; BMI 34.7
--- NOTE | 2025-04-14 11:51 | EDS_ITS ---
HPI <BARRIE Burnham - Last Filed: 04/14/25 13:47> History of Present Illness Chief Complaint: Abd Pain Narrative Narrative: Patient presenting today with periumbilical abdominal pain that started this morning when she woke up. She reports that the pain is constant and worse with sitting up and movement. She has a history of constipation and normally has a bowel movement about once per week, today she had 3 episodes of loose stool. She denies associated fevers, chills, urinary symptoms, nausea, and vomiting. She has a history of a tubal ligation but otherwise no previous abdominal surgery. PFSH <BARRIE Burnham - Last Filed: 04/14/25 13:47> PFSH Medical History Chronic pelvic pain in female Hypercoagulable state Major depression Chest pain History of pulmonary embolus (PE) (02/2021) Nephrolithiasis Chronic post-traumatic stress disorder (PTSD) Pulmonary nodular amyloidosis COVID-19 (07/06/22) Nausea Right lower quadrant pain Anxiety Depression Former smoker DVT (deep venous thrombosis) Thyromegaly Home Medications ?Medication ?Instructions ?Recorded ?Last Taken ?Type ondansetron 4 mg disintegrating 4 mg PO Q6H PRN nausea and 02/13/25 Unknown Rx tablet vomiting #20 tabs amoxicillin 875 mg-potassium 1 tab PO BID #13 tabs Unknown Rx clavulanate 125 mg tablet dicyclomine 20 mg tablet 20 mg PO BID #15 tabs Unknown Rx Allergy/AdvReac Type Severity Reaction Status Date / Time adhesive tape Allergy Hives Verified 04/14/25 11:18 banana Allergy Nausea/Vom/ Verified 04/14/25 11:18 Diarrhea latex Allergy Hives Verified 04/14/25 11:18 Family History Mother CVA (cerebral vascular accident) Diabetes Heart disease Father Diabetes Bipolar disorder Congenital heart disease Grandmother Bleeding disorder blood clots Surgical History History of total vaginal hysterectomy (TVH) (~02/24/21) Social History Smoking Status: Former smoker alcohol intake: former substance use type: does not use caffeine: No what type of physical activity do you participate in: none seatbelt use: always do you feel safe at home: Yes additional social history: - Leonel- [place] Patient is a stay at home mom WES <BARRIE Burnham - Last Filed: 04/14/25 13:47> ROS ED Constitutional Constitutional ED: Denies chills or fever(s) Cardiovascular Cardiovascular: Denies chest pain Respiratory/Chest Respiratory/Chest: Denies dyspnea Gastrointestinal Gastrointestinal: Reports abdominal pain; Denies melena, nausea or vomiting Genitourinary Genitourinary ED: Denies dysuria, hematuria or urinary urgency Musculoskeletal Musculoskeletal: Denies arthralgias or myalgias Integumentary Denies rash Neurologic Neurologic: Denies weakness EXAM <BARRIE Burnham - Last Filed: 04/14/25 13:47> Physical Exam Const Vital Signs: 04/14/25 11:18 04/14/25 13:18 Temperature 98.1 F Temperature Source Temporal Pulse Rate 76 87 Respiratory Rate 19 H 18 Blood Pressure 134/66 H 108/63 Blood Pressure Mean 88 78 Pulse Ox 99 99 Oxygen Delivery Method Room Air Room Air Positive well nourished, well developed and no apparent distress General Appearance ED: well developed HEENT Reports normocephalic and head/scalp atraumatic Mouth ED: Yes moist mucous membranes normal Eyes PERRL and EOMs intact bilaterally Neck full ROM and supple Chest Wall inspection of chest normal Resp normal respiratory effort and clear to auscultation bilaterally Cardio regular rate and regular rhythm GI soft to palpation, non-distended and no masses GI Narrative: Periumbilical tenderness to palpation, no rigidity or guarding, no McBurney's point tenderness Back/Spine normal ROM and normal to inspection Extremity normal to inspection and full ROM Neuro oriented x3, CN's II-XII intact bilaterally, moves all extremities, no focal motor deficits and no sensory deficits noted Sensorium / Orientation: awake and alert Psych mental status grossly normal and thought process normal Skin no rashes or lesions noted and no wounds <Dr. Migel Seymour DO - Last Filed: 04/14/25 13:23> Physical Exam Const Vital Signs: 04/14/25 11:18 04/14/25 13:18 Temperature 98.1 F Temperature Source Temporal Pulse Rate 76 87 Respiratory Rate 19 H 18 Blood Pressure 134/66 H 108/63 Blood Pressure Mean 88 78 Pulse Ox 99 99 Oxygen Delivery Method Room Air Room Air [facility] <BARRIE Burnham - Last Filed: 04/14/25 13:47> [facility] Narrative Medical decision making narrative: Patient presenting today with periumbilical abdominal pain that started this morning when she woke up. She also reports 3 episodes of loose stool this morning. She has minimal tenderness to her abdomen on exam. Labs will be obtained to assess for leukocytosis, anemia, electrolyte abnormality, pancreatitis, hepatobiliary etiology, CHRISTY, and UTI. CT scan of the abdomen and pelvis with IV contrast will be obtained to assess for appendicitis, pancreatitis, diverticulitis, colitis, bowel obstruction, and other abnormality. She was given IV fluids, Zofran, and Toradol. Her labs are largely u nremarkable. CT scan shows signs consistent with pancolitis. She will be started on Augmentin with first dose here. She will also be given prescriptions for Bentyl. Recommended she follow closely with her PCP, return instructions discussed. Patient discharged home in stable condition. Lab Data Attestation: I reviewed the patient's lab results. Labs: Laboratory Results - last 24 hr 04/14/25 04/14/25 11:53 12:05 WBC 4.3 L RBC 4.35 Hgb 14.2 Hct 41.1 MCV 94.5 MCH 32.6 H MCHC 34.5 RDW Std Deviation 42.0 RDW Coeff of Alix 12.0 Plt Count 234 MPV 10.2 Immature Gran % (Auto) 0.200 Neut % (Auto) 63.0 Lymph % (Auto) 22.5 [place] % (Auto) 9.6 Eos % (Auto) 3.8 Baso % (Auto) 0.9 Absolute Neuts (auto) 2.7 Absolute Lymphs (auto) 0.96 Nucleated RBC % 0 Sodium 139 Potassium 4.0 Chloride 105 Carbon Dioxide 24.4 Anion Gap 10 BUN 11 Creatinine 0.81 Estim Creat Clear Calc 120.87 Est GFR (MDRD) Non-Af 96 BUN/Creatinine Ratio 13.9 Glucose 137 H Calcium 9.3 Total Bilirubin 0.68 AST 21 ALT 30 Alkaline Phosphatase 72 Total Protein 6.8 Albumin 4.4 Globulin 2.4 Albumin/Globulin Ratio 1.8 Lipase 32 Serum , Qual NEGATIVE Urine Color Yellow Urine Clarity Sl. Cloudy Urine pH 7.0 Ur Specific [place] 1.015 Urine Protein 30 H Urine Glucose (UA) Normal Urine Ketones Negative Urine Occult Blood Negative Urine Nitrite Negative Urine Bilirubin Negative Urine Urobilinogen 1 H Ur Leukocyte Esterase 25 H Urine RBC 0 SEEN Urine WBC 0-5 SEEN Ur Squamous Epith Cells 0-5 SEEN Urine Bacteria 1+ Urine Mucus 0 SEEN Radiography Diagnostic Testing: Clinical Impression(s) from Imaging Studies Abdomen/Pelvis CT 04/14/25 12:30 IMPRESSION: Diffuse colonic inflammation concerning for pancolitis. No bowel obstruction. Urinary bladder wall inflammation and thickening may reflect cystitis; consider correlation with urinalysis. Reading Location: [id number] <Dr. Migel Seymour, DO - Last Filed: 04/14/25 13:23> [facility] Lab Data Labs: Laboratory Results - last 24 hr 04/14/25 04/14/25 11:53 12:05 WBC 4.3 L RBC 4.35 Hgb 14.2 Hct 41.1 MCV 94.5 MCH 32.6 H MCHC 34.5 RDW Std Deviation 42.0 RDW Coeff of Alix 12.0 Plt Count 234 MPV 10.2 Immature Gran % (Auto) 0.200 Neut % (Auto) 63.0 Lymph % (Auto) 22.5 [place] % (Auto) 9.6 Eos % (Auto) 3.8 Baso % (Auto) 0.9 Absolute Neuts (auto) 2.7 Absolute Lymphs (auto) 0.96 Nucleated RBC % 0 Sodium 139 Potassium 4.0 Chloride 105 Carbon Dioxide 24.4 Anion Gap 10 BUN 11 Creatinine 0.81 Estim Creat Clear Calc 120.87 Est GFR (MDRD) Non-Af 96 BUN/Creatinine Ratio 13.9 Glucose 137 H Calcium 9.3 Total Bilirubin 0.68 AST 21 ALT 30 Alkaline Phosphatase 72 Total Protein 6.8 Albumin 4.4 Globulin 2.4 Albumin/Globulin Ratio 1.8 Lipase 32 Serum , Qual NEGATIVE Urine Color Yellow Urine Clarity Sl. Cloudy Urine pH 7.0 Ur Specific [place] 1.015 Urine Protein 30 H Urine Glucose (UA) Normal Urine Ketones Negative Urine Occult Blood Negative Urine Nitrite Negative Urine Bilirubin Negative Urine Urobilinogen 1 H Ur Leukocyte Esterase 25 H Urine RBC 0 SEEN Urine WBC 0-5 SEEN Ur Squamous Epith Cells 0-5 SEEN Urine Bacteria 1+ Urine Mucus 0 SEEN Radiography Diagnostic Testing: Clinical Impression(s) from Imaging Studies Abdomen/Pelvis CT 04/14/25 12:30 IMPRESSION: Diffuse colonic inflammation concerning for pancolitis. No bowel obstruction. Urinary bladder wall inflammation and thickening may reflect cystitis; consider correlation with urinalysis. Reading Location: [id number] Treatment and Re-Evaluation :: I have personally performed a face to face assessment of the patient and have reviewed the MOJGAN Note. I performed a substantive portion of the visit including all aspects of the following. My potts findings include: History: Patient presents with abdominal pain that began today. Patient states her pain is mainly over the upper abdomen. Patient describes it as burning and tearing. Patient states it is constant. Patient states it is worse with certain movements. Patient denies any nausea or vomiting. Patient does admit to some diarrhea but denies any melena or hematochezia. Patient denies any urinary complaints. Patient denies any fevers or chills. Exam: Vital signs are stable. Patient is afebrile. Patient is in no acute distress. Oral mucosa is pink and moist. Neck is supple. Trachea is midline. There is no JVD. Heart was regular rate and rhythm. Lungs are clear and equal bilaterally. Abdomen is soft. Bowel sounds are normal. There is mild epigastric tenderness. There is no rebound or guarding noted. There is no calf tenderness or edema. Cranial nerves II through XII are intact. There are no focal motor or sensory deficits. Medical Decision Making: Differential diagnosis includes gastritis, peptic ulcer disease, cholecystitis, cholelithiasis, pancreatitis, colitis, and muscle strain. CBC will be obtained to assess for leukocytosis and anemia. Comprehensive metabolic profile will be obtained to assess for hepatic function, renal function, and electrolyte abnormality. Urinalysis will be obtained to assess for urinary tract infection and hematuria. Serum hCG will be obtained to assess for . CT scan of the abdomen and pelvis will be obtained to assess for bowel obstruction, perforation, and colitis. Patient was given IV fluids, Toradol, and Zofran. The CBC was reviewed. White blood cell count was slightly low at 4.3. The remainder is within normal limits. Comprehensive metabolic profile was reviewed. Glucose was slightly elevated at 137. The remainder is within normal limits. Lipase was reviewed and was normal at 32. Serum hCG was reviewed and was negative. Urinalysis was reviewed. There is no evidence of urinary tract infection or hematuria. CT scan of the abdomen and pelvis was obtained. There is no evidence of bowel obstruction or perforation. There is diffuse inflammation of the colon consistent with pancolitis. This was interpreted by the radiologist and was also independently reviewed by myself. Patient was advised of her findings. Patient was instructed to eat a bland diet. Patient was given a dose of Augmentin here. Patient was given a prescription for Augmentin. Patient was instructed to follow-up with her primary care physician in 5 to 7 days. Patient was instructed to return if worse in any way. Patient understood and was agreeable with the plan. All questions were answered. Discharge Plan Triage Chief Complaint: Abd Pain ED Midlevel Provider: Allyson Mclean ED Provider: Migel Seymour Dx/Rx/DC Orders Clinical Impression: Colitis, Abdominal pain Instructions: Abdominal Pain, ED Understanding Colitis Prescriptions: New amoxicillin-pot clavulanate 875-125 mg tablet 1 tab PO BID Qty: 13 0RF dicyclomine 20 mg tablet 20 mg PO BID Qty: 15 0RF No Action ondansetron 4 mg tablet,disintegrating 4 mg PO Q6H PRN (Reason: nausea and vomiting) Qty: 20 0RF Primary Care Provider: Stan Lockett Referrals: Stan Lockett DO [Primary Care Provider] - 5-7 Days Activity Restrictions/Additional Instructions: Follow-up with your PCP and return for any worsening symptoms. Print Language: Mosotho Disposition Disposition: Home, Self Care
[2025-04-14 11:59] LABS: Mucous, Urine 0 SEEN /hpf (<or=2+); Red Blood Cells-Urine 0 SEEN /hpf (0-5)
[2025-04-14] MEDS: Ondansetron 4 MG/2 ML Vial IV (11:59)
[2025-04-14] MEDS: 0.9% Normal Saline (1000mL) 1,000 ML 999 ML IV (11:59)
[2025-04-14] MEDS: Ketorolac 15 MG/ML Vial IV (12:00)
[2025-04-14 12:05] LABS: Color, Urine Yellow (Yellow); Glucose, Dipstick Normal (Normal); Ketone-Dipstick Negative (Negative); Leukocyte Esterase-Dipstick 25 /ul (Negative); Nitrite-Dipstick Negative (Negative); Occult Blood-Urine Negative /ul (Negative); Protein-Dipstick 30 mg/dl (Negative); Specific Gravity, Urine 1.015 (1.002-1.030); Urine Bilirubin Dipstick Negative (Negative); Urine Clarity Sl. Cloudy (Clear); Urine Urobilinogen 1 mg/dl (Normal)
[2025-04-14 12:12] LABS: Bacteria 1+ /hpf (None Seen); Squamous Epithelial Cells - UA 0-5 SEEN /hpf (5-10); White Blood Cells 0-5 SEEN /hpf (0-5)
[2025-04-14 12:21] LABS: Absolute Lymphocyte Count 0.96 X10^3/uL (0.83-4.51); Absolute Neutrophil Count 2.7 X10^3/uL (2.0-7.7); Basophil# 0.04 X10^3/uL; Basophil% 0.9 % (0-1); Eosinophil# 0.16 X10^3/uL; Eosinophils% 3.8 % (0-5); Hematocrit 41.1 % (37-47); Hemoglobin 14.2 g/dL (12.0-15.0); Lymphocyte # 0.96 X10^3/ul (0.83-4.51); Lymphocyte % 22.5 % (19-41); Mean Corp Hgb Conc 34.5 g/dL (32-36); Mean Corpuscular Hgb 32.6 pg (27.0-32.0); Mean Corpuscular Volume 94.5 fL (81-99); Mean Platelet Vol. 10.2 fl (6.2-12.0); Monocyte# 0.41 X10^3/uL; Monocyte% 9.6 % (0-10); NRBC Flagged by Analyzer 0 % (0-5); Neutrophil # 2.68 X10^3/uL (2.7-7.7); Platelet Count 234 K/mm3 (150-450); Red Blood Count 4.35 M/mm3 (4.2-5.4); White Blood Count 4.3 K/mm3 (4.4-11.0)
[2025-04-14 12:24] LABS: Internal QC Validated? YES +Cl - CLEAR BKGD; Pregnancy, Serum, hCG Quali. NEGATIVE Negative
--- NOTE | 2025-04-14 12:30 | CT_ITS ---
PROCEDURE: ABDOMEN/PELVIS W IV CONT ONLY N/A REASON FOR EXAM: ABDOMINAL PAIN TECHNIQUE: Abdomen and pelvis CT with intravenous contrast. Coronal and Sagittal reconstruction series were provided. CONTRAST: 100 mL of Isovue 370 One or more dose reduction techniques were used (e.g., Automated exposure control, adjustment of the mA and/or kV according to patient size, use of iterative reconstruction technique. RADIATION DOSE SUMMARY: DLP: 1040 mGycm COMPARISON: None FINDINGS: Limited sections of the lung bases demonstrate no focal pulmonary mass. The liver, spleen, pancreas, both kidneys, and both adrenal glands demonstrate no acute findings. Hepatomegaly to 20.1 cm. Minimal hepatic steatosis. The gallbladder is unremarkable. The stomach is unremarkable. The aorta and IVC demonstrate no acute findings. There is no free air, free fluid or intestinal obstruction. The small bowel loops are not dilated. The appendix is normal. No bowel obstruction. The pelvic structures are intact. There is no solid pelvic mass. The urinary bladder wall inflammation and thickening may reflect cystitis; consider correlation with urinalysis. Visualized osseous structures demonstrate no acute abnormality. CT/Abdomen/Pelvis W IV Cont ONLY IMPRESSION: Diffuse colonic inflammation concerning for pancolitis. No bowel obstruction. Urinary bladder wall inflammation and thickening may reflect cystitis; consider correlation with urinalysis. Reading Location: [id number]
[2025-04-14 12:33] LABS: ALB/GLOB Ratio 1.8 RATIO (0.9-2.4); AST(SGOT) 21 U/L (<=31); Alanine Aminotransfer ALT/SGPT 30 U/L (<=34); Albumin, Serum 4.4 g/dL (3.5-5.0); Alkaline Phosphatase 72 U/L (35-104); Anion Gap 10 (5-15); BUN 11 mg/dL (4-19); BUN/Creat Ratio 13.9 RATIO (10-20); Calcium,Total 9.3 mg/dL (7.6-11.0); Carbon Dioxide 24.4 mmol/L (21.0-32.0); Chloride 105 mmol/L (98-108); Creatinine, Serum 0.81 mg/dL (0.70-1.20); EST Glomerular Filtration Rate 96 (>60); Estimated Creatinine Clearance 120.87 ml/min (50-250); Globulin 2.4 g/dL (2.2-4.2); Glucose 137 mg/dL (70-99); Lipase 32 U/L (13-75); Protein, Total 6.8 g/dL (5.9-8.4); Sodium Level 139 mmol/L (133-145); Total Bilirubin 0.68 mg/dL (0.00-1.30)
[2025-04-14 13:18] VITALS: BP 108/63; PULSE 87; RESP 18; O2SAT 99
[2025-04-14] MEDS: Amox/Clavulanate 875 MG Tablet PO (13:53)
[2025-04-14 13:55] VITALS: BP 108/63; PULSE 87; RESP 18; TEMP 36.7; O2SAT 99
== END 2025-04-14 13:56 | disposition home or self-care (01) ==
PROVIDERS: Physician Assistant; Emergency Provider Emergency Medicine; PCP Family Medicine; Visit Provider Emergency Medicine
DX: K52.9 Noninfective gastroenteritis and colitis, unspecified (principal); Z87.891 Personal history of nicotine dependence; Z86.711 Personal history of pulmonary embolism; Z86.16 Personal history of COVID-19; Z86.718 Personal history of other venous thrombosis and embolism
CPT/HCPCS: 74177; 80053; 81001; 83690; 84703; 85025; 96361; 96374; 96375; 96376; 99282; Q9967; A4216; J2405

== ENCOUNTER → 2025-04-23 | Outpatient (CLI) | payer MEDICAID, SELFPAY ==
[2025-04-23 11:19] LABS: CORTISOL AM 0.51 ug/dL (6.02-18.40)
== END | disposition home or self-care (01) ==
LOC: MTLAB 07:55
PROVIDERS: PCP Family Medicine; Referring Provider Family Medicine; Visit Provider Family Medicine
DX: R63.5 Abnormal weight gain (principal)
CPT/HCPCS: 36415; 82533